=== PATIENT | female | born 1955 | race Caucasian/White ===

== ENCOUNTER 2024-03-27 10:55 | Outpatient (OUT) | payer MEDICARE, SELFPAY ==
--- NOTE | 2024-03-27 10:58 | MM_ITS ---
Patient Name: DOMINGA BENNETT MR#: [id number] : 1955 Exam Date: 03/27/2024 Ordering Doctor: DR Stephen Gunter . RADIOLOGY REPORT PROCEDURE: MM TOMOSYNTHESIS SCREENING BI COMPARISON: MG MAMM SCREEN 3D [place] CAD, 03/04/2023. MG MAMM SCREEN 3D [place] CAD, 01/22/2021. MG MAMM SCREEN [place] W CAD, 10/22/2017. MG MAMM [place] SCRN W CAD DIG, 10/11/2014. INDICATIONS: Screening Calculator Name NCI Breast Cancer Risk Assessment Tool 5 Year Breast Cancer Risk 1.90% Lifetime Breast Cancer Risk 6.20% Personal Breast Cancer No Personal Ovarian Cancer No Treatments None Family Cancers Cousin-maternal with breast cancer at age ~60. LOCATION: [facility] BREAST COMPOSITION: The breasts are heterogeneously dense,which may obscure small masses. FINDINGS: DIAGNOSTIC CATEGORY 1--NEGATIVE. RIGHT BREAST: No significant suspicious finding. No significant change has occurred. LEFT BREAST: No significant suspicious finding. No significant change has occurred. RECOMMENDATIONS: ROUTINE MAMMOGRAM AND CLINICAL EVALUATION IN 12 MONTHS. PLEASE NOTE: A NORMAL MAMMOGRAM DOES NOT EXCLUDE THE POSSIBILITY OF BREAST CANCER. A CLINICALLY SUSPICIOUS PALPABLE LUMP SHOULD BE BIOPSIED. Dictated by: Levon Oneil M.D. on 03/30/2024 at 13:34 Approved by: Levon Oneil M.D. on 03/30/2024 at 13:41
== END 2024-03-27 10:56 | disposition home or self-care (01) ==
LOC: MAMMO 10:55
PROVIDERS: PCP Nurse Practitioner; Visit Provider Obstetrics & Gynecology
DX: Z12.31 Encounter for screening mammogram for malignant neoplasm of breast (principal); Z80.3 Family history of malignant neoplasm of breast
CPT/HCPCS: 77063; 77067

== ENCOUNTER 2024-04-03 09:55 | Outpatient (OUT) | payer MEDICARE, SELFPAY ==
--- NOTE | 2024-04-03 10:01 | CT_ITS ---
[address] [address] Patient Name: DOMINGA BENNETT MRN: [id number] date: 1955 Sex: F Assigned Patient Location: CT Current Patient Location: Accession/Order Number: [id number] Exam Date: 04/03/2024 10:15 Report Date: 04/04/2024 07:40 At the request of: DELMA ROMERO Procedure: CT lung screening low-dose EXAMINATION: CT lung screening low-dose HISTORY: Screening For Malignant Respiratory Organs Z12.2 COMPARISON: No relevant comparison available. TECHNIQUE: Axial, Coronal, and Sagittal images were created without the administration of IV contrast material.Dose reduction techniques were achieved by using automated exposure control and/or adjustment of mA and/or kV according to patient size and/or use of iterative reconstruction technique. FINDINGS: LUNGS: Some minimal patchy opacities identified in the segment of the right middle lobe and within the lingula, atelectasis and/or scar is favored. No significant pulmonary nodule or mass PLEURA: No mass, effusion, or pneumothorax. VASCULATURE: No abnormality. JAN: No mass or pathologic adenopathy. MEDIASTINUM: No mass or pathologic adenopathy. CARDIAC: Mild global cardiomegaly. No pericardial effusion CORONARY ARTERIES: Coronary calcifications are mild. AORTA: No aneurysm. Mild calcific atherosclerosis CHEST WALL: No mass or axillary adenopathy BONES: No bone lesion or fracture. LIMITED ABDOMEN: No suspicious findings. Limited images of the upper abdomen. OTHER: Negative. CT/CT lung screening low-dose IMPRESSION: LUNG SCREENING: Lung-RADS Category 1 Negative. No nodules and definitely benign nodules. Continue annual screening with LDCT in 12 months. Electronically authenticated by: ERICK HUFFMAN Date: 04/04/2024 07:40
--- OUTSIDE RECORDS SUMMARY | 2024-04-03 10:14 | XMS_ITS | CCD ---
Author Organization [facility] Care Team Providers Care Mails Supervisor Name Role Phone ZULEMA CURRY Unavailable Unavailable TISHA WEEKS Unavailable Unavailable MD Tisha Weeks Primary Care Provider [phone] MD Tisha Weeks Attending Provider MD Tisha Weeks Primary Care Provider DO [facility] MAHIN ., DR VALDEZ Admitting Unavailabl e KARARSALANK ., DR VALDEZ Attending Unavailabl e AMBERLY ., DR TISHA Posada Primary Care Unavailable KARASIK ., DR VALDEZ Consulting Unavailabl e KARARSALANK ., DR VALDEZ Admitting Unavailabl e KARARSALANK ., DR VALDEZ Attending Unavailabl e AMBERLY ., DR TISHA Posada Primary Care Unavailable KARASIK ., DR VALDEZ Consulting Unavailabl e LEVON ONEIL Consulting Unavailable [id number] Consulting Unavailable Emma, Lourdes L Primary Care Physician Emma, LAST TURNER Lourdes L Attending Unavailable Emma, LAST TURNER Lourdes L Attending Unavailable Emma, LAST TURNER Lourdes L Attending Unavailable Emma, LAST TURNER Lourdes L Attending Unavailable Emma, LAST TURNER Lourdes L Attending Unavailable Emma, LAST TURNER Lourdes L Attending Unavailable Emma, LAST TURNER Lourdes L Attending Unavailable Emma, LAST TURNER Lourdes L Admitting Unavailable Allergies Allergy Classification Reported Allergen(s) Allergy Type Date of Onset Reaction(s) Facility Unclassified (1 source) No Known Medication Allergies; Translations: [No Known Medication Allergies] Propensity to adverse reactions (disorder) [facility] Repository Medications Current Medications Medication Drug Class(es) Dates Sig (Normalized) Sig (Original) aspirin 81 mg oral tablet (2 sources) Platelet Aggregation Inhibitor, Nonsteroidal Anti-inflammatory Drug Start: 05-11-2019 take 81 mg by mouth once daily Aspirin Active 81 MG PO Daily June 03, 2022 12:00am atorvastatin 10 mg oral tablet (2 sources) HMG-CoA Reductase Inhibitor Start: 04-23-2023 take 1 tablet by mouth once daily atorvastatin 10 mg Tab 10 mg = 1 tab(s), Oral, Daily, # 90 tab(s), Refills(s) 3, [id number] 170.5, cm, 04/23/23 9:46:00 EDT, Height/Length Dosing, 86.2, kg, 04/23/23 9:46:00 EDT, Weight Dosing Start Date: 04/23/23 Status: Ordered Start: 06-03-2022 take 10 mg by mouth once daily Atorvastatin Active 10 MG PO Daily June 03, 2022 12:00am bisoprolol fumarate 5 mg / hydroCHLOROthiazide 6.25 mg oral tablet (2 sources) Thiazide Diuretic, beta-Adrenergic Rusty Start: 03-02-2023 take 1 tablet by mouth once daily bisoprolol-hydrochlorothiazide 5 mg-6.25 mg Tab 1 tab(s), Oral, Daily, 90 tab(s), Refill(s) 1, [facility]/pharmacy #[id number] Start Date: 03/02/23 Status: Ordered Start: 06-03-2022 take 5 tablets by mouth once daily Bisoprolol-Hydrochlorothiazide Active 5 TAB PO Daily June 03, 2022 12:00am cholecalciferol 0.125 mg oral capsule (1 source) Vitamin D Start: 06-03-2022 take 125 ug by mouth once daily Cholecalciferol (Vitamin D3) Active 125 MCG PO Daily June 03, 2022 12:00am High Potency Vitamin D3 125 mcg (5000 intl units) oral capsule (1 source) Start: 04-23-2023 take 1 capsule by mouth once daily High Potency Vitamin D3 125 mcg (5000 intl units) oral capsule 125 mcg = 1 cap(s), Oral, Daily, # 90 cap(s), Refills(s) 3, Pharmacy: [facility]/pharmacy #[id number], 170.5, cm, 04/23/23 9:46:00 EDT, Height/Length Dosing, 86.2, kg, 04/23/23 9:46:00 EDT, Weight Dosing Start Date: 04/23/23 Status: Ordered levothyroxine sodium 0.1 mg oral tablet (2 sources) l-Thyroxine Start: 06-03-2022 take 100 ug by mouth once daily Levothyroxine Active 100 MCG PO Daily June 03, 2022 12:00am Start: 05-11-2019 take 1 tablet by telly once daily levothyroxine 100 mcg (0.1 mg) Tab 100 microgram = 1 tab(s), Oral, Daily, Refills(s) 0, Thyroid Start Date: 05/11/19 Status: Ordered Ocuvite Eye + Multi (1 source) Start: 05-11-2019 take 1 tablet by mouth once daily Ocuvite Eye + Multi 1 tab(s), Oral, Daily, Refill(s) 0, Prophylaxis Start Date: 05/11/19 Status: Ordered phenytoin sodium 100 mg extended release oral capsule (2 sources) Anti-epileptic Agent Start: 06-03-2022 take 100 mg by mouth once daily Phenytoin Sodium Extended Active 100 MG PO Daily June 03, 2022 12:00am Start: 05-11-2019 take 1 capsule by mo [facility] three times daily Dilantin 100 mg Cap-ER 100 mg = 1 cap(s), Oral, TID, Refills(s) 0, Seizure Start Date: 05/11/19 Status: Ordered Completed/Discontinued Medications Medication Drug Class(es) Dates Sig (Normalized) Sig (Original) alendronic acid 35 mg oral tablet (1 source) Bisphosphonate Start: 04-23-2023 take 6-8 [oz_av] by mouth once daily alendronate 35 mg Tab 35 mg = 1 tab(s), Oral, q7day, with 6-8 oz plain water, at least 30 minutes before first food, beverage, or medication of the day, # 4 tab(s), Refills(s) 0 Start Date: 04/23/23 Status: Ordered Problems Active Problems Problem Classification Problem Date Documented Date Episodic/Chronic Disorders of lipid metabolism (1 source) Hypercholesterolemia 04-23-2023 Chronic Epilepsy; convulsions (1 source) Seizure 05-11-2019 Episodic Hemorrhoids (1 source) Internal hemorrhoids; Translations: [Other hemorrhoids] 06-03-2022 Episodic Other bone disease and musculoskeletal deformities (1 source) Other specified disorders of bone density and structure, unspecified site; Translations: [OTH D/O BONE DEN STRUCT UNS SITE] Onset: 03-07-20 Episodic Other screening for suspected conditions (not mental disorders or infectious disease) (5 sources) Encounter for screening mammogram for malignant neoplasm of breast; Translations: [Encounter for screening for malignant neoplasm of cervix] Onset: 09-30-20 Episodic Phlebitis; thrombophlebitis and thromboembolism (1 source) Acute deep venous thrombosis of axillary vein 05-10-2019 Episodic Pneumonia (except that caused by tuberculosis or sexually transmitted disease) (1 source) Pneumonia 05-11-2019 Episodic Residual codes; unclassified (4 sources) Asymptomatic menopausal state; Translations: [ASYMPTOMATIC MENOPAUSAL STATE] Onset: 03-04-20 Episodic Residual codes; unclassified (1 source) Family history of malignant neoplasm of breast; Translations: [FAMILY HX MALIG NEOPLASM OF BREAST] Onset: 03-07-20 Episodic Sprains and strains (1 source) Strain of muscle, fascia and tendon of lower back, initial encounter; Translations: [Strain of muscle, fascia and tendon of lower back, initial encounter] Onset: 05-07-20 18 Episodic Thyroid disorders (1 source) Hypothyroidism 05-10-2019 Chronic Past or Other Problems Problem Classification Problem Date Documented Date Episodic/Chronic Immunizations and screening for infectious disease (1 source) Encounter for screening for human papillomavirus (HPV); Translations: [ENC SCREENING HUMAN PAPILLOMAVIRUS] Onset: 10-03-2022 Episodic Results Test Name Value Interpretation Reference Range Facility Ambulatory Visit Summaryon 0 03-30-2024 Ambulatory Visit Summary VENITA BENNETT Vance :1955 Visit Date:03/30/2024 Ambulatory Visit Instructions Your Diagnosis Wellness examination Hypercholesteremia Hypothyroidism Seizures BMI 30.0-30.9,adult Non-smoker Your Care Team Attending Physician - Lourdes Fan Primary Care Physician - Lourdes Fan This Is Your Medications List alendronate (alendronate 35 mg Tab) aspirin (aspirin 81 mg oral tablet) atorvastatin (atorvastatin 10 mg Tab) bisoprolol-hydrochlor othiazide (bisoprolol-hydrochlo rothiazide 5 mg-6.25 mg Tab) cholecalciferol (High Potency Vitamin D3 125 mcg (5000 intl units) oral capsule) levothyroxine (levothyroxine 100 mcg (0.1 mg) Tab) phenytoin (Dilantin 100 mg Cap-ER) Procedures Performed Colonoscopy (05/24/2019), Colonoscopy, Tonsillectomy. Discharge Vitals Heart Rate (Peripheral) 62 Respiratory Rate 18 Blood Pressure 124/84 Height 169.0 cm Height 67 in Weight 86.6 kg Weight 190.52 lb BMI 30.32 What to do next Scheduled Follow-Up Appointments Wednesday 11:00 AM EDT Where: [facility] Lisseth Normal [facility] Family Medicine Office/Clini c Noteon 03-30-2024 Family Medicine Office/Clinic Note HPI Staff Venita is a 68 year old female presenting Patient is here for follow up on Thyroid Disease. Do you have any of the following symptoms? Change in energy level? no Weight change? no Heat/cold intolerance? no Hair/skin/nail changes? no Change in bowels? no Last TSH: TSH: 1.17 mcIU/mL (04/23/23 17:32:00) Patient is here for follow up on hypertension. How often are you checking your blood pressure? no What are your average readings? _ Seizures: Pt is on Dilantin last level drawn on 04/23/23 10.0 Pt has labs appointment 04/25/24 pt needs refills on all medications. History of Present Illness pt presents today for wellness visit. needs refills. will have labs drawn in April Review of Systems PHQ Score Initial Depression Screen Score: 0 SCORE Physical Exam Vitals & Measurements HR: 62(Peripheral) RR: 18 BP: 124/84 SpO2: 95% HT: 67 in HT: 169.0 cm WT: 86.6 kg WT: 190.52 lb BMI: 30.32 General: alert, no acute distress ENMT: oral mucosa moist, no pharyngeal erythema or exudate Cardiovascular: regular rate and rhythm, normal peripheral perfusion Respiratory: Lungs CTA, respirations non labored Extremities: no deformity, no trauma Neurological: oriented x 4, LOC appropriate for age, CN II-XII intact, motor strength equal & normal bilaterally, speech normal Assessment/Plan 1. Wellness examination (Z00.00: Encounter for general adult medical examination without abnormal findings) pt presents today for wellness visit. only complaint today is varicose veins on feet. will call vein clinic for further evaluation. RTC 1 year Ordered: Phenytoin Level Total 2. Hypercholesteremia (E78.00: Pure hypercholesterolemia, unspecified) lipid panel ordered. meds refilled Ordered: cholecalciferol, 125 mcg = 1 cap(s), Oral, Daily, X 90 day(s), # 90 cap(s), Refills(s) 3, Pharmacy: [facility]/pharmacy #[id number], 169, cm, 03/30/24 11:31:00 EDT, Height/Length Dosing, 86.6, kg, 03/30/24 11:31:00 EDT, Weight Dosing cholecalciferol, 125 mcg = 1 cap(s), Oral, Daily, # 90 cap(s), Refills(s) 3, Pharmacy: [facility]/pharmacy #[id number], 170.5, cm, 04/23/23 9:46:00 EDT, Height/Length Dosing, 86.2, kg, 04/23/23 9:46:00 EDT, Weight Dosing Phenytoin Level Total 3. Hypothyroidism (E03.9: Hypothyroidism, unspecified) meds refilled. labs ordered will do after April 23 Ordered: cholecalciferol, 125 mcg = 1 cap(s), Oral, Daily, X 90 day(s), # 90 cap(s), Refills(s) 3, [id number] 169, cm, 03/30/24 11:31:00 EDT, Height/Length Dosing, 86.6, kg, 03/30/24 11:31:00 EDT, Weight Dosing cholecalciferol, 125 mcg = 1 cap(s), Oral, Daily, # 90 cap(s), Refills(s) 3, [id number], 170.5, cm, 04/23/23 9:46:00 EDT, Height/Length Dosing, 86.2, kg, 04/23/23 9:46:00 EDT, Weight Dosing Phenytoin Level Total 4. Seizures (R56.9: Unspecified convulsions) meds refilled. labs ordered Ordered: cholecalciferol, 125 mcg = 1 cap(s), Oral, Daily, X 90 day(s), # 90 cap(s), Refills(s) 3, Pharmacy: [facility]/pharmacy #[id number], 169, cm, 03/30/24 11:31:00 EDT, Height/Length Dosing, 86.6, kg, 03/30/24 11:31:00 EDT, Weight Dosing cholecalciferol, 125 mcg = 1 cap(s), Oral, Daily, # 90 cap(s), Refills(s) 3, [id number], 170.5, cm, 04/23/23 9:46:00 EDT, Height/Length Dosing, 86.2, kg, 04/23/23 9:46:00 EDT, Weight Dosing Phenytoin Level Total 5. BMI 30.0-30.9,adult (Z68.30: Body mass index [BMI] 30.0-30.9, adult) BMI education 6. Non-smoker (Z78.9: Other specified health status) continue not smoking Ordered: cholecalciferol, 125 mcg = 1 cap(s), Oral, Daily, X 90 day(s), # 90 cap(s), Refills(s) 3, [id number], 169, cm, 03/30/24 11:31:00 EDT, Height/Length Dosing, 86.6, kg, 03/30/24 11:31:00 EDT, Weight Dosing cholecalciferol, 125 mcg = 1 cap(s), Oral, Daily, # 90 cap(s), Refills(s) 3, [id number], 170.5, cm, 04/23/23 9:46:00 EDT, Height/Length Dosing, 86.2, kg, 04/23/23 9:46:00 EDT, Weight Dosing Orders: alendronate, 35 mg = 1 tab(s), Oral, q7day, with 6-8 oz plain water, at least 30 minutes before first food, beverage, or medication of the day, # 13 tab(s), Refills(s) 0, [id number], 170.5, cm, 11/22/23 11:48:00 EST, Height/Length Dosing, 87.2, k... alendronate, 35 mg = 1 tab(s), Oral, q7day, with 6-8 oz plain water, at least 30 minutes before first food, beverage, or medication of the day, X 90 day(s), # 13 tab(s), Refills(s) 3, Pharmacy: [facility]/pharmacy #[id number], 169, cm, 03/30/24 11:31:00 EDT, Height/Length Dosi... atorvastatin, 10 mg = 1 tab(s), Oral, Daily, X 90 day(s), # 90 tab(s), Refills(s) 3, [id number], 169, cm, 03/30/24 11:31:00 EDT, Height/Length Dosing, 86.6, kg, 03/30/24 11:31:00 EDT, Weight Dosing atorvastatin, 10 mg = 1 tab(s), Oral, Daily, # 90 tab(s), Refills(s) 3, [id number], 170.5, cm, 04/23/23 9:46:00 EDT, Height/Length Dosing, 86.2, kg, 04/23/23 9:46:00 EDT, Weight Dosing bisoprolol-hydrochlor othiazide, 1 tab(s), Oral, Daily for 90 (more content not included)... [facility] Comment on above: Result Comment: Elec tronically Signed By: Lourdes Fan\.br\Date and Time Signed: 03/30/24 12:52 EDT Living Will/POAon 03-30-2024 Living Will/POA [id number] .00TIFF [facility] Outside Mammographyon 2023 Outside Mammography [id number] .00TIFF [facility] Family Medicine Office/Clini c Noteon 03-29-2024 Family Medicine Office/Clinic Note Chief Complaint Medicare Wellness Visit Review of Systems PHQ Score Initial Depression Screen Score: 0 SCORE Physical Exam Vitals & Measurements HR: 54(Peripheral) RR: 16 BP: 122/82 SpO2: 95% HT: 169 cm HT: 67 in WT: 86 kg WT: 189.2 lb BMI: 30.11 Assessment/Plan 1. Annual visit for general adult medical examination without abnormal findings (Z00.00: Encounter for general adult medical examination without abnormal findings) The patient was given a customized and personalized print out of all the current AHRQ USPSTF?s recommendations for preventative services and all current CDC recommended immunizations, relevant risk recommendations and the following patient brochures were given. Reviewed Medicare Prevention Services checklist. CDC-Falls Prevention and home safety screening reviewed. Patient denies any falls in last 12 months, voices no worry about falling. Exhibits no problems with sitting, standing or ambulation. Patient aware with keeping walk way area free of clutter to prevent tripping and/or falling. [place] Advance Directives reviewed. Documents remain at home, encouraged to bring in for scanning into chart. Patient denies any problems with ADL?s and Instrumental ADL?s. Cognitive screening completed with memory and clock face drawing. No deficits noted. Immunization record reviewed, discussed Shingrix vaccine with educational handout and availability. COVID vaccines have been administered, with Boosters received. Allergies and medications reviewed and up to date. No concerns with taking medication as prescribed. Reviewed OTC medications, medication list up to date. Blood tests were reviewed: Discussed what tests need to be updated. Labs were ordered, will have completed at next PCP visit. No concerns with bowel/ bladder. Colonoscopy last completed: 05/24/2019 with a 10 year repeat recommended. Reviewed pain symptoms : denies pain. Reviewed all outside providers that patient follows. Last visit summary notes available in chart and/or have been requested. Patient declines any signs or symptoms of depression at this time. 8 minutes spent with screening and documentation. PHQ2 screening score 0. Patient denies alcohol use, denies concerns. 8 minutes spent with screening and documentation. Audit score 0. Follow up scheduled with PCP, patient to schedule for April 2024. AWV has been scheduled, 03/27/25. Medicare provides yearly screening for alcohol and depression concerns. This is completed during our Medicare wellness visit for those who do not have a current diagnosis of depression or concerns with alcohol use. I spent a total of 16 minutes on this date of service which included preparing to see the patient, face to face patient care, completing clinical documentation, obtaining and/or reviewing separately obtained history, counseling and educating the patient with handouts. Explanations were provided with reviewing questionnaires. AUDIT risk assessment screening completed, risk score (0) with patient denying concerns with use. Completed PHQ-2 risk assessment for depression with risk score (0), negative findings. Patient has been reminded to notify the provider if there would be a change or concerns with symptoms with fear, unable to sleep, worrying too much or feeling down and/or sad with lost of interest with daily activities. Will continue to monitor with screening yearly during Medicare wellness visits. 2. Acute axillary vein thrombosis (I82.A19: Acute embolism and thrombosis of unspecified axillary vein) Patient denies arm pain, bulging arm veins, heaviness/ fatigue in arms. Taking a baby Aspirin daily. Labs monitored with office visits. Follow up with PCP. 3. Seizures (R56.9: Unspecified convulsions) Patient takes Dilantin as directed, states effective, states she has not had a seizure in the past year. Labs and medications managed with office visits. Dilantin Level ordered to be completed at next Office Visit. Follow with PCP on results. 4. Hypercholesteremia (E78.00: Pure hypercholesterolemia, unspecified) Patient encouraged to eat a diet that is low in saturated fats. Stressed importance of losing weight as being overweight does produce more lipids. Monitor alcohol intake and avoid smoking. Risks may also increase with a family history of hyperlipidemia. Patient voices understanding with healthy dietary choices to reduce risk factors associated with CVA. Taking statin medication daily. Lipid Panel ordered to be completed at next office visit. 5. Hypothyroidism (E03.9: Hypothyroidism, unspecified) Continues taking Levothyroxine daily as ordered. Denies any sensitivity to cold, extreme hair loss or increased daytime fatigue. Labs and medications followed up with PCP as needed 6. Obesity due to excess calories (E66.09: Other obesity due to excess calories) A combination of diet and exercise can help you lose weight. Discussed weight loss benefits to dietary management and overall health with increased cardiovascular risks associate (more content not included)... Normal [facility] Comment on above: Result Comment: Elec tronically Signed By: Lourdes Fan\.br\Date and Time Signed: 03/29/24 08:12 EDT\.br\Electronically Co-Signed By: Jacklyn Luke LPN\.br\Date and Time Co-Signed: 03/28/24 13:06 EDT Historical Records Officeon 03-29-2024 Historical Records Office [id number] .00TIFF Normal [facility] Ambulatory Visit Summaryon 0 03-28-2024 Ambulatory Visit Summary VENITA BENNETT :1955 Visit Date:03/28/2024 Ambulatory Visit Instructions Your Diagnosis Annual visit for general adult medical examination without abnormal findings Acute axillary vein thrombosis Seizures Hypercholesteremia Hypothyroidism Obesity due to excess calories Ex-cigarette smoker Screening for lung cancer Screening for metabolic disorder Medication management Encounter for hepatitis C screening test for low risk patient Tests Performed CT Chest, Low Dose Screening -- Results Pending -- Please visit your patient portal for your results or contact your primary care physician. Your Care Team Attending Physician - Lourdes Fan Primary Care Physician - Lourdes Fan This Is Your Medications List alendronate (alendronate 35 mg Tab) aspirin (aspirin 81 mg oral tablet) atorvastatin (atorvastatin 10 mg Tab) bisoprolol-hydrochlor othiazide (bisoprolol-hydrochlo rothiazide 5 mg-6.25 mg Tab) cholecalciferol (High Potency Vitamin D3 125 mcg (5000 intl units) oral capsule) levothyroxine (levothyroxine 100 mcg (0.1 mg) Tab) phenytoin (Dilantin 100 mg Cap-ER) Procedures Performed Colonoscopy (05/24/2019), Colonoscopy, Tonsillectomy. Discharge Vitals Heart Rate (Peripheral) 54 Respiratory Rate 16 Blood Pressure 122/82 Height 169 cm Height 67 in Weight 86 kg Weight 189.2 lb BMI 30.11 What to do next Scheduled Follow-Up Appointments 2023 11:20 AM EDT With: Lourdes Fan Where: [facility] Invalid Interpretation Code [address] [place] [address]- \.br\ You Need to Complete the Following\.br\ CBC w/ Auto Diff, Blood, Routine collect, 04/24/24, Order for future visit, Lab Collect, Annual visit for general adult medical examination without abnormal findings [facility] Patient Educationon 03-28-20 Patient Education Infectious Disease Hepatitis C Testing Why am I having this test? Hepatitis C testing is done to check for a liver infection caused by the hepatitis C virus (HCV). A person may have one or more hepatitis C tests done to: ? Help the health care provider diagnose HCV infection. This is if a person has possible signs of infection or has been exposed to HCV. ? Find the cause of long-term (chronic) liver disease or abnormal liver function test results. ? See if a person has had hepatitis C in the past. Hepatitis C is usually diagnosed with three blood tests: ? Anti-HCV test, also called the HCV antibody test. ? HCV RNA test. ? HCV genotype test. If a person is diagnosed with a current (active) HCV infection, he or she may have another test done to help monitor the condition during treatment. This test is called the quantitative HCV RNA test. What is being tested? Each HCV test measures the amounts of different substances in your blood. ? The anti-HCV test checks for proteins that your body makes to fight HCV (antibodies). If you have antibodies to HCV, it means you have been infected with hepatitis C. It does not necessarily mean that you have an active infection. ? The HCV RNA test checks for genetic material from HCV. This test is done if your HCV antibody test is positive and your health care provider wants to find out if you have an active infection. ? The HCV genotype test. This test identifies the type (genotype) of virus you have. ? The quantitative HCV RNA test measures the amount of virus in your blood (viral load). What kind of sample is taken? A blood sample is required for HCV tests. It is usually collected by inserting a needle into a vein in the arm. How are the results reported? ? Anti-HCV test results are reported as either positive or negative for HCV antibodies. ? HCV RNA test results are reported as either positive or negative for HCV genetic material. ? HCV genotype test results are reported as which genotype of the virus you have. Genotypes are numbered 1 through 6. ? Quantitative HCV RNA test results are reported as a number that indicates your viral load. This is given as international units of virus per milliliter of blood (IU/mL). ? A result of 800,000 IU/mL or greater is considered a high viral load. ? A result of less than 800,000 IU/mL is considered a low viral load. Sometimes, results from the anti-HCV test or the HCV RNA test may report that: ? HCV antibodies or genetic material are present when they are not present (false-positive result). ? HCV antibodies or genetic material are not present when they are present (false-negative result). What do the results mean? For the anti-HCV test: ? A negative result may mean that you have not been infected with HCV. You may need to have this test done again to confirm this result. ? A positive result may mean that you have an active HCV infection, or that you have been infected with HCV in the past. An HCV infection may not cause any symptoms, and your body may get rid of the virus without treatment. For the HCV RNA test: ? A negative result means that you do not have an active HCV infection. ? A positive result means that you have an active HCV infection. For the HCV genotype test, knowing the specific genotype you have will help your health care provider recommend the treatment that will work best for you. The quantitative HCV RNA test gives your health care provider an idea of how well your treatment is working. ? If your viral load is high, you may need different treatment. ? If your viral load is low, your treatment may be working effectively. ? You may have this test repeated to continue to monitor your treatment. Talk with your health care provider about what your results mean. Questions to ask your health care provider Ask your health care provider, or the department that is doing the test: ? When will my results be ready? ? How will I get my results? ? What are my treatment options? ? What other tests do I need? ? What are my next steps? Summary ? Hepatitis C testing is done to check for a liver infection caused by the hepatitis C virus (HCV). ? Hepatitis C is usually diagnosed with three blood tests and monitored with one test. ? A blood sample is required for these tests. It is usually collected by inserting a needle into a vein in the arm. ? Your test results for both the anti-HCV test and the HCV RNA test will be reported as either positive or negative. This information is not intended to replace advice given to you by your health care provider. Make sure you discuss any questions you have with your health care provider. Document Revised: 08/28/2021 Document Reviewed: 08/28/2021 [employer] Patient Education ? 2022 [employer] Nutrition Fat and Cholesterol Restricted Eating Plan Eating a diet that limits fat and cholesterol may help lower your risk for heart disease and other c (more content not included)... Normal [facility] Screenson 03-28-2024 Screens [id number]. [id number] Normal [facility] Ambulatory Visit Summaryon 0 11-22-2023 Ambulatory Visit Summary VENITA BENNETT :1955 Visit Date:11/22/2023 Ambulatory Visit Instructions Your Diagnosis BMI 30.0-30.9,adult Former smoker Your Care Team Attending Physician - Lourdes Fan Primary Care Physician - Lourdes Fan This Is Your Medications List alendronate (alendronate 35 mg Tab) aspirin (aspirin 81 mg oral tablet) atorvastatin (atorvastatin 10 mg Tab) bisoprolol-hydrochlor othiazide (bisoprolol-hydrochlo rothiazide 5 mg-6.25 mg Tab) cholecalciferol (High Potency Vitamin D3 125 mcg (5000 intl units) oral capsule) levothyroxine (levothyroxine 100 mcg (0.1 mg) Tab) phenytoin (Dilantin 100 mg Cap-ER) Procedures Performed Colonoscopy (05/24/2019), Colonoscopy, Tonsillectomy. Discharge Vitals Temperature (Tympanic) 36.7 ?C Heart Rate (Peripheral) 70 Respiratory Rate 18 Blood Pressure 120/76 Height 170.5 cm Height 67 in Weight 87.2 kg Weight 191.84 lb BMI 30 Medications What How Much When Why Instructions Unchanged alendronate (alendronate 35 mg Tab) 1 Tablets By Mouth Every 7 days with 6-8 oz plain water, at least 30 minutes before first food, beverage, or medication of the day Unchanged aspirin (aspirin 81 mg oral tablet) 1 Tablets By Mouth Every day Unchanged atorvastatin (atorvastatin 10 mg Tab) 1 Tablets By Mouth Every day Unchanged bisoprolol-hydrochlor othiazide (bisoprolol-hydrochlo rothiazide 5 mg-6.25 mg Tab) 1 Tablets By Mouth Every day Unchanged cholecalciferol (High Potency Vitamin D3 125 mcg (5000 intl units) oral capsule) 1 Capsules By Mouth Every day BMI 29.0-29.9,adult Non-smoker Seizures Hypothyroidism Hypercholesteremia Unchanged levothyroxine (levothyroxine 100 mcg (0.1 mg) Tab) 1 Tablets By Mouth Every day Unchanged phenytoin (Dilantin 100 mg Cap-ER) 1 Capsules By Mouth 3 times a day Allergies No Known Medication Allergies Problems Ongoing - Any problem that you are currently receiving treatment for. Acute axillary vein thrombosis Hypercholesteremia Hypothyroidism Seizures Historical - Any problem that you are no longer receiving treatment for. Pneumonia Patient Survey You may receive a survey via text or e-mail asking about your office visit. Please share your experience with us by completing your survey. We appreciate your feedback and thank you for choosing us for your care. Normal [facility] Medicine Office/Clini c Noteon 11-22-2023 Family Medicine Office/Clinic Note HPI Staff Venita is a 68 year old female presenting for acute visit Respiratory C/O: Onset: 6 days ago Body aches: no Chest congestion: no having hard time taking deep breath Chills: no Cough: yes Sputum production: yes clear started today Sore throat: yes Ear complaints: no Eye itching/watering: no Fever: no Headache: yes Nasal congestion: yes Nasal discharge: yes Poor appetite: yes Reduced activity: yes Sinus pain/pressure: no last week did have it on the right side has improved since Sneezing: no Wheezing: no Ill contacts: no Remedies tried: aspirin Questions/Concerns: pt states cough is getting worse History of Present Illness pt presents today with URI symptoms with worsening cough Review of Systems PHQ Score Initial Depression Screen Score: 0 SCORE ROS - Provider Constitutional: no fever, no chills, no sweats, no fatigue Respiratory: no shortness of breath, no cough, no orthopnea, no wheezing. Cardiovascular: no chest pain, no palpitations, no edema. Neurologic: no headache, no dizziness, no numbness, no weakness. Physical Exam Vitals & Measurements T: 36.7 ?C(Tympanic) HR: 70(Peripheral) RR: 18 BP: 120/76 SpO2: 99% HT: 67 in HT: 170.5 cm WT: 87.2 kg WT: 191.84 lb BMI: 30 General: alert, no acute distress ENMT: oral mucosa moist, no pharyngeal erythema or exudate Cardiovascular: regular rate and rhythm, normal peripheral perfusion Respiratory: Lungs CTA, respirations non labored Extremities: no deformity, no trauma Neurological: oriented x 4, LOC appropriate for age, CN II-XII intact, motor strength equal & normal bilaterally, speech normal Assessment/Plan 1. Acute bacterial bronchitis (J20.8: Acute bronchitis due to other specified organisms) pt presents with worsening cough. no fever or body aches. will treat with z mihir and tessalon pearls. pt does not want medrol dose pack. says she doesn't like the way they make her feel. RTC as needed Ordered: azithromycin, = 1 packet(s), Oral, As Directed, as directed on package labeling, X 5 day(s), # 6 tab(s), Refills(s) 0, [id number] 170.5, cm, 11/22/23 11:48:00 EST, Height/Length Dosing, 87.2, kg, 11/22/23 11:48:00 EST, Weight Dosing benzonatate, 200 mg = 1 cap(s), Oral, TID, X 7 day(s), # 21 cap(s), Refills(s) 0, [id number], 170.5, cm, 11/22/23 11:48:00 EST, Height/Length Dosing, 87.2, kg, 11/22/23 11:48:00 EST, Weight Dosing 2. Cough (R05.9: Cough, unspecified) pt presents today with cough that is worsening. is not sleeping at night because cough is so bad Ordered: azithromycin, = 1 packet(s), Oral, As Directed, as directed on package labeling, X 5 day(s), # 6 tab(s), Refills(s) 0, [id number], 170.5, cm, 11/22/23 11:48:00 EST, Height/Length Dosing, 87.2, kg, 11/22/23 11:48:00 EST, Weight Dosing benzonatate, 200 mg = 1 cap(s), Oral, TID, X 7 day(s), # 21 cap(s), Refills(s) 0, Pharmacy: [facility]/pharmacy #[id number], 170.5, cm, 11/22/23 11:48:00 EST, Height/Length Dosing, 87.2, kg, 11/22/23 11:48:00 EST, Weight Dosing 3. BMI 30.0-30.9,adult (Z68.30: Body mass index [BMI] 30.0-30.9, adult) BMI education complete Ordered: azithromycin, = 1 packet(s), Oral, As Directed, as directed on package labeling, X 5 day(s), # 6 tab(s), Refills(s) 0, [id number], 170.5, cm, 11/22/23 11:48:00 EST, Height/Length Dosing, 87.2, kg, 11/22/23 11:48:00 EST, Weight Dosing benzonatate, 200 mg = 1 cap(s), Oral, TID, X 7 day(s), # 21 cap(s), Refills(s) 0, [id number], 170.5, cm, 11/22/23 11:48:00 EST, Height/Length Dosing, 87.2, kg, 11/22/23 11:48:00 EST, Weight Dosing 4. Former smoker (Z87.891: Personal history of nicotine dependence) continue not smoking Ordered: azithromycin, = 1 packet(s), Oral, As Directed, as directed on package labeling, X 5 day(s), # 6 tab(s), Refills(s) 0, [id number], 170.5, cm, 11/22/23 11:48:00 EST, Height/Length Dosing, 87.2, kg, 11/22/23 11:48:00 EST, Weight Dosing benzonatate, 200 mg = 1 cap(s), Oral, TID, X 7 day(s), # 21 cap(s), Refills(s) 0, [id number], 170.5, cm, 11/22/23 11:48:00 EST, Height/Length Dosing, 87.2, kg, 11/22/23 11:48:00 EST, Weight Dosing Other specified bacterial agents as the cause of diseases classified elsewhere (B96.89: Other specified bacterial agents as the cause of diseases classified elsewhere) Follow-up No qualifying data available Problem List/Past Medical History Ongoing Acute axillary vein thrombosis Acute bacterial bronchitis Cough Hypercholesteremia Hypothyroidism Seizures Historical Pneumonia Procedure/Surgical History Colonoscopy (05/24/2019), Colonoscopy, Tonsillectomy. Medications alendronate 35 mg Tab, 35 mg= 1 tab(s), Oral, q7day, 6 refills aspirin 81 mg oral tablet, 81 mg= 1 tab(s), Oral, Daily atorvastatin 10 mg Tab, 10 mg= 1 tab(s), Oral, Daily, 3 refills azithromycin 250 mg Tab, 1 packet(s), Oral, As Directed benzonatate (more content not included)... Normal [facility] Comment on above: Result Comment: Elec tronically Signed By: Lourdes Fan\.br\Date and Time Signed: 11/22/23 12:40 EST Ambulatory Visit Summaryon 0 04-23-2023 Ambulatory Visit Summary LUCRECIA BENNETTRA Woodard :1955 Visit Date:04/23/2023 Ambulatory Visit Instructions Your Diagnosis Hypothyroidism Seizures Hypercholesteremia BMI 29.0-29.9,adult Non-smoker Your Care Team Attending Physician - Lourdes Fan Primary Care Physician - Lourdes Fan This Is Your Medications List alendronate (alendronate 35 mg Tab) aspirin (aspirin 81 mg oral tablet) atorvastatin (atorvastatin 10 mg Tab) bisoprolol-hydrochlor othiazide (bisoprolol-hydrochlo rothiazide 5 mg-6.25 mg Tab) cholecalciferol (High Potency Vitamin D3 125 mcg (5000 intl units) oral capsule) levothyroxine (levothyroxine 100 mcg (0.1 mg) Tab) multivitamin with minerals (Ocuvite Eye + Multi) phenytoin (Dilantin 100 mg Cap-ER) Procedures Performed Colonoscopy (05/24/2019), Colonoscopy, Tonsillectomy. Discharge Vitals Heart Rate (Peripheral) 64 Respiratory Rate 18 Blood Pressure 118/88 Height 170.5 cm Height 67 in Weight 86.2 kg Weight 189.64 lb BMI 29.65 Medications What How Much When Why Instructions Changed atorvastatin (atorvastatin 10 mg Tab) 1 Tablets By Mouth Every day Pickup at [facility]/pharmacy #61 Changed cholecalciferol (High Potency Vitamin D3 125 mcg (5000 intl units) oral capsule) 1 Capsules By Mouth Every day BMI 29.0-29.9,adult Non-smoker Seizures Hypothyroidism Hypercholesteremia Pickup at [facility]/pharmacy #[id number] Unchanged alendronate (alendronate 35 mg Tab) 1 Tablets By Mouth Every 7 days with 6-8 oz plain water, at least 30 minutes before first food, beverage, or medication of the day Unchanged aspirin (aspirin 81 mg oral tablet) 1 Tablets By Mouth Every day Unchanged bisoprolol-hydrochlor othiazide (bisoprolol-hydrochlo rothiazide 5 mg-6.25 mg Tab) 1 Tablets By Mouth Every day Unchanged levothyroxine (levothyroxine 100 mcg (0.1 mg) Tab) 1 Tablets By Mouth Every day Unchanged multivitamin with minerals (Ocuvite Eye + Multi) 1 Tablets By Mouth Every day Unchanged phenytoin (Dilantin 100 mg Cap-ER) 1 Capsules By Mouth 3 times a day Pharmacy Information [facility]/pharmacy #[id number]: [address], [place] [id number] [phone] Allergies No Known Medication Allergies Problems Ongoing - Any problem that you are currently receiving treatment for. Acute axillary vein thrombosis Hypercholesteremia Hypothyroidism Seizures Historical - Any problem that you are no longer receiving treatment for. Pneumonia Normal [facility] Auto Diffon 04-23-2023 Basophils/100 WBC (Bld) 0.6 % Normal 0.0-2.0 [facility] Comment on above: Order Comment: Order Added by Discern Expert. Performed By: #### 1 [id number], 8613751, 1552482, 91799235, 0655381, 0107432, 872657979, 7980388 ####[facility] [address] [place] [address] Basophils/Leukocytes Auto (Bld) [Pure # fraction] 0.0 E9/L Normal 0.0-0.2 [facility] Comment on above: Order Comment: Order Added by Discern Expert. Performed By: #### 1 3875379, 4701857, 9001921, 92698677, 7804189, 0299963, 929015230, 3880979 ####[facility] [address] [place] [address] Eosinophils/100 WBC (Bld) 4.8 % Normal 0.0-8.0 [facility] Comment on above: Order Comment: Order Added by Discern Expert. Performed By: #### 1 0585315, 3402728, 1506531, 80162606, 1985611, 9738375, 528622741, 5289033 ####[address] [address] Eosinophils/Leukocyte s Auto (Bld) [Pure # fraction] 0.3 E9/L Normal 0.0-0.5 [facility] Comment on above: Order Comment: Order Added by Discern Expert. Performed By: #### 1 7955109, 2678253, 1550880, 72253344, 7598243, 3019817, 413443333, 5906188 ####[address] [address] Lymphocytes/100 WBC (Bld) 36.0 % Normal 14.0-50.0 [facility] Comment on above: Order Comment: Order Added by Gladys Expert. Performed By: #### 1 7668990, 8282736, 8208099, 66266780, 2248640, 5634366, 924662098, 7777126 ####[address] [address] Lymphocytes/Leukocyte s Auto (Bld) [Pure # fraction] 2.1 E9/L Normal 1.0-4.0 [facility] Comment on above: Order Comment: Order Added by Gladys Expert. Performed By: #### 1 4035171, 5889798, 6240834, 46590861, 6096051, 1989281, 573183914, 4227019 ####[address] [address] Monocytes/100 WBC (Bld) 7.3 % Normal 4.0-14.0 [facility] Comment on above: Order Comment: Order Added by Gladys Expert. Performed By: #### 1 9531669, 7162508, 7429818, 27505266, 9905708, 9982056, 866723495, 3103594 ####[address] [address] Monocytes/Leukocytes Auto (Bld) [Pure # fraction] 0.4 E9/L Normal 0.2-1.0 [facility] Comment on above: Order Comment: Order Added by Discern Expert. Performed By: #### 1 5532640, 5859162, 0013606, 69877879, 5295458, 7391627, 375317303, 8768726 ####[facility] [address] [place] [address] Neutrophils/100 WBC (Bld) 51.3 % Normal 36.0-75.0 [facility] Comment on above: Order Comment: Order Added by Discern Expert. Performed By: #### 1 4230795, 4295459, 1371638, 79959001, 5869961, 6366122, 740955484, 3969539 ####[address] [address] Neutrophils/Leukocyte s Auto (Bld) [Pure # fraction] 3.0 E9/L Normal 2.0-7.5 [facility] Comment on above: Order Comment: Order Added by Discern Expert. Performed By: #### 1 8881907, 1290501, 5312385, 21736034, 3319837, 6939599, 590213408, 4856732 ####[address] [place] [address] CBC w/ Auto Diffon 3 Erythrocyte distribution width (RBC) [Ratio] 13.5 % Normal 10.9-14.2 [facility] Comment on above: Performed By: #### 1 8133061, 5725600, 0344129, 17862045, 8622579, 0859796, 028149291, 1073220 ####[address] [place] [address] Hematocrit (Bld) [Volume fraction] 41.5 % Normal 34.0-46.0 [facility] Comment on above: Performed By: #### 1 9769179, 5333672, 6928421, 28213658, 6042151, 5922237, 579199543, 6046568 ####[address] [place] [address] Hemoglobin (Bld) [Mass/Vol] 14.0 g/dL Normal 12.0-16.0 [facility] Comment on above: Performed By: #### 1 7723038, 3753048, 4613072, 84885822, 7556824, 3529560, 286704435, 6589970 ####[address] [address] MCH (RBC) [Entitic mass] 30.7 pg Normal 27.0-34.0 [facility] Comment on above: Performed By: #### 1 6821871, 4326364, 2503410, 80723311, 7134188, 2941160, 923663880, 6506709 ####[address] [address] MCHC (RBC) [Mass/Vol] 33.8 g/dL Normal 31.4-36.0 [facility] Comment on above: Performed By: #### 1 0664183, 3311794, 6094357, 40068147, 4902183, 7993136, 699532268, 5541392 ####[address] [address] MCV (RBC) [Entitic vol] 91.0 fL Normal 80.0-100.0 [facility] Comment on above: Performed By: #### 1 9360063, 1999239, 7800079, 88326314, 5288630, 5394232, 315726841, 7641203 ####[address] [place] [address] Platelet mean volume (Bld) [Entitic vol] 9.0 fL Normal 6.4-10.8 [facility] Comment on above: Performed By: #### 1 8784056, 4487044, 9467083, 79148116, 3626004, 4088519, 943732263, 2358883 ####[address] [address] Platelets (Bld) [#/Vol] 230.0 E9/L Normal 150.0-500.0 [facility] Comment on above: Performed By: #### 1 5490189, 4718824, 6459588, 57438388, 4956498, 1644748, 149807199, 6769298 ####[facility] [address] [place] [address] RBC (Bld) [#/Vol] 4.6 E12/L Normal 4.3-5.9 [facility] Comment on above: Performed By: #### 1 0833502, 2701352, 7669525, 09119448, 5068301, 1979777, 931311350, 9791108 ####[facility] [address] [place] [address] WBC corrected for nucl RBC Auto (Bld) [#/Vol] 5.8 E9/L Normal 4.0-11.0 [facility] Comment on above: Performed By: #### 1 2529874, 0580334, 8180507, 93349930, 9678760, 1241288, 420756501, 8123476 ####[facility] [address] [place] [address] CHEMISTRYOrdered By: SYSTEM SYSTEM on 04-23-2023 25-hydroxyvitamin D3 [Mass/Vol] 33.5 ng/mL Normal 30.0 - 100.0 ng/mL FT Remisol Albumin [Mass/Vol] 4.0 g/dL Normal 3.3 - 5.0 gm/dL [facility] Remisol Albumin/Globulin [Mass ratio] 1.4 {ratio} Normal 1.1 - 2.2 [facility] Remisol ALP [Catalytic activity/Vol] 79 [iU]/d Normal 21 - 98 Int._Unit/L [facility] Remisol ALT No additional P-5'-P [Catalytic activity/Vol] 20 [iU]/d Normal 6 - 46 Int._Unit/L [facility] Remisol Anion gap [Moles/Vol] 10 mmol/L Normal 6 - 16 mEq/L [facility] Remisol AST [Catalytic activity/Vol] 25 [iU]/d Normal 5 - 43 Int._Unit/L [facility] Bilirubin [Mass/Vol] 0.5 mg/dL Normal 0.0 - 1 .1 mg/dL [facility] Calcium [Mass/Vol] 9.2 mg/dL Normal 8.9 - 11. 1 mg/dL [facility] Chloride [Moles/Vol] 104 mmol/L Normal 101 - 1 11 mmol/L [facility] Cholesterol [Mass/Vol] 216 mg/dL High 120 - 200 mg/dL [facility] Cholesterol in HDL [Mass/Vol] 72 mg/dL Invalid Interpretation Code [facility] Cholesterol in LDL [Mass/Vol] 116 mg/dL Normal <=129mg/dL [facility] Cholesterol in VLDL [Mass/Vol] 12 mg/dL Normal 7 - 40 mg/dL [facility] CO2 [Moles/Vol] 29 mmol/L Normal 21 - 31 mmol/L [facility] Creatinine [Mass/Vol] 1.1 mg/dL Normal 0.5 - 1.3 mg/dL [facility] Remisol GFR/1.73 sq M.predicted among non-blacks MDRD (S/P/Bld) [Vol rate/Area] 55 mL/min/1.73 m2 Low >=59mL/min/1.7 3 m2 [facility] Chem S Globulin (S) [Mass/Vol] 2.9 g/dL Normal 1.4 - 4.0 gm/dL [facility] Remisol Glucose [Mass/Vol] 117 mg/dL Normal 55 - 199 mg/dL [facility] Phenytoin [Mass/Vol] 10.0 microgram/mL Normal 10 .0 - 19.9 mcg/mL [facility] Potassium [Moles/Vol] 4.1 mmol/L Normal 3.5 - 5.3 mmol/L [facility] Protein [Mass/Vol] 6.9 g/dL Normal 6.0 - 7.8 gm/dL [facility] Sodium [Moles/Vol] 139 mmol/L Normal 135 - 145 mmol/L [facility] Triglyceride [Mass/Vol] 60 mg/dL Normal <=149mg/dL [facility] TSH Qn 1.17 m[IU]/L Normal 0.34 - 5.60 mcIU/mL [facility] Urea nitrogen [Mass/Vol] 18 mg/dL Normal 5 - 21 mg/dL [facility] Urea nitrogen/Creatinine [Mass ratio] 16 mg/mg Normal 10 - 20 [facility] Remisol CMPon 04-23-2023 Albumin [Mass/Vol] 4.0 g/dL Normal 3.3-5.0 [facility] Comment on above: Performed By: #### 1 1769926, 2754555, 9996670, 00526412, 0193413, 8244787, 805392864, 5983746 ####[facility] [address] [place] [address] Albumin/Globulin (S) [Mass conc ratio] 1.4 Normal 1.1-2.2 [facility] Comment on above: Performed By: #### 1 9393569, 4479551, 9834544, 04672114, 5076595, 6950728, 014772245, 9149995 ####[facility] [address] [place] [address] ALP [Catalytic activity/Vol] 79 Int._Unit/L Normal 21-98 [facility] Comment on above: Performed By: #### 1 8080474, 9571331, 8919590, 48891951, 6346470, 4474746, 135120842, 2432970 ####[facility] [address] [place] [address] ALT No additional P-5'-P [Catalytic activity/Vol] 20 Int._Unit/L Normal 6-46 [facility] Comment on above: Performed By: #### 1 1720557, 1528300, 0143795, 85861585, 5759826, 8792190, 008691538, 8782685 ####[facility] [address] [place] [address] Anion gap [Moles/Vol] 10 mmol/L Normal 6-16 [facility] Comment on above: Performed By: #### 1 0382620, 8955644, 4838132, 61860148, 0833416, 2541419, 925802171, 9257911 ####[facility] [address] [place] [address] AST [Catalytic activity/Vol] 25 Int._Unit/L Normal 5-43 [facility] Comment on above: Performed By: #### 1 5626439, 5081610, 8797396, 55758177, 3865950, 4279794, 346751671, 3338799 ####[facility] [address] [place] [address] Bilirubin [Mass/Vol] 0.5 mg/dL Normal 0.0-1.1 [facility] Comment on above: Performed By: #### 1 0242367, 8128690, 3880064, 42394800, 5479472, 4664853, 797073697, 1940893 ####[facility] [address] [place] [address] Calcium [Mass/Vol] 9.2 mg/dL Normal 8.9-11.1 [facility] Comment on above: Performed By: #### 1 2609853, 2265622, 2224978, 34539254, 5705752, 8718124, 073732931, 4651345 ####[facility] [address] [place] [address] Chloride [Moles/Vol] 104 mmol/L Normal 101-111 [facility] Comment on above: Performed By: #### 1 3735807, 2685238, 2705813, 77371300, 5692845, 2343010, 412262594, 7667352 ####[facility] [address] [place] [address] CO2 [Moles/Vol] 29 mmol/L Normal 21-31 [facility] Comment on above: Performed By: #### 1 3798530, 2930634, 0955271, 31523640, 5887722, 5212804, 774490170, 3352075 ####[facility] [address] [place] [address] Creatinine [Mass/Vol] 1.1 mg/dL Normal 0.5-1.3 [facility] Comment on above: Performed By: #### 1 5274347, 8959089, 7234216, 40201357, 0575002, 9165364, 121665979, 8168528 ####[facility] [address] [place] [address] Globulin (S) [Mass/Vol] 2.9 g/dL Normal 1.4-4.0 [facility] Comment on above: Performed By: #### 1 0197513, 1124303, 5370847, 13255360, 5238526, 4164361, 737246390, 4328809 ####[facility] [address] [place] [address] Glucose [Mass/Vol] 117 mg/dL Normal 55-199 [facility] Comment on above: Result Comment: If t his glucose result represents a fasting glucose, interpretation should refer to the following reference range: 55-99 mg/dL Performed By: #### 1 4829820, 7799424, 9055672, 15859590, 3429120, 9142005, 620126937, 9406716 ####[facility] [address] [place] [address] Potassium [Moles/Vol] 4.1 mmol/L Normal 3.5-5.3 [facility] Comment on above: Performed By: #### 1 5599269, 7799288, 6218675, 61027870, 1374563, 9353001, 662273498, 9227273 ####[facility] [address] [place] [address] Protein [Mass/Vol] 6.9 g/dL Normal 6.0-7.8 [facility] Comment on above: Performed By: #### 1 8957223, 9341242, 1747257, 82044633, 9402646, 1539861, 270721066, 4713159 ####[facility] [address] [place] [address] Sodium [Moles/Vol] 139 mmol/L Normal 135-145 [facility] Comment on above: Performed By: #### 1 5399445, 3980560, 4821970, 17932328, 2898907, 1840298, 079948617, 9798458 ####[facility] [address] [place] [address] Urea nitrogen [Mass/Vol] 18 mg/dL Normal 5-21 [facility] Comment on above: Performed By: #### 1 [id number], [id number], [id number], [id number], 1204217, 8168011, [id number], [id number] ####[facility] [address] [place] [address] Urea nitrogen/Creatinine [Mass ratio] 16 No Units Normal 10-20 [facility] Comment on above: Performed By: #### 1 [id number], [id number], 5287254, [id number], 6608017, 0639465, [id number], [id number] ####[facility] [address] [place] [address] Dilantinon 04-23-2023 Phenytoin [Mass/Vol] 10.0 microgram/mL Normal 10.0-19. 9 [facility] Comment on above: Performed By: #### 1 [id number], [id number], 7408743, 11339963, 6913602, 1659720, [id number], [id number] ####[facility] [address] [place] [address] Family Medicine Office/Clini c Noteon 04-23-2023 Family Medicine Office/Clinic Note Chief Complaint Establish care. [facility] Staff Nathan is a 67 year old female presenting to establish care Establish Care: History: Any previous diagnosis: Pure hypercholesterolemia, Epilepsy, hypothyroidism, HTN, History of seeing any specialist: When was your last doctors visit: within the last year. Last provider: Dr Wekes Any recent labs:01/31/22 TSH 1.43 Vitamin D 58.7 Health Maintenance UTD: Colonoscopy: ages 50, and 60 Mammogram: 03/16 Pelvic/Pap: Acute: Current issues/complaints: none at this time. History of Present Illness pt presents today to establish care. is in need of refills and lab work Review of Systems PHQ Score Initial Depression Screen Score: 0 ROS - Provider Constitutional: no fever, no chills, no sweats, no fatigue Respiratory: no shortness of breath, no cough, no orthopnea, no wheezing. Cardiovascular: no chest pain, no palpitations, no edema. Neurologic: no headache, no dizziness, no numbness, no weakness. Physical Exam Vitals & Measurements HR: 64(Peripheral) RR: 18 BP: 118/88 SpO2: 97% HT: 67 in HT: 170.5 cm WT: 86.2 kg WT: 189.64 lb BMI: 29.65 General: alert, no acute distress ENMT: oral mucosa moist, no pharyngeal erythema or exudate Cardiovascular: regular rate and rhythm, normal peripheral perfusion Respiratory: Lungs CTA, respirations non labored Extremities: no deformity, no trauma Neurological: oriented x 4, LOC appropriate for age, CN II-XII intact, motor strength equal & normal bilaterally, speech normal Assessment/Plan 1. Hypothyroidism (E03.9: Hypothyroidism, unspecified) pt presents today to establish care. Last TSH was january of last year. Will draw labs today. Pt denies any complaints. Her OBGYN moved so she will return to office in August for well woman exam. All questions answered. Ordered: cholecalciferol, 125 mcg = 1 cap(s), Oral, Daily, # 90 cap(s), Refills(s) 3, Pharmacy: [facility]/pharmacy #[id number], 170.5, cm, 04/23/23 9:46:00 EDT, Height/Length Dosing, 86.2, kg, 04/23/23 9:46:00 EDT, Weight Dosing CBC w/ Auto Diff Comprehensive Metabolic Panel Lipid Panel Phenytoin Level Total TSH With T4fr Reflex Vitamin D 25 Hydroxy 2. Seizures (R56.9: Unspecified convulsions) Pt is on dilantin will draw level today in office Ordered: cholecalciferol, 125 mcg = 1 cap(s), Oral, Daily, # 90 cap(s), Refills(s) 3, Pharmacy: [facility]/pharmacy #[id number], 170.5, cm, 04/23/23 9:46:00 EDT, Height/Length Dosing, 86.2, kg, 04/23/23 9:46:00 EDT, Weight Dosing 3. Hypercholesteremia (E78.00: Pure hypercholesterolemia, unspecified) Pt in need of atorvastatin refill. will check lipids in office today Ordered: cholecalciferol, 125 mcg = 1 cap(s), Oral, Daily, # 90 cap(s), Refills(s) 3, Pharmacy: [facility]/pharmacy #[id number], 170.5, cm, 04/23/23 9:46:00 EDT, Height/Length Dosing, 86.2, kg, 04/23/23 9:46:00 EDT, Weight Dosing CBC w/ Auto Diff Comprehensive Metabolic Panel Lipid Panel Phenytoin Level Total TSH With T4fr Reflex Vitamin D 25 Hydroxy 4. BMI 29.0-29.9,adult (Z68.29: Body mass index [BMI] 29.0-29.9, adult) BMI education complete Ordered: cholecalciferol, 125 mcg = 1 cap(s), Oral, Daily, # 90 cap(s), Refills(s) 3, Pharmacy: [facility]/pharmacy #[id number], 170.5, cm, 04/23/23 9:46:00 EDT, Height/Length Dosing, 86.2, kg, 04/23/23 9:46:00 EDT, Weight Dosing CBC w/ Auto Diff Comprehensive Metabolic Panel Lipid Panel Phenytoin Level Total TSH With T4fr Reflex Vitamin D 25 Hydroxy 5. Non-smoker (Z78.9: Other specified health status) continue not smoking Ordered: cholecalciferol, 125 mcg = 1 cap(s), Oral, Daily, # 90 cap(s), Refills(s) 3, Pharmacy: [facility]/pharmacy #[id number], 170.5, cm, 04/23/23 9:46:00 EDT, Height/Length Dosing, 86.2, kg, 04/23/23 9:46:00 EDT, Weight Dosing CBC w/ Auto Diff Comprehensive Metabolic Panel Lipid Panel Phenytoin Level Total TSH With T4fr Reflex Vitamin D 25 Hydroxy Orders: atorvastatin, 10 mg = 1 tab(s), Oral, Daily, # 90 tab(s), Refills(s) 3, Pharmacy: [facility]/pharmacy #[id number], 170.5, cm, 04/23/23 9:46:00 EDT, Height/Length Dosing, 86.2, kg, 04/23/23 9:46:00 EDT, Weight Dosing Follow-up No qualifying data available Problem List/Past Medical History Ongoing Acute axillary vein thrombosis Hypercholesteremia Hypothyroidism Seizures Historical Pneumonia Procedure/Surgical History Colonoscopy (05/24/2019), Colonoscopy, Tonsillectomy. Medications alendronate 35 mg Tab, 35 mg= 1 tab(s), Oral, q7day aspirin 81 mg oral tablet, 81 mg= 1 tab(s), Oral, Daily atorvastatin 10 mg Tab, 10 mg= 1 tab(s), Oral, Daily, 3 refills bisoprolol-hydrochlor othiazide 5 mg-6.25 mg Tab, 1 tab(s), Oral, Daily, 1 refills Dilantin 100 mg Cap-ER, 100 mg= 1 cap(s), Oral, TID High Potency Vitamin D3 125 mcg (5000 intl units) oral capsule, 125 mcg= 1 cap(s), Oral, Daily, 3 refills levothyroxine 100 mcg (0.1 mg) Tab, 100 mcg= 1 tab(s), Oral, Daily Ocuvite Eye + Multi, 1 tab(s), Oral, Daily Allergies No Known Medication Allergies (more content not included)... Normal [facility] Comment on above: Result Comment: Elec tronically Signed By: Lourdes Fan\.br\Date and Time Signed: 04/23/23 10:19 EDT HEMATOLOGYOrdered By: SYSTEM SYSTEM on 04-23-2023 Basophils/100 WBC (Bld) 0.6 % Normal 0.0 - 2.0 % [facility] Basophils/Leukocytes Auto (Bld) [Pure # fraction] 0.0 E9/L Normal 0.0 - 0.2 E9/L [facility] Eosinophils/100 WBC (Bld) 4.8 % Normal 0.0 - 8.0 % [facility] Eosinophils/Leukocyte s Auto (Bld) [Pure # fraction] 0.3 E9/L Normal 0.0 - 0.5 E9/L [facility] Lymphocytes/100 WBC (Bld) 36.0 % Normal 14.0 - 50.0 % [facility] Lymphocytes/Leukocyte s Auto (Bld) [Pure # fraction] 2.1 E9/L Normal 1.0 - 4.0 E9/L [facility] Monocytes/100 WBC (Bld) 7.3 % Normal 4.0 - 14.0 % [facility] Monocytes/Leukocytes Auto (Bld) [Pure # fraction] 0.4 E9/L Normal 0.2 - 1.0 E9/L [facility] Neutrophils/100 WBC (Bld) 51.3 % Normal 36.0 - 75.0 % [facility] Neutrophils/Leukocyte s Auto (Bld) [Pure # fraction] 3.0 E9/L Normal 2.0 - 7.5 E9/L [facility] HEMATOLOGYOrdered By: Kenia Louise on 04-23-2023 Erythrocyte distribution width (RBC) [Ratio] 13.5 % Normal 10.9 - 14.2 % [facility] Hematocrit (Bld) [Volume fraction] 41.5 % Normal 34.0 - 46.0 % [facility] Hemoglobin (Bld) [Mass/Vol] 14.0 g/dL Normal 12.0 - 16.0 gm/dL [facility] MCH (RBC) [Entitic mass] 30.7 pg Normal 27.0 - 34.0 pg [facility] MCHC (RBC) [Mass/Vol] 33.8 g/dL Normal 31.4 - 36.0 gm/dL [facility] MCV (RBC) [Entitic vol] 91.0 fL Normal 80.0 - 100.0 fL [facility] Platelet mean volume (Bld) [Entitic vol] 9.0 fL Normal 6.4 - 10.8 fL [facility] Platelets (Bld) [#/Vol] 230.0 E9/L Normal 150.0 - 500.0 E9/L [facility] RBC (Bld) [#/Vol] 4.6 E12/L Normal 4.3 - 5.9 E12/L [facility] WBC corrected for nucl RBC Auto (Bld) [#/Vol] 5.8 E9/L Normal 4.0 - 11.0 E9/L [facility] Lipid Panelon 04-23-2023 Cholesterol [Mass/Vol] 216 mg/dL High 120-200 [facility] Comment on above: Performed By: #### 1 [id number], 2085019, 2143982, 13240152, 3058761, 5301843, [id number], 5721271 ####[facility] [address] [place] [address] Cholesterol in HDL [Mass/Vol] 72 mg/dL Invalid Interpretation Code [facility] Comment on above: Result Comment: HDL > or equal to 60 mg/dL: Low cardiovascular risk HDL < 40 mg/dL : High cardiovascular risk Performed By: #### 1 [id number], 4604558, 0400409, 37540872, 3999433, 7932341, [id number], 7558356 ####[facility] [address] [place] [address] Cholesterol in LDL [Mass/Vol] 116 mg/dL Normal <=129 [facility] Comment on above: Performed By: #### 1 [id number], 9055695, 0478178, 18719251, 2895157, 7297454, [id number], 2405448 ####[facility] [address] [place] [address] Cholesterol in VLDL [Mass/Vol] 12 mg/dL Normal 7-40 [facility] Comment on above: Performed By: #### 1 2495354, 0971037, 4919868, 21712925, 5928655, 1177933, [id number], 9313113 ####[facility] [address] [place] [address] Triglyceride [Mass/Vol] 60 mg/dL Normal <=149 [facility] Comment on above: Performed By: #### 1 [id number], 7825201, 0568175, 98007117, 4739507, 3091275, [id number], 0313482 ####[facility] [address] [place] [address] TSH With T4fr Reflexon 04-23 TSH Qn 1.17 m[IU]/L Normal 0.34-5.60 [facility] Comment on above: Performed By: #### 1 [id number], 2666285, 1722961, 37448599, 6069530, 4895959, [id number], 1817450 ####[facility] [address] [place] [address] Vitamin D 25 Hydroxyon 04-23 25-hydroxyvitamin D3 [Mass/Vol] 33.5 ng/mL Normal 30.0-100.0 [facility] Comment on above: Result Comment: Vit schmidt D deficiency has been defined as a level of serum 25-OH vitamin D less than 20 ng/mL (1,2) by the [place] of Medicine and an Endocrine Society practice guideline. The Endocrine Society further defined vitamin D insufficiency as a level between 21 and 29 ng/mL (2). 1. IOM ([place] of Medicine). 2010. Dietary reference intakes for calcium and D. [place]: The National Academies Press. 2. Purvi MF, Ainsley ECHEVERRIA, Luis BLUE, et al. Evaluation, treatment, and prevention of vitamin D deficiency: an Endocrine Society clinical practice guideline. JCEM. 2010; 96 (7):1911-30. Performed By: #### 1 [id number], 5964427, 5199410, 47891737, 9570648, 8976873, [id number], 7602946 ####[facility] [address] [place] [address] eGFRon 04-23-2023 GFR/1.73 sq M.predicted among non-blacks MDRD (S/P/Bld) [Vol rate/Area] 55 mL/min/1.73 m2 Low >=59 [facility] Comment on above: Order Comment: Order added by Discern Expert. Result Comment: Kit Planner colton kidney disease could be indicated at eGFR's of less than 60 mL/min/1.73m2. Kidney failure is indicated at less than 15 mL/min/1.73m2. Performed By: #### 1 [id number], 1671638, 5991477, 31591117, 1242258, 9567640, 955672175, 1590525 ####[facility] [address] [place] [address] MG MAMM SCREEN 3D ELLE CADon 03-04-2023 MG MAMM SCREEN 3D ELLE CAD Patient: VENITA BENNETT Exam Date: 03/04/2023 : 1955 Gender:F Ordering : DR COURTNEY STOCKTON . Admission #: [id number] Family : Order #: [id number] CLICK HERE TO VIEW EXAM RADIOLOGY REPORT PROCEDURE: MAMMOGRAM SCREENING 3D BILATERAL CAD COMPARISON: MG MAMM SCREEN 3D ELLE CAD, 01/22/2021. MG MAMM SCREEN ELLE W CAD, 10/22/2017. MG MAMM ELLE SCRN W CAD DIG, 10/21/2016. DIGITIZED_MAMMO, 11/27/2008. INDICATIONS: Screening mammography Calculator Name NCI Breast Cancer Risk Assessment Tool 5 Year Breast Cancer Risk 1.90% Lifetime Breast Cancer Risk 6.40% Personal Breast Cancer No Personal Ovarian Cancer No Treatments None Family Cancers Cousin-maternal with breast cancer at age 60. LOCATION: [facility] BREAST COMPOSITION: Heterogeneously dense,which may obscure small masses. FINDINGS: DIAGNOSTIC CATEGORY 1--NEGATIVE. RIGHT BREAST: No significant suspicious finding. No significant change has occurred. LEFT BREAST: No significant suspicious finding. No significant change has occurred. RECOMMENDATIONS: ROUTINE MAMMOGRAM AND CLINICAL EVALUATION IN 12 MONTHS. PLEASE NOTE: A NORMAL MAMMOGRAM DOES NOT EXCLUDE THE POSSIBILITY OF BREAST CANCER. A CLINICALLY SUSPICIOUS PALPABLE LUMP SHOULD BE BIOPSIED. Dictated by: Levon Oneil M.D. on 03/04/2023 at 13:11 Approved by: Levon Oneil M.D. on 03/04/2023 at 13:13 Normal [facility] XR DEXA BONE DENSITYon 03-04 XR DEXA BONE DENSITY DEXA bone density study CLINICAL: 67-year-old female. Evaluate bone mineral density. The bone density study was assessed by dual-energy x-ray absorptiometry. Areas examined in AP projection. The test results are expressed in T-Score, which is used for diagnosis for osteoporosis, and reflects the standard deviations from the mean peak bone mineral density in young adults. Additional information regarding the Z-Score reflects the standard deviations from the mean peak bone mineral density for age- and gender-matched subjects. Lumbar Spine (L1-L4): BMD (gm/cm2): 1.351 T-Score: 1.4 Left Hip (total): BMD (gm/cm2): 0.998 T-Score: -0.1 Left Hip (Neck): BMD (gm/cm2): 0.832 T-Score: -1.5 Right Hip (Total): BMD (gm/cm2): 1.057 T-Score: 0.4 Right Hip (Neck): BMD (gm/cm2): 0.989 T-Score: -0.4 IMPRESSION: 1. Bone mineral density by WHO criteria: Osteopenia. Fracture risk increased. REFERENCE: In postmenopausal women and males 50 or over, comparison of the measured bone mineral density with the average value in young normal subjects (the T-Score) has been found to be useful in assessing fracture risk. Fracture risk approximately doubles for each 1.0 standard deviation (SD) that the individuals hip or spine bone mineral density is below the average value of young normal subjects. The World Health Organization (WHO) has provided the following definitions: 1. Normal: T-Score within one standard deviation of young adult mean value (T-Score at or above -1.0). 2. Osteopenia (low bone mass): T-Score more than one standard deviation below the young adult mean but less than 2.5 standard deviations below the young adult mean (T-Score between -1.0 and -2.5). 3. Osteoporosis: T-Score at or more than 2.5 standard deviations below the young adult mean (T-Score at or less than -2.5). 4. Severe Osteoporosis (established osteoporosis): T-Score more than 2.5 standard deviations below young adult and one or more fragility fracture (T-Score less than -2.5 plus fragility fractures). Electronically authenticated by: JERALD MTZ Date: 2023-03-04 12:01 Normal [facility] PAP ACOG PANEL 2: 30 to 65on 10-09-2022 . . Normal [facility] Comment on above: Performed By: #### 4 [id number] #### [facility] [address] [place] [address] Dr. Karri Lu Age Gdln ACOG Testing Comment Normal [facility] Comment on above: Result Comment: <21 or >65 or no age provided Performed By: #### 4 [id number] #### [facility] [address] [place] [address] Dr. Karri Lu DIAGNOSIS: Comment Normal [facility] Comment on above: Result Comment: NEGA TIVE FOR INTRAEPITHELIAL LESION OR MALIGNANCY. CELLULAR CHANGES ASSOCIATED WITH ATROPHY ARE PRESENT. Performed By: #### 4 [id number] #### [facility] [address] [place] [address] Dr. Karri Lu Methodology: Comment Normal [facility] Comment on above: Result Comment: This liquid based ThinPrep(R) pap test was screened with the use of an image guided system. Performed By: #### 4 [id number] #### [facility] [address] [place] [address] Dr. Karri Lu Note: Comment Normal [facility] Comment on above: Result Comment: The Pap smear is a screening test designed to aid in the detection of premalignant and malignant conditions of the uterine cervix. It is not a diagnostic procedure and should not be used as the sole means of detecting cervical cancer. Both false-positive and false-negative reports do occur. . Performed By: #### 4 [id number] #### [facility] [address] [place] [address] Dr. Karri Lu Performed by: Comment Normal [facility] Comment on above: Result Comment: Siomara Luna, Commercial Food Instructor (ASCP) Performed By: #### 4 [id number] #### [facility] [address] [place] [address] Dr. Karri Lu Specimen adequacy: Comment Normal [facility] Comment on above: Result Comment: Sati sfactory for evaluation. Endocervical component may not be distinguished in cases of atrophy. Performed By: #### 4 [id number] #### [facility] [address] [place] [address] Dr. Karri Lu Automated erythrocytes count in urine sediment (number/area)Ordered By: Epi Robles on 06-03-2022 RBC Auto (Urine sed) [#/Area] 3-4 [HPF] 0-4 [facility] Automated leukocytes count i n urine sediment (number/area)Ordered By: Epi Robles on 06-03-2022 WBC Auto (Urine sed) [#/Area] 0-1 [HPF] 0-4 [facility] Basophils Auto (Bld) [#/Vol] Ordered By: Epi Robles on 06-03-2022 Basophils (Bld) [#/Vol] 0.0 10*3/uL 0.0-0.2 [facility] Basophils/100 WBC Auto (Bld) Ordered By: Epi Robles on 06-03-2022 Basophils/100 WBC (Bld) 0.3 % . [facility] Bilirubin Test strip Ql (U)O rdered By: Epi Robles on 06-03-2022 Bilirubin Ql (U) Negative Negative [facility] Blood hemoglobin measurement (mass/volume)Ordered By: Epi Robles on 06-03-2022 Hemoglobin (Bld) [Mass/Vol] 14.8 g/dL 11.8-15.4 [facility] Blood leukocytes automated c ount (number/volume)Ordered By: Epi Robles on 06-03-2022 WBC (Bld) [#/Vol] 7.0 10*3/uL 4.5-11.0 [facility] Body fluid albumin measureme nt (mass/volume)Ordered By: Epi Robles on 06-03-2022 Albumin (Body fld) [Mass/Vol] 3.7 g/dL 3.2-5.5 [facility] Color Auto (U)Ordered By: Jose Alberto Robles on 06-03-2022 Color (U) Yellow Yellow [facility] Complete Blood Count Auto Di ffon 06-03-2022 Basophils (Bld) [#/Vol] 0.0 10*3/uL Normal 0.0-0.2 [facility] Comment on above: Result Comment: PERF ORMED BY: [facility] [address] [place] [address] PATHOLOGIST GASKET MAKER DANITA LEIGH M.D. Performed By: #### P HENY, [id number], TSH3, CMP, T4F, LIPID, CBC, T3F #### [facility] [address] Basophils/100 WBC (Bld) 0.3 % Normal . [facility] Comment on above: Performed By: #### P HENY, [id number], TSH3, CMP, T4F, LIPID, CBC, T3F #### [address] Eosinophils (Bld) [#/Vol] 0.1 10*3/uL Normal 0.0-0.45 [facility] Comment on above: Performed By: #### P HENY, [id number], TSH3, CMP, T4F, LIPID, CBC, T3F #### [address] Eosinophils/100 WBC (Bld) 0.8 % Normal . [facility] Comment on above: Performed By: #### P HENY, [id number], TSH3, CMP, T4F, LIPID, CBC, T3F #### [address] Erythrocyte distribution width (RBC) [Ratio] 13.4 % Normal 11.9-15.3 [facility] Comment on above: Performed By: #### P HENY, [id number], TSH3, CMP, T4F, LIPID, CBC, T3F #### [address] Hematocrit (Bld) [Volume fraction] 43.8 % Normal 34.0-46.4 [facility] Comment on above: Performed By: #### P HENY, [id number], TSH3, CMP, T4F, LIPID, CBC, T3F #### [address] Hemoglobin (Bld) [Mass/Vol] 14.8 g/dL Normal 11.8-15.4 [facility] Comment on above: Performed By: #### P HENY, [id number], TSH3, CMP, T4F, LIPID, CBC, T3F #### [address] Lymphocytes (Bld) [#/Vol] 1.3 10*3/uL Normal 1.00-4.8 [facility] Comment on above: Performed By: #### P HENY, [id number], TSH3, CMP, T4F, LIPID, CBC, T3F #### [address] Lymphocytes/100 WBC (Bld) 18.0 % Normal . [facility] Comment on above: Performed By: #### P HENY, [id number], TSH3, CMP, T4F, LIPID, CBC, T3F #### [address] MCH (RBC) [Entitic mass] 30.2 pg Normal 24.7-34.3 [facility] Comment on above: Performed By: #### P HENY, [id number], TSH3, CMP, T4F, LIPID, CBC, T3F #### [address] MCV (RBC) [Entitic vol] 89.3 fL Normal 80-100 [facility] Comment on above: Performed By: #### P HENY, [id number], TSH3, CMP, T4F, LIPID, CBC, T3F #### [address] Mean Corpuscular HGB Conc 33.9 g/dL Normal 32.0-35.0 [facility] Comment on above: Performed By: #### P HENY, [id number], TSH3, CMP, T4F, LIPID, CBC, T3F #### [address] Monocytes (Bld) [#/Vol] 0.7 10*3/uL Normal 0.0-0.8 [facility] Comment on above: Performed By: #### P HENY, [id number], TSH3, CMP, T4F, LIPID, CBC, T3F #### [address] Monocytes/100 WBC (Bld) 10.1 % Normal . [facility] Comment on above: Performed By: #### P HENY, [id number], TSH3, CMP, T4F, LIPID, CBC, T3F #### [address] Neutrophils (Bld) [#/Vol] 5.0 10*3/uL Normal 1.8-7.7 [facility] Comment on above: Performed By: #### P HENY, [id number], TSH3, CMP, T4F, LIPID, CBC, T3F #### [facility] [address] Neutrophils/100 WBC (Bld) 70.8 % Normal . [facility] Comment on above: Performed By: #### P HENY, [id number], TSH3, CMP, T4F, LIPID, CBC, T3F #### [facility] [address] Nucleated RBC/100 WBC (Bld) [Ratio] 0.0 % Normal 0-0.5 [facility] Comment on above: Performed By: #### P HENY, [id number], TSH3, CMP, T4F, LIPID, CBC, T3F #### [facility] [address] Platelet mean volume (Bld) [Entitic vol] 8.6 fL Normal 6.3-10.7 [facility] Comment on above: Performed By: #### P HENY, [id number], TSH3, CMP, T4F, LIPID, CBC, T3F #### [facility] [address] Platelets (Bld) [#/Vol] 253 10*3/uL Normal 150-450 [facility] Comment on above: Performed By: #### P HENY, [id number], TSH3, CMP, T4F, LIPID, CBC, T3F #### [facility] [address] RBC (Bld) [#/Vol] 4.90 10*6/uL Normal 3.60-5.00 [facility] Comment on above: Performed By: #### P HENY, [id number], TSH3, CMP, T4F, LIPID, CBC, T3F #### [facility] [address] [place] [address] [place] WBC (Bld) [#/Vol] 7.0 10*3/uL Normal 4.5-11.0 [facility] Comment on above: Performed By: #### P HENY, [id number], TSH3, CMP, T4F, LIPID, CBC, T3F #### [address] Comprehensive Metabolic Pane nimisha 06-03-2022 Albumin [Mass/Vol] 3.7 g/dL Normal 3.2-5.5 [facility] Comment on above: Performed By: #### P HENY, [id number], TSH3, CMP, T4F, LIPID, CBC, T3F #### [address] Albumin/Globulin [Mass ratio] 1.2 {ratio} Normal [facility] Comment on above: Performed By: #### P HENY, [id number], TSH3, CMP, T4F, LIPID, CBC, T3F #### [address] ALP [Catalytic activity/Vol] 81 U/L Normal 32-92 [facility] Comment on above: Performed By: #### P HENY, [id number], TSH3, CMP, T4F, LIPID, CBC, T3F #### [address] ALT [Catalytic activity/Vol] 14 U/L Normal 10-60 [facility] Comment on above: Performed By: #### P HENY, [id number], TSH3, CMP, T4F, LIPID, CBC, T3F #### [address] AST [Catalytic activity/Vol] 26 U/L Normal 10-42 [facility] Comment on above: Performed By: #### P HENY, [id number], TSH3, CMP, T4F, LIPID, CBC, T3F #### [address] Bilirubin [Mass/Vol] 0.7 mg/dL Normal 0.3-1.2 [facility] Comment on above: Performed By: #### P HENY, [id number], TSH3, CMP, T4F, LIPID, CBC, T3F #### [address] Calcium [Mass/Vol] 9.2 mg/dL Normal 8.2-10.2 [facility] Comment on above: Performed By: #### P HENY, [id number], TSH3, CMP, T4F, LIPID, CBC, T3F #### [address] Chloride [Moles/Vol] 88 mmol/L Low 95-114 [facility] Comment on above: Performed By: #### P HENY, [id number], TSH3, CMP, T4F, LIPID, CBC, T3F #### [address] CO2 [Moles/Vol] 25.6 mmol/L Normal 22.0-30.0 [facility] Comment on above: Performed By: #### P HENY, [id number], TSH3, CMP, T4F, LIPID, CBC, T3F #### [address] Creatinine [Mass/Vol] 0.99 mg/dL Normal 0.44-1.03 [facility] Comment on above: Performed By: #### P HENY, [id number], TSH3, CMP, T4F, LIPID, CBC, T3F #### [address] Creatinine Clr Calc Pharmacy 63.77 [facility] Comment on above: Result Comment: PERF ORMED BY: [place] [address] PATHOLOGIST GASKET MAKER DANITA LEIGH M.D. Performed By: #### P HENY, [id number], TSH3, CMP, T4F, LIPID, CBC, T3F #### [address] Estimated GFR ( Kat[place] > 60 [facility] Comment on above: Result Comment: GFR estimated reference range: According to KDOQI guidelines, <60 ml/min/1.73m2 is sufficient to diagnose a patient with chronic kidney disease. Performed By: #### P HENY, [id number], TSH3, CMP, T4F, LIPID, CBC, T3F #### [facility] [address] Estimated GFR (Non- Am [address] [facility] Comment on above: Performed By: #### P HENY, [id number], TSH3, CMP, T4F, LIPID, CBC, T3F #### [facility] [address] Globulin (S) [Mass/Vol] 3.2 g/dL Normal [facility] Comment on above: Performed By: #### P HENY, [id number], TSH3, CMP, T4F, LIPID, CBC, T3F #### [facility] [address] Glucose [Mass/Vol] 116 mg/dL High 70-100 [facility] Comment on above: Result Comment: [place] Glucose Reference Range is dependent on time and content of last meal. Glucose of more than 200 mg/dL in a nonstressed, ambulatory subject supports the diagnosis of Diabetes Mellitus. ADA recommended reference range Performed By: #### P HENY, [id number], TSH3, CMP, T4F, LIPID, CBC, T3F #### [facility] [address] Potassium [Moles/Vol] Not performed Normal 3.5-5.1 [facility] Comment on above: Result Comment: RANJANA S HEMOLYSIS Performed By: #### P HENY, [id number], TSH3, CMP, T4F, LIPID, CBC, T3F #### [facility] [address] Protein [Mass/Vol] 6.9 g/dL Normal 6.1-7.9 [facility] Comment on above: Performed By: #### P HENY, [id number], TSH3, CMP, T4F, LIPID, CBC, T3F #### [facility] [address] Sodium [Moles/Vol] 127 mmol/L Low 136-146 [facility] Comment on above: Performed By: #### P HENY, [id number], TSH3, CMP, T4F, LIPID, CBC, T3F #### [facility] [address] Urea nitrogen [Mass/Vol] 19 mg/dL Normal 9- [facility] Comment on above: Performed By: #### P HENY, [id number], TSH3, CMP, T4F, LIPID, CBC, T3F #### [facility] [address] Creatinine and Glomerular fi ltration rate.predicted panel (S/P/Bld)Ordered By: Epi Robles on 06-03-2022 Creatinine [Mass/Vol] 0.99 mg/dL 0.44-1.03 [facility] Dipstick and Microscopicon 0 06-03-2022 Appearance (U) Clear Normal Clear [facility] Comment on above: Order Comment: Date of last dose?: 20220131 Time of last dose?: 0800 Performed By: #### P HENY, [id number], TSH3, CMP, T4F, LIPID, CBC, T3F #### [address] Bacteria,Urine None Seen Normal None Seen [facility] Comment on above: Order Comment: Date of last dose?: 20220131 Time of last dose?: 0800 Performed By: #### P HENY, [id number], TSH3, CMP, T4F, LIPID, CBC, T3F #### [facility] [address] Bilirubin,Urine Negative Normal Negative [facility] Comment on above: Order Comment: Date of last dose?: 20220131 Time of last dose?: 0800 Performed By: #### P HENY, [id number], TSH3, CMP, T4F, LIPID, CBC, T3F #### [facility] [address] Color (U) Yellow Normal Yellow [facility] Comment on above: Order Comment: Date of last dose?: 20220131 Time of last dose?: 0800 Performed By: #### P HENY, [id number], TSH3, CMP, T4F, LIPID, CBC, T3F #### [address] Glucose Ql (U) Normal Normal Normal [facility] Comment on above: Order Comment: Date of last dose?: 20220131 Time of last dose?: 0800 Performed By: #### P HENY, [id number], TSH3, CMP, T4F, LIPID, CBC, T3F #### [address] Hyaline Casts,Urine 0-8 Normal 0-8 [facility] Comment on above: Order Comment: Date of last dose?: 20220131 Time of last dose?: 0800 Result Comment: PERF ORMED BY: [place] [address] PATHOLOGIST [employer]ET MAKER DANITA LEIGH M.D. Performed By: #### P HENY, [id number], TSH3, CMP, T4F, LIPID, CBC, T3F #### [address] Ketones Ql (U) Negative Normal Negative [facility] Comment on above: Order Comment: Date of last dose?: 20220131 Time of last dose?: 0800 Performed By: #### P HENY, [id number], TSH3, CMP, T4F, LIPID, CBC, T3F #### [address] Leukocyte esterase Test strip Ql (U) Negative Normal Negative [facility] Comment on above: Order Comment: Date of last dose?: 20220131 Time of last dose?: 0800 Performed By: #### P HENY, [id number], TSH3, CMP, T4F, LIPID, CBC, T3F #### [place] [address] [place] Nitrite,Urine Negative Normal Negative [facility] Comment on above: Order Comment: Date of last dose?: 20220131 Time of last dose?: 0800 Performed By: #### P HENY, [id number], TSH3, CMP, T4F, LIPID, CBC, T3F #### [facility] [address] Occult Blood,Urine 1+ High Negative [facility] Comment on above: Order Comment: Date of last dose?: 20220131 Time of last dose?: 0800 Result Comment: PERF ORMED BY: [place] [address] PATHOLOGIST [employer]ET MAKER DANITA LEIGH M.D. Performed By: #### P HENY, [id number], TSH3, CMP, T4F, LIPID, CBC, T3F #### [address] pH (U) 6.0 [pH] Normal 5.0-9.0 [facility] Comment on above: Order Comment: Date of last dose?: 20220131 Time of last dose?: 0800 Performed By: #### P HENY, [id number], TSH3, CMP, T4F, LIPID, CBC, T3F #### [address] Protein,Urine Trace High Negative [facility] Comment on above: Order Comment: Date of last dose?: 20220131 Time of last dose?: 0800 Performed By: #### P HENY, [id number], TSH3, CMP, T4F, LIPID, CBC, T3F #### [facility] [address] [place], [place] [id number] [place] RBC,Urine 3-4 Normal 0-4 [facility] Comment on above: Order Comment: Date of last dose?: 20220131 Time of last dose?: 0800 Performed By: #### P HENY, [id number], TSH3, CMP, T4F, LIPID, CBC, T3F #### [facility] [address] [place] [address] [place] Specificy [place],Urine 1.009 Normal 1.001-1.030 [facility] Comment on above: Order Comment: Date of last dose?: 20220131 Time of last dose?: 0800 Performed By: #### P HENY, [id number], TSH3, CMP, T4F, LIPID, CBC, T3F #### [facility] [address] Squamous Epithelial Cell,Urine 5-9 High 0-2 [facility] Comment on above: Order Comment: Date of last dose?: 20220131 Time of last dose?: 0800 Performed By: #### P HENY, [id number], TSH3, CMP, T4F, LIPID, CBC, T3F #### [facility] [address] Urobilinogen,Urine Normal Normal Normal [facility] Comment on above: Order Comment: Date of last dose?: 20220131 Time of last dose?: 0800 Performed By: #### P HENY, [id number], TSH3, CMP, T4F, LIPID, CBC, T3F #### [facility] [address] WBC LM.HPF (Urine sed) [#/Area] 0 /[HPF] Normal 0-4 [facility] Comment on above: Order Comment: Date of last dose?: 20220131 Time of last dose?: 0800 Performed By: #### P HENY, [id number], TSH3, CMP, T4F, LIPID, CBC, T3F #### [facility] [address] [place] [address] [place] Eosinophils Auto (Bld) [#/Vo l]Ordered By: Epi Robles on 06-03-2022 Eosinophils (Bld) [#/Vol] 0.1 10*3/uL 0.0-0.45 [facility] Eosinophils/100 WBC Auto (Bl d)Ordered By: Epi Robles on 06-03-2022 Eosinophils/100 WBC (Bld) 0.8 % . [facility] Erythrocyte distribution wid th Auto (RBC) [Ratio]Ordered By: Epi Robles on 06-03-2022 Erythrocyte distribution width (RBC) [Ratio] 13.4 % 11.9-15.3 [facility] Estimated glomerular filtrat ion rate (GFR) non- AmericanOrdered By: Epi Robles on 06-03-2022 GFR/1.73 sq M.predicted among non-blacks MDRD (S/P/Bld) [Vol rate/Area] 56 mL/Min [facility] Globulin Calc (S) [Mass/Vol] Ordered By: Epi Robles on 06-03-2022 Globulin (S) [Mass/Vol] 3.2 g/dL [facility] Hematocrit Auto (Bld) [Volum e fraction]Ordered By: Epi Robles on 06-03-2022 Hematocrit (Bld) [Volume fraction] 43.8 % 34.0-46.4 [facility] Ketones Auto test strip (U) [Mass/Vol]Ordered By: Epi Robles on 06-03-2022 Ketones (U) [Mass/Vol] Negative Negative [facility] Laboratory - Hematology and Cell countsOrdered By: Epi Robles on 06-03-2022 Nucleated RBC/100 WBC (Bld) [Ratio] 0.0 % 0-0.5 [facility] - UrinalysisOrder ed By: Epi Robles on 06-03-2022 Hyaline casts LM Ql (Urine sed) 0-8 [LPF] 0-8 [facility] Lymphocytes Auto (Bld) [#/Vo l]Ordered By: Epi Robles on 06-03-2022 Lymphocytes (Bld) [#/Vol] 1.3 10*3/uL 1.00-4.8 [facility] Lymphocytes/100 WBC Auto (Bl d)Ordered By: Epi Robles on 06-03-2022 Lymphocytes/100 WBC (Bld) 18.0 % . [facility] MCH Auto (RBC) [Entitic mass ]Ordered By: Epi Robles on 06-03-2022 MCH (RBC) [Entitic mass] 30.2 pg 24.7-34.3 [facility] MCHC Auto (RBC) [Mass/Vol]Or dered By: Epi Robles on 06-03-2022 MCHC (RBC) [Mass/Vol] 33.9 g/dL 32.0-35.0 [facility] MCV Auto (RBC) [Entitic vol] Ordered By: Epi Robles on 06-03-2022 MCV (RBC) [Entitic vol] 89.3 fL 80-100 [facility] Monocytes Auto (Bld) [#/Vol] Ordered By: Epi Robles on 06-03-2022 Monocytes (Bld) [#/Vol] 0.7 10*3/uL 0.0-0.8 [facility] Monocytes/100 WBC Auto (Bld) Ordered By: Epi Robles on 06-03-2022 Monocytes/100 WBC (Bld) 10.1 % . [facility] Neutrophils Auto (Bld) [#/Vo l]Ordered By: Epi Robles on 06-03-2022 Neutrophils (Bld) [#/Vol] 5.0 10*3/uL 1.8-7.7 [facility] Neutrophils/100 WBC Auto (Bl d)Ordered By: Epi Robles on 06-03-2022 Neutrophils/100 WBC (Bld) 70.8 % . [facility] Nitrite Test strip Ql (U)Ord ered By: Epi Robles on 06-03-2022 Nitrite Ql (U) Negative Negative [facility] No Panel InformationOrdered By: Epi Robles on 06-03-2022 Estimated GFR () > 60 mL/Min [facility] Comment on above: GFR estimated refere nce range: According to KDOQI guidelines, <60 ml/min/1.73m2 is sufficient to diagnose a patient with chronic kidney disease. Pharmacy Creatinine Clearance (Chem 63.77 [facility] Platelet mean volume Auto (B ld) [Entitic vol]Ordered By: Epi Robles on 06-03-2022 Platelet mean volume (Bld) [Entitic vol] 8.6 fL 6.3-10.7 [facility] Platelets Auto (Bld) [#/Vol] Ordered By: Epi Robles on 06-03-2022 Platelets (Bld) [#/Vol] 253 10*3/uL 150-450 [facility] Protein Auto test strip (U) [Mass/Vol]Ordered By: Epi Robles on 06-03-2022 Protein (U) [Mass/Vol] Trace mg/dL Negative [facility] Protein [Mass/volume] in Ser um or PlasmaOrdered By: Epi Robles on 06-03-2022 Protein [Mass/Vol] 6.9 g/dL 6.1-7.9 [facility] RBC Auto (Bld) [#/Vol]Ordere d By: Epi Robles on 06-03-2022 RBC (Bld) [#/Vol] 4.90 10*6/uL 3.60-5.00 [facility] Serum or plasma alanine schmidt otransferase measurement without P-5'-P (enzymatic activiOrdered By: Epi Robles on 06-03-2022 ALT No additional P-5'-P [Catalytic activity/Vol] 14 U/L 10-60 [facility] Serum or plasma albumin/glob ulin mass ratioOrdered By: Epi Robles on 06-03-2022 Albumin/Globulin [Mass ratio] 1.2 {ratio} [facility] Serum or plasma alkaline nan sphatase measurement (enzymatic activity/volume)Ordered By: Epi Robles on 06-03-2022 ALP [Catalytic activity/Vol] 81 U/L 32-92 [facility] Serum or plasma aspartate am inotransferase measurement (enzymatic activity/volume)Ordered By: Epi Robles on 06-03-2022 AST [Catalytic activity/Vol] 26 U/L 10-42 [facility] Serum or plasma calcium karen urement (mass/volume)Ordered By: Epi Robles on 06-03-2022 Calcium [Mass/Vol] 9.2 mg/dL 8.2-10.2 [facility] Serum or plasma chloride pasha surement (moles/volume)Ordered By: Epi Robles on 06-03-2022 Chloride [Moles/Vol] 88 mmol/L 95-114 [facility] Serum or plasma glucose karen urement (mass/volume)Ordered By: Eip Robles on 06-03-2022 Glucose [Mass/Vol] 116 mg/dL 70-100 [facility] Comment on above: ADA recommended refe rence range Random Glucose Reference Range is dependent on time and content of last meal. Glucose of more than 200 mg/dL in a nonstressed, ambulatory subject supports the diagnosis of Diabetes Mellitus. Serum or plasma potassium me asurement (moles/volume)Ordered By: Epi Robles on 06-03-2022 Potassium [Moles/Vol] TNP [facility] Comment on above: Test not performed GROSS HEMOLYSIS Serum or plasma sodium measu rement (moles/volume)Ordered By: Epi Robles on 06-03-2022 Sodium [Moles/Vol] 127 mmol/L 136-146 [facility] Serum or plasma total biliru bin measurement (mass/volume)Ordered By: Epi Robles on 06-03-2022 Bilirubin [Mass/Vol] 0.7 mg/dL 0.3-1.2 [facility] Serum or plasma total carbon dioxide measurement (moles/volume)Ordered By: Epi Robles on 06-03-2022 CO2 [Moles/Vol] 25.6 mmol/L 22.0-30.0 [facility] Serum or plasma urea nitroge n measurement (mass/volume)Ordered By: Epi Robles on 06-03-2022 Urea nitrogen [Mass/Vol] 19 mg/dL 9-23 [facility] Specific gravity Auto test s trip (U) [Rel density]Ordered By: Epi Robles on 06-03-2022 Specific gravity (U) [Rel density] 1.009 1.001-1.030 [facility] Squamous epithelial cells de tection in urine sediment by light microscopyOrdered By: Epi Robles on 06-03-2022 Epithelial cells.squamous LM Ql (Urine sed) 5-9 [HPF] 0-2 [facility] Urine bacteria detection by automated methodOrdered By: Epi Robles on 06-03-2022 Bacteria Auto Ql (U) None seen None Seen [facility] Urine clarity by refractomet ry automatedOrdered By: Epi Robles on 06-03-2022 Clarity Refractometry automated (U) Clear Clear [facility] Urine glucose measurement by automated test strip (mass/volume)Ordered By: Epi Robles on 06-03-2022 Glucose Auto test strip (U) [Mass/Vol] Normal mg/dL Normal [facility] Urine hemoglobin detection b y automated test stripOrdered By: Epi Robles on 06-03-2022 Hemoglobin Auto test strip Ql (U) 1+ Negative [facility] Urine leukocyte esterase det ection by automated test stripOrdered By: Epi Robles on 06-03-2022 Leukocyte esterase Auto test strip Ql (U) Negative Negative [facility] Urobilinogen Auto test strip (U) [Mass/Vol]Ordered By: Epi Robles on 06-03-2022 Urobilinogen (U) [Mass/Vol] Normal mg/dL Normal [facility] pH Auto test strip (U)Ordere d By: Epi Robles on 06-03-2022 pH (U) 6.0 [pH] 5.0-9.0 [facility] Basophils Auto (Bld) [#/Vol] Ordered By: Tisha Weeks on 01-31-2022 Basophils (Bld) [#/Vol] 0.0 10*3/uL 0.0-0.2 [facility] Basophils/100 WBC Auto (Bld) Ordered By: Tisha Weeks on 01-31-2022 Basophils/100 WBC (Bld) 0.6 % [facility] Blood hemoglobin measurement (mass/volume)Ordered By: Tisha Weeks on 01-31-2022 Hemoglobin (Bld) [Mass/Vol] 13.4 g/dL 11.8-15.4 [facility] Blood leukocytes automated c ount (number/volume)Ordered By: Tisha Weeks on 01-31-2022 WBC (Bld) [#/Vol] 6.4 10*3/uL 4.5-11.0 [facility] Complete Blood Count Auto Di ffon 01-31-2022 Basophils (Bld) [#/Vol] 0.0 10*3/uL Normal 0.0-0.2 [facility] Comment on above: Result Comment: PERF ORMED BY: [facility] [address] [place] [address] PATHOLOGIST [employer] DANITA LEIGH M.D. Performed By: #### P HENY, [id number], TSH3, CMP, T4F, LIPID, CBC, T3F #### [address] Basophils/100 WBC (Bld) 0.6 % Normal . [facility] Comment on above: Performed By: #### P HENY, [id number], TSH3, CMP, T4F, LIPID, CBC, T3F #### [address] Eosinophils (Bld) [#/Vol] 0.3 10*3/uL Normal 0.0-0.45 [facility] Comment on above: Performed By: #### P HENY, [id number], TSH3, CMP, T4F, LIPID, CBC, T3F #### [address] Eosinophils/100 WBC (Bld) 4.2 % Normal . [facility] Comment on above: Performed By: #### P HENY, [id number], TSH3, CMP, T4F, LIPID, CBC, T3F #### [address] Erythrocyte distribution width (RBC) [Ratio] 13.6 % Normal 11.9-15.3 [facility] Comment on above: Performed By: #### P HENY, [id number], TSH3, CMP, T4F, LIPID, CBC, T3F #### [address] Hematocrit (Bld) [Volume fraction] 40.6 % Normal 34.0-46.4 [facility] Comment on above: Performed By: #### P HENY, [id number], TSH3, CMP, T4F, LIPID, CBC, T3F #### [address] Hemoglobin (Bld) [Mass/Vol] 13.4 g/dL Normal 11.8-15.4 [facility] Comment on above: Performed By: #### P HENY, [id number], TSH3, CMP, T4F, LIPID, CBC, T3F #### [place] [address] [place] Lymphocytes (Bld) [#/Vol] 2.0 10*3/uL Normal 1.00-4.8 [facility] Comment on above: Performed By: #### P HENY, [id number], TSH3, CMP, T4F, LIPID, CBC, T3F #### [facility] [address] Lymphocytes/100 WBC (Bld) 30.8 % Normal . [facility] Comment on above: Performed By: #### P HENY, [id number], TSH3, CMP, T4F, LIPID, CBC, T3F #### [address] MCH (RBC) [Entitic mass] 30.2 pg Normal 24.7-34.3 [facility] Comment on above: Performed By: #### P HENY, [id number], TSH3, CMP, T4F, LIPID, CBC, T3F #### [address] MCV (RBC) [Entitic vol] 91.2 fL Normal 80-100 [facility] Comment on above: Performed By: #### P HENY, [id number], TSH3, CMP, T4F, LIPID, CBC, T3F #### [address] Mean Corpuscular HGB Conc 33.1 g/dL Normal 32.0-35.0 [facility] Comment on above: Performed By: #### P HENY, [id number], TSH3, CMP, T4F, LIPID, CBC, T3F #### [address] Monocytes (Bld) [#/Vol] 0.5 10*3/uL Normal 0.0-0.8 [facility] Comment on above: Performed By: #### P HENY, [id number], TSH3, CMP, T4F, LIPID, CBC, T3F #### [address] Monocytes/100 WBC (Bld) 8.3 % Normal . [facility] Comment on above: Performed By: #### P HENY, [id number], TSH3, CMP, T4F, LIPID, CBC, T3F #### [facility] [address] Neutrophils (Bld) [#/Vol] 3.6 10*3/uL Normal 1.8-7.7 [facility] Comment on above: Performed By: #### P HENY, [id number], TSH3, CMP, T4F, LIPID, CBC, T3F #### [facility] [address] Neutrophils/100 WBC (Bld) 56.1 % Normal . [facility] Comment on above: Performed By: #### P HENY, [id number], TSH3, CMP, T4F, LIPID, CBC, T3F #### [facility] [address] Nucleated RBC/100 WBC (Bld) [Ratio] 0.1 % Normal 0-0.5 [facility] Comment on above: Performed By: #### P HENY, [id number], TSH3, CMP, T4F, LIPID, CBC, T3F #### [facility] [address] [place] [address] Platelet mean volume (Bld) [Entitic vol] 8.0 fL Normal 6.3-10.7 [facility] Comment on above: Performed By: #### P HENY, [id number], TSH3, CMP, T4F, LIPID, CBC, T3F #### [facility] [address] Platelets (Bld) [#/Vol] 231 10*3/uL Normal 150-450 [facility] Comment on above: Performed By: #### P HENY, [id number], TSH3, CMP, T4F, LIPID, CBC, T3F #### [address] RBC (Bld) [#/Vol] 4.45 10*6/uL Normal 3.60-5.00 [facility] Comment on above: Performed By: #### P HENY, [id number], TSH3, CMP, T4F, LIPID, CBC, T3F #### [address] WBC (Bld) [#/Vol] 6.4 10*3/uL Normal 4.5-11.0 [facility] Comment on above: Performed By: #### P HENY, [id number], TSH3, CMP, T4F, LIPID, CBC, T3F #### [facility] [address] Comprehensive Metabolic Pane nimisha 01-31-2022 Albumin [Mass/Vol] 3.9 g/dL Normal 3.2-5.5 [facility] Comment on above: Performed By: #### P HENY, [id number], TSH3, CMP, T4F, LIPID, CBC, T3F #### [address] Albumin/Globulin [Mass ratio] 1.5 {ratio} Normal [facility] Comment on above: Performed By: #### P HENY, [id number], TSH3, CMP, T4F, LIPID, CBC, T3F #### [address] ALP [Catalytic activity/Vol] 66 U/L Normal 32-92 [facility] Comment on above: Performed By: #### P HENY, [id number], TSH3, CMP, T4F, LIPID, CBC, T3F #### [address] ALT [Catalytic activity/Vol] 19 U/L Normal 10-60 [facility] Comment on above: Performed By: #### P HENY, [id number], TSH3, CMP, T4F, LIPID, CBC, T3F #### [address] AST [Catalytic activity/Vol] 23 U/L Normal 10-42 [facility] Comment on above: Performed By: #### P HENY, [id number], TSH3, CMP, T4F, LIPID, CBC, T3F #### [facility] [address] Bilirubin [Mass/Vol] 0.5 mg/dL Normal 0.3-1.2 [facility] Comment on above: Performed By: #### P HENY, [id number], TSH3, CMP, T4F, LIPID, CBC, T3F #### [facility] [address] Calcium [Mass/Vol] 8.9 mg/dL Normal 8.2-10.2 [facility] Comment on above: Performed By: #### P HENY, [id number], TSH3, CMP, T4F, LIPID, CBC, T3F #### [facility] [address] Chloride [Moles/Vol] 102 mmol/L Normal 95-114 [facility] Comment on above: Performed By: #### P HENY, [id number], TSH3, CMP, T4F, LIPID, CBC, T3F #### [facility] [address] CO2 [Moles/Vol] 22.8 mmol/L Normal 22.0-30.0 [facility] Comment on above: Performed By: #### P HENY, [id number], TSH3, CMP, T4F, LIPID, CBC, T3F #### [address] Creatinine [Mass/Vol] 1.16 mg/dL High 0.44-1.03 [facility] Comment on above: Performed By: #### P HENY, [id number], TSH3, CMP, T4F, LIPID, CBC, T3F #### [facility] [address] Estimated GFR ( [place] [address] [facility] Comment on above: Result Comment: GFR estimated reference range: According to KDOQI guidelines, <60 ml/min/1.73m2 is sufficient to diagnose a patient with chronic kidney disease. Performed By: #### P HENY, [id number], TSH3, CMP, T4F, LIPID, CBC, T3F #### [facility] [address] Estimated GFR (Non- Am 47 [facility] Comment on above: Performed By: #### P HENY, [id number], TSH3, CMP, T4F, LIPID, CBC, T3F #### [facility] [address] Globulin (S) [Mass/Vol] 2.6 g/dL [facility] Comment on above: Performed By: #### P HENY, [id number], TSH3, CMP, T4F, LIPID, CBC, T3F #### [facility] [address] Glucose [Mass/Vol] 100 mg/dL Normal 70-100 [facility] Comment on above: Result Comment: [facility] Glucose Reference Range is dependent on time and content of last meal. Glucose of more than 200 mg/dL in a nonstressed, ambulatory subject supports the diagnosis of Diabetes Mellitus. ADA recommended reference range Performed By: #### P HENY, [id number], TSH3, CMP, T4F, LIPID, CBC, T3F #### [address] Potassium [Moles/Vol] 4.6 mmol/L Normal 3.5-5.1 [facility] Comment on above: Performed By: #### P HENY, [id number], TSH3, CMP, T4F, LIPID, CBC, T3F #### [facility] [address] Protein [Mass/Vol] 6.5 g/dL Normal 6.1-7.9 [facility] Comment on above: Performed By: #### P HENY, [id number], TSH3, CMP, T4F, LIPID, CBC, T3F #### [address] Sodium [Moles/Vol] 140 mmol/L Normal 136-146 [facility] Comment on above: Performed By: #### P HENY, [id number], TSH3, CMP, T4F, LIPID, CBC, T3F #### [facility] [address] Urea nitrogen [Mass/Vol] 21 mg/dL Normal 9-23 [facility] Comment on above: Performed By: #### P HENY, [id number], TSH3, CMP, T4F, LIPID, CBC, T3F #### [facility] [address] Eosinophils Auto (Bld) [#/Vo l]Ordered By: Tisha Weeks on 01-31-2022 Eosinophils (Bld) [#/Vol] 0.3 10*3/uL 0.0-0.45 [facility] Eosinophils/100 WBC Auto (Bl d)Ordered By: Tisha Weeks on 01-31-2022 Eosinophils/100 WBC (Bld) 4.2 % [facility] Erythrocyte distribution wid th Auto (RBC) [Ratio]Ordered By: Tisha Weeks on 01-31-2022 Erythrocyte distribution width (RBC) [Ratio] 13.6 % 11.9-15.3 [facility] Free T4 (Free Thyroxine)on 0 01-31-2022 Free T4 [Mass/Vol] 0.79 ng/dL Normal 0.61-1.12 [facility] Comment on above: Performed By: #### P HENY, [id number], TSH3, CMP, T4F, LIPID, CBC, T3F #### [address] Hematocrit Auto (Bld) [Volum e fraction]Ordered By: Tisha Weeks on 01-31-2022 Hematocrit (Bld) [Volume fraction] 40.6 % 34.0-46.4 [facility] - Hematology and Cell countsOrdered By: Tisha Weeks on 01-31-2022 Nucleated RBC/100 WBC (Bld) [Ratio] 0.1 % 0-0.5 [facility] Lipid Panelon 01-31-2022 Cholesterol [Mass/Vol] 208 mg/dL High 140-200 [facility] Comment on above: Result Comment: Chol less than 200 mg/dl low risk Chol 201-239 mg/dl borderline risk Chol 240 mg/dl and greater high risk Performed By: #### P HENY, [id number], TSH3, CMP, T4F, LIPID, CBC, T3F #### [facility] [address] [id number] [facility] Cholesterol in HDL [Mass/Vol] 80 mg/dL Normal 35-85 [facility] Comment on above: Result Comment: HDL CHOL ATP-III CLASSIFICATION Cardiovascular Risk HDL > or equal to 60 mg/dL LOW HDL < 40 mg/dL HIGH Performed By: #### P HENY, [id number], TSH3, CMP, T4F, LIPID, CBC, T3F #### [facility] [address] [id number] [facility] Cholesterol.total/Cho lesterol in HDL [Mass ratio] 2.6 {ratio} Normal <5.0 [facility] Comment on above: Performed By: #### P HENY, [id number], TSH3, CMP, T4F, LIPID, CBC, T3F #### [facility] [address] [id number] [facility] LDL Cholesterol,Calculate d 119 mg/dL High 0-100 [facility] Comment on above: Result Comment: LDL ATP III CLASSIFICATION LDL less than 100 mg/dL Optimal LDL 100-129 mg/dL Near or above optimal LDL 130-159 mg/dL Borderline high LDL 160-189 mg/dL High LDL greater than 189 mg/dL Very high Performed By: #### P HENY, [id number], TSH3, CMP, T4F, LIPID, CBC, T3F #### [facility] [address] [id number] [facility] Triglyceride w/Reflex 43 mg/dL Normal 35-149 [facility] Comment on above: Result Comment: TRIG ATP III CLASSIFICATION TRIG less than 150 mg/dL Normal TRIG 150-199 mg/dL Borderline high TRIG 200-500 mg/dL High TRIG greater than 500 mg/dL Very high Standard traceable to the Center for Disease Conrtrol and Prevention (CDC) test method. Performed By: #### P HENY, [id number], TSH3, CMP, T4F, LIPID, CBC, T3F #### [facility] [address] VLDL CHOLESTEROL 8 mg/dL Normal [facility] Comment on above: Performed By: #### P HENY, [id number], TSH3, CMP, T4F, LIPID, CBC, T3F #### [facility] [address] Lymphocytes Auto (Bld) [#/Vo l]Ordered By: Tisha Weeks on 01-31-2022 Lymphocytes (Bld) [#/Vol] 2.0 10*3/uL 1.00-4.8 [facility] Lymphocytes/100 WBC Auto (Bl d)Ordered By: Tisha Weeks on 01-31-2022 Lymphocytes/100 WBC (Bld) 30.8 % [facility] MCH Auto (RBC) [Entitic mass ]Ordered By: Tisha Weeks on 01-31-2022 MCH (RBC) [Entitic mass] 30.2 pg 24.7-34.3 [facility] MCHC Auto (RBC) [Mass/Vol]Or dered By: Tisha Weeks on 01-31-2022 MCHC (RBC) [Mass/Vol] 33.1 g/dL 32.0-35.0 [facility] MCV Auto (RBC) [Entitic vol] Ordered By: Tisha Weeks on 01-31-2022 MCV (RBC) [Entitic vol] 91.2 fL 80-100 [facility] Monocytes Auto (Bld) [#/Vol] Ordered By: Tisha Weeks on 01-31-2022 Monocytes (Bld) [#/Vol] 0.5 10*3/uL 0.0-0.8 [facility] Monocytes/100 WBC Auto (Bld) Ordered By: Tisha Weeks on 01-31-2022 Monocytes/100 WBC (Bld) 8.3 % [facility] Neutrophils Auto (Bld) [#/Vo l]Ordered By: Tisha Weeks on 01-31-2022 Neutrophils (Bld) [#/Vol] 3.6 10*3/uL 1.8-7.7 [facility] Neutrophils/100 WBC Auto (Bl d)Ordered By: Tisha Weeks on 01-31-2022 Neutrophils/100 WBC (Bld) 56.1 % [facility] No Panel InformationOrdered By: Tisha Weeks on 01-31-2022 25-Hydroxy Vitamin D Total 58.7 ng/mL 30-100 [facility] Comment on above: VITAMIN D STATUS 25( [place])VITAMIN D RANGE (ng/mL) Deficient <20 Insufficient 20 to <30Sufficient 30 to 100Reference: Purvi MF,Ainsley NC, Luis BLUE, et al. Evaluation,treatment, and prevention of vitamin D deficiency; an Endocrine Society clinical practice guideline. JCEM. 2010; 96(7):1911-30. Phenytoin (Dilantin)on 01-31 Phenytoin [Mass/Vol] 10.7 ug/mL Normal 10.0-20.0 [facility] Comment on above: Order Comment: Date of last dose?: [id number] Time of last dose?: 0800 Result Comment: Last dose: - PERFORMED BY: [place] [address] PATHOLOGIST [employer] MAKER DANITA LEIGH M.D. Performed By: #### P HENY, [id number], TSH3, CMP, T4F, LIPID, CBC, T3F #### [address] Platelet mean volume Auto (B ld) [Entitic vol]Ordered By: Tisha Weeks on 01-31-2022 Platelet mean volume (Bld) [Entitic vol] 8.0 fL 6.3-10.7 [facility] Platelets Auto (Bld) [#/Vol] Ordered By: Tisha Weeks on 01-31-2022 Platelets (Bld) [#/Vol] 231 10*3/uL 150-450 [facility] RBC Auto (Bld) [#/Vol]Ordere d By: Tisha Weeks on 01-31-2022 RBC (Bld) [#/Vol] 4.45 10*6/uL 3.60-5.00 [facility] Serum or plasma phenytoin me asurement (mass/volume)Ordered By: Tisha Weeks on 01-31-2022 Phenytoin [Mass/Vol] 10.7 ug/mL 10.0-20.0 [facility] Comment on above: Last dose: - TSH DL <= 0.005 mIU/L QnOrde red By: Tisha Weeks on 01-31-2022 TSH Qn 1.43 m[IU]/L 0.45-5.33 [facility] Thyroid Stimulating Hormoneo n 01-31-2022 TSH Qn 1.43 m[IU]/L Normal 0.45-5.33 [facility] Comment on above: Performed By: #### P HENY, [id number], TSH3, CMP, T4F, LIPID, CBC, T3F #### [facility] [address] Thyroxine (T4) free [Mass/vo lume] in Serum or PlasmaOrdered By: Tisha Weeks on 01-31-2022 Free T4 [Mass/Vol] 0.79 ng/dL 0.61-1.12 [facility] Triiodothyronine (T3) Freeon 01-31-2022 Triiodothyronine (T3) Free 3.11 pg/mL Normal 2.50-3.90 [facility] Comment on above: Result Comment: PERF ORMED BY: [place] [address] PATHOLOGIST [employer] DANITA LEIGH M.D. Performed By: #### P HENY, [id number], TSH3, CMP, T4F, LIPID, CBC, T3F #### [facility] [address] [id number] [facility] Triiodothyronine (T3) Free [ Mass/volume] in Serum or PlasmaOrdered By: Tisha Weeks on 01-31-2022 Free T3 [Mass/Vol] 3.11 pg/mL 2.50-3.90 [facility] Vitamin D 25 Hydroxy Totalon 01-31-2022 Vitamin D 25 Hydroxy Total 58.7 ng/mL Normal 30-100 [facility] Comment on above: Result Comment: GILMER MIN D STATUS 25(OH)VITAMIN D RANGE (ng/mL) Deficient <20 Insufficient 20 to <30 Sufficient 30 to 100 Reference: Purvi MF,Ainsley NC, Luis BLUE, et al. Evaluation,treatment, and prevention of vitamin D deficiency; an Endocrine Society clinical practice guideline. JCEM. 2010; 96(7):1911-30. PERFORMED BY: [place] [address] PATHOLOGIST [employer] DANITA LEIGH M.D. Performed By: #### P HENY, [id number], TSH3, CMP, T4F, LIPID, CBC, T3F #### [place] [id number] [facility] Vital Signs Date Time Vital Sign Value Performing Clinician Faci lity 06-03-2022 11:11-0400 Body height 172.72 cm MD Tisha Weeks Work Phone: [facility] 06-03-2022 11:11-0400 Body temperature 97.5 [degF] MD Tisha Weeks Work Phone: [facility] 06-03-2022 11:11-0400 Body weight 84.82 kg MD Tisha Weeks Work Phone: [facility] 06-03-2022 11:11-0400 Diastolic blood pressure 78 mm[Hg] MD Tisha Weeks Work Phone: [facility] 06-03-2022 11:11-0400 Heart rate 70 /min MD Tisha Weeks Work Phone: [facility] 06-03-2022 11:11-0400 Respiratory rate 18 /min MD Tisha Weeks Work Phone: [facility] 06-03-2022 11:11-0400 SaO2% (BldA) [Mass fraction] 97 % MD Tisha Weeks Work Phone: [facility] 06-03-2022 11:11-0400 Systolic blood pressure 120 mm[Hg] MD Tisha Weeks Work Phone: [facility] Encounters Encounter Date Encounter Type Care Provider Facility Start: 03-27-2025 ambulatory [facility] L[facility]des Berry ity:[facility] Start: 04-25-2024 ambulatory [facility] Lourdes L Emma Facil ity: [facility] Start: 03-30-2024 End: 03-30-2024 ambulatory [facility] L[facility]des L Emma Facility:[facility] Start: 03-28-2024 End: 03-28-2024 ambulatory [facility] L Emma Facility:[facility] Start: 11-22-2023 End: 11-22-2023 ambulatory [facility] L[facility]des L Emma Facility:[facility] Start: 04-23-2023 End: 04-23-2023 Lab Drop off Lourdes L Emma [facility] Start: 04-23-2023 End: 04-23-2023 ambulatory [facility] L Emma [place] [place]: 03-04-2023 End: 03-05-[address] COURTNEY STOCKTON . Facility: Start: 09-30-2022 End: 09-30-[address] COURTNEY STOCKTON . Facility: Start: 06-03-2022 End: 06-03-2022 Emergency department patient visit MD Tisha Weeks Work Phone: [facility] Start: 01-31-2022 End: 01-31-2022 Patient encounter procedure MD Tisha Weeks Work Phone: [facility] [place] Start: 05-07-2018 End: 05-07-2018 Emergency department patient visit [facility] Procedures Date Procedure Procedure Detail Performing Clinician Start: 05-24-2019 Colonoscopy Lourdes Schwa b Colonoscopy L[facility]des Emma Tonsillectomy [facility] Emma Plan of Treatment Date Care Activity Detail Author Patient Education Hemorrhoids [facility] Work Phone: Patient referral [facility] Work Phone: Payers Date Payer Category Payer Unknown [id number] 1959 Medicare [id number] 1959 Unknown [id number] 1955 Unknown [id number] 2.16.84 [id number] 1955 Unknown [id number] 2.16.84 [id number] 1955 Unknown [id number] 2.16.8 [id number] 1955 Unknown [id number] 2.16.8 [id number] 1955 Unknown [id number] 2.16.8 [id number] 1955 Unknown [id number] 2.16.8 [id number] 1955 Unknown [id number] 2.16.8 [id number] 1955 Unknown [id number] 2.16.8 [id number] 1955 Unknown [id number] 2.16.8 [id number] Medicare Self Pay [id number] Private Health Insurance [id number] Self-pay Self Pay [id number] Social History Date Type Detail [facility] Work Phone: Start: 1955 Sex Assigned At Female F [facility] Start: 05-11-2019 End: 06-03-2022 Tobacco smoking status NHIS Ex-smoker (finding) [facility] Tobacco smoking status Never [facility] Sex Assigned At Female [facility] Evaluation + Plan note Note Date & Type Note Facility Evaluation + Plan note No data available for this section [facility] Evaluation note Note Date & Type Note Facility Evaluation note No assessment information availa ble [facility] Work Phone: Hospital Discharge instructions Note Date & Type Note Facility Hospital Discharge instructions Additional Instructions Follow-up with your primary care doctor Return to the ED if you develop worsening symptoms or concerns [facility] Work Phone: Hospital Discharge instructions Note Date & Type Note Facility Hospital Discharge instructions No data available for this section [facility] Progress note Note Date & Type Note Facility Progress note No data available for this section [facility] Summary Purpose Family History No Family History Records FoundNo Family History Records FoundNo Family History Records FoundNo Family History Records Found Advance Directives No Advanced Directives Records Found Advance Directive Response Recorded Date/ Time Advance Directives No January 30 3:04pm Chief Complaint and Reason for Visit Chief Complaint i10 e78.00 e03.9 e55 .9 g40.909 Chief Complaint Blood in stool Additional Source Comments INFORMATION SOURCE (unrecogn ized section and content) DATE CREATED AUTHOR 05/07/2018 [facility] DATE CREATED AUTHOR AUTHOR'S ORGANIZ ATION 06/19/2022 [facility] DATE CREATED AUTHOR AUTHOR'S ORGANIZ ATION 03/08/2023 [facility] DATE CREATED AUTHOR AUTHOR'S ORGANIZ ATION 03/31/2024 [facility] Care Teams (unrecognized sec tion and content) Team Status: Inactive Member Role Status Dates Tisha Weeks MD Primary Care Provider, Attending Pro vider Active Team Status: Active Member Role Status Dates Tisha Weeks MD Primary Care Provider Active Team Status: Inactive Member Role Status Dates Tisha Weeks MD Primary Care Provider Active Epi Robles DO Emergency Provider Active Goals (unrecognized section and content) Goals may be documented in a n alternate sectionGoals may be documented in an alternate section No data available for this section FOR RECORDS PERTAINING TO PATIENTS WHO ARE OR HAVE BEEN ENROLLED IN A CHEMICAL DEPENDENCY/SUBSTANCEABUSE PROGRAM, SOME INFORMATION MAY BE OMITTED. This clinical summary was aggregated from multiple sources. Caution should be exercised in using it in the provision of clinical care. This summary normalizes information from multiple sources, and as a consequence, information in this document may materially change the coding, format and clinical context of patient data. In addition, data may be omitted in some cases. CLINICAL DECISIONS SHOULD BE BASED ON THE PRIMARY CLINICAL RECORDS. [facility]. provides no warranty or guarantee of the accuracy or completeness of information in this document.
== END 2024-04-03 09:56 | disposition home or self-care (01) ==
LOC: CT 09:55
PROVIDERS: PCP Nurse Practitioner; Visit Provider Nurse Practitioner
DX: F17.201 Nicotine dependence, unspecified, in remission (principal); Z12.2 Encounter for screening for malignant neoplasm of respiratory organs; Z87.891 Personal history of nicotine dependence
CPT/HCPCS: 71271

== ENCOUNTER 2024-04-29 18:43 | Emergency (ER) | payer MEDICARE, SELFPAY ==
[2024-04-29] VITALS (7 sets, daily range): BP systolic 116–146; BP diastolic 72–94; PULSE 60–104; TEMP 36.6; O2SAT 86–97; BMI 29.3
--- OUTSIDE RECORDS SUMMARY | 2024-04-29 18:50 | XMS_ITS | CCD ---
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 Name Role Phone ZULEMA CURRY Unavailable Unavailable TISHA WEEKS Unavailable MD Tisha Fischer Primary Care Provider [phone] MD Tisha Weeks Attending Provider MD Tisha Weeks Primary Care Provider [phone] DO [facility] [place] Emergency Provider [phone] ., DR VALDEZ Admitting Unavailabl e KARARSALANK ., DR VALDEZ Attending Unavailabl e AMBERLY ., DR TISHA Posada Primary Care Unavailable KARASIK ., DR VALDEZ Consulting Unavailabl e KARARSALANK ., DR VALDEZ Admitting Unavailabl e KARARSALANK ., DR VALDEZ Attending Unavailabl e AMBERLY ., DR TISHA Posada Primary Care Unavailable KARASIK ., DR VALDEZ Consulting Unavailabl e LEVON ONEIL Consulting Unavailable JERALD MTZ Consulting Unavailable Lourdes Carter Primary Care Physician [phone] Lourdes Carter Attending Unavailable EmmaLourdes Attending Unavailable EmmaLourdes Attending Unavailable Jai Boo Attending Unavailable EmmaLourdes Referring Unavailable EmmaLourdes Attending Unavailable EmmaLourdes Attending Unavailable Emma, Lourdes L Attending Unavailable Emma, Lourdes L Attending Unavailable Emma Lourdes L Attending Unavailable Allergies Allergy Classification Reported Allergen(s) Allergy Type Date of Onset Reaction(s) Facility (1 source) No Known Medication Allergies; Translations: [No Known Medication Allergies] Propensity to adverse reactions (disorder) [facility] Repository Medications Current Medications Medication Drug Class(es) Dates Sig (Normalized) Sig (Original) aspirin 81 mg oral tablet (3 sources) Platelet Aggregation Inhibitor, Nonsteroidal Anti-inflammatory Drug Start: 05-11-2019 take 1 tablet by mouth once daily aspirin 81 mg oral tablet 81 mg = 1 tab(s), Oral, Daily, Refills(s) 0, Prophylaxis Start Date: 05/11/19 Status: Ordered atorvastatin 10 mg oral tablet (3 sources) HMG-CoA Reductase Inhibitor Start: 03-30-2024 End: 03-25-2025 take 1 tablet by mouth once daily atorvastatin 10 mg Tab 10 mg = 1 tab(s), Oral, Daily, X 90 day(s), # 90 tab(s), Refills(s) 3, Pharmacy: [facility]/pharmacy #[id number], 169, cm, 03/30/24 11:31:00 EDT, Height/Length Dosing, 86.6, kg, 03/30/24 11:31:00 EDT, Weight Dosing Start Date: 03/30/24 Stop Date: 03/25/25 Status: Ordered Start: 04-23-2023 take 1 tablet by telly once daily atorvastatin 10 mg Tab 10 mg = 1 tab(s), Oral, Daily, # 90 tab(s), Refills(s) 3, Pharmacy: [facility]/pharmacy #[id number], 170.5, cm, 04/23/23 9:46:00 EDT, Height/Length Dosing, 86.2, kg, 04/23/23 9:46:00 EDT, Weight Dosing Start Date: 04/23/23 Status: Ordered Start: 06-03-2022 take 10 mg by mouth once daily Atorvastatin Active 10 MG PO Daily June 03, 2022 12:00am bisoprolol fumarate 5 mg / hydroCHLOROthiazide 6.25 mg oral tablet (3 sources) Thiazide Diuretic, beta-Adrenergic Rusty Start: 03-30-2024 End: 03-25-2025 take 1 tablet by mouth once daily bisoprolol-hydrochlorothiazide 5 mg-6.25 mg Tab 1 tab(s), Oral, Daily for 90 day(s), 90 tab(s), Refill(s) 3, [facility]/pharmacy #[id number], 169, cm, 03/30/24 11:31:00 EDT, Height/Length Dosing, 86.6, kg, 03/30/24 11:31:00 EDT, Weight Dosing Start Date: 03/30/24 Stop Date: 6/1/25 Status: Ordered Start: 03-02-2023 take 1 tablet by [facility] once daily bisoprolol-hydrochlorothiazide 5 mg-6.25 mg Tab 1 tab(s), Oral, Daily, 90 tab(s), Refill(s) 1, [facility]/pharmacy #[id number] Start Date: 03/02/23 Status: Ordered [...] 125 mcg (5000 intl units) oral capsule (2 sources) Start: 03-30-2024 End: 03-25-2025 take 1 capsule by mouth once daily High Potency Vitamin D3 125 mcg (5000 intl units) oral capsule 125 mcg = 1 cap(s), Oral, Daily, X 90 day(s), # 90 cap(s), Refills(s) 3, Pharmacy: [facility]/pharmacy #[id number], 169, cm, 03/30/24 11:31:00 EDT, Height/Length Dosing, 86.6, kg, 03/30/24 11:31:00 EDT, Weight Dosing Start Date: 03/30/24 Stop Date: 03/25/25 Status: Ordered Start: 04-23-2023 take 1 capsule by [facility] once daily High Potency Vitamin D3 125 mcg (5000 intl units) oral capsule 125 mcg = 1 cap(s), Oral, Daily, # 90 cap(s), Refills(s) 3, Pharmacy: [facility]/pharmacy #[id number], 170.5, cm, 04/23/23 9:46:00 EDT, Height/Length Dosing, 86.2, kg, 04/23/23 9:46:00 EDT, Weight Dosing Start Date: 04/23/23 Status: Ordered levothyroxine sodium 0.1 mg oral tablet (3 sources) l-Thyroxine Start: 03-30-2024 End: 03-25-2025 take 1 tablet by mouth once daily levothyroxine 100 mcg (0.1 mg) Tab 100 mcg = 1 tab(s), Oral, Daily, X 90 day(s), # 90 tab(s), Refills(s) 3, Pharmacy: [facility]/pharmacy #[id number], 169, cm, 03/30/24 11:31:00 EDT, Height/Length Dosing, 86.6, kg, 03/30/24 11:31:00 EDT, Weight Dosing Start Date: 03/30/24 Stop Date: 03/25/25 Status: Ordered Start: 06-03-2022 take 100 ug by mouth [...] sodium 100 mg extended release oral capsule (3 sources) Anti-epileptic Agent Start: 03-30-2024 End: 03-25-2025 take 1 capsule by mouth three times daily Dilantin 100 mg Cap-ER 100 mg = 1 cap(s), Oral, TID, X 90 day(s), # 270 cap(s), Refills(s) 3, Pharmacy: [facility]/pharmacy #[id number], 169, cm, 03/30/24 11:31:00 EDT, Height/Length Dosing, 86.6, kg, 03/30/24 11:31:00 EDT, Weight Dosing Start Date: 03/30/24 Stop Date: 03/25/25 Status: Ordered Start: 06-03-2022 take 100 mg by mouth once carisa y Phenytoin Sodium Extended Active 100 MG PO Daily June 03, 2022 12:00am Start: 05-11-2019 take 1 capsule by [facility] three times daily Dilantin 100 mg Cap-ER 100 mg = 1 cap(s), Oral, TID, Refills(s) 0, Seizure Start Date: 05/11/19 Status: Ordered Completed/Discontinued Medications Medication Drug Class(es) Dates Sig (Normalized) Sig (Original) alendronic acid 35 mg oral tablet (2 sources) Bisphosphonate Start: 03-30-2024 End: 03-25-2025 take 6-8 [oz_av] by mouth once daily alendronate 35 mg Tab 35 mg = 1 tab(s), Oral, q7day, with 6-8 oz plain water, at least 30 minutes before first food, beverage, or medication of the day, X 90 day(s), # 13 tab(s), Refills(s) 3, Pharmacy: [facility]/pharmacy #[id number], 169, cm, 03/30/24 11:31:00 EDT, Height/Length Dosing, 86.6, kg, 03/30/24 11:31:00 EDT, Weight Dosing Start Date: 03/30/24 Stop Date: 03/25/25 Status: Ordered Start: 04-23-2023 take 6-8 [oz_av] by mouth once daily alendronate 35 mg Tab 35 mg = 1 tab(s), Oral, q7day, with 6-8 oz plain water, at least 30 minutes before first food, beverage, or medication of the day, # 4 tab(s), Refills(s) 0 Start Date: 04/23/23 Status: Ordered Problems Active Problems Problem Classification Problem Date Documented Date Episodic/Chronic Abdominal pain (1 source) Epigastric pain 04-20-2024 Episodic Acute bronchitis (1 source) Acute bacterial bronchitis 11-22-2023 Episodic Cardiac dysrhythmias (1 source) Cardiac arrhythmia; Translations: [Cardiac arrhythmia, unspecified] Onset: 04-21-20 Chronic Conditions associated with dizziness or vertigo (2 sources) Dizziness and giddiness; Translations: [Dizziness and giddiness] Onset: 04-21-20 Episodic Disorders of lipid metabolism (2 sources) Hypercholesterolemia 04-23-2023 Chronic Epilepsy; convulsions (2 sources) Seizure 05-11-2019 Episodic Heart valve disorders (1 source) Irregular heart beat 04-20-2024 Episodic Hemorrhoids (1 source) Internal hemorrhoids; Translations: [Other hemorrhoids] 06-03-2022 Episodic Other bone disease and musculoskeletal deformities (1 source) Other specified disorders of bone density and structure, unspecified site; Translations: [OTH D/O BONE DEN STRUCT UNS SITE] Onset: 03-07-20 Episodic Other lower respiratory disease (1 source) Dyspnea; Translations: [Shortness of breath] Onset: 04-21-20 24 Episodic Other lower respiratory disease (1 source) Cough 11-22-2023 Episodic Other lower respiratory disease (1 source) Dyspnea on exertion 04-20-2024 Episodic Other nutritional; endocrine; and metabolic disorders (1 source) Body mass index 30+ - obesity 03-28-2024 Chronic Other screening for suspected conditions (not mental disorders or infectious disease) (6 sources) Encounter for screening mammogram for malignant neoplasm of breast; Translations: [Encounter for screening for malignant neoplasm of cervix] Onset: 09-30-20 Episodic Phlebitis; thrombophlebitis and thromboembolism (2 sources) Acute deep venous thrombosis of axillary vein 05-10-2019 Episodic Pneumonia (except that caused by tuberculosis or sexually transmitted disease) (2 sources) Pneumonia 05-11-2019 Episodic Residual codes; unclassified (4 [...] encounter] Onset: 05-07-20 18 Episodic Thyroid disorders (2 sources) Hypothyroidism 05-10-2019 Chronic Unclassified (1 source) Patient encounter status 03-30-2024 Past or Other Problems Problem Classification Problem Date Documented Date Episodic/Chronic Immunizations and screening for infectious disease (1 source) Encounter for screening for human papillomavirus (HPV); Translations: [ENC SCREENING HUMAN PAPILLOMAVIRUS] Onset: 10-03-2022 Episodic Results Test Name Value Interpretation Reference Range Facility Heart and Vascular Office/Cl inic Noteon 04-21-2024 Heart and Vascular Office/Clinic Note Heart and Vascular Office/Clinic Note Chief Complaint here to establish care History of Present Illness The patient is a very pleasant 68-year-old female with past medical history of hypothyroidism, hypertension, dyslipidemia, who presents for cardiac evaluation due to issues with shortness of breath and palpitations. This has been going on for at least a month. She describes those as feelings of occasional irregular heartbeats in the epigastric area, also states that she is sometimes unable to catch her breath. She does have some mild exertional shortness of breath, as well, at walking up help walking her dog. She reports no chest pain or chest tightness, syncope or presyncope. She does have issues with some dizziness or lightheadedness, along with irregular heartbeat and shortness of breath. Her family history is notorious for what sounds like precocious coronary artery disease in her father who at relatively young age, mother of complication of diabetes. She describes history of what sounds like a left brachial DVT many years ago, states that she has been on aspirin due to that. Review of Systems ROS - Provider Constitutional: no fever, no chills, no fatigue Skin:no rash, no lesions ENMT: no ear pain, no sore throat, no congestion. Respiratory: no shortness of breath, no cough, no wheezing. Cardiovascular: no chest pain, no palpitations, no edema. Gastrointestinal: no nausea, no vomiting, no diarrhea, no GI bleeding. Genitourinary: no dysuria, no frequencyno hematuria Musculoskeletal: no back pain, no trauma. Neurologic: no headache, no dizziness, no numbness, no weakness. Psychiatric: no sleeping problems, no irritability, no mood swings/depression. Heme/Lymph: no bleeding tendency, no bruising tendency, no petechiae, Allergy/Immuno logic: no seasonal allergies, no food allergies, no recurrent infections Physical Exam Vitals & Measurements HR: 63(Peripheral) RR: 18 BP: 122/62 SpO2: 98% HT: 67 in HT: 169 cm WT: 86.6 kg WT: 190.52 lb BMI: 30.32 General: alert, no acute distress Neck: Supple, noJVD nocarotid bruit Cardiovascular: regular rate and rhythm, no murmur normal peripheral perfusion Respiratory: Lungs CTAB, respirations non labored Extremities: no edema left lower extremity. no edema right lower extremity Neurological: oriented x 4, LOC appropriate for age, speech normal Skin: Warm, dry, intact- no rash or concerning lesions Procedure ECG performed yesterday in the office showed sinus bradycardia at 52 bpm. Assessment/Plan 1. Irregular heartbeat (I49.9: Cardiac arrhythmia, unspecified) I would like to obtain a 48-hour Holter monitor. 2. Light-headed feeling (R42: Dizziness and giddiness) Transthoracic echocardiogram will be obtained 3. Short of breath on exertion (R06.02: Shortness of breath) Transthoracic echocardiogram, myocardial perfusion imaging study will be ordered, to rule out structural heart disease and coronary ischemia, respectively. Follow-up No qualifying data available After the tests Problem List/Past Medical History Ongoing Acute axillary vein thrombosis Acute bacterial bronchitis BMI 30.0-30.9,adult Bradycardia on ECG Cough Epigastric pain Hypercholesteremia Hypothyroidism Irregular heartbeat Light-headed feeling Seizures Short of breath on exertion Wellness examination Historical Pneumonia Procedure/Surgical History Colonoscopy (05/24/2019), Colonoscopy, Tonsillectomy. Medications alendronate 35 mg Tab, 35 mg= 1 tab(s), Oral, q7day, 3 refills aspirin 81 mg oral tablet, 81 mg= 1 tab(s), Oral, Daily atorvastatin 10 mg Tab, 10 mg= 1 tab(s), Oral, Daily, 3 refills bisoprolol-hydrochlor othiazide 5 mg-6.25 mg Tab, 1 tab(s), Oral, Daily, 3 refills Dilantin 100 mg Cap-ER, 100 mg= 1 cap(s), Oral, TID, 3 refills High Potency Vitamin D3 125 mcg (5000 intl units) oral capsule, 125 mcg= 1 cap(s), Oral, Daily, 3 refills levothyroxine 100 mcg (0.1 mg) Tab, 100 mcg= 1 tab(s), Oral, Daily, 3 refills Allergies No Known Medication Allergies Social History Alcohol - Denies Alcohol Use, 03/28/2024 Past, 03/28/2024 Exercise - Occasional exercise, 05/11/2019 Other Substance Abuse - Denies Substance Abuse, 05/11/2019 Tobacco - Denies Tobacco Use, 05/11/2019 Former smoker, quit more than 30 days ago Tobacco Use:. Never Smokeless Tobacco Use:. 0.5 per day. 42 year(s). Total pack years: 21. Started age 18.0 Years. Stopped age 60 Years. Previous treatment: None. Ready to change: No. Household tobacco concerns: No., 04/21/2024 Family History Acute myocardial infarction: Mother and Father. Diabetes mellitus type 2: Mother. Immunizations Vaccine Date Status influenza virus vaccine, inactivated 09/06/2022 Recorded SARS-CoV-2 (COVID-19) [id number] 09/06/2022 Recorded SARS-CoV-2 (COVID-19) mRNA BNT-162b2 vax 10/10/2021 Recorded SARS-CoV-2 (COVID-19) mRNA BNT-162b2 vax 01/14/2021 Recorded SARS-CoV-2 (COVID-19) mRNA B (more content not included)... [facility] Comment on above: Result Comment: Elec tronically Signed By: Jai Boo MD\.br\Date and Time Signed: 04/21/24 09:38 EDT Ambulatory Visit Summaryon 0 04-20-2024 Ambulatory Visit Summary Ambulatory Visit Summary VENITA BENNETT :1955 Visit Date:04/20/2024 Ambulatory Visit Instructions Your Diagnosis Light-headed feeling Epigastric pain Short of breath on exertion Irregular heartbeat BMI 30.0-30.9,adult Former smoker Your Care Team [...] Colonoscopy, Tonsillectomy. Discharge Vitals Heart Rate (Peripheral) 60 Respiratory Rate 18 Blood Pressure 116/80 Height 169.0 cm Height 67 in Weight 86.60 kg Weight 190.52 lb BMI 30.32 What to do next Scheduled Follow-Up Appointments Wednesday 9:15 AM EDT With: Jai Boo MD Where: [facility] [place] Wednesday 11:00 AM EDT With: Where: [facility] [place] [facility] Medicine Office/Clini c Noteon 04-20-2024 Family Medicine Office/Clinic Note Family Medicine Office/Clinic Note HPI Staff Venita is a 68 year old female presenting for acute visit Onset: 1 week Intermittently Pt has been feeling light headed unsteady and pressure in her head. 1 month has been having shortness of breath with walking up stairs. 1-2 month intermittently will feel a pulse in epigastric region denies any pain History of Present Illness pt c/o feeling lightheaded and short of breath Review of Systems PHQ Score Initial Depression Screen Score: 0 SCORE Physical Exam Vitals & Measurements HR: 60(Peripheral) RR: 18 BP: 116/80 HT: 67 in HT: 169.0 cm WT: 86.60 kg WT: 190.52 lb BMI: 30.32 General: alert, no acute distress ENMT: oral mucosa moist, no pharyngeal erythema or exudate Cardiovascular: regular rate and rhythm, normal peripheral perfusion Respiratory: Lungs CTA, respirations non labored Extremities: no deformity, no trauma Neurological: oriented x 4, LOC appropriate for age, CN II-XII intact, motor strength equal & normal bilaterally, speech normal Assessment/Plan 1. Light-headed feeling (R42: Dizziness and giddiness) for about a week she has been feeling light headed and off balance. No fluid noted behind TM. will order EKG and cardio consult. She is scheduled to see Dr. Boo tomorrow at 9:15am RTC 2 weeks Ordered: ECG 12 Lead Adult [facility] Internal Ambulatory Referral 2. Epigastric pain (R10.13: Epigastric pain) pt feels pressure or pulsation in epigastric area. this feeling comes and goes Ordered: ECG 12 Lead Adult [facility] Internal Ambulatory Referral 3. Short of breath on exertion (R06.02: Shortness of breath) describes it as a heavy feeling on her chest. Ordered: ECG 12 Lead Adult [facility] Internal Ambulatory Referral 4. Irregular heartbeat (I49.9: Cardiac arrhythmia, unspecified) on assessment irregular heart rate auscultated. will do EKG in office today Ordered: ECG 12 Lead Adult [facility] Internal Ambulatory Referral 5. Bradycardia on ECG (R00.1: Bradycardia, unspecified) in office EKG sinus bradycardia, but heart rate is irregular on auscultation in office today 6. BMI 30.0-30.9,adult (Z68.30: Body mass index [BMI] 30.0-30.9, adult) BMI education given Ordered: ECG 12 Lead Adult [facility] Internal Ambulatory Referral 7. Former smoker (Z87.891: Personal history of nicotine dependence) continue not smoking Follow-up No qualifying data available Problem List/Past Medical History Ongoing Acute axillary vein thrombosis Acute bacterial bronchitis BMI 30.0-30.9,adult Bradycardia on ECG Cough Epigastric pain Hypercholesteremia Hypothyroidism Irregular heartbeat Light-headed feeling Seizures Short of breath on exertion Wellness examination Historical Pneumonia Procedure/Surgical History Colonoscopy (05/24/2019), Colonoscopy, Tonsillectomy. Medications alendronate 35 mg Tab, 35 mg= 1 tab(s), Oral, q7day, 3 refills aspirin 81 mg oral tablet, 81 mg= 1 tab(s), Oral, Daily atorvastatin 10 mg Tab, 10 mg= 1 tab(s), Oral, Daily, 3 refills bisoprolol-hydrochlor othiazide 5 mg-6.25 mg Tab, 1 tab(s), Oral, Daily, 3 refills Dilantin 100 mg Cap-ER, 100 mg= 1 cap(s), Oral, TID, 3 refills High Potency Vitamin D3 125 mcg (5000 intl units) oral capsule, 125 mcg= 1 cap(s), Oral, Daily, 3 refills levothyroxine 100 mcg (0.1 mg) Tab, 100 mcg= 1 tab(s), Oral, Daily, 3 refills Allergies No Known Medication Allergies Social History Alcohol - Denies Alcohol Use, 03/28/2024 Past, 03/28/2024 Exercise - Occasional exercise, 05/11/2019 Other Substance Abuse - Denies Substance Abuse, 05/11/2019 Tobacco - Denies Tobacco Use, 05/11/2019 Former smoker, quit more than 30 days ago Tobacco Use:. Never Smokeless Tobacco Use:. 0.5 per day. 42 year(s). Total pack years: 21. Started age 18.0 Years. Stopped age 60 Years. Previous treatment: None. Ready to change: No. Household tobacco concerns: No., 04/20/2024 Family History Acute myocardial infarction: Mother and Father. Diabetes mellitus type 2: Mother. Immunizations Vaccine Date Status influenza virus vaccine, inactivated 09/06/2022 Recorded SARS-CoV-2 (COVID-19) [id number] 09/06/2022 Recorded SARS-CoV-2 (COVID-19) mRNA BNT-162b2 vax 10/10/2021 Recorded SARS-CoV-2 (COVID-19) mRNA BNT-162b2 vax 01/14/2021 Recorded SARS-CoV-2 (COVID-19) mRNA BNT-162b2 vax 12/23/2020 Recorded [facility] Comment on above: Result Comment: Elec tronically Signed By: Lourdes Fan\.br\Date and Time Signed: 04/20/24 09:41 EDT RAD - CT Reporton 04-04-2024 RAD - CT Report [id number] .00TIFF [facility] Ambulatory Visit Summaryon 0 03-30-2024 Ambulatory Visit Summary BENNETTVENITA :1955 Visit Date:03/30/2024 Ambulatory Visit Instructions Your [...] Follow-Up Appointments Wednesday 11:00 AM EDT Where: [facility] Medicine [place] [facility] Medicine Office/Clini c Noteon 03-30-2024 Family Medicine [...] day(s), # 90 cap(s), Refills(s) 3, Pharmacy: [facility]/pharmacy #[id number], 169, cm, 03/30/24 11:31:00 EDT, Height/Length Dosing, 86.6, kg, 03/30/24 11:31:00 EDT, Weight Dosing cholecalciferol, 125 mcg = 1 cap(s), Oral, Daily, # 90 cap(s), Refills(s) 3, [id number], 170.5, cm, 04/23/23 9:46:00 EDT, Height/Length Dosing, 86.2, kg, 04/23/23 9:46:00 EDT, Weight Dosing Phenytoin Level Total 3. Hypothyroidism (E03.9: Hypothyroidism, unspecified) meds refilled. labs ordered will do after April 23 Ordered: cholecalciferol, 125 mcg = 1 cap(s), Oral, Daily, X 90 day(s), # 90 cap(s), Refills(s) 3, [id number], 169, cm, 03/30/24 11:31:00 EDT, Height/Length Dosing, 86.6, kg, 03/30/24 11:31:00 EDT, Weight Dosing cholecalciferol, 125 mcg = 1 cap(s), Oral, Daily, # 90 cap(s), Refills(s) 3, [id number], 170.5, cm, 04/23/23 9:46:00 EDT, Height/Length Dosing, 86.2, kg, 04/23/23 9:46:00 EDT, Weight Dosing Phenytoin Level Total 4. Seizures (R56.9: Unspecified convulsions) meds refilled. labs ordered Ordered: cholecalciferol, 125 mcg = 1 cap(s), Oral, Daily, X 90 day(s), # 90 cap(s), Refills(s) 3, Pharmacy: [facility]/pharmacy #[id number], 169, cm, 03/30/24 11:31:00 EDT, Height/Length Dosing, 86.6, kg, 03/30/24 11:31:00 EDT, Weight Dosing cholecalciferol, 125 mcg = 1 cap(s), Oral, Daily, # 90 cap(s), Refills(s) 3, Pharmacy: [facility]/pharmacy #[id number], 170.5, cm, 04/23/23 9:46:00 EDT, Height/Length Dosing, 86.2, kg, 04/23/23 9:46:00 EDT, Weight Dosing Phenytoin Level Total 5. BMI 30.0-30.9,adult (Z68.30: Body mass index [BMI] 30.0-30.9, adult) BMI education 6. Non-smoker (Z78.9: Other specified health status) continue not smoking Ordered: cholecalciferol, 125 mcg = 1 cap(s), Oral, Daily, X 90 day(s), # 90 cap(s), Refills(s) 3, [id number], 169, cm, 03/30/24 11:31:00 EDT, Height/Length Dosing, 86.6, kg, 03/30/24 11:31:00 EDT, Weight Dosing cholecalciferol, 125 mcg = 1 cap(s), Oral, Daily, # 90 cap(s), Refills(s) 3, [id number], 170.5, cm, 04/23/23 9:46:00 EDT, Height/Length Dosing, 86.2, kg, 04/23/23 9:46:00 EDT, Weight Dosing Orders: alendronate, 35 mg = 1 tab(s), Oral, q7day, with 6-8 oz plain water, at least 30 minutes before first food, beverage, or medication of the day, # 13 tab(s), Refills(s) 0, [id number], 170.5, cm, 11/22/23 11:48:00 EST, Height/Length Dosing, 87.2, k... alendronate, 35 mg = 1 tab(s), Oral, q7day, with 6-8 oz plain water, at least 30 minutes before first food, beverage, or medication of the day, X 90 day(s), # 13 tab(s), Refills(s) 3, [id number], 169, cm, 03/30/24 11:31:00 EDT, Height/Length Dosi... atorvastatin, 10 mg = 1 tab(s), Oral, Daily, X 90 day(s), # 90 tab(s), Refills(s) 3, Pharmacy: [facility]/pharmacy #[id number], 169, cm, 03/30/24 11:31:00 EDT, Height/Length Dosing, 86.6, kg, 03/30/24 11:31:00 EDT, Weight Dosing atorvastatin, 10 mg = 1 tab(s), Oral, Daily, # 90 tab(s), Refills(s) 3, Pharmacy: [facility]/pharmacy #[id number], 170.5, cm, 04/23/23 9:46:00 EDT, Height/Length Dosing, 86.2, kg, 04/23/23 9:46:00 EDT, Weight Dosing bisoprolol-hydrochlor othiazide, 1 tab(s), Oral, Daily for 90 (more content not included)... [facility] Comment on above: Result Comment: Elec tronically Signed By: Lourdes Fan\.br\Date and Time Signed: 03/30/24 12:52 EDT Living Will/POAon 03-30-2024 Living Will/POA [id number] .00TIFF [facility] Outside Mammographyon 2023 Outside Mammography [id number] .00TIFF [facility] Family Medicine Office/Clini c Noteon 03-29-2024 Family [...] of clutter to prevent tripping and/or falling. [place] Advance Directives reviewed. Documents remain at home, [...] risks associate (more content not included)... Normal [facility] Comment on above: Result Comment: Elec tronically Signed By: Lourdes Fan\.br\Date and Time Signed: 03/29/24 08:12 EDT\.br\Electronically Co-Signed By: Jacklyn Luke LPN\.br\Date and Time Co-Signed: 03/28/24 13:06 EDT Historical Records Officeon 03-29-2024 Historical Records Office [id number] [facility] Ambulatory Visit Summaryon 0 03-28-2024 Ambulatory Visit [...] EDT With: Lourdes Fan Where: [facility] Invalid Interpretation Code [address] [place] [address]- \.br\ You Need to Complete the Following\.br\ CBC w/ Auto Diff, Blood, Routine collect, 04/24/24, Order for future visit, Lab Collect, Annual visit for general adult medical examination without abnormal findings [facility] Patient Educationon 03-28-20 Patient Education Infectious [...] provider. Document Revised: 08/28/2021 Document Reviewed: 08/28/2021 [email or web address] Patient Education ? 2022 [email or web address] Nutrition Fat and Cholesterol Restricted Eating Plan Eating a diet that limits fat and cholesterol may help lower your risk for heart disease and other c (more content not included)... Normal [facility] Screenson 03-28-2024 Screens [id number] Normal [facility] Ambulatory Visit Summaryon 0 11-22-2023 Ambulatory [...] you for choosing us for your care. Julia Correa [facility] Medicine Office/Clini c Noteon 11-22-2023 Family Medicine [...] day(s), # 6 tab(s), Refills(s) 0, [id number], 170.5, cm, 11/22/23 11:48:00 EST, Height/Length Dosing, 87.2, kg, 11/22/23 11:48:00 EST, Weight Dosing benzonatate, 200 mg = 1 cap(s), Oral, TID, X 7 day(s), # 21 cap(s), Refills(s) 0, [id number], 170.5, cm, 11/22/23 11:48:00 EST, Height/Length Dosing, 87.2, kg, 11/22/23 11:48:00 EST, Weight Dosing 2. Cough (R05.9: Cough, unspecified) pt presents today with cough that is worsening. is not sleeping at night because cough is so bad Ordered: azithromycin, = 1 packet(s), Oral, As Directed, as directed on package labeling, X 5 day(s), # 6 tab(s), Refills(s) 0, [id number], 170.5, cm, 11/22/23 11:48:00 EST, Height/Length Dosing, 87.2, kg, 11/22/23 11:48:00 EST, Weight Dosing benzonatate, 200 mg = 1 cap(s), Oral, TID, X 7 day(s), # 21 cap(s), Refills(s) 0, [id number], 170.5, cm, 11/22/23 11:48:00 EST, Height/Length Dosing, 87.2, kg, 11/22/23 11:48:00 EST, Weight Dosing 3. BMI 30.0-30.9,adult (Z68.30: Body mass index [BMI] 30.0-30.9, adult) BMI education complete Ordered: azithromycin, = 1 packet(s), Oral, As Directed, as directed on package labeling, X 5 day(s), # 6 tab(s), Refills(s) 0, [id number], 170.5, cm, 11/22/23 11:48:00 EST, Height/Length Dosing, 87.2, kg, 11/22/23 11:48:00 EST, Weight Dosing benzonatate, 200 mg = 1 cap(s), Oral, TID, X 7 day(s), # 21 cap(s), Refills(s) 0, [id number], 170.5, cm, 11/22/23 11:48:00 EST, Height/Length Dosing, 87.2, kg, 11/22/23 11:48:00 EST, Weight Dosing 4. Former smoker (Z87.891: Personal history of nicotine dependence) continue not smoking Ordered: azithromycin, = 1 packet(s), Oral, As Directed, as directed on package labeling, X 5 day(s), # 6 tab(s), Refills(s) 0, [id number], 170.5, cm, 11/22/23 11:48:00 EST, Height/Length Dosing, 87.2, kg, 11/22/23 11:48:00 EST, Weight Dosing benzonatate, 200 mg = 1 cap(s), Oral, TID, X 7 day(s), # 21 cap(s), Refills(s) 0, [id number], 170.5, cm, 11/22/23 11:48:00 EST, [...] Directed benzonatate (more content not included)... Normal [facility] Comment on above: Result Comment: Elec tronically Signed By: Lourdes Fan\.nicko\Date and Time Signed: 11/22/23 12:40 EST CHEMISTRYOrdered By: SYSTEM SYSTEM on 04-23-2023 25-hydroxyvitamin D3 [Mass/Vol] 33.5 ng/mL Normal 30.0 - 100.0 ng/mL [facility] Remisol Albumin [Mass/Vol] 4.0 g/dL Normal 3.3 [...] 1.17 m[IU]/L Normal 0.34 - 5.60 mcIU/mL [facility] Remisol Urea nitrogen [Mass/Vol] 18 mg/dL Normal 5 - 21 mg/dL [facility] Remisol Urea nitrogen/Creatinine [Mass ratio] 16 mg/mg Normal 10 - 20 [facility] Remisol HEMATOLOGYOrdered By: SYSTEM SYSTEM on 04-23-2023 Basophils/100 [...] Normal 4.0 - 11.0 E9/L [facility] HemeAutoSS MG MAMM SCREEN 3D ELLE CADon 03-04-2023 MG MAMM SCREEN 3D ELLE CAD Patient: VENITA BENNETT Exam Date: 03/04/2023 : 1955 Gender:F Ordering : DR COURTNEY STOCKTON . Admission #: [id number] Family : Order #: [id number] CLICK HERE TO VIEW EXAM RADIOLOGY REPORT [...] breast cancer at age 60. LOCATION: [facility] BREAST COMPOSITION: Heterogeneously dense,which may obscure small [...] M.D. on 03/04/2023 at 13:13 Normal [facility] XR DEXA BONE DENSITYon 03-04 XR DEXA [...] authenticated by: JERALD MTZ Date: 2023-03-04 12:01 [facility] [place] PAP ACOG PANEL 2: 30 to 65on 10-09-2022 . . Normal [facility] Comment on above: Performed By: #### [id number] #### [facility] [address] [address] [address] Karri Lu Age Gdln ACOG Testing Comment Normal [facility] Comment on above: Result Comment: <21 or >65 or no age provided Performed By: #### [id number] #### [facility] [address] [address] [address] Karri Lu DIAGNOSIS: Comment [facility] [place] Comment on above: Result Comment: NEGA TIVE FOR INTRAEPITHELIAL LESION OR MALIGNANCY. CELLULAR CHANGES ASSOCIATED WITH ATROPHY ARE PRESENT. Performed By: #### [id number] #### [facility] [address] [place] [address] Dr. Karri Lu Methodology: Comment Normal [facility] Comment on above: Result Comment: This liquid based ThinPrep(R) pap test was screened with the use of an image guided system. Performed By: #### [id number] #### [facility] [address] [place] [address] Dr. Karri Lu Note: Comment Normal [facility] Comment on above: Result Comment: The Pap smear is a screening test designed to aid in the detection of premalignant and malignant conditions of the uterine cervix. It is not a diagnostic procedure and should not be used as the sole means of detecting cervical cancer. Both false-positive and false-negative reports do occur. . Performed By: #### [id number] #### [facility] [address] [place] [address] Dr. Karri Lu Performed by: Comment Normal [facility] Comment on above: Result Comment: Siomara Luna, Manager Distribution (ASCP) Performed By: #### [id number] #### [facility] [address] [place] [address] Dr. Karri Lu Specimen adequacy: Comment Normal [facility] Comment on above: Result Comment: Sati sfactory for evaluation. Endocervical component may not be distinguished in cases of atrophy. Performed By: #### [id number] #### [facility] [address] [place] [address] Dr. Karri Lu Automated erythrocytes count in urine sediment (number/area)Ordered By: Epi Robles on 06-03-2022 RBC Auto (Urine sed) [#/Area] 3-4 [HPF] 0-4 [facility] Automated leukocytes count i n urine sediment (number/area)Ordered By: Epi Robles on 06-03-2022 WBC Auto (Urine sed) [#/Area] 0-1 [HPF] 0-4 [facility] Basophils Auto (Bld) [#/Vol] Ordered By: Epi Robles on 06-03-2022 Basophils (Bld) [#/Vol] 0.0 10*3/uL 0.0-0.2 [facility] Basophils/100 WBC Auto (Bld) Ordered By: Epi Robles on 06-03-2022 Basophils/100 WBC (Bld) 0.3 % . [facility] Bilirubin Test strip Ql (U)O rdered By: Epi Robles on 06-03-2022 Bilirubin Ql (U) Negative Negative [facility] Blood hemoglobin measurement (mass/volume)Ordered By: Epi Robles on 06-03-2022 Hemoglobin (Bld) [Mass/Vol] 14.8 g/dL 11.8-15.4 [facility] Blood leukocytes automated c ount (number/volume)Ordered By: Epi Robles on 06-03-2022 WBC (Bld) [#/Vol] 7.0 10*3/uL 4.5-11.0 [facility] Body fluid albumin measureme nt (mass/volume)Ordered By: Epi Robles on 06-03-2022 Albumin (Body fld) [Mass/Vol] 3.7 g/dL 3.2-5.5 [facility] Color Auto (U)Ordered By: Jose Alberto red Margaret on 06-03-2022 Color (U) Yellow Yellow [facility] Complete Blood Count Auto Di ffon 06-03-2022 Basophils (Bld) [#/Vol] 0.0 10*3/uL Normal 0.0-0.2 [facility] Comment on above: Result Comment: PERF ORMED BY: [facility] [address] [facility] [place] [address] PATHOLOGIST ALLIGATOR HUNTER DANITA LEIGH M.D. Performed By: #### P HENY, [id number], TSH3, CMP, T4F, LIPID, CBC, T3F #### [facility] [address] [place] [address] [place] Basophils/100 WBC (Bld) 0.3 % Normal . [facility] Comment on above: Performed By: #### P HENY, [id number], TSH3, CMP, T4F, LIPID, CBC, T3F #### [facility] [address] [id number] [place] Eosinophils (Bld) [#/Vol] 0.1 10*3/uL Normal 0.0-0.45 [facility] Comment on above: Performed By: #### P HENY, [id number], TSH3, CMP, T4F, LIPID, CBC, T3F #### [address] Eosinophils/100 WBC (Bld) 0.8 % Normal . [facility] Comment on above: Performed By: #### P HENY, [id number], TSH3, CMP, T4F, LIPID, CBC, T3F #### [address] Erythrocyte distribution width (RBC) [Ratio] 13.4 % Normal 11.9-15.3 [facility] Comment on above: Performed By: #### P HENY, [id number], TSH3, CMP, T4F, LIPID, CBC, T3F #### [address] Hematocrit (Bld) [Volume fraction] 43.8 % Normal 34.0-46.4 [facility] Comment on above: Performed By: #### P HENY, [id number], TSH3, CMP, T4F, LIPID, CBC, T3F #### [address] Hemoglobin (Bld) [Mass/Vol] 14.8 g/dL Normal 11.8-15.4 [facility] Comment on above: Performed By: #### P HENY, [id number], TSH3, CMP, T4F, LIPID, CBC, T3F #### [address] Lymphocytes (Bld) [#/Vol] 1.3 10*3/uL Normal 1.00-4.8 [facility] Comment on above: Performed By: #### P HENY, [id number], TSH3, CMP, T4F, LIPID, CBC, T3F #### [address] Lymphocytes/100 WBC (Bld) 18.0 % Normal . [facility] Comment on above: Performed By: #### P HENY, [id number], TSH3, CMP, T4F, LIPID, CBC, T3F #### [address] MCH (RBC) [Entitic mass] 30.2 pg Normal 24.7-34.3 [facility] Comment on above: Performed By: #### P HENY, [id number], TSH3, CMP, T4F, LIPID, CBC, T3F #### [address] MCV (RBC) [Entitic vol] 89.3 fL Normal 80-100 [facility] Comment on above: Performed By: #### P HENY, [id number], TSH3, CMP, T4F, LIPID, CBC, T3F #### [address] Mean Corpuscular HGB Conc 33.9 g/dL Normal 32.0-35.0 [facility] Comment on above: Performed By: #### P HENY, [id number], TSH3, CMP, T4F, LIPID, CBC, T3F #### [address] Monocytes (Bld) [#/Vol] 0.7 10*3/uL Normal 0.0-0.8 [facility] Comment on above: Performed By: #### P HENY, [id number], TSH3, CMP, T4F, LIPID, CBC, T3F #### [address] Monocytes/100 WBC (Bld) 10.1 % Normal . [facility] Comment on above: Performed By: #### P HENY, [id number], TSH3, CMP, T4F, LIPID, CBC, T3F #### [address] Neutrophils (Bld) [#/Vol] 5.0 10*3/uL Normal 1.8-7.7 [facility] Comment on above: Performed By: #### P HENY, [id number], TSH3, CMP, T4F, LIPID, CBC, T3F #### [facility] [address] Neutrophils/100 WBC (Bld) 70.8 % Normal . [facility] Comment on above: Performed By: #### P HENY, [id number], TSH3, CMP, T4F, LIPID, CBC, T3F #### [facility] [address] Nucleated RBC/100 WBC (Bld) [Ratio] 0.0 % Normal 0-0.5 [facility] Comment on above: Performed By: #### P HENY, [id number], TSH3, CMP, T4F, LIPID, CBC, T3F #### [facility] [address] Platelet mean volume (Bld) [Entitic vol] 8.6 fL Normal 6.3-10.7 [facility] Comment on above: Performed By: #### P HENY, [id number], TSH3, CMP, T4F, LIPID, CBC, T3F #### [address] Platelets (Bld) [#/Vol] 253 10*3/uL Normal 150-450 [facility] Comment on above: Performed By: #### P HENY, [id number], TSH3, CMP, T4F, LIPID, CBC, T3F #### [address] RBC (Bld) [#/Vol] 4.90 10*6/uL Normal 3.60-5.00 [facility] Comment on above: Performed By: #### P HENY, [id number], TSH3, CMP, T4F, LIPID, CBC, T3F #### [address] WBC (Bld) [#/Vol] 7.0 10*3/uL Normal 4.5-11.0 [facility] Comment on above: Performed By: #### P HENY, [id number], TSH3, CMP, T4F, LIPID, CBC, T3F #### [address] Comprehensive Metabolic Pane nimisha 06-03-2022 Albumin [Mass/Vol] 3.7 g/dL Normal 3.2-5.5 [facility] Comment on above: Performed By: #### P HENY, [id number], TSH3, CMP, T4F, LIPID, CBC, T3F #### [address] Albumin/Globulin [Mass ratio] 1.2 {ratio} Normal [facility] Comment on above: Performed By: #### P HENY, [id number], TSH3, CMP, T4F, LIPID, CBC, T3F #### [address] ALP [Catalytic activity/Vol] 81 U/L Normal 32-92 [facility] Comment on above: Performed By: #### P HENY, [id number], TSH3, CMP, T4F, LIPID, CBC, T3F #### [address] ALT [Catalytic activity/Vol] 14 U/L Normal 10-60 [facility] Comment on above: Performed By: #### P HENY, [id number], TSH3, CMP, T4F, LIPID, CBC, T3F #### [address] AST [Catalytic activity/Vol] 26 U/L Normal 10-42 [facility] Comment on above: Performed By: #### P HENY, [id number], TSH3, CMP, T4F, LIPID, CBC, T3F #### [address] Bilirubin [Mass/Vol] 0.7 mg/dL Normal 0.3-1.2 [facility] Comment on above: Performed By: #### P HENY, [id number], TSH3, CMP, T4F, LIPID, CBC, T3F #### [address] [place] [address] [place] Calcium [Mass/Vol] 9.2 mg/dL Normal 8.2-10.2 [facility] Comment on above: Performed By: #### P HENY, [id number], TSH3, CMP, T4F, LIPID, CBC, T3F #### [facility] [address] Chloride [Moles/Vol] 88 mmol/L Low 95-114 [facility] Comment on above: Performed By: #### P HENY, [id number], TSH3, CMP, T4F, LIPID, CBC, T3F #### [facility] [address] CO2 [Moles/Vol] 25.6 mmol/L Normal 22.0-30.0 [facility] Comment on above: Performed By: #### P HENY, [id number], TSH3, CMP, T4F, LIPID, CBC, T3F #### [address] Creatinine [Mass/Vol] 0.99 mg/dL Normal 0.44-1.03 [facility] Comment on above: Performed By: #### P HENY, [id number], TSH3, CMP, T4F, LIPID, CBC, T3F #### [address] Creatinine Clr Calc Pharmacy 63.77 [facility] Comment on above: Result Comment: PERF ORMED BY: [place] [address] PATHOLOGIST ALLIGATOR HUNTER DANITA LEIGH M.D. Performed By: #### P HENY, [id number], TSH3, CMP, T4F, LIPID, CBC, T3F #### [address] Estimated GFR ( Katina > 60 [facility] Comment on above: Result Comment: GFR estimated reference range: According to KDOQI guidelines, <60 ml/min/1.73m2 is sufficient to diagnose a patient with chronic kidney disease. Performed By: #### P HENY, [id number], TSH3, CMP, T4F, LIPID, CBC, T3F #### [facility] [address] Estimated GFR (Non- Am 56 Normal [facility] Comment on above: Performed By: #### P HENY, [id number], TSH3, CMP, T4F, LIPID, CBC, T3F #### [facility] [address] Globulin (S) [Mass/Vol] 3.2 g/dL Normal [facility] Comment on above: Performed By: #### P HENY, [id number], TSH3, CMP, T4F, LIPID, CBC, T3F #### [facility] [address] Glucose [Mass/Vol] 116 mg/dL High 70-100 [facility] Comment on above: Result Comment: [place] Glucose Reference Range is dependent on time and content of last meal. Glucose of more than 200 mg/dL in a nonstressed, ambulatory subject supports the diagnosis of Diabetes Mellitus. ADA recommended reference range Performed By: #### P HENY, [id number], TSH3, CMP, T4F, LIPID, CBC, T3F #### [facility] [address] Potassium [Moles/Vol] Not performed Normal 3.5-5.1 [facility] Comment on above: Result Comment: RANJANA S HEMOLYSIS Performed By: #### P HENY, [id number], TSH3, CMP, T4F, LIPID, CBC, T3F #### [facility] [address] Protein [Mass/Vol] 6.9 g/dL Normal 6.1-7.9 [facility] Comment on above: Performed By: #### P HENY, [id number], TSH3, CMP, T4F, LIPID, CBC, T3F #### [facility] [address] Sodium [Moles/Vol] 127 mmol/L Low 136-146 [facility] Comment on above: Performed By: #### P HENY, [id number], TSH3, CMP, T4F, LIPID, CBC, T3F #### [facility] [address] Urea nitrogen [Mass/Vol] 19 mg/dL Normal 9-23 [facility] Comment on above: Performed By: #### P HENY, [id number], TSH3, CMP, T4F, LIPID, CBC, T3F #### [facility] [address] Creatinine and Glomerular fi ltration rate.predicted panel (S/P/Bld)Ordered By: Epi Robles on 06-03-2022 Creatinine [Mass/Vol] 0.99 mg/dL 0.44-1.03 [facility] Dipstick and Microscopicon 0 06-03-2022 Appearance (U) Clear Normal Clear [facility] Comment on above: Order Comment: Date of last dose?: 20220131 Time of last dose?: 0800 Performed By: #### P HENY, [id number], TSH3, CMP, T4F, LIPID, CBC, T3F #### [facility] [address] Bacteria,Urine None Seen Normal None Seen [facility] Comment on above: Order Comment: Date of last dose?: 20220131 Time of last dose?: 0800 Performed By: #### P HENY, [id number], TSH3, CMP, T4F, LIPID, CBC, T3F #### [facility] [address] Bilirubin,Urine Negative Normal Negative [facility] Comment on above: Order Comment: Date of last dose?: 20220131 Time of last dose?: 0800 Performed By: #### P HENY, [id number], TSH3, CMP, T4F, LIPID, CBC, T3F #### [facility] [address] [id number] [email or web address]] Color (U) Yellow Normal Yellow [facility] Comment on above: Order Comment: Date of last dose?: 20220131 Time of last dose?: 0800 Performed By: #### P HENY, [id number], TSH3, CMP, T4F, LIPID, CBC, T3F #### [facility] [address] Glucose Ql (U) Normal Normal Normal [facility] Comment on above: Order Comment: Date of last dose?: 20220131 Time of last dose?: 0800 Performed By: #### P HENY, [id number], TSH3, CMP, T4F, LIPID, CBC, T3F #### [facility] [address] Hyaline Casts,Urine 0-8 Normal 0-8 [facility] Comment on above: Order Comment: Date of last dose?: 20220131 Time of last dose?: 0800 Result Comment: PERF ORMED BY: [place] [address] PATHOLOGIST ALLIGATOR HUNTER DANITA LEIGH M.D. Performed By: #### P HENY, [id number], TSH3, CMP, T4F, LIPID, CBC, T3F #### [address] Ketones Ql (U) Negative Normal Negative [facility] Comment on above: Order Comment: Date of last dose?: 20220131 Time of last dose?: 0800 Performed By: #### P HENY, [id number], TSH3, CMP, T4F, LIPID, CBC, T3F #### [address] Leukocyte esterase Test strip Ql (U) Negative Normal Negative [facility] Comment on above: Order Comment: Date of last dose?: 20220131 Time of last dose?: 0800 Performed By: #### P HENY, [id number], TSH3, CMP, T4F, LIPID, CBC, T3F #### [facility] [address] Nitrite,Urine Negative Normal Negative [facility] Comment on above: Order Comment: Date of last dose?: 20220131 Time of last dose?: 0800 Performed By: #### P HENY, [id number], TSH3, CMP, T4F, LIPID, CBC, T3F #### [address] Occult Blood,Urine 1+ High Negative [facility] Comment on above: Order Comment: Date of last dose?: 20220131 Time of last dose?: 0800 Result Comment: PERF ORMED BY: [place] [address] PATHOLOGIST ALLIGATOR HUNTER DANITA LEIGH M.D. Performed By: #### P HENY, [id number], TSH3, CMP, T4F, LIPID, CBC, T3F #### [address] pH (U) 6.0 [pH] Normal 5.0-9.0 [facility] Comment on above: Order Comment: Date of last dose?: 20220131 Time of last dose?: 0800 Performed By: #### P HENY, [id number], TSH3, CMP, T4F, LIPID, CBC, T3F #### [address] Protein,Urine Trace High Negative [facility] Comment on above: Order Comment: Date of last dose?: 20220131 Time of last dose?: 0800 Performed By: #### P HENY, [id number], TSH3, CMP, T4F, LIPID, CBC, T3F #### [address] RBC,Urine 3-4 Normal 0-4 [facility] Comment on above: Order Comment: Date of last dose?: 20220131 Time of last dose?: 0800 Performed By: #### P HENY, [id number], TSH3, CMP, T4F, LIPID, CBC, T3F #### [address] Specificy [place],Urine 1.009 Normal 1.001-1.030 [facility] Comment on above: Order Comment: Date of last dose?: 20220131 Time of last dose?: 0800 Performed By: #### P HENY, [id number], TSH3, CMP, T4F, LIPID, CBC, T3F #### [facility] [address] Squamous Epithelial Cell,Urine 5-9 High 0-2 [facility] Comment on above: Order Comment: Date of last dose?: 20220131 Time of last dose?: 0800 Performed By: #### P HENY, [id number], TSH3, CMP, T4F, LIPID, CBC, T3F #### [facility] [address] Urobilinogen,Urine Normal Normal Normal [facility] Comment on above: Order Comment: Date of last dose?: 20220131 Time of last dose?: 0800 Performed By: #### P HENY, [id number], TSH3, CMP, T4F, LIPID, CBC, T3F #### [facility] [address] WBC LM.HPF (Urine sed) [#/Area] 0 /[HPF] Normal 0-4 [facility] Comment on above: Order Comment: Date of last dose?: 20220131 Time of last dose?: 0800 Performed By: #### P HENY, [id number], TSH3, CMP, T4F, LIPID, CBC, T3F #### [facility] [address] Eosinophils Auto (Bld) [#/Vo l]Ordered By: Epi Robles on 06-03-2022 Eosinophils (Bld) [#/Vol] 0.1 10*3/uL 0.0-0.45 [facility] Eosinophils/100 WBC Auto (Bl d)Ordered By: Epi Robles on 06-03-2022 Eosinophils/100 WBC (Bld) 0.8 % . [facility] Erythrocyte distribution wid th Auto (RBC) [Ratio]Ordered By: Epi Robles on 06-03-2022 Erythrocyte distribution width (RBC) [Ratio] 13.4 % 11.9-15.3 [facility] Estimated glomerular filtrat ion rate (GFR) non- AmericanOrdered By: Epi Robles on 06-03-2022 GFR/1.73 sq M.predicted among non-blacks MDRD (S/P/Bld) [Vol rate/Area] 56 mL/Min [facility] Globulin Calc (S) [Mass/Vol] Ordered By: Epi Robles on 06-03-2022 Globulin (S) [Mass/Vol] 3.2 g/dL [facility] Hematocrit Auto (Bld) [Volum e fraction]Ordered By: Epi Robles on 06-03-2022 Hematocrit (Bld) [Volume fraction] 43.8 % 34.0-46.4 [facility] Ketones Auto test strip (U) [Mass/Vol]Ordered By: Epi Robles on 06-03-2022 Ketones (U) [Mass/Vol] Negative Negative [facility] Laboratory - Hematology and Cell countsOrdered By: Epi Robles on 06-03-2022 Nucleated RBC/100 WBC (Bld) [Ratio] 0.0 % 0-0.5 [facility] Laboratory - UrinalysisOrder ed By: Epi Robles on 06-03-2022 Hyaline casts LM Ql (Urine sed) 0-8 [LPF] 0-8 [facility] Lymphocytes Auto (Bld) [#/Vo l]Ordered By: Epi Robles on 06-03-2022 Lymphocytes (Bld) [#/Vol] 1.3 10*3/uL 1.00-4.8 [facility] Lymphocytes/100 WBC Auto (Bl d)Ordered By: Epi Robles on 06-03-2022 Lymphocytes/100 WBC (Bld) 18.0 % . [facility] MCH Auto (RBC) [Entitic mass ]Ordered By: Epi Robles on 06-03-2022 MCH (RBC) [Entitic mass] 30.2 pg 24.7-34.3 [facility] MCHC Auto (RBC) [Mass/Vol]Or dered By: Epi Robles on 06-03-2022 MCHC (RBC) [Mass/Vol] 33.9 g/dL 32.0-35.0 [facility] MCV Auto (RBC) [Entitic vol] Ordered By: Epi Robles on 06-03-2022 MCV (RBC) [Entitic vol] 89.3 fL 80-100 [facility] Monocytes Auto (Bld) [#/Vol] Ordered By: Epi Robles on 06-03-2022 Monocytes (Bld) [#/Vol] 0.7 10*3/uL 0.0-0.8 [facility] Monocytes/100 WBC Auto (Bld) Ordered By: Epi Robles on 06-03-2022 Monocytes/100 WBC (Bld) 10.1 % . [facility] Neutrophils Auto (Bld) [#/Vo l]Ordered By: Epi Robles on 06-03-2022 Neutrophils (Bld) [#/Vol] 5.0 10*3/uL 1.8-7.7 [facility] Neutrophils/100 WBC Auto (Bl d)Ordered By: Epi Robles on 06-03-2022 Neutrophils/100 WBC (Bld) 70.8 % . [facility] Nitrite Test strip Ql (U)Ord ered By: Epi Robles on 06-03-2022 Nitrite Ql (U) Negative Negative [facility] No Panel InformationOrdered By: Epi Robles on 06-03-2022 Estimated GFR () > 60 mL/Min [facility] Comment on above: GFR estimated refere nce range: According to KDOQI guidelines, <60 ml/min/1.73m2 is sufficient to diagnose a patient with chronic kidney disease. Pharmacy Creatinine Clearance (Chem 63.77 [facility] Platelet mean volume Auto (B ld) [Entitic vol]Ordered By: Epi Robles on 06-03-2022 Platelet mean volume (Bld) [Entitic vol] 8.6 fL 6.3-10.7 [facility] Platelets Auto (Bld) [#/Vol] Ordered By: Epi Robles on 06-03-2022 Platelets (Bld) [#/Vol] 253 10*3/uL 150-450 [facility] Protein Auto test strip (U) [Mass/Vol]Ordered By: Epi Robles on 06-03-2022 Protein (U) [Mass/Vol] Trace mg/dL Negative [facility] Protein [Mass/volume] in Ser um or PlasmaOrdered By: Epi Robles on 06-03-2022 Protein [Mass/Vol] 6.9 g/dL 6.1-7.9 [facility] RBC Auto (Bld) [#/Vol]Ordere d By: Epi Robles on 06-03-2022 RBC (Bld) [#/Vol] 4.90 10*6/uL 3.60-5.00 [facility] Serum or plasma alanine schmidt otransferase measurement without P-5'-P (enzymatic activiOrdered By: Epi Robles on 06-03-2022 ALT No additional P-5'-P [Catalytic activity/Vol] 14 U/L 10-60 [facility] Serum or plasma albumin/glob ulin mass ratioOrdered By: Epi Robles on 06-03-2022 Albumin/Globulin [Mass ratio] 1.2 {ratio} [facility] Serum or plasma alkaline nan sphatase measurement (enzymatic activity/volume)Ordered By: Epi Robles on 06-03-2022 ALP [Catalytic activity/Vol] 81 U/L 32-92 [facility] Serum or plasma aspartate am inotransferase measurement (enzymatic activity/volume)Ordered By: Epi Robles on 06-03-2022 AST [Catalytic activity/Vol] 26 U/L 10-42 [facility] Serum or plasma calcium karen urement (mass/volume)Ordered By: Epi Robles on 06-03-2022 Calcium [Mass/Vol] 9.2 mg/dL 8.2-10.2 [facility] Serum or plasma chloride pasha surement (moles/volume)Ordered By: Eip Robles on 06-03-2022 Chloride [Moles/Vol] 88 mmol/L 95-114 [facility] Serum or plasma glucose karen urement (mass/volume)Ordered By: Epi Robles on 06-03-2022 Glucose [Mass/Vol] 116 mg/dL 70-100 [facility] Comment on above: ADA recommended refe rence range Random Glucose Reference Range is dependent on time and content of last meal. Glucose of more than 200 mg/dL in a nonstressed, ambulatory subject supports the diagnosis of Diabetes Mellitus. Serum or plasma potassium me asurement (moles/volume)Ordered By: Epi Robles on 06-03-2022 Potassium [Moles/Vol] TNP [facility] Comment on above: Test not performed GROSS HEMOLYSIS Serum or plasma sodium measu rement (moles/volume)Ordered By: Epi Robles on 06-03-2022 Sodium [Moles/Vol] 127 mmol/L 136-146 [facility] Serum or plasma total biliru bin measurement (mass/volume)Ordered By: Epi Robles on 06-03-2022 Bilirubin [Mass/Vol] 0.7 mg/dL 0.3-1.2 [facility] Serum or plasma total carbon dioxide measurement (moles/volume)Ordered By: Epi Robles on 06-03-2022 CO2 [Moles/Vol] 25.6 mmol/L 22.0-30.0 [facility] Serum or plasma urea nitroge n measurement (mass/volume)Ordered By: Epi Robles on 06-03-2022 Urea nitrogen [Mass/Vol] 19 mg/dL 9-23 [facility] Specific gravity Auto test s trip (U) [Rel density]Ordered By: Epi Robles on 06-03-2022 Specific gravity (U) [Rel density] 1.009 1.001-1.030 [facility] Squamous epithelial cells de tection in urine sediment by light microscopyOrdered By: Epi Robles on 06-03-2022 Epithelial cells.squamous LM Ql (Urine sed) 5-9 [HPF] 0-2 [facility] Urine bacteria detection by automated methodOrdered By: Epi Robles on 06-03-2022 Bacteria Auto Ql (U) None seen None Seen [facility] Urine clarity by refractomet ry automatedOrdered By: Epi Robles on 06-03-2022 Clarity Refractometry automated (U) Clear Clear [facility] Urine glucose measurement by automated test strip (mass/volume)Ordered By: Epi Robles on 06-03-2022 Glucose Auto test strip (U) [Mass/Vol] Normal mg/dL Normal [facility] Urine hemoglobin detection b y automated test stripOrdered By: Epi Robles on 06-03-2022 Hemoglobin Auto test strip Ql (U) 1+ Negative [facility] Urine leukocyte esterase det ection by automated test stripOrdered By: Epi Robles on 06-03-2022 Leukocyte esterase Auto test strip Ql (U) Negative Negative [facility] Urobilinogen Auto test strip (U) [Mass/Vol]Ordered By: Epi Robles on 06-03-2022 Urobilinogen (U) [Mass/Vol] Normal mg/dL Normal [facility] pH Auto test strip (U)Ordere d By: Epi Robles on 06-03-2022 pH (U) 6.0 [pH] 5.0-9.0 [facility] Basophils Auto (Bld) [#/Vol] Ordered By: Tisha Weeks on 01-31-2022 Basophils (Bld) [#/Vol] 0.0 10*3/uL 0.0-0.2 [facility] Basophils/100 WBC Auto (Bld) Ordered By: Tisha Weeks on 01-31-2022 Basophils/100 WBC (Bld) 0.6 % [facility] Blood hemoglobin measurement (mass/volume)Ordered By: Tisha Weeks on 01-31-2022 Hemoglobin (Bld) [Mass/Vol] 13.4 g/dL 11.8-15.4 [facility] Blood leukocytes automated c ount (number/volume)Ordered By: Tisha Weeks on 01-31-2022 WBC (Bld) [#/Vol] 6.4 10*3/uL 4.5-11.0 [facility] Complete Blood Count Auto Di ffon 01-31-2022 Basophils (Bld) [#/Vol] 0.0 10*3/uL Normal 0.0-0.2 [facility] Comment on above: Result Comment: PERF ORMED BY: [facility] [address] [place] [address] PATHOLOGIST ALLIGATOR HUNTER DANITA LEIGH M.D. Performed By: #### P HENY, [id number], TSH3, CMP, T4F, LIPID, CBC, T3F #### [facility] [address] Basophils/100 WBC (Bld) 0.6 % Normal . [facility] Comment on above: Performed By: #### P HENY, [id number], TSH3, CMP, T4F, LIPID, CBC, T3F #### [address] Eosinophils (Bld) [#/Vol] 0.3 10*3/uL Normal 0.0-0.45 [facility] Comment on above: Performed By: #### P HENY, [id number], TSH3, CMP, T4F, LIPID, CBC, T3F #### [address] Eosinophils/100 WBC (Bld) 4.2 % Normal . [facility] Comment on above: Performed By: #### P HENY, [id number], TSH3, CMP, T4F, LIPID, CBC, T3F #### [address] Erythrocyte distribution width (RBC) [Ratio] 13.6 % Normal 11.9-15.3 [facility] Comment on above: Performed By: #### P HENY, [id number], TSH3, CMP, T4F, LIPID, CBC, T3F #### [address] Hematocrit (Bld) [Volume fraction] 40.6 % Normal 34.0-46.4 [facility] Comment on above: Performed By: #### P HENY, [id number], TSH3, CMP, T4F, LIPID, CBC, T3F #### [address] Hemoglobin (Bld) [Mass/Vol] 13.4 g/dL Normal 11.8-15.4 [facility] Comment on above: Performed By: #### P HENY, [id number], TSH3, CMP, T4F, LIPID, CBC, T3F #### [address] Lymphocytes (Bld) [#/Vol] 2.0 10*3/uL Normal 1.00-4.8 [facility] Comment on above: Performed By: #### P HENY, [id number], TSH3, CMP, T4F, LIPID, CBC, T3F #### [address] Lymphocytes/100 WBC (Bld) 30.8 % Normal . [facility] Comment on above: Performed By: #### P HENY, [id number], TSH3, CMP, T4F, LIPID, CBC, T3F #### [address] MCH (RBC) [Entitic mass] 30.2 pg Normal 24.7-34.3 [facility] Comment on above: Performed By: #### P HENY, [id number], TSH3, CMP, T4F, LIPID, CBC, T3F #### [address] MCV (RBC) [Entitic vol] 91.2 fL Normal 80-100 [facility] Comment on above: Performed By: #### P HENY, [id number], TSH3, CMP, T4F, LIPID, CBC, T3F #### [address] Mean Corpuscular HGB Conc 33.1 g/dL Normal 32.0-35.0 [facility] Comment on above: Performed By: #### P HENY, [id number], TSH3, CMP, T4F, LIPID, CBC, T3F #### [address] Monocytes (Bld) [#/Vol] 0.5 10*3/uL Normal 0.0-0.8 [facility] Comment on above: Performed By: #### P HENY, [id number], TSH3, CMP, T4F, LIPID, CBC, T3F #### [address] Monocytes/100 WBC (Bld) 8.3 % Normal . [facility] Comment on above: Performed By: #### P HENY, [id number], TSH3, CMP, T4F, LIPID, CBC, T3F #### [facility] [address] Neutrophils (Bld) [#/Vol] 3.6 10*3/uL Normal 1.8-7.7 [facility] Comment on above: Performed By: #### P HENY, [id number], TSH3, CMP, T4F, LIPID, CBC, T3F #### [facility] [address] Neutrophils/100 WBC (Bld) 56.1 % Normal . [facility] Comment on above: Performed By: #### P HENY, [id number], TSH3, CMP, T4F, LIPID, CBC, T3F #### [facility] [address] Nucleated RBC/100 WBC (Bld) [Ratio] 0.1 % Normal 0-0.5 [facility] Comment on above: Performed By: #### P HENY, [id number], TSH3, CMP, T4F, LIPID, CBC, T3F #### [facility] [address] Platelet mean volume (Bld) [Entitic vol] 8.0 fL Normal 6.3-10.7 [facility] Comment on above: Performed By: #### P HENY, [id number], TSH3, CMP, T4F, LIPID, CBC, T3F #### [facility] [address] Platelets (Bld) [#/Vol] 231 10*3/uL Normal 150-450 [facility] Comment on above: Performed By: #### P HENY, [id number], TSH3, CMP, T4F, LIPID, CBC, T3F #### [facility] [address] RBC (Bld) [#/Vol] 4.45 10*6/uL Normal 3.60-5.00 [facility] Comment on above: Performed By: #### P HENY, [id number], TSH3, CMP, T4F, LIPID, CBC, T3F #### [facility] [address] WBC (Bld) [#/Vol] 6.4 10*3/uL Normal 4.5-11.0 [facility] Comment on above: Performed By: #### P HENY, [id number], TSH3, CMP, T4F, LIPID, CBC, T3F #### [facility] [address] Comprehensive Metabolic Pane nimisha 01-31-2022 Albumin [Mass/Vol] 3.9 g/dL Normal 3.2-5.5 [facility] Comment on above: Performed By: #### P HENY, [id number], TSH3, CMP, T4F, LIPID, CBC, T3F #### [address] Albumin/Globulin [Mass ratio] 1.5 {ratio} Normal [facility] Comment on above: Performed By: #### P HENY, [id number], TSH3, CMP, T4F, LIPID, CBC, T3F #### [address] ALP [Catalytic activity/Vol] 66 U/L Normal 32-92 [facility] Comment on above: Performed By: #### P HENY, [id number], TSH3, CMP, T4F, LIPID, CBC, T3F #### [address] ALT [Catalytic activity/Vol] 19 U/L Normal 10-60 [facility] Comment on above: Performed By: #### P HENY, [id number], TSH3, CMP, T4F, LIPID, CBC, T3F #### [address] AST [Catalytic activity/Vol] 23 U/L Normal 10-42 [facility] Comment on above: Performed By: #### P HENY, [id number], TSH3, CMP, T4F, LIPID, CBC, T3F #### [address] Bilirubin [Mass/Vol] 0.5 mg/dL Normal 0.3-1.2 [facility] Comment on above: Performed By: #### P HENY, [id number], TSH3, CMP, T4F, LIPID, CBC, T3F #### [facility] [address] Calcium [Mass/Vol] 8.9 mg/dL Normal 8.2-10.2 [facility] Comment on above: Performed By: #### P HENY, [id number], TSH3, CMP, T4F, LIPID, CBC, T3F #### [facility] [address] Chloride [Moles/Vol] 102 mmol/L Normal 95-114 [facility] Comment on above: Performed By: #### P HENY, [id number], TSH3, CMP, T4F, LIPID, CBC, T3F #### [facility] [address] CO2 [Moles/Vol] 22.8 mmol/L Normal 22.0-30.0 [facility] Comment on above: Performed By: #### P HENY, [id number], TSH3, CMP, T4F, LIPID, CBC, T3F #### [facility] [address] Creatinine [Mass/Vol] 1.16 mg/dL High 0.44-1.03 [facility] Comment on above: Performed By: #### P HENY, [id number], TSH3, CMP, T4F, LIPID, CBC, T3F #### [facility] [address] Estimated GFR ( [place] 57 Normal [facility] Comment on above: Result Comment: GFR estimated reference range: According to KDOQI guidelines, <60 ml/min/1.73m2 is sufficient to diagnose a patient with chronic kidney disease. Performed By: #### P HENY, [id number], TSH3, CMP, T4F, LIPID, CBC, T3F #### [facility] [address] Estimated GFR (Non- Am 47 [facility] Comment on above: Performed By: #### P HENY, [id number], TSH3, CMP, T4F, LIPID, CBC, T3F #### [facility] [address] Globulin (S) [Mass/Vol] 2.6 g/dL [facility] Comment on above: Performed By: #### P HENY, [id number], TSH3, CMP, T4F, LIPID, CBC, T3F #### [address] Glucose [Mass/Vol] 100 mg/dL Normal 70-100 [facility] Comment on above: Result Comment: [facility] Glucose Reference Range is dependent on time and content of last meal. Glucose of more than 200 mg/dL in a nonstressed, ambulatory subject supports the diagnosis of Diabetes Mellitus. ADA recommended reference range Performed By: #### P HENY, [id number], TSH3, CMP, T4F, LIPID, CBC, T3F #### [address] Potassium [Moles/Vol] 4.6 mmol/L Normal 3.5-5.1 [facility] Comment on above: Performed By: #### P HENY, [id number], TSH3, CMP, T4F, LIPID, CBC, T3F #### [facility] [address] Protein [Mass/Vol] 6.5 g/dL Normal 6.1-7.9 [facility] Comment on above: Performed By: #### P HENY, [id number], TSH3, CMP, T4F, LIPID, CBC, T3F #### [address] Sodium [Moles/Vol] 140 mmol/L Normal 136-146 [facility] Comment on above: Performed By: #### P HENY, [id number], TSH3, CMP, T4F, LIPID, CBC, T3F #### [place] [id number] [place] Urea nitrogen [Mass/Vol] 21 mg/dL Normal 9-23 [facility] Comment on above: Performed By: #### P HENY, [id number], TSH3, CMP, T4F, LIPID, CBC, T3F #### [facility] [address] Eosinophils Auto (Bld) [#/Vo l]Ordered By: Tisha Weeks on 01-31-2022 Eosinophils (Bld) [#/Vol] 0.3 10*3/uL 0.0-0.45 [facility] Eosinophils/100 WBC Auto (Bl d)Ordered By: Tisha Weeks on 01-31-2022 Eosinophils/100 WBC (Bld) 4.2 % [facility] Erythrocyte distribution wid th Auto (RBC) [Ratio]Ordered By: Tisha Weeks on 01-31-2022 Erythrocyte distribution width (RBC) [Ratio] 13.6 % 11.9-15.3 [facility] Free T4 (Free Thyroxine)on 0 01-31-2022 Free T4 [Mass/Vol] 0.79 ng/dL Normal 0.61-1.12 [facility] Comment on above: Performed By: #### P HENY, [id number], TSH3, CMP, T4F, LIPID, CBC, T3F #### [facility] [address] Hematocrit Auto (Bld) [Volum e fraction]Ordered By: Tisha Weeks on 01-31-2022 Hematocrit (Bld) [Volume fraction] 40.6 % 34.0-46.4 [facility] Laboratory - Hematology and Cell countsOrdered By: Tisha Weeks on 01-31-2022 Nucleated RBC/100 WBC (Bld) [Ratio] 0.1 % 0-0.5 [facility] Lipid Panelon 01-31-2022 Cholesterol [Mass/Vol] 208 mg/dL High 140-200 [facility] Comment on above: Result Comment: Chol less than 200 mg/dl low risk Chol 201-239 mg/dl borderline risk Chol 240 mg/dl and greater high risk Performed By: #### P HENY, [id number], TSH3, CMP, T4F, LIPID, CBC, T3F #### [facility] [address] [place] [id number] [place] Cholesterol in HDL [Mass/Vol] 80 mg/dL Normal 35-85 [facility] Comment on above: Result Comment: HDL CHOL ATP-III CLASSIFICATION Cardiovascular Risk HDL > or equal to 60 mg/dL LOW HDL < 40 mg/dL HIGH Performed By: #### P HENY, [id number], TSH3, CMP, T4F, LIPID, CBC, T3F #### [facility] [address] [place] [address] [facility] [[email or web address]] Cholesterol.total/Cho lesterol in HDL [Mass ratio] 2.6 {ratio} Normal <5.0 [facility] Comment on above: Performed By: #### P HENY, [id number], TSH3, CMP, T4F, LIPID, CBC, T3F #### [facility] [address] LDL Cholesterol,Calculate d 119 mg/dL High 0-100 [facility] Comment on above: Result Comment: LDL ATP III CLASSIFICATION LDL less than 100 mg/dL Optimal LDL 100-129 mg/dL Near or above optimal LDL 130-159 mg/dL Borderline high LDL 160-189 mg/dL High LDL greater than 189 mg/dL Very high Performed By: #### P HENY, [id number], TSH3, CMP, T4F, LIPID, CBC, T3F #### [facility] [address] [place] [id number] [facility] [[email or web address]] Triglyceride w/Reflex 43 mg/dL Normal 35-149 [facility] Comment on above: Result Comment: TRIG ATP III CLASSIFICATION TRIG less than 150 mg/dL Normal TRIG 150-199 mg/dL Borderline high TRIG 200-500 mg/dL High TRIG greater than 500 mg/dL Very high Standard traceable to the Center for Disease Conrtrol and Prevention (CDC) test method. Performed By: #### P HENY, [id number], TSH3, CMP, T4F, LIPID, CBC, T3F #### [facility] [address] [place] [id number] [facility] [[email or web address]] VLDL CHOLESTEROL 8 mg/dL Normal [facility] Comment on above: Performed By: #### P HENY, [id number], TSH3, CMP, T4F, LIPID, CBC, T3F #### [facility] [address] Lymphocytes Auto (Bld) [#/Vo l]Ordered By: Tisha Weeks on 01-31-2022 Lymphocytes (Bld) [#/Vol] 2.0 10*3/uL 1.00-4.8 [facility] Lymphocytes/100 WBC Auto (Bl d)Ordered By: Tisha Weeks on 01-31-2022 Lymphocytes/100 WBC (Bld) 30.8 % [facility] MCH Auto (RBC) [Entitic mass ]Ordered By: Tisha Weeks on 01-31-2022 MCH (RBC) [Entitic mass] 30.2 pg 24.7-34.3 [facility] MCHC Auto (RBC) [Mass/Vol]Or dered By: Tisha Weeks on 01-31-2022 MCHC (RBC) [Mass/Vol] 33.1 g/dL 32.0-35.0 [facility] MCV Auto (RBC) [Entitic vol] Ordered By: Tisha eWeks on 01-31-2022 MCV (RBC) [Entitic vol] 91.2 fL 80-100 [facility] Monocytes Auto (Bld) [#/Vol] Ordered By: Tisha Weeks on 01-31-2022 Monocytes (Bld) [#/Vol] 0.5 10*3/uL 0.0-0.8 [facility] Monocytes/100 WBC Auto (Bld) Ordered By: Tisha Weeks on 01-31-2022 Monocytes/100 WBC (Bld) 8.3 % [facility] Neutrophils Auto (Bld) [#/Vo l]Ordered By: Tisha Weeks on 01-31-2022 Neutrophils (Bld) [#/Vol] 3.6 10*3/uL 1.8-7.7 [facility] Neutrophils/100 WBC Auto (Bl d)Ordered By: Tisha Weeks on 01-31-2022 Neutrophils/100 WBC (Bld) 56.1 % [facility] No Panel InformationOrdered By: Tisha Weeks on 01-31-2022 25-Hydroxy Vitamin D Total 58.7 ng/mL 30-100 [facility] Comment on above: VITAMIN D STATUS 25( [place])VITAMIN D RANGE (ng/mL) Deficient <20 Insufficient 20 to <30Sufficient 30 to 100Reference: Purvi MF,Ainsley ECHVEERRIA, Luis BLUE, et al. Evaluation,treatment, and prevention of vitamin D deficiency; an Endocrine Society clinical practice guideline. JCEM. 2010; 96(7):1911-30. Phenytoin (Dilantin)on 01-31 Phenytoin [Mass/Vol] 10.7 ug/mL Normal 10.0-20.0 [facility] Comment on above: Order Comment: Date of last dose?: [id number] Time of last dose?: 0800 Result Comment: Last dose: - PERFORMED BY: [place] [address] PATHOLOGIST ALLIGATOR HUNTER DANITA LEIGH M.D. Performed By: #### P HENY, [id number], TSH3, CMP, T4F, LIPID, CBC, T3F #### [facility] [address] [place] [address] Platelet mean volume Auto (B ld) [Entitic vol]Ordered By: Tisha Weeks on 01-31-2022 Platelet mean volume (Bld) [Entitic vol] 8.0 fL 6.3-10.7 [facility] Platelets Auto (Bld) [#/Vol] Ordered By: Tisha Wekes on 01-31-2022 Platelets (Bld) [#/Vol] 231 10*3/uL 150-450 [facility] RBC Auto (Bld) [#/Vol]Ordere d By: Tisha Weeks on 01-31-2022 RBC (Bld) [#/Vol] 4.45 10*6/uL 3.60-5.00 [facility] Serum or plasma phenytoin me asurement (mass/volume)Ordered By: Tisha Weeks on 01-31-2022 Phenytoin [Mass/Vol] 10.7 ug/mL 10.0-20.0 [facility] Comment on above: Last dose: - TSH DL <= 0.005 mIU/L QnOrde red By: Tisha Weeks on 01-31-2022 TSH Qn 1.43 m[IU]/L 0.45-5.33 [facility] Thyroid Stimulating Hormoneo n 01-31-2022 TSH Qn 1.43 m[IU]/L Normal 0.45-5.33 [facility] Comment on above: Performed By: #### P HENY, [id number], TSH3, CMP, T4F, LIPID, CBC, T3F #### [facility] [address] [place] [id number] [facility] [[email or web address]] Thyroxine (T4) free [Mass/vo lume] in Serum or PlasmaOrdered By: Tisha Weeks on 01-31-2022 Free T4 [Mass/Vol] 0.79 ng/dL 0.61-1.12 [facility] Triiodothyronine (T3) Freeon 01-31-2022 Triiodothyronine (T3) Free 3.11 pg/mL Normal 2.50-3.90 [facility] Comment on above: Result Comment: PERF ORMED BY: [facility] [address] [place] [address] PATHOLOGIST ALLIGATOR HUNTER DANITA LEIGH M.D. Performed By: #### P HENY, [id number], TSH3, CMP, T4F, LIPID, CBC, T3F #### [facility] [address] [place] [phone] [facility] [[email or web address]] Triiodothyronine (T3) Free [ Mass/volume] in Serum or PlasmaOrdered By: Tisha Weeks on 01-31-2022 Free T3 [Mass/Vol] 3.11 pg/mL 2.50-3.90 [facility] Vitamin D 25 Hydroxy Totalon 01-31-2022 Vitamin D 25 Hydroxy Total 58.7 ng/mL Normal 30-100 [facility] Comment on above: Result Comment: [facility]IL[place] MIN D STATUS 25(OH)VITAMIN D RANGE (ng/mL) Deficient <20 Insufficient 20 to <30 Sufficient 30 to 100 Reference: Purvi MF,Ainsley NC, Luis BLUE, et al. Evaluation,treatment, and prevention of vitamin D deficiency; an Endocrine Society clinical practice guideline. JCEM. 2010; 96(7):1911-30. PERFORMED BY: [facility] [address] [place] [address] PATHOLOGIST ALLIGATOR HUNTER DANITA LEIGH M.D. Performed By: #### P HENY, [id number], TSH3, CMP, T4F, LIPID, CBC, T3F #### [place] [id number] [facility] [[email or web address]] Vital Signs Date Time Vital Sign Value Performing Clinician Khurram amador 04-21-2024 09:13-0400 Diastolic blood pressure 62 mm[Hg] Jai Kirnus [facility] 04-21-2024 09:13-0400 Heart rate 63 /min Jai Kirnus [facility] 04-21-2024 09:13-0400 Respiratory rate 18 /min Jai Kirnus [facility] 04-21-2024 09:13-0400 SaO2% (BldA) [Mass fraction] 98 % Jai Kirnus [facility] 04-21-2024 09:13-0400 Systolic blood pressure 122 mm[Hg] Jai Kirnus [facility] 06-03-2022 11:11-0400 Body height 172.72 cm MD Tisha Weeks Work Phone: [facility] 06-03-2022 11:11-0400 Body temperature 97.5 [degF] MD Tisha Weeks Work Phone: [facility] 06-03-2022 11:11-0400 Body weight 84.82 kg MD Tisha Weeks Work Phone: [facility] 06-03-2022 11:11-0400 Diastolic blood pressure 78 mm[Hg] MD Tisha Weeks Work Phone: [facility] 06-03-2022 11:11-0400 Heart rate 70 /min MD Tisha Weeks Work Phone: [facility] 06-03-2022 [id number] Respiratory rate 18 /min MD Tisha Weeks Work Phone: [facility] 06-03-2022 11:11-0400 SaO2% (BldA) [Mass fraction] 97 % MD Tisha Weeks Work Phone: [facility] 06-03-2022 [id number] Systolic blood pressure 120 mm[Hg] MD Tisha Weeks Work Phone: [facility] Encounters Encounter Date Encounter Type Care Provider Facility Start: 03-27-2025 ambulatory Lourdes L Emma Facility: [facility] [place] Start: 05-08-2024 ambulatory Lourdes L Emma Facility: [facility] [place] Start: 04-25-2024 ambulatory Lourdes L Emma Facility: [facility] [place] Start: 04-20-2024 End: 04-21-2024 Patient encounter procedure Jai Boo [facility] Start: 04-20-2024 End: 04-21-2024 ambulatory Jai Arriolaus Facility:[facility] Start: 04-19-2024 End: 04-19-2024 ambulatory Lourdes L Emma Facility:[facility] [place] Start: 03-30-2024 End: 03-30-2024 ambulatory Lourdes L Emma Facility:[facility] [place] Start: 03-28-2024 End: 03-28-2024 ambulatory Lourdes L Emma Facility:[facility] [place] Start: 11-22-2023 End: 11-22-2023 ambulatory Lourdes L Emma Facility:[facility] [place] Start: 04-23-2023 End: 04-23-2023 Lab Drop off Lourdes L Emma [facility] Start: 03-04-2023 End: 03-05-[address] COURTNEY STOCKTON . Facility: Start: 09-30-2022 End: 12-07-[address] COURTNEY STOCKTON . Facility: Start: 06-03-2022 End: 06-03-2022 Emergency department patient visit MD Tisha Weeks Work Phone: [facility] Start: 01-31-2022 End: 01-31-2022 Patient encounter procedure MD Tisha Weeks Work Phone: [facility] [place] Start: 05-07-2018 End: 05-07-2018 Emergency department patient visit ZULEMA Deleon [facility] Procedures Date Procedure Procedure Detail Performing Clinician Start: 05-24-2019 Colonoscopy Lourdes Schwa b Colonoscopy Lourdes Emma Tonsillectomy Lourdes Emma Plan of Treatment Date Care Activity Detail Author Patient Education Hemorrhoids [facility] Work Phone: Patient referral [facility] Work Phone: Immunizations Immunization Date Immunization Notes Care Provider [facility] 09-06-2022 influenza virus vaccine, unspecified formulation Jai MD.Voicenus [facility] 09-06-2022 SARS-CoV-2 (COVID-19 ) [id number] Jai Kirnus [facility] 10-10-2021 SARS-CoV-2 (COVID-19 ) mRNA BNT-162b2 vax Jai Kirnus [facility] 01-14-2021 SARS-CoV-2 (COVID-19 ) mRNA BNT-162b2 vax Jai MD.Vo[facility]enus [facility] 12-23-2020 SARS-CoV-2 (COVID-19 ) mRNA BNT-162b2 vax Jai Kirnus [facility] Payers Date Payer Category Payer Unknown [id number] 1959 Medicare [id number] 1959 Unknown [id number] 1955 Unknown [id number] 2.16.84 [id number] 1955 Unknown [id number] 2.16.84 [id number] 1955 Unknown [id number] 2.16.8 [id number] 1955 Unknown [id number] 2.16.8 [id number] 1955 Unknown [id number] 2.16.8 [id number] 1955 Unknown [id number] 2.16.8 [id number] 1955 Unknown [id number] 2.16.8 [id number] 1955 Unknown [id number] 2.16.8 [id number] 1955 Unknown [id number] 2.16.8 [id number] 1955 Unknown [id number] 2.16.8 [id number] 1955 Unknown [id number] 2.16.8 [id number] Medicare Self Pay [id number] Private Health Insurance [id number] Self-pay Self Pay [id number] Social History Date Type Detail Facility Tobacco smoking stat us [facility] Unknown if ever smoked [facility] Work Phone: Start: 1955 Sex Assigned At Female F [facility] Start: 06-03-2022 End: 04-21-2024 Tobacco smoking status NHIS Ex-smoker (finding) [facility] Tobacco smoking status Never [facility] Sex Assigned At Female [facility] Functional Status Date Assessment Result Facility 04-21-2024 Functional Status N/A [facility] Evaluation + Plan note 05-16-2020 LaboratoryRadiology Note Date & Type Note Facility 05-16-2020 Evaluation + Plan note Future Appointments Appointment Date:05/16/2024 11:00:00 AM Scheduled Provider: [facility] Appoint[facility] Type:CV Echo () Appointment Date:05/16/2024 12:15:00 PM Scheduled Provider: [facility] Appointment Type:NM Myocard Spect Multi Rest/Stress-Res Appointment Date:05/16/2024 01:15:00 PM Scheduled Provider: [facility] Appointment Type:NM Myocard Spect Multi Rest/Stress - R Appointment Date:05/16/2024 01:45:00 PM Scheduled Provider: [facility] Appointment Type:NM Myocard Spect Multi Rest/Stress-Str Appointment Date:05/16/2024 02:45:00 PM Scheduled Provider: [facility] Appointment Type:NM Myocar Spect Multi Rest/Stress - St Appointment Date:05/18/2024 11:00:00 AM Scheduled Provider: [facility] Appointment Type:CV Holter/Event (FT) Appointment Date:03/27/2025 11:00:00 AM Scheduled Provider: Location:[facility] Appointment Type: Medicare Wellness Subsequent Future Scheduled TestsTSH With T4fr Reflex 04/24/24CV Antibody RFX to Quant PCR 03/28/24CBC w/ Auto Diff 04/24/24Comprehensive Metabolic Panel 04/24/24Lipid Panel 04/24/24Phenytoin Level Total 03/30/24NM Myocardial Spect Rest/Stress 1 Day 05/16/24Echo Transthoracic Complete 05/16/24 [facility] Evaluation + Plan note Note Date & Type Note Facility Evaluation + Plan note No data available for this section [facility] Evaluation note Note Date & Type Note Facility Evaluation note No assessment information availa umm [facility] Work Phone: Hospital Discharge instructions Note Date & Type Note Facility Hospital Discharge instructions Additional Instructions Follow-up with your primary care doctor Return to the ED if you develop worsening symptoms or concerns [facility] Work Phone: Hospital Discharge instructions Note Date & Type Note Facility Hospital Discharge instructions No data available for this section [facility] Progress note Note Date & Type Note Facility Progress note No data available for this section [facility] Summary Purpose Family History No Family History Records FoundNo Family History Records FoundNo Family History Records Found No data available for this section No Family History Records Found Advance Directives No [...] DATE CREATED AUTHOR AUTHOR'S ORGANIZ ATION 06/19/2022 [facility] DATE CREATED AUTHOR AUTHOR'S ORGANIZ ATION 03/08/2023 [facility] DATE CREATED AUTHOR AUTHOR'S ORGANIZ ATION 04/26/2024 [facility] Care Teams (unrecognized sec tion and content) [...] section No data available for this section No data available for this section [...] BE BASED ON THE PRIMARY CLINICAL RECORDS. [facility]. provides no warranty or guarantee of the accuracy or completeness of information in this document.
[2024-04-29 19:02] LABS: Glucometer 123 mg/dL (74-106)
--- NOTE | 2024-04-29 19:09 | CT_ITS ---
The [address] [address] Patient Name: DOMINGA BENNETT MRN: [id number] date: 1955 Sex: F Assigned Patient Location: ER Current Patient Location: ER Accession/Order Number: [id number] Exam Date: 04/29/2024 21:12 Report Date: 04/29/2024 21:54 At the request of: CONNIE YOUNG Procedure: CT head/brain wo con INDICATION: 68 years old; Female. Possible seizure.. TECHNIQUE: CT Head (ax/cor/sag reformats). Ionizing radiation dose reduced via iterative reconstruction/FBP blend and body size kV/mA adjustment. Comparison: None FINDINGS: POSTOPERATIVE CHANGES: None. BRAIN PARENCHYMA: No intraparenchymal or extra-axial hemorrhage. No mass effect. No midline shift or herniation. There is a localized area of decreased density which has the appearance of encephalomalacia and gliosis in the left parietal lobe and adjacent centrum semiovale. No mass effect is seen. Patchy low-density seen in the white matter bilaterally. VENTRICLES/EXTRA-AXIAL SPACES: Normal for patient's age. SINUSES/MASTOIDS: Sinuses are clear although the maxillary sinuses are not completely included. Mastoid sclerosis on the left. Residual mastoid air cells and middle ears are clear bilaterally. MSK: No displaced or depressed calvarial fracture. OTHER: No hyperdense intraluminal thrombus. CT/CT head/brain wo con IMPRESSION: 1. No acute intracranial abnormality. No hemorrhage or mass effect. 2. Encephalomalacia and gliosis in the left parietal lobe. 3. Subtle nonspecific white matter changes. Recommend follow-up with seizure protocol MRI. Electronically authenticated by: CALVIN CORTES Date: 04/29/2024 21:54
--- NOTE | 2024-04-29 19:09 | ECG_ITS ---
The [facility] Test Date: 2024-04-29 Pat Name: DOMINGA BENNETT Department: Room: - Gender: Female Media Aid: : 1955 Requested By: Order Number: [id number] Reading MD: TRACY UMAÑA Measurements Intervals [place] Rate: 63 P: 30 UT: 178 QRS: 51 QRSD: 88 T: 69 QT: 420 QTc: 428 Interpretive Statements 1100 Sinus rhythm 2420 RSR (QR) in lead V1/V2, consistent with right ventricular conduction delay 8102 Low QRS voltage in chest leads 9130 borderline ECG Compared to ECG 02/22/2019 11:40:55 Low QRS voltage now present Electronically Signed On 04-30-2024 7:19:59 EDT by TRACY UMAÑA
[2024-04-29 19:28] LABS: Basophils Absolute Auto 0.1 10^3/uL (0.0-0.1); Basophils Percent Auto 0.7 % (0.2-2.0); Eosinophils Absolute Auto 0.4 10^3/uL (0.0-0.7); Eosinophils Percent Auto 4.2 % (0.9-7.0); Hematocrit 42.3 % (36.0-48.0); Immature Granulocytes Abs Auto 0.02 10^3/uL (0.00-0.03); Immature Granulocytes Pct Auto 0.2 % (0.0-0.5); Lymphocytes Absolute Auto 3.4 10^3/uL (1.2-3.8); Lymphocytes Percent Auto 38.8 % (20.5-60.0); Mean Corpuscular HGB Conc 33.1 g/dL (29.9-35.2); Mean Corpuscular Hemoglobin 30.8 pg (26.7-34.0); Mean Corpuscular Volume 93.2 fL (81.0-99.0); Mean Platelet Volume 10.6 fL (9.5-13.5); Monocytes Absolute Auto 0.7 10^3/uL (0.3-0.8); Monocytes Percent Auto 7.9 % (1.7-12.0); Neutrophils Absolute Auto 4.2 10^3/uL (1.4-6.5); Neutrophils Percent Auto 48.2 % (43.0-75.0); Platelet Count 235 10^3/uL (150-450); Red Blood Count 4.54 10^6/uL (4.20-5.40); Red Cell Distribution Width 13.2 % (11.0-15.0); White Blood Count 8.7 10^3/uL (4.0-11.0)
[2024-04-29 19:36] LABS: BUN Creatinine Ratio 19.3; Calcium 8.9 mg/dL (8.5-10.1); Carbon Dioxide 28.8 mmol/L (21.0-32.0); Chloride 103 mmol/L (98-107); Estimated GFR (African America 55 (>=60); Estimated GFR (Non-African Ame 45 (>=60); Glucose 131 mg/dL (74-106); Potassium 3.8 mmol/L (3.5-5.1); Sodium 139 mmol/L (136-145)
[2024-04-29 19:38] LABS: Phenytoin Dilantin 15.8 ug/mL (10.0-20.0)
[2024-04-29] MEDS: LORAZEPAM 2 MG/ML VIAL 0.5 MG IV (20:54)
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
== END 2024-04-29 22:42 | disposition home or self-care (01) ==
PROVIDERS: Emergency Medicine; Emergency Provider Emergency Medicine; PCP Nurse Practitioner
DX: R56.9 Unspecified convulsions (principal); Z79.899 Other long term (current) drug therapy
CPT/HCPCS: 36415; 70450; 80048; 80185; 85025; 93005; 96374; 99285; J2060

== ENCOUNTER 2024-06-27 15:08 | Outpatient (RCR) | payer MEDICARE, SELFPAY | END 2024-07-24 23:47 | disposition home or self-care (01) | LOC: MM 15:08 | PROVIDERS: PCP Nurse Practitioner; Visit Provider Internal Medicine | DX: Z51.81 Encounter for therapeutic drug level monitoring (principal); Z79.01 Long term (current) use of anticoagulants; D68.61 Antiphospholipid syndrome | CPT/HCPCS: 85610; G0463 ==

== ENCOUNTER 2024-07-25 01:14 | Outpatient (RCR) | payer MEDICARE, SELFPAY | END 2024-08-24 23:41 | disposition home or self-care (01) | LOC: MM 01:14 | PROVIDERS: PCP Nurse Practitioner; Visit Provider Internal Medicine | DX: Z51.81 Encounter for therapeutic drug level monitoring (principal); Z79.01 Long term (current) use of anticoagulants; D68.61 Antiphospholipid syndrome | CPT/HCPCS: 85610; G0463 ==

== ENCOUNTER 2024-08-25 09:56 | Outpatient (RCR) | payer MEDICARE, SELFPAY | END 2024-09-23 23:59 | disposition home or self-care (01) | LOC: MM 09:56 | PROVIDERS: PCP Nurse Practitioner; Visit Provider Internal Medicine | DX: Z51.81 Encounter for therapeutic drug level monitoring (principal); Z79.01 Long term (current) use of anticoagulants; D68.61 Antiphospholipid syndrome | CPT/HCPCS: 85610; G0463 ==

== ENCOUNTER 2024-09-24 10:15 | Outpatient (RCR) | payer MEDICARE, SELFPAY | END 2024-10-24 09:55 | disposition home or self-care (01) | LOC: MM 10:15 | PROVIDERS: PCP Nurse Practitioner; Visit Provider Internal Medicine | DX: Z51.81 Encounter for therapeutic drug level monitoring (principal); Z79.01 Long term (current) use of anticoagulants; D68.61 Antiphospholipid syndrome | CPT/HCPCS: 85610; G0463 ==

== ENCOUNTER 2024-10-26 00:05 | Outpatient (RCR) | payer MEDICARE, SELFPAY | END 2024-11-24 15:02 | disposition home or self-care (01) | LOC: MM 00:05 | PROVIDERS: PCP Nurse Practitioner; Visit Provider Internal Medicine | DX: Z51.81 Encounter for therapeutic drug level monitoring (principal); Z79.01 Long term (current) use of anticoagulants; D68.61 Antiphospholipid syndrome | CPT/HCPCS: 85610; G0463 ==

== ENCOUNTER 2024-11-21 20:22 | Outpatient (REF) | payer MEDICARE, SELFPAY ==
--- OUTSIDE RECORDS SUMMARY | 2024-11-21 20:26 | XMS_ITS | CCD ---
Author Organization [facility] Care Team Providers Care Legal Executive Name Role Phone ZULEMA CURRY Unavailable Unavailable LIYAH WEEKS Unavailable Unavailable MD Liyah Weeks Primary Care Provider MD Liyah Weeks Attending Provider MD Liyah Weeks Primary Care Provider DO Epi Robles Emergency Provider KARVIET ., DR VALDEZ Admitting Unavailabl e KARASIK ., DR VALDEZ Attending Unavailabl e AMBERLY ., DR LIYAH Posada Primary Care Unavailable KARASIK ., DR VALDEZ Consulting Unavailabl e KARASIK ., DR VALDEZ Admitting Unavailabl e KARASIK ., DR VALDEZ Attending Unavailabl e AMBERLY ., DR LIYAH Posada Primary Care Unavailable KARASIK ., DR VALDEZ Consulting Unavailabl e BERLIN EDWARDS Consulting Unavailable JERALD MTZ Consulting Unavailable Lourdes Carter Primary Care Physician NON STAFF Primary Care Provider Unavaildave e DO Jensen Elliott Emergency Provider [place] MD Soledad Leigh Admit Provider MD Soledad Guzman Attending Provider [phone] SHERRIE Cabral Other Provider Unavailable MD Kit Taylor Other Provider MD Gary Ewing Other Provider [phone] MD Astrid Mo Other Provider DO Kenneth Cee Other Provider Lourdes Carter Attending Unavailable Lourdes Carter Admitting Unavailable DO Fatou Proctor Attending Provider MD Don Chiu Attending Provider MD Don Chiu Attending Provider [phone] Emma, Lourdes L Attending Unavailable Emma, Lourdes L Attending Unavailable Emma, Lourdes L Attending Unavailable Emma, Lourdes L Attending Unavailable Emma, Lourdes L Attending Unavailable Emma, Lourdes L Attending Unavailable Emma, Lourdes L Attending Unavailable KirMD Jai mendoza Attending Unavailable Emma, Lourdes L Referring Unavailable Emma, Lourdes L Attending Unavailable Emma, Lourdes L Admitting Unavailable Emma, Lourdes L Attending Unavailable Emma, Lourdes L Admitting Unavailable Emma, Lourdes L Admitting Unavailable Emma, Lourdes L Attending Unavailable Emma, Lourdes L Attending Unavailable Emma, Lourdes L Attending Unavailable DO Fatou Proctor Attending Provider MD Don Chiu Attending Provider MD Jai Boo Attending Unavailable NONE, XXXX Referring Unavailable MD Jai Boo Admitting Unavailable Rajeev, MD Jai Tellez Referring Unavailable Rajeev, MD Jai Tellez Attending Unavailable Rajeev, MD Jai Tellez Consulting Unavailable Rajeev, MD Jai Tellez Admitting Unavailable MD Jai Boo Referring Unavailable Rajeev, MD Jai Tellez Attending Unavailable Jai Boo Consulting Unavailable Jai Boo Consulting Unavailable NON STAFF Primary Care Provider UnavailFatou Ruffin DO Attending Provider [phone] Don Chiu MD Attending Provider Emma [employer], Lourdes White Primary Care Provider NON STAFF Primary Care Unavailable Alahmad, Alaa Admitting Unavailable Alahmad, Alaa Attending Unavailable NON STAFF Primary Care Unavailable Don Chiu Admitting Unavailabl e Don Chiu Attending Unavailabl e Kenneth Cee Consulting Unavailable NON STAFF Primary Care Unavailable Alahmad, Alaa Admitting Unavailable Alahmad, Alaa Attending Unavailable Fatou Proctor Attending Gregorio Parks Primary Care Unavailable Fatou Proctor Admitting Lourdes Mesa Primary Care Unavailable Fatou Proctor Admitting Fatou De Attending Lourdes Mesa MD Unavailable Ftaou Proctor DO Unavailable [phone] FATOU PROCTOR Attending Unavailable FATOU PROCTOR Referring Unavailable FATOU PROCTOR Attending Unavailable HORACIO GANDHI Attending Unavailable Allergies Allergy Classification Reported Allergen(s) Allergy Type Date of Onset Reaction(s) Facility (2 sources) No Known Medication Allergies; Translations: [No Known Medication Allergies] Propensity to adverse reactions (disorder) [facility] Medications Current Medications Medication Drug Class(es) Dates Sig (Normalized) Sig (Original) alendronic acid 35 mg oral tablet (20 sources) Bisphosphonate Start: 03-30-2024 End: 03-25-2025 take 6-8 [oz_av] by mouth once daily alendronate 35 mg Tab 35 mg = 1 tab(s), Oral, q7day, with 6-8 oz plain water, at least 30 minutes before first food, beverage, or medication of the day, X 90 day(s), # 13 tab(s), Refills(s) 3, Pharmacy: [facility]/pharmacy #[id number], 169, cm, 03/30/24 11:31:00 EDT, Height/Length [...] Refills(s) 0 Start Date: 04/23/23 Status: Ordered Start: 03-05-2023 take 1 tablet by telly th every week alendronate (Fosamax) 35 MG tablet Take 35 mg by mouth 1 (one) time per week 03/05/2023 Active apixaban 5 mg oral tablet (3 sources) Factor Xa Inhibitor Start: 06-22-2024 End: 06-23-2024 take 1 tablet by mouth twice daily Apixaban (Eliquis) 5 mg tablet Active 5 MG PO Twice daily 60 June 23, 2024 3:09pm aspirin 81 mg oral tablet (20 sources) Platelet Aggregation Inhibitor, Nonsteroidal Anti-inflammatory Drug Start: 05-11-2019 take 1 capsule by mouth once daily Aspirin 81 mg Capsule Active 81 MG PO Daily June 02, 2022 11:00pm take 1 tablet by mouth once carisa y aspirin 81 MG EC tablet 1 tablet Orally Once a day Active atorvastatin 10 mg oral tablet (20 sources) HMG-CoA Reductase Inhibitor Start: 06-03-2022 End: 03-25-2025 atorvastatin (Lipitor) 10 MG tablet 03/30/2024 03/25/2025 Active bisoprolol fumarate 5 mg / hydroCHLOROthiazide 6.25 mg oral tablet (18 sources) Thiazide Diuretic, beta-Adrenergic Jojo Start: 08-17-2024 bisoprolol-hydrochlo rothiazide 5 mg-6.25 mg Tab Refill(s) 0 Start Date: 08/17/24 Status: Ordered Start: 06-03-2022 End: 03-25-2025 take 1 tablet by mouth once daily Bisoprolol-Hydrochlorothiazide 5-6.25 mg tablet Discontinued 1 TAB PO Daily June 02, 2022 11:00pm May 05, 2024 7:47am busPIRone hydrochloride 7.5 mg oral tablet (5 sources) Start: 05-09-2024 take 1 tablet by mouth three times daily busPIRone 7.5 mg oral tablet 7.5 mg = 1 tab(s), Oral, TID, # 90 tab(s), Refills(s) 0, Pharmacy: [facility]/pharmacy #[id number], 169, cm, 05/09/24 10:57:00 EDT, Height/Length Dosing, 84.5, kg, 05/09/24 10:57:00 EDT, Weight Dosing Start Date: 05/09/24 Status: Ordered cholecalciferol 0.125 mg oral capsule (15 sources) Vitamin D Start: 06-03-2022 End: 03-25-2025 take 1 capsule by mouth once daily cholecalciferol (Vitamin D-3) 125 MCG (5000 UT) capsule 125 mcg = 1 cap(s), Oral, Daily, X 90 day(s), # 90 cap(s), Refills(s) 3, Pharmacy: [facility]/pharmacy #[id number], 169, cm, 03/30/24 11:31:00 EDT, Height/Length Dosing, 86.6, kg, 03/30/24 11:31:00 EDT, Weight Dosing 03/30/2024 03/25/2025 Active 0.8 ml enoxaparin sodium 150 mg/ml prefilled syringe (1 source) Low Molecular Weight Heparin Start: 06-23-2024 Enoxaparin (Lovenox) 120 mg/0.8 mL syringe Active 120 MG SUBCUT Daily June 22, 2024 11:00pm dispense 5 doses High Potency Vitamin D3 125 mcg (5000 intl units) oral capsule (8 sources) Start: 03-30-2024 End: 03-25-2025 take 1 capsule by mouth once daily High Potency Vitamin D3 125 mcg (5000 intl units) oral capsule 125 mcg = 1 cap(s), Oral, Daily, X 90 day(s), # 90 cap(s), Refills(s) 3, Pharmacy: [facility]/pharmacy #[id number], 169, cm, 03/30/24 11:31:00 EDT, Height/Length Dosing, 86.6, kg, 03/30/24 11:31:00 EDT, Weight Dosing Start Date: 03/30/24 Stop Date: 03/25/25 Status: Ordered Start: 04-23-2023 take 1 capsule by [facility] once daily High Potency Vitamin D3 125 mcg (5000 intl units) oral capsule 125 mcg = 1 cap(s), Oral, Daily, # 90 cap(s), Refills(s) 3, Pharmacy: [facility]/pharmacy #[id number], 170.5, cm, 04/23/23 9:46:00 EDT, Height/Length Dosing, 86.2, kg, 04/23/23 9:46:00 EDT, Weight Dosing Start Date: 04/23/23 Status: Ordered levothyroxine sodium 0.1 mg oral tablet (20 sources) l-Thyroxine Start: 03-30-2024 End: 03-25-2025 take 1 tablet by mouth once daily levothyroxine 100 mcg (0.1 mg) Tab 100 mcg = 1 tab(s), Oral, Daily, # 90 tab(s), Refills(s) 3, Pharmacy: [facility]/pharmacy #[id number], 169, cm, 05/09/24 10:57:00 EDT, Height/Length Dosing, 84.5, kg, 05/09/24 10:57:00 EDT, Weight Dosing Start Date: 05/22/24 Status: Ordered Start: 06-03-2022 End: 03-25-2025 take 1 tablet by mouth once daily levothyroxine (Synthroid, Levoxyl) 100 MCG tablet 100 mcg = 1 tab(s), Oral, Daily, X 90 day(s), # 90 tab(s), Refills(s) 3, [id number], cm, 03/30/24 11:31:00 EDT, Height/Length Dosing, 86.6, kg, 03/30/24 11:31:00 EDT, Weight Dosing 03/30/2024 03/25/2025 Active Start: 05-11-2019 take 1 tablet by telly once daily levothyroxine 100 mcg (0.1 mg) Tab 100 microgram = 1 tab(s), Oral, Daily, Refills(s) 0, Thyroid Start Date: 05/11/19 Status: Ordered LORazepam 1 mg oral tablet (6 sources) Benzodiazepine Start: 06-02-2024 LORazepam (Ati van) 1 MG tablet Indications: Anxiety Take 2 tablets (2 mg) by mouth 1 time for 1 dose Take one 1mg tablet 30 minutes before MRI for anxiety. 1 tablet 06/02/2024 Active losartan potassium 25 mg oral tablet (3 sources) Angiotensin 2 Receptor Jojo Start: 08-17-2024 take 1 tablet by mouth once daily losartan 25 mg Tab 25 mg = 1 tab(s), Oral, Daily, # 30 tab(s), Refills(s) 5, Pharmacy: [facility]/pharmacy #[id number], 169, cm, 08/17/24 13:10:00 EDT, Height/Length Dosing, 81.4, kg, 08/17/24 13:10:00 EDT, Weight Dosing Start Date: 08/17/24 Status: Ordered magnesium oxide 400 mg oral tablet (19 sources) Start: 05-05-2024 take 1 tablet by mouth once daily magnesium oxide (Mag-Ox) 400 (240 Mg) MG tablet Take 400 mg by mouth Daily 05/05/2024 Active Ocuvite Eye + Multi (1 source) Start: 05-11-2019 take 1 tablet by mouth once daily Ocuvite Eye + Multi 1 tab(s), Oral, Daily, Refill(s) 0, Prophylaxis Start Date: 05/11/19 Status: Ordered phenytoin sodium 100 mg extended release oral capsule (20 sources) Anti-epileptic Agent Start: 05-04-2024 take 1 capsule by mouth once daily at bedtime Phenytoin Sodium Extended 100 mg capsule Active 100 MG PO Daily at bedtime May 03, 2024 11:00pm Start: 06-03-2022 take 2 capsules by m outh once daily in the morning Phenytoin Sodium Extended 100 mg capsule Active 200 MG PO Every morning June 02, 2022 11:00pm Start: 06-03-2022 take 200 mg by mouth once daily in the morning Phenytoin Sodium Extended Active 200 MG PO Every morning June 03, 2022 12:00am Start: 06-03-2022 take 100 mg by mouth once carisa y Phenytoin Sodium Extended Active 100 MG PO Daily June 03, 2022 12:00am Start: 05-11-2019 End: 03-25-2025 take 1 capsule by mouth three times daily phenytoin ER (Dilantin) 100 MG capsule 100 mg = 1 cap(s), Oral, TID, X 90 day(s), # 270 cap(s), Refills(s) 3, Pharmacy: [facility]/pharmacy #[id number], 169, cm, 03/30/24 11:31:00 EDT, Height/Length Dosing, 86.6, kg, 03/30/24 11:31:00 EDT, Weight Dosing 03/30/2024 03/25/2025 Active potassium chloride 10 meq oral tablet (19 sources) Start: 07-06-2024 take 10 tablets by mouth once daily potassium chloride 10 mEq ER Tab 10 mEq, Oral, Daily, # 90 EA, Refills(s) 4, Pharmacy: [facility]/pharmacy #[id number], 169, cm, 06/30/24 9:51:00 EDT, Height/Length Dosing, 81.9, kg, 06/30/24 9:51:00 EDT, Weight Dosing Start Date: 07/06/24 Status: Ordered Start: 05-08-2024 potassium chlo ride 10 mEq, Oral, Daily, Refills(s) 0 Start Date: 05/08/24 Status: Ordered Start: 05-05-2024 take 1 tablet by telly once daily potassium chloride CR (Klor-Con) 10 MEQ ER tablet Take 10 mEq by mouth Daily 05/05/2024 Active warfarin sodium 7.5 mg oral tablet (5 sources) Vitamin K Antagonist Start: 08-17-2024 take 3.75 mg by mouth once daily warfarin 7.5 mg Tab 3.75 mg = 0.5 tab(s), Oral, Daily, # 30 tab(s), Refills(s) 0 Start Date: 08/17/24 Status: Ordered Start: 08-17-2024 warfarin 3 mg Tab Refills(s) 0 Start Date: 08/17/24 Status: Ordered Start: 06-23-2024 take 2 tablets by mo [facility] once daily Warfarin 7.5 mg tablet Active 7.5 MG PO Daily June 22, 2024 11:00pm start on day 2 of lovenox warfarin (Coumad in) 3 MG tablet Taking 4 days per week. 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 Anxiety disorders (6 sources) Anxiety 05-09-2024 Chronic Cardiac dysrhythmias (18 sources) Cardiac arrhythmia; Translations: [Cardiac arrhythmia, unspecified] Onset: 04-21-2024 Chronic Coagulation and hemorrhagic disorders (17 sources) Heterozygous Factor V Leiden mutation; 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] Onset: 10-05-2024 06-01-2024 Chronic Conditions associated with dizziness or vertigo (8 sources) Dizziness and giddiness; Translations: [Dizziness and giddiness] Onset: 04-21-2024 Episodic Congestive heart failure; nonhypertensive (17 sources) Congestive heart failure; Translations: [Heart failure, unspecified] Onset: 05-03-2024 05-03-2024 Chronic Disorders of lipid metabolism (20 sources) Hypercholesterolemia; Translations: [Hyperlipidemia] Onset: 05-03-2024 04-23-2023 Chronic Epilepsy; convulsions (4 sources) Localization-related epilepsy; Translations: [Localization-related (focal) (partial) idiopathic epilepsy and epileptic syndromes with seizures of localized onset, intractable, without status epilepticus] 06-21-2024 Chronic Essential hypertension (13 sources) Hypertensive disorder; Translations: [Essential (primary) hypertension] Onset: 05-03-2024 05-03-2024 Chronic Comment on above: Problem List clean-u p per request of Phys. EHR Cmte Heart valve disorders (7 sources) Irregular heart beat 04-20-2024 Episodic Hemorrhoids (9 sources) Internal hemorrhoids; Translations: [Other hemorrhoids] 06-03-2022 Episodic Comment on above: Problem List clean-u p per request of Phys. EHR Cmte Other aftercare (6 sources) Post-discharge follow-up 05-09-2024 Episodic Other bone disease and musculoskeletal deformities (1 source) Other specified disorders of bone density and structure, unspecified site; Translations: [OTH D/O BONE DEN STRUCT UNS SITE] Onset: 03-07-2023 Episodic Other circulatory disease (7 sources) Anterior cerebral circulation infarction; Translations: [Personal history of transient ischemic attack (TIA), and cerebral infarction without residual deficits] 05-04-2024 Episodic Other circulatory disease (5 sources) History of cerebrovascular accident; Translations: [Personal history of transient ischemic attack (TIA), and cerebral infarction without residual deficits] 06-01-2024 Episodic Other circulatory disease (4 sources) History of cerebrovascular accident due to ischemia; Translations: [Personal history of transient ischemic attack (TIA), and cerebral infarction without residual deficits] 06-21-2024 Episodic Other lower respiratory disease (9 sources) Dyspnea; Translations: [Shortness of breath] Onset: 04-21-2024 Episodic Other lower respiratory disease (7 sources) Cough 11-22-2023 Episodic Other lower respiratory disease (7 sources) Dyspnea on exertion 04-20-2024 Episodic Other lower respiratory disease (3 sources) Dyspnea, unspecified; Translations: [Other respiratory abnormalities] 05-03-2024 Episodic Other nutritional; endocrine; and metabolic disorders (7 sources) Body mass index 30+ - obesity 03-28-2024 Chronic Other screening for suspected conditions (not mental disorders or infectious disease) (12 sources) Encounter for screening mammogram for malignant neoplasm of breast; Translations: [Encounter for screening for malignant neoplasm of cervix] Onset: 09-30-2022 Episodic Phlebitis; thrombophlebitis and thromboembolism (18 sources) Acute deep venous thrombosis of axillary vein; Translations: [H/O: Deep vein thrombosis] 05-10-2019 Episodic Pneumonia (except that caused by tuberculosis or sexually transmitted disease) (8 sources) Pneumonia 05-11-2019 Episodic Residual codes; unclassified (4 sources) Asymptomatic menopausal state; Translations: [ASYMPTOMATIC MENOPAUSAL STATE] Onset: 03-04-2023 Episodic Residual codes; unclassified (1 source) Family history of malignant neoplasm of breast; Translations: [FAMILY HX MALIG NEOPLASM OF BREAST] Onset: 03-07-2023 Episodic Sprains and strains (1 source) Strain of muscle, fascia and tendon of lower back, initial encounter; Translations: [Strain of muscle, fascia and tendon of lower back, initial encounter] Onset: 05-07-2018 Episodic Syncope (20 sources) Syncope; Translations: [Syncope and collapse] Onset: 05-05-2024 05-03-2024 Episodic Thyroid disorders (20 sources) Hypothyroidism; Translations: [Hypothyroidism, unspecified] Onset: 05-03-2024 05-10-2019 Chronic Comment on above: Problem List clean-u p per request of Phys. EHR Cmte Unclassified (7 sources) Patient encounter status 03-30-2024 Past or Other Problems Problem Classification Problem Date Documented Date Episodic/Chronic Epilepsy; convulsions (20 sources) Seizure; Translations: [Unspecified convulsions] Onset: 05-03-2024 05-11-2019 Episodic Comment on above: Problem List clean-u p per request of Phys. EHR Cmte Fluid and electrolyte disorders (16 sources) Hypokalemia; Translations: [Hypokalemia] Onset: 05-03-2024 05-03-2024 Episodic Immunizations and screening for infectious disease (1 source) Encounter for screening for human papillomavirus (HPV); Translations: [ENC SCREENING HUMAN PAPILLOMAVIRUS] Onset: 10-03-2022 Episodic Other circulatory disease (8 sources) Personal history of transient ischemic attack (TIA), and cerebral infarction without residual deficits; Translations: [Personal history of transient ischemic attack (TIA), and cerebral infarction without residual deficits] Onset: 05-03-2024 05-05-2024 Episodic Results Test Name Value Interpretation Reference Range Facility Beta 2 Glycoprotein I Ab IgG /Mon 10-05-2024 Beta 2 Glycoprotein I Ab, IgG 10 Normal 0-20 [facility] Comment on above: Result Comment: Resu lt Units: GPI IgG units The reference interval reflects a 3SD or 99th percentile interval, which is thought to represent a potentially clinically significant result in accordance with the International Consensus Statement on the classification criteria for definitive antiphospholipid syndrome (APS). J Thromb Haem 2006;4:295-306. Performed By: #### C TRUDY, CMP #### [address] Beta 2 Glycoprotein I Ab, IgM >150 High 0-32 [facility] Comment on above: Result Comment: Resu lt Units: GPI IgM units Verified by repeat analysis The reference interval reflects a 3SD or 99th percentile interval, which is thought to represent a potentially clinically significant result in accordance with the International Consensus Statement on the classification criteria for definitive antiphospholipid syndrome (APS). J Thromb Haem 2006;4:295-306. Performed at: [facility] [id number] [employer]: Maximo Waterman PhD, Phone: [phone] PERFORMED BY: [place] [address] PATHOLOGIST TRUCK LOADER [employer] CR[employer] ARAM GILES M.D. Performed By: #### C TRUDY, CMP #### [address] D-Dimer High Sensitivityon 1 12-06-2023 D-Dimer High Sensitivity <200 Normal 0-243 [facility] Comment on above: Result Comment: The reference range for D-dimer is <243 ng/mL D-dimer units. D-dimer results must be used in conjunction with a clinical pretest probability (PTP) assessment model for deep vein thrombosis (DVT) and pulmonary embolism (PE). Results <230 ng/mL d-dimer units can be used as a negative predictor in patients with low or moderate probability for DVT/PE. Results above the exclusion threshold of 230 ng/ml D-dimer units for DVT/PE may indicate the need for further diagnostic testing. D-Dimer can be increased in hospitalized patients due to co-morbid conditions. A hematocrit value greater than 55% may lead to inaccurate results in coagulation testing. Patients having hematocrit values >55% require a special collection tube for coagulation studies. Please contact the laboratory at [phone] for redraw instructions. PERFORMED BY: [place] [address] PATHOLOGIST TRUCK LOAD[employer] ARAM GILES M.D. Performed By: #### C TRUDY, CMP #### [address] Prothrombin Time INRon 10-05 INR Coag (PPP) [Relative time] 1.7 {INR} Normal [facility] Comment on above: Result Comment: INR Therapeutic Range A) Pre- and Peroperative OAT started two weeks before surgery. NOT HIP SURGERY: 1.5 - 2.5 HIP SURGERY: 2 - 3 B) Primary and secondary prevention of venous THROMBOSIS: 2 - 3 C) Active venous thrombosis, pulmonary embolism and prevention of recurrent venous thrombosis: 2 - 3 D) Prevention of arterial thromboembolism including patients with mechanical heart valves: 3 - 4.5 Performed By: #### C TRUDY, CMP #### [place] [id number] [facility] PT Coag (PPP) [Time] 19.4 s High 9.0-12.9 [facility] Comment on above: Result Comment: A he matocrit value greater than 55% may lead to inaccurate results in coagulation testing. Patients having hematocrit values >55% require a special collection tube for coagulation studies. Please contact the laboratory at [phone] for redraw instructions. Performed By: #### C TRUDY, CMP #### [place] [id number] [facility] Complete Blood Count Auto Di ffon 10-02-2024 Basophils (Bld) [#/Vol] 0.1 10*3/uL Normal 0.0-0.2 [facility] Comment on above: Result Comment: PERF ORMED BY: [place] [address] PATHOLOGIST TR[employer] LO[employer] ARAM GILES M.D. Performed By: #### C BC, CMP #### [address] Basophils/100 WBC (Bld) 0.8 % Normal . [facility] Comment on above: Performed By: #### C BC, CMP #### [address] Eosinophils (Bld) [#/Vol] 0.2 10*3/uL Normal 0.0-0.45 [facility] Comment on above: Performed By: #### C BC, CMP #### [address] Eosinophils/100 WBC (Bld) 2.9 % Normal . [facility] Comment on above: Performed By: #### C BC, CMP #### [address] Erythrocyte distribution width (RBC) [Ratio] 13.4 % Normal 11.9-15.3 [facility] Comment on above: Performed By: #### C BC, CMP #### [address] Hematocrit (Bld) [Volume fraction] 42.4 % Normal 34.0-46.4 [facility] Comment on above: Performed By: #### C BC, CMP #### [address] Hemoglobin (Bld) [Mass/Vol] 14.1 g/dL Normal 11.8-15.4 [facility] Comment on above: Performed By: #### C BC, CMP #### [address] Lymphocytes (Bld) [#/Vol] 2.1 10*3/uL Normal 1.00-4.8 [facility] Comment on above: Performed By: #### C BC, CMP #### [address] Lymphocytes/100 WBC (Bld) 32.4 % Normal . [facility] Comment on above: Performed By: #### C BC, CMP #### [address] MCH (RBC) [Entitic mass] 30.7 pg Normal 24.7-34.3 [facility] Comment on above: Performed By: #### C BC, CMP #### [address] MCV (RBC) [Entitic vol] 92.5 fL Normal 80-100 [facility] Comment on above: Performed By: #### C BC, CMP #### [address] Mean Corpuscular HGB Conc 33.2 g/dL Normal 32.0-35.0 [facility] Comment on above: Performed By: #### C BC, CMP #### [address] Monocytes (Bld) [#/Vol] 0.6 10*3/uL Normal 0.0-0.8 [facility] Comment on above: Performed By: #### C BC, CMP #### [address] Monocytes/100 WBC (Bld) 8.7 % Normal . [facility] Comment on above: Performed By: #### C BC, CMP #### [address] Neutrophils (Bld) [#/Vol] 3.6 10*3/uL Normal 1.8-7.7 [facility] Comment on above: Performed By: #### C BC, CMP #### [address] Neutrophils/100 WBC (Bld) 55.2 % Normal . [facility] Comment on above: Performed By: #### C BC, CMP #### [address] NRBC% 0.1 /100{WBC} Normal 0-0.5 [facility] Comment on above: Performed By: #### C TRUDY, CMP #### [address] Platelet mean volume (Bld) [Entitic vol] 8.6 fL Normal 6.3-10.7 [facility] Comment on above: Performed By: #### C TRUDY, CMP #### [address] Platelets (Bld) [#/Vol] 226 10*3/uL Normal 150-450 [facility] Comment on above: Performed By: #### C TRUDY, CMP #### [address] RBC (Bld) [#/Vol] 4.59 10*6/uL Normal 3.60-5.00 [facility] Comment on above: Performed By: #### C TRUDY, CMP #### [address] WBC (Bld) [#/Vol] 6.4 10*3/uL Normal 3.8-11.6 [facility] Comment on above: Performed By: #### C TRUDY, CMP #### [address] Comprehensive Metabolic Pane [facility] 10-02-2024 Albumin [Mass/Vol] 3.8 g/dL Normal 3.5-5.7 [facility] Comment on above: Performed By: #### C TRUDY, CMP #### [address] Albumin/Globulin [Mass ratio] 1.7 {ratio} Normal [facility] Comment on above: Performed By: #### C TRUDY, CMP #### [address] ALP [Catalytic activity/Vol] 114 U/L High 34-104 [facility] Comment on above: Result Comment: PERF ORMED BY: [place] [address] PATHOLOGIST TRUCK [employer] ARAM GILES M.D. Performed By: #### C BC, CMP #### [facility] [address] ALT [Catalytic activity/Vol] 29 U/L Normal 7-52 [facility] Comment on above: Performed By: #### C BC, CMP #### [facility] [address] [place] [address] [place] Anion gap [Moles/Vol] 10.2 mmol/L Normal 6.0-15.0 [facility] Comment on above: Performed By: #### C BC, CMP #### [facility] [address] AST [Catalytic activity/Vol] 23 U/L Normal 13-39 [facility] Comment on above: Performed By: #### C BC, CMP #### [place] [address] [place] Bilirubin [Mass/Vol] 0.5 mg/dL Normal 0.3-1.0 [facility] Comment on above: Performed By: #### C BC, CMP #### [facility] [address] [place] [address] [place] Calcium [Mass/Vol] 8.8 mg/dL Normal 8.6-10.3 [facility] Comment on above: Performed By: #### C BC, CMP #### [place] [address] [place] Chloride [Moles/Vol] 103 mmol/L Normal 98-107 [facility] Comment on above: Performed By: #### C BC, CMP #### [facility] [address] [place] [id number] [place] CO2 [Moles/Vol] 31.4 mmol/L High 21.0-31.0 [facility] Comment on above: Performed By: #### C BC, CMP #### [facility] [address] Creatinine [Mass/Vol] 0.88 mg/dL Normal 0.60-1.20 [facility] Comment on above: Performed By: #### C BC, CMP #### [place] [address] [place] GFR/1.73 sq M.predicted MDRD (S/P/Bld) [Vol rate/Area] mL/min/{1.73_m2} Normal [facility] Comment on above: Performed By: #### C BC, CMP #### [address] Globulin (S) [Mass/Vol] 2.2 g/dL Normal [facility] Comment on above: Performed By: #### C BC, CMP #### [address] Glucose [Mass/Vol] 108 mg/dL High 70-100 [facility] Comment on above: Result Comment: [place] Glucose Reference Range is dependent on time and content of last meal. Glucose of more than 200 mg/dL in a nonstressed, ambulatory subject supports the diagnosis of Diabetes Mellitus. ADA recommended reference range Performed By: #### C BC, CMP #### [address] Potassium [Moles/Vol] 4.6 mmol/L Normal 3.5-5.1 [facility] Comment on above: Performed By: #### C BC, CMP #### [address] Protein [Mass/Vol] 6.0 g/dL Low 6.4-8.9 [facility] Comment on above: Performed By: #### C BC, CMP #### [address] Sodium [Moles/Vol] 140 mmol/L Normal 136-145 [facility] Comment on above: Performed By: #### C BC, CMP #### [address] Urea nitrogen [Mass/Vol] 20 mg/dL Normal 7-25 [facility] Comment on above: Performed By: #### C BC, CMP #### [address] US carotid doppler BIon 11-0 8-2024 US carotid doppler BI [facility] [place] [address] [place] [address] Ultrasound Report Signed Patient: Venita Richter MR#: [id number] [id number] : 1955 Acct:[id number] Age/Sex: 69 / F ADM Date: 08/31/24 Loc: Room: Type: [facility] Attending Dr: Fatou Proctor DO Ordering Provider: Fatou Proctor DO Date of Service: 08/31/24 US/US carotid doppler BI: Z86.73, D68.51, R55 Copies to: Fatou Proctor DO CAROTID DUPLEX INDICATION: Stroke PROCEDURE: Color-flow duplex scanning is used to interrogate the extracranial carotid arterial system, as well as both vertebral arteries. Both carotid bifurcations show some smooth homogeneous plaque formation. The proximal right internal carotid artery shows a highest peak systolic velocity of 50.6 cm/s with an end-diastolic velocity of 23.5 cm/s . The mid internal carotid artery measures 87.3 cm/s peak systolic with an end diastolic velocity of 23 cm/s . The distal segment measures 72.7 cm/s peak systolic with an end diastolic velocity of 34.9 cm/s . The velocities of the right common carotid artery are 75.1 cm/s peak systolic and 28.5 cm/s end-diastolic and 60.1 cm/s peak systolic and 19.3 cm/s end diastolic distally. The peak systolic velocity ratio of the internal to the common carotid artery is 1.45 . The external carotid artery measures 74.2 cm/s peak systolic. The right vertebral artery is patent at 61.9 cm/s peak systolic with antegrade flow. The proximal left internal carotid artery shows a highest peak systolic velocity of 58.5 cm/s with an end-diastolic velocity of 25.6 cm/s . The mid internal carotid artery measures 65.5 cm/s peak systolic with an end diastolic velocity of 25.9 cm/s . The distal segment measures 64.1 cm/s peak systolic with an end diastolic velocity of 30.3 cm/s . The velocities of the left common carotid artery are 73.8 cm/s peak systolic and 23.3 cm/s end-diastolic and 87 cm/s peak systolic and 19.7 cm/s end diastolic distally. The peak systolic velocity ratio of the internal to the common carotid artery is 0.75 . The external carotid artery measures 57.1 cm/s peak systolic. The left vertebral artery is patent at 54 cm/s peak systolic with antegrade flow. The thyroid appears enlarged and diffusely heterogenous bilaterally but with no distinct nodules. US/US carotid doppler BI IMPRESSION: MILD PLAQUE FORMATION IS NOTED BILATERALLY, WITH LESS THAN 50% STENOSIS OF BOTH EXTRACRANIAL INTERNAL CAROTID ARTERY. BOTH VERTEBRAL ARTERIES ARE PATENT WITH ANTEGRADE FLOW. Thyroid abnormality as described above Impression dictated by: Tacho Holloway M.D.09/01/2024 10:17 AM Dictation Location: [place] [address] Tech: Johana Melgar Transcribed By: BALJEET 09/01/24 1017 Dictated By: Tacho Holloway MD 09/01/24 1015 Signed By: 09/01/24 1017 Normal [facility] Heart and Vascular Office/Cl inic Noteon 08-17-2024 Heart and Vascular Office/Clinic Note Heart and Vascular Office/Clinic Note Chief Complaint f/u med mgmt History of Present Illness The patient is a pleasant 69-year-old female with past medical history of hypothyroidism, hypertension, dyslipidemia, PVCs, who initially presented for cardiac evaluation in March 2024 due to issues with shortness of breath and palpitations for at least a month. Her cardiac workup included TTE, MPI, as listed below. She had a monitoring tech through [facility], as well. Most recently, she was started on warfarin, due to history of factor V Leiden deficiency. She was restarted on bisoprolol HCTZ combo by the primary services, due to issues with hypertension. She presents today with complaints of mild dizziness and headache, which were associated with elevated blood pressure. Reports no palpitations, feelings of racing heart, chest pain or tightness. Reports no worsening shortness of breath. Review of Systems PHQ Score Initial Depression [...] Musculoskeletal: no back pain, no trauma. Neurologic: yes headache, yes dizziness, no numbness, no weakness. Psychiatric: no sleeping problems, no irritability, no mood swings/depression. Heme/Lymph: no bleeding tendency, no bruising tendency, no petechiae, Allergy/Immuno logic: no seasonal allergies, no food allergies, no recurrent infections Physical Exam Vitals & Measurements HR: 64(Peripheral) RR: 16 BP: 136/86 SpO2: 100% HT: 67 in HT: 169 cm WT: 81.4 kg WT: 179.08 lb BMI: 28.5 General: alert, no acute distress Neck: Supple, noJVD nocarotid bruit Cardiovascular: regular rate and rhythm, no murmur normal peripheral perfusion Respiratory: Lungs CTAB, respirations non labored Extremities: no edema left lower extremity. no edema right lower extremity Neurological: oriented x 4, LOC appropriate for age, speech normal Skin: Warm, dry, intact- no rash or concerning lesions Procedure Procedure (05/16/2024 11:55 EDT Echo Transthoracic Complete) Adult Echocardiogram Report Name: VENITA RICHTER Study Date: 05/16/2024 11:00 AM BP: 125/68 mmHg Patient Location: [facility] HR: 74 : 1955 Gender: Female Height: 68 in Age: 68 yrs Ethnicity: T Weight: 192 lb Reason For Study: Shortness of breath (SOB) BSA: 2.0 m2 History: Bradycardia, irregular heart beat Ordering Physician: Rajeev^Jai^D Referring Physician: Jai Boo Performed By: Supriya Bajwa, ILIA, RVT Interpretation Summary Mild left ventricular hypertrophy. Left ventricular systolic function is normal. Ejection Fraction = 60-65%. No obvious regional wall motion abnormalities noted The left atrium is moderately dilated. The interatrial septum bows toward right atrium consistent with elevated left atrial pressure. Mild aortic regurgitation. There is mild mitral regurgitation. Frequent PVCs noted. [1] (05/16/2024 14:50 EDT NM Myocardial Spect Rest/Stress 1 Day) Nuclear Stress Report Name: VENITA RICHTER Study Date: 05/16/2024 01:08 PM Patient Location: [facility] : 1955 (M/d/yyyy) Gender: Female Age: 68 yrs Ethnicity: T Reason For Study: Shortness of breath (SOB) Ordering Physician: Jai Boo Referring Physician: Jai Boo Protocol 06383 Treadmill exercise test with Isotope. Study Protocol: One day rest/stress acquisition. Rest Dose Tc99m Cardiolite was administered. Rest Dose: 10.4 mCi IV. Stress Dose Stress Protocol: Lexiscan. Stress Dose: 29.8 mCi IV. Stress Parameters Normal blood pressure response. Stress Symptoms: None. ECG Rest Normal ECG. ECG Peak No significant changes from baseline. No ST-T wave changes from baseline. Arrhythmia Frequent PVC's. Recovery Arrhythmia: PVC's. Frequent couplets were noted in recovery. Image Quality Rest Images: Diagnostic in quality. Stress Images: Diagnostic in quality. SPECT Perfusion Normal rest and stress perfusion. Left Ventricle Normal global and regional wall motion in all territories. Interpretation Summary Rest EKG had PVC and bigeminy that resolved during exercise and returned in recovery. Couplets were note in recovery. Overall negative treadmill EKG stress test. Rest Dose: 10.4 mCi IV. Stress Dose: 29.8 mCi IV. TID 1.09 EF 66% EDV 77 ml Negative nuclear stress test for ischemia or infarction. Overall low risk stress. PVC and couplets during recovery. Electronically signed by: Fawad Yoo (more content not included)... Normal [facility] Comment on above: Result Comment: Elec tronically Signed By: Jai Boo MD\.br\Date and Time Signed: 08/17/24 13:39 EDT Ambulatory Visit Summaryon 0 06-30-2024 Ambulatory Visit Summary Ambulatory Visit Summary LUCRECIA RICHTERRA Woodard :1955 Visit Date:06/30/2024 Ambulatory Visit Instructions Your Care Team Attending Physician - Rajeev CONLEY, Jai Tellez Primary Care Physician - Lourdes Fan Referring Physician - Rajeev CONLEY, Jai Tellez This Is Your Medications List alendronate (alendronate 35 mg Tab) aspirin (aspirin 81 mg oral tablet) atorvastatin (atorvastatin 10 mg Tab) busPIRone (busPIRone 7.5 mg oral tablet) cholecalciferol (High Potency Vitamin D3 125 mcg (5000 intl units) oral capsule) levothyroxine (levothyroxine 100 mcg (0.1 mg) Tab) magnesium oxide phenytoin (Dilantin 100 mg Cap-ER) potassium chloride Procedures Performed Colonoscopy (05/24/2019), Colonoscopy, Tonsillectomy. Discharge Vitals Heart Rate (Peripheral) 53 Respiratory Rate 16 Blood Pressure 112/70 Height 169 cm Height 67 in Weight 81.9 kg Weight 180.18 lb BMI 28.68 What to do next Scheduled Follow-Up Appointments Wednesday 11:00 AM EDT Where: [place] [id number]- Medications What How Much When Why Instructions Unchanged alendronate (alendronate 35 mg Tab) 1 Tablets By Mouth Every 7 days Duration: 90 Days with 6-8 oz plain water, at least 30 minutes before first food, beverage, or medication of the day Unchanged aspirin (aspirin 81 mg oral tablet) 1 Tablets By Mouth Every day Unchanged atorvastatin (atorvastatin 10 mg Tab) 1 Tablets By Mouth Every day Duration: 90 Days Unchanged busPIRone (busPIRone 7.5 mg oral tablet) 1 Tablets By Mouth 3 times a day Hospital discharge follow-up Chronic ischemic multifocal anterior circulation stroke Hypercholesteremia Irregular heartbeat Anxiety BMI 30.0-30.9,adult Former smoker Hospital discharge follow-up Unchanged cholecalciferol (High Potency Vitamin D3 125 mcg (5000 intl units) oral capsule) 1 Capsules By Mouth Every day BMI 29.0-29.9,adult Non-smoker Seizures Hypothyroidism Hypercholesteremia Duration: 90 Days Unchanged levothyroxine (levothyroxine 100 mcg (0.1 mg) Tab) 1 Tablets By Mouth Every day Unchanged magnesium oxide 400 Milligram By Mouth Every day Unchanged phenytoin (Dilantin 100 mg Cap-ER) 1 Capsules By Mouth 3 times a day Unchanged potassium chloride 10 Milliequivalent By Mouth Every day Allergies No Known Medication Allergies Problems Ongoing - Any problem that you are currently receiving treatment for. Acute axillary vein thrombosis Acute bacterial bronchitis Anxiety BMI 30.0-30.9,adult Bradycardia on ECG Chronic ischemic multifocal anterior circulation stroke Cough Epigastric pain Hospital discharge follow-up Hypercholesteremia Hypothyroidism Irregular heartbeat Light-headed feeling Seizures Short of breath on exertion Wellness examination Historical - Any problem that you are no longer receiving treatment for. Pneumonia Patient Survey You may receive a survey via text or e-mail asking about your office visit. Please share your experience with us by completing your survey. We appreciate your feedback and thank you for choosing us for your care. Normal [facility] Heart and Vascular Office/Cl inic Noteon 06-30-2024 Heart and Vascular Office/Clinic Note Heart and Vascular Office/Clinic Note Chief Complaint here for test results History of Present Illness The patient is a very pleasant 68-year-old female with past medical history of hypothyroidism, hypertension, dyslipidemia, frequent PVCs, who initially presented for cardiac evaluation in the end of March of this year due to issues with shortness of breath and palpitations for at least a month. She was admitted to [facility] as well with what sounds like a presyncope. Her cardiac workup included transthoracic echocardiogram and myocardial perfusion imaging study, as listed below. She also had a monitoring tech through [facility] [place], results unavailable. Available tests are notorious for frequent PVCs. Today, the patient states that she is feeling great. He specifically reports no syncope, presyncope, dizziness, lightheadedness, chest pain or shortness of breath. She was seen by oncology at [facility] and was started on warfarin due to history of factor V Leiden deficiency. Review of Systems ROS - Provider Constitutional: [...] infections Physical Exam Vitals & Measurements HR: 53(Peripheral) RR: 16 BP: 112/70 SpO2: 96% HT: 67 in HT: 169 cm WT: 81.9 kg WT: 180.18 lb BMI: 28.68 General: alert, no acute distress Neck: Supple, noJVD nocarotid bruit Cardiovascular: regular rate and rhythm, no murmur normal peripheral perfusion Respiratory: Lungs CTAB, respirations non labored Extremities: no edema left lower extremity. no edema right lower extremity Neurological: oriented x 4, LOC appropriate for age, speech normal Skin: Warm, dry, intact- no rash or concerning lesions Procedure (05/16/2024 11:55 EDT Echo Transthoracic Complete) Adult Echocardiogram Report Name: VENITA RICHTER Study Date: 05/16/2024 11:00 AM BP: 125/68 mmHg Patient Location: [facility] HR: 74 : 1955 Gender: Female Height: 68 in Age: 68 yrs Ethnicity: T Weight: 192 lb Reason For Study: Shortness of breath (SOB) BSA: 2.0 m2 History: Bradycardia, irregular heart beat Ordering Physician: Rajeev^Jai^Geoff Referring Physician: Jai Boo Performed By: Supriya Bajwa, ILIA, RVT Interpretation Summary Mild left ventricular hypertrophy. Left ventricular systolic function is normal. Ejection Fraction = 60-65%. No obvious regional wall motion abnormalities noted The left atrium is moderately dilated. The interatrial septum bows toward right atrium consistent with elevated left atrial pressure. Mild aortic regurgitation. There is mild mitral regurgitation. Frequent PVCs noted. [1] (05/16/2024 14:50 EDT NM Myocardial Spect Rest/Stress 1 Day) Nuclear Stress Report Name: VENITA RICHTER Vivek Study Date: 05/16/2024 01:08 PM Patient Location: [facility] : 1955 (M/d/yyyy) Gender: Female Age: 68 yrs Ethnicity: [facility] Reason For Study: Shortness of breath (SOB) Ordering Physician: Jai Boo Referring Physician: Jai Boo Protocol 60383 Treadmill exercise test with Isotope. Study Protocol: One day rest/stress acquisition. Rest Dose Tc99m Cardiolite was administered. Rest Dose: 10.4 mCi IV. Stress Dose Stress Protocol: Lexiscan. Stress Dose: 29.8 mCi IV. Stress Parameters Normal blood pressure response. Stress Symptoms: None. ECG Rest Normal ECG. ECG Peak No significant changes from baseline. No ST-T wave changes from baseline. Arrhythmia Frequent PVC's. Recovery Arrhythmia: PVC's. Frequent couplets were noted in recovery. Image Quality Rest Images: Diagnostic in quality. Stress Images: Diagnostic in quality. SPECT Perfusion Normal rest and stress perfusion. Left Ventricle Normal global and regional wall motion in all territories. Interpretation Summary Rest EKG had PVC and bigeminy that resolved during exercise and returned in recovery. Couplets were note in recovery. Overall negative treadmill EKG stress test. Rest Dose: 10.4 mCi IV. Stress Dose: 29.8 mCi IV. TID 1.09 EF 66% EDV 77 ml Negative nuclear stress test for ischemia or infarction. Overall low risk stress. PVC and couplets during recovery. Electronically signed by: Fawad Carr MD on (more content not included)... Normal [facility] Comment on above: Result Comment: Elec tronically Signed By: Rajeev CONLEY, Jai Tellez\.br\Date and Time Signed: 06/30/24 10:10 EDT MR angio head mack de [place] ve[place] 06-16 MR angio head wo moose [facility] [place] [address] MRI Report Signed Patient: Venita Richter MR#: [id number] 2344 : 1955 Acct:[id number] Age/Sex: 68 / F ADM Date: 06/16/24 Loc: MR Room: Type: [facility] Attending Dr: Fatou Proctor DO Copies to: Fatou Proctor DO Ordering Provider: Fatou Proctor DO Date of Service: 06/16/24 MR/MR angio head wo con: D68.51, Z86.73, R55 MR angio head wo con 06/16/2024 9:25 AM SIGN OF SYMPTOMS: History of CVA, generalized weakness, A. fib PROTOCOL: Multiplanar multisequence MR images of the brain were obtained without contrast. Images include axial 3-D [id number] MRA with 3-D reconstructions. COMPARISON: 05/04/2024 FINDINGS: MRI BRAIN WITHOUT CONTRAST: Extra axial spaces: There is age-related cortical atrophy. Hemorrhage: None. Ventricular system: Within normal limits. Basal cisterns: Within normal limits and not effaced. Cerebral parenchyma: There is gliosis and encephalomalacia within the left parietal lobe. Periventricular and subcortical white matter T2 and FLAIR hyperintense foci are noted consistent with chronic microvascular change. Midline shift: None.. Cerebellum: Remote infarcts are redemonstrated in the cerebellar hemispheres. Brainstem: T2 and FLAIR hyperintense foci are noted in the pontine white matter similar to the prior exam. OTHER: Calvarium: Normal marrow signal. Vascular system: Satisfactory flow voids within the anterior and posterior circulation. Visualized Paranasal sinuses: Within normal limits. Visualized Orbits: Within normal limits. Visualized upper cervical spine: Within normal limits. Sella and skull base: Within normal limits. MRA BRAIN: The superior cerebellar arteries, posterior inferior cerebellar arteries, and the basilar artery are within normal limits. The posterior cerebral arteries are unremarkable. The intracranial segments of the internal carotid arteries are within normal limits. There are normal anterior and middle cerebral arteries. Anterior communicating artery is patent. Posterior communicating arteries are hypoplastic bilaterally. This is a normal variant.. The deep venous system and dural venous systems appear to be patent. MR/MR angio head wo con IMPRESSION: No focal stenosis, occlusion, or aneurysmal dilatation. No acute intrarenal pathology. Remote infarcts are redemonstrated along with chronic age-related neurodegenerative changes similar to the prior study. Impression dictated by: Alexander Cadena M.D.06/16/2024 1:30 PM Dictation Location: [place] [address] Transcribed By: [facility] 06/16/24 1330 Dictated By: Alexander Cadena II, MD 06/16/24 1321 Signed By: 06/16/24 1330 Normal [facility] Anti-Thrombin III Antigenon 06-01-2024 Anti-Thrombin III Antigen 109 % Normal 72-124 [facility] Comment on above: Result Comment: This test was developed and its performance characteristics determined by [facility]. It has not been cleared or approved by the Food and Drug Administration. Performed at: [address] [id number] [employer]: Zoltan Peterson MD, Phone: [phone] PERFORMED BY: [place] [address] PATHOLOGIST TRUCK LOAD[employer]ANE DANITA LEIGH M.D. Performed By: #### H S TROP #### [place] [address] [place] Anticardiolipin Ab, IgA,Qnon 06-01-2024 Anticardiolipin Ab, IgA,Qn <9 Normal 0-11 [facility] Comment on above: Result Comment: Nega tive: <12 Indeterminate: 12 - 20 Low-Med Positive: >20 - 80 High Positive: >80 Performed at: [address] [id number] [employer]: Maximo Waterman PhD, Phone: [phone] Performed By: #### C BC, CMP #### [place] [address] [place] Anticardiolipin Ab, IgG,Qnon 06-01-2024 Anticardiolipin Ab, IgG,Qn <9 Normal 0-14 [facility] Comment on above: Result Comment: Nega tive: <15 Indeterminate: 15 - 20 Low-Med Positive: >20 - 80 High Positive: >80 Performed By: #### C BC, CMP #### [place] [address] [place] Anticardiolipin Ab, IgM,Qnon 0808-2024 Anticardiolipin Ab, IgM,Qn <9 Normal 0-12 [facility] Comment on above: Result Comment: Nega tive: <13 Indeterminate: 13 - 20 Low-Med Positive: >20 - 80 High Positive: >80 Performed By: #### C BC, CMP #### [facility] [address] Antithrombin antigen actual/ normal in platelet poor plasma by immunologic methodOrdered By: Don Chiu on 06-01-2024 Antithrombin Ag actual/normal IA (PPP) [Relative mass conc] 109 % 72-124 [facility] Comment on above: This test was develo ped and its performance characteristicsdetermined by [employer]. It has not been cleared orapproved by the Food and Drug Administration.Performed at: [facility] [address] [id number] Director: Zoltan Peterson MD, Phone: [phone] Antithrombin Ag actual/normal IA (PPP) [Relative mass conc] Antithrombin antigen actual/normal in platelet poor plasma by immunologic method 72-124 [facility] Comment on above: This test was develo ped and its performance characteristicsdetermined by [employer]. It has not been cleared orapproved by the Food and Drug Administration.Performed at: [facility] [address] [id number] Director: Zoltan Peterson MD, Phone: [phone] Beta 2 Glycoprotein I Ab IgG /Mon 06-01-2024 Beta 2 Glycoprotein I Ab, IgG <9 Normal 0-20 [facility] Comment on above: Result Comment: Resu lt Units: GPI IgG units The reference interval reflects a 3SD or 99th percentile interval, which is thought to represent a potentially clinically significant result in accordance with the International Consensus Statement on the classification criteria for definitive antiphospholipid syndrome (APS). J Thromb Haem 2006;4:295-306. Performed By: #### C BC, CMP #### [facility] [address] [id number] [facility] Beta 2 Glycoprotein I Ab, IgM 55 High 0-32 [facility] Comment on above: Result Comment: Resu lt Units: GPI IgM units The reference interval reflects a 3SD or 99th percentile interval, which is thought to represent a potentially clinically significant result in accordance with the International Consensus Statement on the classification criteria for definitive antiphospholipid syndrome (APS). J Thromb Haem 2006;4:295-306. Performed at: - [employer] [id number] [employer]: Maximo Waterman PhD, Phone: [phone] Performed By: #### C BC, CMP #### [address] Beta 2 glycoprotein 1 IgG Ab [Units/volume] in SerumOrdered By: Don Chiu on 06-01-2024 Beta 2 glycoprotein 1 IgG Qn (S) <9 0-20 [facility] Comment on above: Result Units: GPI Ig G unitsThe reference interval reflects a 3SD or 99th percentileinterval, which is thought to represent a potentiallyclinically significant result in accordance with theInternational Consensus Statement on the classificationcriteria for definitive antiphospholipid syndrome (APS). JThromb Haem 2006;4:295-306. Beta 2 glycoprotein 1 IgG Qn (S) Beta 2 glycoprotein 1 IgG Ab [Units/volume] in Serum 0-20 [facility] Comment on above: Result Units: GPI Ig G unitsThe reference interval reflects a 3SD or 99th percentileinterval, which is thought to represent a potentiallyclinically significant result in accordance with theInternational Consensus Statement on the classificationcriteria for definitive antiphospholipid syndrome (APS). JThromb Haem 2006;4:295-306. Beta 2 glycoprotein 1 IgM Ab [Units/volume] in SerumOrdered By: Don Chiu on 06-01-2024 Beta 2 glycoprotein 1 IgM Qn (S) 55 High 0-32 [facility] Comment on above: Result Units: GPI Ig M unitsThe reference interval reflects a 3SD or 99th percentileinterval, which is thought to represent a potentiallyclinically significant result in accordance with theInternational Consensus Statement on the classificationcriteria for definitive antiphospholipid syndrome (APS). JThromb Haem 2006;4:295-306.Performed at: [employer] [id number] Director: Maximo Waterman PhD, Phone: [phone] Cardiolipin IgA Ab [Units/vo lume] in Serum by ImmunoassayOrdered By: Don Mcfadden on 06-01-2024 Cardiolipin IgA IA Qn (S) <9 APL U/mL 0-11 [facility] Comment on above: Negative: <12 Indete rminate: 12 - 20 Low-Med Positive: >20 - 80 High Positive: >80Performed at: [facility] [address] [place], [place] [id number] Director: Maximo Waterman PhD, Phone: [phone] Cardiolipin IgG Ab [Units/vo lume] in Serum by ImmunoassayOrdered By: Don Mcfadden on 06-01-2024 Cardiolipin IgG IA Qn (S) <9 GPL U/mL 0-14 [facility] Comment on above: Negative: <15 Indete rminate: 15 - 20 Low-Med Positive: >20 - 80 High Positive: >80 Cardiolipin IgM Ab [Units/vo lume] in Serum by ImmunoassayOrdered By: Don Mcfadden on 06-01-2024 Cardiolipin IgM IA Qn (S) <9 MPL U/mL 0-12 [facility] Comment on above: Negative: <13 Indete rminate: 13 - 20 Low-Med Positive: >20 - 80 High Positive: >80 D-Dimer High Sensitivityon 0 06-01-2024 D-Dimer High Sensitivity < 200 Normal 0-243 [facility] Comment on above: Result Comment: The reference range for D-dimer is <243 ng/mL D-dimer units. D-dimer results must be used in conjunction with a clinical pretest probability (PTP) assessment model for deep vein thrombosis (DVT) and pulmonary embolism (PE). Results <230 ng/mL d-dimer units can be used as a negative predictor in patients with low or moderate probability for DVT/PE. Results above the exclusion threshold of 230 ng/ml D-dimer units for DVT/PE may indicate the need for further diagnostic testing. D-Dimer can be increased in hospitalized patients due to co-morbid conditions. A hematocrit value greater than 55% may lead to inaccurate results in coagulation testing. Patients having hematocrit values >55% require a special collection tube for coagulation studies. Please contact the laboratory at [phone] for redraw instructions. PERFORMED BY: [place] [address] PATHOLOGIST TRUCK LOADER OVERHEAD CRANE DANITA LEIGH M.D. Performed By: #### H S TROP #### [address] [address] [facility] Factor II DNA Analysison Additional Information Comment Normal . [facility] Comment on above: Result Comment: Tech nical Component performed at [employer] [facility] Professional Component performed by: Stylect Kosta Renee, Ph.D., [facility] Director, Molecular Genetics [address] [place] [address] [place] [address] Performed at: [facility] [employer] [address] [place], [place] [id number] [employer]: [facility], located [facility], Phone: [phone] PERFORMED BY: [place] [address] PATHOLOGIST TRUCK LOADER OVERHEAD CRANE DANITA LEIGH M.D. Performed By: #### C BC, CMP #### [place] [id number] [facility] Factor II, DNA Analysis Comment Normal . [facility] Comment on above: Result Comment: Resu lt: c.*97G>A - Not Detected This result is not associated with an increased risk for venous thromboembolism. See Additional Clinical Information and Comments. Additional Clinical Information: Venous thromboembolism is a multifactorial disease influenced by genetic, environmental, and circumstantial risk factors. The c.*97G>A variant in the F2 gene is a genetic risk factor for venous thromboembolism. Heterozygous carriers have a 2- to 4-fold increased risk for venous thromboembolism. Homozygotes for the c.*97G>A variant are rare. The annual risk of VTE in homozygotes has been reported to be 1.1%/year. Individuals who carry both a c.*97G>A variant in the F2 gene and a c.1601G>A (p. Zgo443Fsl) variant in the F5 gene (commonly referred to as Factor V Leiden) have an approximately 20- fold increased risk for venous thromboembolism. Risks are likely to be even higher in more complex genotype combinations involving the F2 c.*97G>A variant and Factor V Leiden (PMID: 66699911). Additional risk factors include but are not limited to: deficiency of protein C, protein S, or antithrombin III, age, male sex, personal or family history of deep vein thromboembolism, smoking, surgery, prolonged immobilization, malignant neoplasm, tamoxifen treatment, raloxifene treatment, oral contraceptive use, hormone replacement therapy, and . Management of thrombotic risk and thrombotic events should follow established guidelines and fit the clinical circumstance. This result cannot predict the occurrence or recurrence of a thrombotic event. Comments: Genetic counseling is recommended to discuss the potential clinical implications of positive results, as well as recommendations for testing family members. Genetic Coordinators are available for health care providers to discuss results at [phone] ([phone]). Test Details: Variant analyzed: c.*97G>A, previously referred to as [id number] Methods/Limitations: DNA analysis of the F2 gene ([id number]) was performed by PCR amplification followed by restriction enzyme analysis. The diagnostic sensitivity is >99%. Results must be combined with clinical information for the most accurate interpretation. Molecular-based testing is highly accurate, but as in any laboratory test, diagnostic errors may occur. False positive or false negative results may occur for reasons that include genetic variants, blood transfusions, bone marrow transplantation, somatic or tissue-specific mosaicism, mislabeled samples, or erroneous representation of family relationships. This test was developed and its performance characteristics determined by [employer]. It has not been cleared or approved by the Food and Drug Administration. References: Noble S, Noreen AK, Med R, Moe WW, Dario JH; ACMG Professional Practice and Guidelines Committee. Addendum: [place] [employer] consensus statement on factor V Leiden mutation testing. Rosie Med. 2020Dec 27. doi: 10.1038/l05234-906-33155-k. PMID: 86190195. Octavia CARLOS. Prothrombin Thrombophilia. 2005May 18 [Updated 2020Nov 28]. In: Kenneth MP, Antonino HH, Autumn RA, et al., editors. Simone(Ed) [Internet]. [place] ([place]): [facility]; 8552-3420. Available from: https://www.ncbi.nlm.nih.gov/books/XXP4153/ Jose Eduardo S, Noreen AK, Maximo X, Ranulfo B, Kaitlynn EB, Jami P, Madisyn CS; [facility] Laboratory Drop Wire Aliner Committee. Venous thromboembolism laboratory testing (factor V Leiden and factor II c.*97G>A), 2018 update: a technical standard of the [employer] and [employer] (ACMG). Rosie Med. 2017;20(12):7470-5619. doi: 10.1038/x45604-978-1692-x. Epub 2017Jul 29. PMID: 48960189. Performed By: #### C BC, CMP #### [address] Fibrin D-dimer [Presence] in Platelet poor plasma by Latex agglutinationOrdered By: Don Chiu on 06-01-2024 Fibrin D-dimer LA Ql (PPP) < 200 ng/mL 0-243 [facility] Comment on above: The reference range for D-dimer is <243 ng/mL D-dimer units.D-dimer results must be used in conjunction with a clinicalpretest probability (PTP) assessment model for deep veinthrombosis (DVT) and pulmonary embolism (PE). Results <230ng/mL d-dimer units can be used as a negative predictor inpatients with low or moderate probability for DVT/PE.Results above the exclusion threshold of 230 ng/ml D-dimerunits for DVT/PE may indicate the need for furtherdiagnostic testing.D-Dimer can be increased in hospitalized patients due toco-morbid conditions.A hematocrit value greater than 55% may lead to inaccurate results in coagulation testing. Patients having hematocrit values >55% require a special collection tube for coagulation studies. Please contact the laboratory at [phone] for redraw instructions. Fibrin D-dimer LA Ql (PPP) Fibrin D-dimer [Presence] in Platelet poor plasma by Latex agglutination 0-243 [facility] Comment on above: The reference range for D-dimer is <243 ng/mL D-dimer units.D-dimer results must be used in conjunction with a clinicalpretest probability (PTP) assessment model for deep veinthrombosis (DVT) and pulmonary embolism (PE). Results <230ng/mL d-dimer units can be used as a negative predictor inpatients with low or moderate probability for DVT/PE.Results above the exclusion threshold of 230 ng/ml D-dimerunits for DVT/PE may indicate the need for furtherdiagnostic testing.D-Dimer can be increased in hospitalized patients due toco-morbid conditions.A hematocrit value greater than 55% may lead to inaccurate results in coagulation testing. Patients having hematocrit values >55% require a special collection tube for coagulation studies. Please contact the laboratory at [phone] for redraw instructions. Free protein S measurementOr dered By: Don Chiu on 06-01-2024 Protein S Free Ag IA Qn (PPP) 90 % 61-136 [facility] Comment on above: Performed at: [employer] [address] [id number] Director: Zoltan Peterson MD, Phone: [phone] Protein S Free Ag IA Qn (PPP) Free protein S measurement 61-136 [facility] Comment on above: Performed at: [employer] [id number] Director: Zoltan Peterson MD, Phone: [phone] Functional protein C measure mentOrdered By: Don Chiu on 06-01-2024 Protein C actual/normal Chromogenic method (PPP) [Rel catalytic activity/Vol] 114 % 73-180 [facility] Comment on above: Performed at: [employer] [id number] Director: Zoltan Peterson MD, Phone: [phone] Protein C actual/normal Chromogenic method (PPP) [Rel catalytic activity/Vol] Functional protein C measurement 73-180 [facility] Comment on above: Performed at: [employer] [id number] Director: Zoltan Peterson MD, Phone: [phone] Lupus Anticoagulant Compon 0 06-01-2024 Dilute Prothrombin Time (dPt) 44.6 Normal 0.0-47.6 [facility] Comment on above: Performed By: #### H S TROP #### [address] dPT Confirm Ratio 1.16 Normal 0.00-1.34 [facility] Comment on above: Performed By: #### H S TROP #### [address] DRVVT Lupus 35.7 Normal 0.0-47.0 [facility] Comment on above: Performed By: #### H S TROP #### [address] Interpretation Comment: Normal . [facility] Comment on above: Result Comment: No l upus anticoagulant was detected. Performed at: - [facility] [id number] [employer]: Zoltan Peterson MD, Phone: [phone] PERFORMED BY: [place] [address] PATHOLOGIST TRUCK LOADER OVERHEAD CRANE DANITA LEIGH M.D. Performed By: #### H S TROP #### [address] PTT-LA 30.6 Normal 0.0-43.5 [facility] Comment on above: Performed By: #### H S TROP #### [address] Thrombin Time 21.1 Normal 0.0-23.0 [facility] Comment on above: Performed By: #### H S TROP #### [address] Lupus anticoagulant [Interpr etation] in Platelet poor plasmaOrdered By: Don Chiu on 06-01-2024 Lupus anticoagulant (PPP) [Interp] Comment: . [facility] Comment on above: No lupus anticoagula nt was detected.Performed at: - [employer] [id number] Director: Zoltan Peterson MD, Phone: [phone] Lupus anticoagulant (PPP) [Interp] Lupus anticoagulant [Interpretation] in Platelet poor plasma . [facility] Comment on above: No lupus anticoagula nt was detected.Performed at: [facility] [place], [place] [id number] Director: Zoltan Peterson MD, Phone: [phone] No Panel InformationOrdered By: Don Chiu on 06-01-2024 Factor II DNA Analysis Comment Comment . [facility] Comment on above: Technical Component performed at [employer] [address] RTPProfessional Component performed by:[employer] Mila Renee, Ph.D., FACMGDirector, Molecular Ulx[address] [facility] [address]Ozklescqp at: [facility] [employer] [address] [place], [place] [id number] Director: [facility], Phone: [phone] Functional Protein S 64 % 63-140 [facility] Comment on above: Protein S activity m ay be falsely increased (masking anabnormal, low result) in patients receiving direct Xainhibitor (e.g., rivaroxaban, apixaban, edoxaban) or adirect thrombin inhibitor (e.g., dabigatran) anticoagulanttreatment due to assay interference by these drugs.Performed at: [employer] [address] [id number] Director: Zoltan Peterson MD, Phone: [phone] Plasma thrombin timeOrdered By: Don Chiu on 06-01-2024 Thrombin time Coag (PPP) [Time] TT plas 0.0-23.0 [facility] Platelet poor plasma ratio o f lupus anticoagulant-sensitive activated partial thromboOrdered By: Don Chiu on 06-01-2024 aPTT.lupus sensitive.excess phospholipid actual/normal Coag (PPP) [Relative time] 44.6 sec 0.0-47.6 [facility] aPTT.lupus sensitive.excess phospholipid actual/normal Coag (PPP) [Relative time] Platelet poor plasma ratio of lupus anticoagulant-sensitive activated partial thrombo 0.0-47.6 [facility] Population Health 06-01-20 [facility] Case Information Case Priority: None Programs: -- Referral Source: Pyrotechnician Referral Reason: Care coordination Case Type: Transition Care Management Risk Score: -- Case Status: Enrolled (May 08, 2024) Date Assigned: May 08, 2024 Assigned By: Axel Maldonado Date Enrolled: May 08, 2024 Assigned Primary Personnel: Axel Maldonado Assigned Secondary Personnel: -- Case Physician: [place] Fan Problems Ongoing Acute axillary vein thrombosis Acute bacterial bronchitis Anxiety BMI 30.0-30.9,adult Bradycardia on ECG Chronic ischemic multifocal anterior circulation stroke Cough Epigastric pain Hospital discharge follow-up Hypercholesteremia Hypothyroidism Irregular heartbeat Light-headed feeling Seizures Short of breath on exertion Wellness examination Historical Pneumonia Procedure/Surgical History Colonoscopy (05/24/2019), Colonoscopy, Tonsillectomy. Home Medications alendronate 35 mg Tab, 35 mg= 1 tab(s), Oral, q7day, 3 refills aspirin 81 mg oral tablet, 81 mg= 1 tab(s), Oral, Daily atorvastatin 10 mg Tab, 10 mg= 1 tab(s), Oral, Daily, 3 refills busPIRone 7.5 mg oral tablet, 7.5 mg= 1 tab(s), Oral, TID Dilantin 100 mg Cap-ER, 100 mg= 1 cap(s), Oral, TID, 3 refills High Potency Vitamin D3 125 mcg (5000 intl units) oral capsule, 125 mcg= 1 cap(s), Oral, Daily, 3 refills levothyroxine 100 mcg (0.1 mg) Tab, 100 mcg= 1 tab(s), Oral, Daily, 3 refills magnesium oxide, 400 mg, Oral, Daily potassium chloride, 10 mEq, Oral, Daily Allergies No Known Medication Allergies Social History [...] to change: No. Household tobacco concerns: No., 05/09/2024 Family History Acute myocardial infarction: Mother and Father. Diabetes mellitus type 2: Mother. 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 Patient denies any CP, SOB, fatigue, lightheadedness/dizziness, or palpitations. Patient reports BP 131/79. Notes her HR on the BP monitor reads as low as 30. Patient has been wearing HARPREET since 05/04/24. Patient has been keeping a close eye on her HR and symptoms. Patient is monitoring her sodium intake and stays well below the 2000mg daily. Patient had follow up with Dr. Proctor, she is scheduled for an MRA. Patient will send her HARPREET monitor back in the next few days. Patient reports her skin is very irritated from HARPREET pads. Patient is requesting follow up with Dr. Boo to discuss results and review echo (message sent regarding follow-up). Patient denies any further questions or concerns at this time. CN to follow with patient until cardio follow- up is determined. Communication Events Date: June 01, 2024 Method: Phone call Type: Outbound Duration (min): 12 Outcome: Case discussion Contact Type: care coordinator Contact Name: Axel Maldonado Notes: TCM#4- see tcm note. Created By: Axel Maldonado Date: May 30, 2024 Method: Phone call Type: Outbound Duration (min): 1 Outcome: Left message-voicemail Contact Type: care coordinator Contact Name: Axle Maldonado Notes: TCM#4- message left for final TCM call. Created By: Axel Maldonado Date: May 23, 2024 Method: Phone call Type: Outbound Duration (min): 21 Outcome: Case discussion Contact Type: care coordinator Contact Name: Axel Maldonado Notes: TCM#3- see tcm note. Created By: Axel Maldonado Date: May 16, 2024 Method: Phone call Type: Outbound Duration (min): 1 Outcome: Left message-voicemail Contact Type: care coordinator Contact Name: Axel Maldonado Notes: TCM#2- message left, return call requested. Created By: Axle Maldonado Date: May 08, 2024 Method: Phone call Type: Inbound Duration (min): 6 Outcome: Case discussion Contact Type: Patient advocate Contact Name: [facility] Notes: see d/c medication note. Created By: Axel Maldonado Date: May 08, 2024 Method: Phone call Type: Outbound Duration (min): 7 Outcome: Case discussion Contact Type: care coordinator Contact Name: Axel Maldonado Notes: [facility] [place] [place] medical records- request Created By: Benjamin (more content not included)... Normal [facility] Protein C Antigenon 06-01-20 24 Protein C Antigen 93 % Normal 60-150 [facility] Comment on above: Result Comment: Perf ormed at: - [facility] [id number] [employer]: Zoltan Peterson MD, Phone: [phone] PERFORMED BY: [place] [address] PATHOLOGIST TRUCK LOADER OVERHEAD CRANE DANITA LEIGH M.D. Performed By: #### H S TROP #### [facility] [address] [place] [address] Protein C Functionalon 06-01 Protein C Functional 114 % Normal 73-180 [facility] Comment on above: Result Comment: Perf ormed at: - [facility] [address] [id number] [employer]: Zoltan Peterson MD, Phone: [phone] PERFORMED BY: [place] [address] PATHOLOGIST TRUCK LOADER OVERHEAD CRANE DANITA LEIGH M.D. Performed By: #### H S TROP #### [facility] [address] [place], [place] [id number] [facility] Protein C antigen assayOrder ed By: Don Chiu on 06-01-2024 Protein C Ag actual/normal IA (PPP) [Relative mass conc] 93 % 60-150 [facility] Comment on above: Performed at: [facility] [address] [id number] Director: Zoltan Peterson MD, Phone: [phone] Protein C Ag actual/normal IA (PPP) [Relative mass conc] Protein C antigen assay 60-150 [facility] Comment on above: Performed at: [facility] [address] [id number] Director: Zoltan Peterson MD, Phone: [phone] Protein S Antigenon 06-01-20 24 Protein S, Free 90 % Normal 61-136 [facility] Comment on above: Result Comment: Perf ormed at: - [facility] [id number] [employer]: Zoltan Peterson MD, Phone: [phone] PERFORMED BY: [place] [address] PATHOLOGIST TRUCK LOADER OVERHEAD CRANE DANITA LEIGH M.D. Performed By: #### H S TROP #### [facility] [address] [place], [place] [id number] [facility] Protein S, Total 89 % Normal 60-150 [facility] Comment on above: Result Comment: This test was developed and its performance characteristics determined by [employer]. It has not been cleared or approved by the Food and Drug Administration. Performed By: #### H S TROP #### [facility] [address] [place], [place] [id number] [facility] Protein S Functionalon 06-01 Protein S Functional 64 % Normal 63-140 [facility] Comment on above: Result Comment: Prot ein S activity may be falsely increased (masking an abnormal, low result) in patients receiving direct Xa inhibitor (e.g., rivaroxaban, apixaban, edoxaban) or a direct thrombin inhibitor (e.g., dabigatran) anticoagulant treatment due to assay interference by these drugs. Performed at: - [facility] [id number] [employer]: Zoltan Peterson MD, Phone: [phone] PERFORMED BY: [place] [address] PATHOLOGIST TRUCK LOADER OVERHEAD CRANE DANITA LEIGH M.D. Performed By: #### H S TROP #### [facility] [address] Protein S measurement in elly telet poor plasma by coagulation assay (units/volume)Ordered By: Don Chiu on 06-01-2024 Protein S Coag Qn (PPP) 89 % 60-150 [facility] Comment on above: This test was develo ped and its performance characteristicsdetermined by [facility]. It has not been cleared orapproved by the Food and Drug Administration. Protein S Coag Qn (PPP) Protein S measurement in platelet poor plasma by coagulation assay (units/volume) 60-150 [facility] Comment on above: This test was develo ped and its performance characteristicsdetermined by [facility]. It has not been cleared orapproved by the Food and Drug Administration. Prothrombin gene [id number] mut ation detectionOrdered By: Don Chiu on 06-01-2024 F2 gene targeted mutation analysis [employer] [facility] (Bld/Tiss) Comment . [facility] Comment on above: Result: c.*97G>A - N ot DetectedThis result is not associated with an increased risk for venousthromboembolism. See Additional Clinical Information andComments.Additional Clinical Information:Venous thromboembolism is a multifactorial disease influenced bygenetic, environmental, and circumstantial risk factors. The c.*97G>Avariant in the F2 gene is a genetic risk factor for venousthromboembolism. Heterozygous carriers have a 2- to 4-fold increasedrisk for venous thromboembolism. Homozygotes for the c.*97G>A variantare rare. The annual risk of VTE in homozygotes has been reported marilou 1.1%/year. Individuals who carry both a c.*97G>A variant in theF2 gene and a c.1601G>A (p. Owj843Lcj) variant in the F5 gene(commonly referred to as Factor V Leiden) have an approximately 20-fold increased risk for venous thromboembolism. Risks are likely marilou even higher in more complex genotype combinations involving theF2 c.*97G>A variant and Factor V Leiden (PMID: 04730881). Additionalrisk factors include but are not limited to: deficiency of protein C,protein S, or antithrombin III, age, male sex, personal or familyhistory of deep vein thromboembolism, smoking, surgery, prolongedimmobilization, malignant neoplasm, tamoxifen treatment, raloxifenetreatment, oral contraceptive use, hormone replacement therapy, andpregnancy. Management of thrombotic risk and thrombotic events shouldfollow established guidelines and fit the clinical circumstance. Thisresult cannot predict the occurrence or recurrence of a thromboticevent.Comments:Genetic counseling is recommended to discuss the potential clinicalimplications of positive results, as well as recommendations fortesting family members.Genetic Coordinators are available for health care providers to discussresults at [phone] ([phone]).Test Details:Variant analyzed: c.*97G>A, previously referred to as [id number]/Limitations:DNA analysis of the F2 gene (NM_000506.5) was performed by PCRamplification followed by restriction enzyme analysis. The diagnosticsensitivity is >99%. Results must be combined with clinicalinformation for the most accurate interpretation. Molecular-basedtesting is highly accurate, but as in any laboratory test, diagnosticerrors may occur. False positive or false negative results may occurfor reasons that include genetic variants, blood transfusions, bonemarrow transplantation, somatic or tissue-specific mosaicism,mislabeled samples, or erroneous representation of familyrelationships.This test was developed and its performance characteristics determinedby [facility]. It has not been cleared or approved by the Food and DrugAdministration.References:Noble S, Noreen AK, Med R, Moe WW, Dario JH; ACMG ProfessionalPractice and Guidelines Committee. Addendum: [employer] consensus statement on factor V Leiden mutationtesting. Rosie Med. 2020Dec 27. doi: 10.1038/[id number].PMID: 65928744.Octavia CARLOS. Prothrombin Thrombophilia. 2005May 18[Updated 2020Nov 28]. In: Kenneth MP, Antonino HH, Autumn RA, et al.,editors. Simone(R) [Internet]. [place] ([place]): [facility]; [phone]. Available from:https://www.ncbi.nlm.nih.gov/books/SCK6002/Jose Eduardo S, Noreen AK, Marsh X, Ranulfo B, Kaitlynn EB, Jami P, Madisyn CS;[facility] Laboratory Drop Wire Aliner Committee. Venous thromboembolismlaboratory testing (factor V Leiden and factor II c.*97G>A),2018 update: a technical standard of the [employer] and Gen[employer] (ACMG). Rosie Med. 2018 Sep;20(12):5902-7619.doi: 10.1038/[id number]-t. Epub 2017Jul 29. PMID: 12820497. F2 gene targeted mutation analysis [facility] Nom (Bld/Tiss) Prothrombin gene [id number] mutation detection . [facility] Comment on above: Result: c.*97G>A - N ot DetectedThis result is not associated with an increased risk for venousthromboembolism. See Additional Clinical Information andComments.Additional Clinical Information:Venous thromboembolism is a multifactorial disease influenced bygenetic, environmental, and circumstantial risk factors. The c.*97G>Avariant in the F2 gene is a genetic risk factor for venousthromboembolism. Heterozygous carriers have a 2- to 4-fold increasedrisk for venous thromboembolism. Homozygotes for the c.*97G>A variantare rare. The annual risk of VTE in homozygotes has been reported marilou 1.1%/year. Individuals who carry both a c.*97G>A variant in theF2 gene and a c.1601G>A (p. Avy066Ivu) variant in the F5 gene(commonly referred to as Factor V Leiden) have an approximately 20-fold increased risk for venous thromboembolism. Risks are likely marilou even higher in more complex genotype combinations involving theF2 c.*97G>A variant and Factor V Leiden (PMID: 16727407). Additionalrisk factors include but are not limited to: deficiency of protein C,protein S, or antithrombin III, age, male sex, personal or familyhistory of deep vein thromboembolism, smoking, surgery, prolongedimmobilization, malignant neoplasm, tamoxifen treatment, raloxifenetreatment, oral contraceptive use, hormone replacement therapy, andpregnancy. Management of thrombotic risk and thrombotic events shouldfollow established guidelines and fit the clinical circumstance. Thisresult cannot predict the occurrence or recurrence of a thromboticevent.Comments:Genetic counseling is recommended to discuss the potential clinicalimplications of positive results, as well as recommendations fortesting family members.Genetic Coordinators are available for health care providers to discussresults at [phone] ([phone]).Test Details:Variant analyzed: c.*97G>A, previously referred to as [id number]/Limitations:DNA analysis of the F2 gene (NM_000506.5) was performed by PCRamplification followed by restriction enzyme analysis. The diagnosticsensitivity is >99%. Results must be combined with clinicalinformation for the most accurate interpretation. Molecular-basedtesting is highly accurate, but as in any laboratory test, diagnosticerrors may occur. False positive or false negative results may occurfor reasons that include genetic variants, blood transfusions, bonemarrow transplantation, somatic or tissue-specific mosaicism,mislabeled samples, or erroneous representation of familyrelationships.This test was developed and its performance characteristics determinedby [employer]. It has not been cleared or approved by the Food and DrugAdministration.References:Noble Grier, Noreen KELLEY, Med R, Moe WW, Dario JH; ACMG ProfessionalPractice and Guidelines Committee. Addendum: [employer] consensus statement on factor V Leiden mutationtesting. Rosie Med. 2020Dec 27. doi: 10.1038/[id number].PMID: 25170439.Octavia CARLOS. Prothrombin Thrombophilia. 2005May 18[Updated 2020Nov 28]. In: Kenneth MP, Antonino HH, Autumn RA, et al.,editors. Simone(R) [Internet]. [place] ([place]): [facility]; 3466-0861. Available from:https://www.ncbi.nlm.nih.gov/books/GZV8043/Jose Eduardo Grier, Noreen KELLEY, Maximo X, Ranulfo B, Kaitlynn EB, Jami P, Madisyn CS;[employer] Laboratory Drop Wire Aliner Committee. Venous thromboembolismlaboratory testing (factor V Leiden and factor II c.*97G>A),2018 update: a technical standard of the [employer]Gen[employer] and Genomics (ACMG). Rosie Med. 2018 Sep;20(12):7142-4736.doi: 10.1038/[id number]-k. Ep2017Jul 29. PMID: 61375771. Screening dilute Thomas's v iper venom time (DRVVT) with reflex to confirmatory testOrdered By: Don Chiu on 06-01-2024 dRVVT Coag (PPP) [Time] 35.7 s 0.0-47.0 [facility] dRVVT Coag (PPP) [Time] Screening dilute Thomas's viper venom time (DRVVT) with reflex to confirmatory test 0.0-47.0 [facility] Screening lupus anticoagulan t-sensitive activated partial thromboplastin time (aPTT)Ordered By: Don Chiu on 06-01-2024 aPTT.lupus sensitive Coag (PPP) [Time] 30.6 sec 0.0-43.5 [facility] aPTT.lupus sensitive Coag (PPP) [Time] Screening lupus anticoagulant-sensitive activated partial thromboplastin time (aPTT) 0.0-43.5 [facility] Serum beta 2 glycoprotein 1 IgM antibody assay (units/volume)Ordered By: Don Chiu on 06-01-2024 Beta 2 glycoprotein 1 IgM Qn (S) Beta 2 glycoprotein 1 IgM Ab [Units/volume] in Serum High 0-32 [facility] Comment on above: Result Units: GPI Ig M unitsThe reference interval reflects a 3SD or 99th percentileinterval, which is thought to represent a potentiallyclinically significant result in accordance with theInternational Consensus Statement on the classificationcriteria for definitive antiphospholipid syndrome (APS). JThromb Haem 2006;4:295-306.Performed at: its learning [employer] [id number] Director: Maximo Waterman PhD, Phone: [phone] Serum cardiolipin IgA antibo dy assay by immunoassay (units/volume)Ordered By: Don Chiu on 06-01-2024 Cardiolipin IgA IA Qn (S) Cardiolipin IgA Ab [Units/volume] in Serum by Immunoassay 0-11 [facility] Comment on above: Negative: <12 Indete rminate: 12 - 20 Low-Med Positive: >20 - 80 High Positive: >80Performed at: [address] [id number] Director: Maximo Waterman PhD, Phone: [phone] Serum cardiolipin IgG antibo dy assay by immunoassay (units/volume)Ordered By: Don Chiu on 06-01-2024 Cardiolipin IgG IA Qn (S) Cardiolipin IgG Ab [Units/volume] in Serum by Immunoassay 0-14 [facility] Comment on above: Negative: <15 Indete rminate: 15 - 20 Low-Med Positive: >20 - 80 High Positive: >80 Serum cardiolipin IgM antibo dy assay by immunoassay (units/volume)Ordered By: Don Chiu on 06-01-2024 Cardiolipin IgM IA Qn (S) Cardiolipin IgM Ab [Units/volume] in Serum by Immunoassay 0- [facility] Comment on above: Negative: <13 Indete rminate: 13 - 20 Low-Med Positive: >20 - 80 High Positive: >80 TT plasOrdered By: Don dawsonawi on 06-01-2024 Thrombin time Coag (PPP) [Time] 21.1 sec 0.0-23.0 [facility] aPTT.lupus sensitive/aPTT.thelma pus sensitive W excess phospholipid (screen to confirm raOrdered By: Don Chiu on 06-01-2024 aPTT.lupus sensitive/aPTT.lupus sensitive W excess phospholipid Coag (PPP) [Ratio] 1.16 Ratio 0.00-1.34 [facility] aPTT.lupus sensitive/aPTT.lupus sensitive W excess phospholipid Coag (PPP) [Ratio] aPTT.lupus sensitive/aPTT.lupus sensitive W excess phospholipid (screen to confirm ra 0.00-1.34 [facility] Population Health 05-23-20 [facility] Case Information Case Priority: None Programs: -- Referral Source: Pyrotechnician Referral Reason: Care coordination Case Type: Transition Care Management Risk Score: -- Case Status: Enrolled (May 08, 2024) Date Assigned: May 08, 2024 Assigned By: Axel Maldonado Date Enrolled: May 08, 2024 Assigned Primary Personnel: Axel Maldonado Assigned Secondary Personnel: -- Case Physician: Lourdes Fan Problems Ongoing Acute axillary vein thrombosis Acute bacterial bronchitis Anxiety BMI 30.0-30.9,adult Bradycardia on ECG Chronic ischemic multifocal anterior circulation stroke Cough Epigastric pain Hospital discharge follow-up Hypercholesteremia Hypothyroidism Irregular heartbeat Light-headed feeling Seizures Short of breath on exertion Wellness examination Historical Pneumonia Procedure/Surgical History Colonoscopy (05/24/2019), Colonoscopy, Tonsillectomy. Home Medications alendronate 35 mg Tab, 35 mg= 1 tab(s), Oral, q7day, 3 refills aspirin 81 mg oral tablet, 81 mg= 1 tab(s), Oral, Daily atorvastatin 10 mg Tab, 10 mg= 1 tab(s), Oral, Daily, 3 refills busPIRone 7.5 mg oral tablet, 7.5 mg= 1 tab(s), Oral, TID Dilantin 100 mg Cap-ER, 100 mg= 1 cap(s), Oral, TID, 3 refills High Potency Vitamin D3 125 mcg (5000 intl units) oral capsule, 125 mcg= 1 cap(s), Oral, Daily, 3 refills levothyroxine 100 mcg (0.1 mg) Tab, 100 mcg= 1 tab(s), Oral, Daily, 3 refills magnesium oxide, 400 mg, Oral, Daily potassium chloride, 10 mEq, Oral, Daily Allergies No Known Medication Allergies Social History [...] to change: No. Household tobacco concerns: No., 05/09/2024 Family History Acute myocardial infarction: Mother and Father. Diabetes mellitus type 2: Mother. Screenings and Assessments 05/08/24 10:12:00 Result Name Value Comment Phone Call Monitoring Consent Agreed to continue call Phone Verification Patient Information Full name, street address and date of verified CM Program Enrollment Provides verbal consent for enrollment Goals and Interventions Care Plan Progress Note TCM#3- Patient states things are 'so far so good.' Patient denies having and CP. Patient denies any lightheadedness or dizziness. Does report 'slight SOB' if rushing around too much. Patient reports feeling anxious about all the 'heart stuff' and not knowing answers. CN did relay to her, the stress test results, that did registered nurse her some relief and made her feel better. Patient is awaiting recent echo results (message was previously sent to Dr. Boo). Patient reports her BP has been good 'so far.' Patient is currently wearing a HARPREET monitor. HARPREET was applied at [facility] [place] [place] on 05/04, due to end 06/05. Patient had a hospital follow up scheduled with Dr. Aden on 05/31, advised patient she does not need to follow up with 2 cardiologists. She would like to remain with Dr. Boo at this time. Patient will call and advise NO ([facility] Patient does report some nausea after taking potassium and magnesium. Suggested patient take magnesium oxide with dinner to see if this helps, she will try this. Overall patient thinks things are going well and is very grateful for the follow up call. Patient has follow up with Hematology 06/01, for follow up of fact V. Patient denies any further questions or concerns at this time. Communication Events Date: May 23, 2024 Method: Phone call Type: Outbound Duration (min): 21 Outcome: Case discussion Contact Type: care coordinator Contact Name: Axel Maldonado Notes: TCM#3- see tcm note. Created By: Axel Maldonado Date: May 16, 2024 Method: Phone call Type: Outbound Duration (min): 1 Outcome: Left message-voicemail Contact Type: care coordinator Contact Name: Axel Maldonado Notes: TCM#2- message left, return call requested. Created By: Axel Maldonado Date: May 08, 2024 Method: Phone call Type: Inbound Duration (min): 6 Outcome: Case discussion Contact Type: Patient advocate Contact Name: [facility] Notes: see d/c medication note. Created By: Axel Maldonado Date: May 08, 2024 Method: Phone call Type: Outbound Duration (min): 7 Outcome: Case discussion Contact Type: care coordinator Contact Name: Axel Maldonado Notes: [facility] [place] [place] medical records- request Created By: Axel Maldonado Date: May 08, 2024 Method: Phone call Type: Outbound Duration (min): 17 Outcome: Case discussion Contact Type: care coordinator Contact Name: Axel Maldonado Notes: T (more content not included)... Normal [facility] NM Myocardial Spect Rest/Str ess 1 Dayon 05-19-2024 NM Myocardial Spect Rest/Stress 1 Day Exam Date/Time: 05/16/2024 14:50 EDT Reason for Exam: R06.02;Shortness of breath (SOB) Report [facility] [address] [place] [address] Nuclear Stress Report Name: VENITA RICHTER Study Date: 05/16/2024 01:08 PM Patient Location: [facility] : 1955 (M/d/yyyy) Gender: Female Age: 68 yrs Ethnicity: T Reason For Study: Shortness of breath (SOB) Ordering Physician: Jai Boo Referring Physician: Jai Boo Protocol 06765 Treadmill exercise test with Isotope. Study Protocol: One day rest/stress acquisition. Rest Dose Tc99m Cardiolite was administered. Rest Dose: 10.4 mCi IV. Stress Dose Stress Protocol: Lexiscan. Stress Dose: 29.8 mCi IV. Stress Parameters Normal blood pressure response. Stress Symptoms: None. ECG Rest Normal ECG. ECG Peak No significant changes from baseline. No ST-T wave changes from baseline. Arrhythmia Frequent PVC's. Recovery Arrhythmia: PVC's. Frequent couplets were noted in recovery. Image Quality Rest Images: Diagnostic in quality. Stress Images: Diagnostic in quality. SPECT Perfusion Normal rest and stress perfusion. Left Ventricle Normal global and regional wall motion in all territories. Interpretation Summary Report Rest EKG had PVC and bigeminy that resolved during exercise and returned in recovery. Couplets were note in recovery. Overall negative treadmill EKG stress test. Rest Dose: 10.4 mCi IV. Stress Dose: 29.8 mCi IV. TID 1.09 EF 66% EDV 77 ml Negative nuclear stress test for ischemia or infarction. Overall low risk stress. PVC and couplets during recovery. FINAL REPORT Dictated: 05/16/2024 1:08 pm Fawad Carr MD Signed (Electronic Signature): 05/19/2024 1:58 pm Signed by: Fawad Carr MD Transcribed by: [facility] Technologist: ADG Normal [facility] CMPon 05-10-2024 Albumin [Mass/Vol] 4.4 g/dL Normal 3.3-5.0 [facility] Comment on above: Performed By: #### 2 [id number] #### [facility] [address] [place] [address] Albumin/Globulin (S) [Mass conc ratio] 1.7 Normal 1.1-2.2 [facility] Comment on above: Performed By: #### 2 [id number] #### [facility] [address] [place] [address] ALP [Catalytic activity/Vol] 67 Int._Unit/L Normal 21-98 [facility] Comment on above: Performed By: #### 2 [id number] #### [facility] [address] [place] [address] ALT No additional P-5'-P [Catalytic activity/Vol] 13 Int._Unit/L Normal 6-46 [facility] Comment on above: Performed By: #### 2 [id number] #### [facility] [address] [place] [address] Anion gap [Moles/Vol] 14 mmol/L Normal 6-16 [facility] Comment on above: Performed By: #### 2 [id number] #### [facility] [address] [place] [address] AST [Catalytic activity/Vol] 18 Int._Unit/L Normal 5-43 [facility] Comment on above: Performed By: #### 2 063035 #### [facility] [address] [place] [address] Bilirubin [Mass/Vol] 0.5 mg/dL Normal 0.0-1.1 [facility] Comment on above: Performed By: #### 2 [id number] #### [facility] [address] [place] [address] Calcium [Mass/Vol] 9.1 mg/dL Normal 8.9-11.1 [facility] Comment on above: Performed By: #### 2 [id number] #### [facility] [address] [place] [address] Chloride [Moles/Vol] 102 mmol/L Normal 101-111 [facility] Comment on above: Performed By: #### 2 [id number] #### [facility] [address] [place] [address] CO2 [Moles/Vol] 24 mmol/L Normal 21-31 [facility] Comment on above: Performed By: #### 2 [id number] #### [facility] [address] [place] [address] Creatinine [Mass/Vol] 1.0 mg/dL Normal 0.5-1.3 [facility] Comment on above: Performed By: #### 2 [id number] #### [facility] [address] [place] [address] Globulin (S) [Mass/Vol] 2.6 g/dL Normal 1.4-4.0 [facility] Comment on above: Performed By: #### 2 475562 #### [facility] [address] [place] [address] Glucose [Mass/Vol] 116 mg/dL Normal 55-199 [facility] Comment on above: Performed By: #### 2 [id number] #### [facility] [address] [place] [address] Potassium [Moles/Vol] 4.6 mmol/L Normal 3.5-5.3 [facility] Comment on above: Performed By: #### 2 [id number] #### [facility] [address] [place] [address] Protein [Mass/Vol] 7.0 g/dL Normal 6.0-7.8 [facility] Comment on above: Performed By: #### 2 [id number] #### [facility] [address] [place] [address] Sodium [Moles/Vol] 135 mmol/L Normal 135-145 [facility] Comment on above: Performed By: #### 2 300730 #### [facility] [address] [place] [address] Urea nitrogen [Mass/Vol] 20 mg/dL Normal 5-21 [facility] Comment on above: Performed By: #### 2 449506 #### [facility] [address] [place] [address] Urea nitrogen/Creatinine [Mass ratio] 20 No Units Normal 10-20 [facility] Comment on above: Performed By: #### 2 [id number] #### [facility] [address] [place] [address] Dilantinon 05-10-2024 Phenytoin Total 9.2 microgram/mL Low 10.0-19.9 [facility] Comment on above: Performed By: #### 2 [id number] #### [facility] [address] [place] [address] Lipid Panelon 05-10-2024 Cholesterol [Mass/Vol] 199 mg/dL Normal 120-200 [facility] Comment on above: Performed By: #### 2 403204 #### [facility] [address] [place] [address] Cholesterol in HDL [Mass/Vol] 76 mg/dL Invalid Interpretation Code [facility] Comment on above: Result Comment: '>= 60 LOW RISK' '<= 40 HIGH RISK' Performed By: #### 2 226277 #### [facility] [address] [place] [address] Cholesterol in LDL [Mass/Vol] 106 mg/dL Normal <=129 [facility] Comment on above: Performed By: #### 2 302225 #### [facility] [address] [place] [address] Cholesterol in VLDL [Mass/Vol] 17 mg/dL Normal 7-40 [facility] Comment on above: Performed By: #### 2 [id number] #### [facility] [address] [place] [address] Triglyceride [Mass/Vol] 84 mg/dL Normal <=149 [facility] Comment on above: Performed By: #### 2 562350 #### [facility] [address] [place] [address] TSHon 05-10-2024 TSH Qn 1.66 m[IU]/L Normal 0.34-5.60 [facility] Comment on above: Performed By: #### 2 [id number] #### [facility] [address] [place] [address] eGFRon 05-10-2024 eGFR 61 mL/min/1.73 m2 Normal >=59 [facility] Comment on above: Order Comment: Order added by Discern Expert. Performed By: #### 1 [id number] #### [facility] [address] [place] [address] Ambulatory Visit Summaryon 0 05-09-2024 Ambulatory Visit Summary Ambulatory Visit Summary VENITA RICHTER Vivek :1955 Visit Date:05/09/2024 Ambulatory Visit Instructions Your Diagnosis Hospital discharge follow-up, Hospital discharge follow-up Chronic ischemic multifocal anterior circulation stroke BMI 30.0-30.9,adult Former smoker Your Care Team Attending Physician - Lourdes Fan Primary Care Physician - Lourdes Fan This Is Your Medications List alendronate (alendronate 35 mg Tab) aspirin (aspirin 81 mg oral tablet) atorvastatin (atorvastatin 10 mg Tab) cholecalciferol (High Potency Vitamin D3 125 mcg (5000 intl units) oral capsule) levothyroxine (levothyroxine 100 mcg (0.1 mg) Tab) magnesium oxide phenytoin (Dilantin 100 mg Cap-ER) potassium chloride Procedures Performed Colonoscopy (05/24/2019), Colonoscopy, Tonsillectomy. Discharge Vitals Temperature (Temporal Artery) 36.9 ?C Heart Rate (Peripheral) 58 Respiratory Rate 18 Blood Pressure 132/96 Height 169.0 cm Height 67 in Weight 84.50 kg Weight 185.9 lb BMI 29.59 What to do next Scheduled Follow-Up Appointments Wednesday 11:00 AM EDT Where: Cardiovascular Services Wednesday 12:15 PM EDT Where: Nuclear Medicine Wednesday 1:15 PM EDT Where: Nuclear Medicine Wednesday 1:45 PM EDT Where: Nuclear Medicine Wednesday 2:45 PM EDT Where: Nuclear Medicine 2023 11:00 AM EDT Where: Cardiovascular Services Wednesday 11:00 AM EDT Where: [facility] [place] Normal [facility] CBC w/ Auto Diffon 4 Basophils/100 WBC (Bld) 0.6 % Normal 0.0-2.0 [facility] Comment on above: Performed By: #### 2 [id number] #### [facility] [address] [place] [address] Basophils/Leukocytes Auto (Bld) [Pure # fraction] 0.0 E9/L Normal 0.0-0.2 [facility] Comment on above: Performed By: #### 2 [id number] #### [facility] [address] [place] [address] Eosinophils (Bld) [#/Vol] 0.1 E9/L Normal 0.0-0.5 [facility] Comment on above: Performed By: #### 2 [id number] #### [facility] [address] [place] [address] Eosinophils/100 WBC (Bld) 1.7 % Normal 0.0-8.0 [facility] Comment on above: Performed By: #### 2 [id number] #### [facility] [address] [place] [address] Erythrocyte distribution width (RBC) [Ratio] 13.7 % Normal 10.9-14.2 [facility] Comment on above: Performed By: #### 2 [id number] #### [facility] [address] [place] [address] Hematocrit (Bld) [Volume fraction] 42.8 % Normal 34.0-46.0 [facility] Comment on above: Performed By: #### 2 [id number] #### [facility] [address] [place] [address] Hemoglobin (Bld) [Mass/Vol] 14.6 g/dL Normal 12.0-16.0 [facility] Comment on above: Performed By: #### 2 [id number] #### [facility] [address] [place] [address] Lymphocytes (Bld) [#/Vol] 1.6 E9/L Normal 1.0-4.0 [facility] Comment on above: Performed By: #### 2 [id number] #### [facility] [address] [place] [address] Lymphocytes/100 WBC (Bld) 23.1 % Normal 14.0-50.0 [facility] Comment on above: Performed By: #### 2 359925 #### [facility] [address] [place] [address] MCH (RBC) [Entitic mass] 31.4 pg Normal 27.0-34.0 [facility] Comment on above: Performed By: #### 2 [id number] #### [facility] [address] [place] [address] MCHC (RBC) [Mass/Vol] 34.2 g/dL Normal 31.4-36.0 [facility] Comment on above: Performed By: #### 2 [id number] #### [facility] [address] [place] [address] MCV (RBC) [Entitic vol] 91.7 fL Normal 80.0-100.0 [facility] Comment on above: Performed By: #### 2 190029 #### [facility] [address] [place] [address] Monocytes (Bld) [#/Vol] 0.5 E9/L Normal 0.2-1.0 [facility] Comment on above: Performed By: #### 2 774149 #### [facility] [address] [place] [address] Neutrophils (Bld) [#/Vol] 4.5 E9/L Normal 2.0-7.5 [facility] Comment on above: Performed By: #### 2 [id number] #### [facility] [address] [place] [address] Neutrophils/100 WBC (Bld) 66.6 % Normal 36.0-75.0 [facility] Comment on above: Performed By: #### 2 290644 #### [facility] [address] [place] [address] Platelet 255.0 E9/L Normal 150.0-500.0 [facility] Comment on above: Performed By: #### 2 [id number] #### [facility] [address] [place] [address] Platelet mean volume (Bld) [Entitic vol] 8.9 fL Normal 6.4-10.8 [facility] Comment on above: Performed By: #### 2 [id number] #### [facility] [address] [place] [address] RBC (Bld) [#/Vol] 4.7 E12/L Normal 4.3-5.9 [facility] Comment on above: Performed By: #### 2 [id number] #### [facility] [address] [place] [address] WBC corrected for nucl RBC Auto (Bld) [#/Vol] 6.8 E9/L Normal 4.0-11.0 [facility] Comment on above: Performed By: #### 2 [id number] #### [facility] [address] [place] [address] Family Medicine Office/Clini c Noteon 05-09-2024 Family Medicine Office/Clinic Note Family Medicine Office/Clinic Note HPI Staff Venita is a 68 year old female presenting with follow up from [facility] [place] [place] ER followup: for [facility] [place] [place] CT Angio Chest, head brain done 05/03/24 Echo done 05/03/24 Hospital: [facility] [place] [place] Visit date:05/03- 05/05 Symptoms the patient presented with: Current concerns: EKG was done MRI/CT was done Dr. Guzman ordered CA cardio monitor for Syncope and ventricular They tried getting labs on her at the hospital but could not get it, hoping to get this done today Started April 28 started she fainted putting chairs outside. ER- 04/29/24 [facility] find anything wrong here CT and MRI on April 29 History of Present Illness pt presents today for hospital follow up Review of Systems PHQ Score Initial Depression Screen Score: 0 SCORE Physical Exam Vitals & Measurements T: 36.9 ?C(Temporal Artery) HR: 58(Peripheral) RR: 18 BP: 132/96 SpO2: 95% HT: 67 in HT: 169.0 cm WT: 84.50 kg WT: 185.9 lb BMI: 29.59 General: alert, no acute distress ENMT: oral mucosa moist, no pharyngeal erythema or exudate Cardiovascular: regular rate and rhythm, normal peripheral perfusion Respiratory: Lungs CTA, respirations non labored Extremities: no deformity, no trauma Neurological: oriented x 4, LOC appropriate for age, CN II-XII intact, motor strength equal & normal bilaterally, speech normal Assessment/Plan 1. Hospital discharge follow-up, (Z09: Encounter for follow-up examination after completed treatment for conditions other than malignant neoplasm)Hospital discharge follow-up pt presents today for hospital follow up. was admitted to [facility] [place] [place] for multiple medical issues. has follow up appointments and diagnostics starting next week. pt is feeling ok right now. just anxious about everything Ordered: busPIRone, 7.5 mg = 1 tab(s), Oral, TID, # 90 tab(s), Refills(s) 0, Pharmacy: [id number], 169, cm, 05/09/24 10:57:00 EDT, Height/Length Dosing, 84.5, kg, 05/09/24 10:57:00 EDT, Weight Dosing CBC w/ Auto Diff Comprehensive Metabolic Panel Lab Specimen Collect 82006 Lipid Panel [facility] [place] 7 day disch [id number] Thyroid Stimulating Hormone 2. Chronic ischemic multifocal anterior circulation stroke (Z86.73: Personal history of transient ischemic attack (TIA), and cerebral infarction without residual deficits) was diagnosed in hospital. has follow up with neurology, cardiology, and hematology Ordered: busPIRone, 7.5 mg = 1 tab(s), Oral, TID, # 90 tab(s), Refills(s) 0, Pharmacy: [id number], 169, cm, 05/09/24 10:57:00 EDT, Height/Length Dosing, 84.5, kg, 05/09/24 10:57:00 EDT, Weight Dosing CBC w/ Auto Diff Comprehensive Metabolic Panel Lab Specimen Collect 42761 Lipid Panel Thyroid Stimulating Hormone 3. Hypercholesteremia (E78.00: Pure hypercholesterolemia, unspecified) annual labs drawn in office today Ordered: busPIRone, 7.5 mg = 1 tab(s), Oral, TID, # 90 tab(s), Refills(s) 0, Pharmacy: [facility]/pharmacy #[id number], 169, cm, 05/09/24 10:57:00 EDT, Height/Length Dosing, 84.5, kg, 05/09/24 10:57:00 EDT, Weight Dosing 4. Irregular heartbeat (I49.9: Cardiac arrhythmia, unspecified) heartbeat still irregular in office today Ordered: busPIRone, 7.5 mg = 1 tab(s), Oral, TID, # 90 tab(s), Refills(s) 0, Pharmacy: [facility]/pharmacy #[id number], 169, cm, 05/09/24 10:57:00 EDT, Height/Length Dosing, 84.5, kg, 05/09/24 10:57:00 EDT, Weight Dosing 5. Anxiety (F41.9: Anxiety disorder, unspecified) pt is very anxious about these new diagnoses and is terrified she is going to have a stroke and . encouraged pt to go to hospital if she feels bad in any way. Ordered: busPIRone, 7.5 mg = 1 tab(s), Oral, TID, # 90 tab(s), Refills(s) 0, Pharmacy: [facility]/pharmacy #[id number], 169, cm, 05/09/24 10:57:00 EDT, Height/Length Dosing, 84.5, kg, 05/09/24 10:57:00 EDT, Weight Dosing 6. BMI 30.0-30.9,adult (Z68.30: Body mass index [BMI] 30.0-30.9, adult) BMI eduction given Ordered: busPIRone, 7.5 mg = 1 tab(s), Oral, TID, # 90 tab(s), Refills(s) 0, Pharmacy: [facility]/pharmacy #[id number], 169, cm, 05/09/24 10:57:00 EDT, Height/Length Dosing, 84.5, kg, 05/09/24 10:57:00 EDT, Weight Dosing CBC w/ Auto Diff Comprehensive Metabolic Panel Lab Specimen Collect [id number] Lipid Panel Thyroid Stimulating Hormone 7. Former smoker (Z87.891: Personal history of nicotine dependence) continue not smoking Ordered: busPIRone, 7.5 mg = 1 tab(s), Oral, TID, # 90 tab(s), Refills(s) 0, Pharmacy: [facility]/pharmacy #[id number], 169, cm, 05/09/24 10:57:00 EDT, Height/Length Dosing, 84.5, kg, 05/09/24 10:57:00 EDT, Weight Dosing CBC w/ Auto Diff Comprehensive Metabolic Panel Lab Specimen Collect 49883 Lipid Panel Thyroid Stimulating Hormone Follow-up No qualifying data available Problem List/Past Medical History Ongoing Acute axillary vein thrombosis Acute bacterial bronchitis Anxiety BMI 30.0-30.9,adult Bradycardia on ECG Chronic ischemic multifocal anterior circulation stroke Cough Epigastric pain Hospital discharge follow-up Hype (more content not included)... Normal [facility] Comment on above: Result Comment: Elec tronically Signed By: Lourdes Fan\.br\Date and Time Signed: 05/09/24 13:00 EDT HEMATOLOGYOrdered By: SYSTEM SYSTEM on 05-09-2024 Basophils/100 WBC (Bld) 0.6 % Normal 0.0 - 2.0 % [facility]e Basophils/Leukocytes Auto (Bld) [Pure # fraction] 0.0 E9/L Normal 0.0 - 0.2 E9/L [facility] Eosinophils (Bld) [#/Vol] 0.1 E9/L Normal 0.0 - 0.5 E9/L [facility] Eosinophils/100 WBC (Bld) 1.7 % Normal 0.0 - 8.0 % [facility] Erythrocyte distribution width (RBC) [Ratio] 13.7 % Normal 10.9 - 14.2 % [facility] Hematocrit (Bld) [Volume fraction] 42.8 % Normal 34.0 - 46.0 % [facility] Hemoglobin (Bld) [Mass/Vol] 14.6 g/dL Normal 12.0 - 16.0 gm/dL [facility] Lymphocytes (Bld) [#/Vol] 1.6 E9/L Normal 1.0 - 4.0 E9/L [facility] Lymphocytes/100 WBC (Bld) 23.1 % Normal 14.0 - 50.0 % [facility] MCH (RBC) [Entitic mass] 31.4 pg Normal 27.0 - 34.0 pg [facility] MCHC (RBC) [Mass/Vol] 34.2 g/dL Normal 31.4 - 36.0 gm/dL [facility] MCV (RBC) [Entitic vol] 91.7 fL Normal 80.0 - 100.0 fL [facility] Monocytes (Bld) [#/Vol] 0.5 E9/L Normal 0.2 - 1.0 E9/L [facility] Monocytes/100 WBC (Bld) 8.0 % Normal 4.0 - 14.0 % [facility] Neutrophils (Bld) [#/Vol] 4.5 E9/L Normal 2.0 - 7.5 E9/L [facility] Neutrophils/100 WBC (Bld) 66.6 % Normal 36.0 - 75.0 % [facility] Platelet 255.0 E9/L Normal 150.0 - 500.0 E9/L [facility] Platelet mean volume (Bld) [Entitic vol] 8.9 fL Normal 6.4 - 10.8 fL [facility] RBC (Bld) [#/Vol] 4.7 E12/L Normal 4.3 - 5.9 E12/L [facility] WBC corrected for nucl RBC Auto (Bld) [#/Vol] 6.8 E9/L Normal 4.0 - 11.0 E9/L [facility] 05-08-20 24 [facility] Case Information Case Priority: None Programs: -- Referral Source: Pyrotechnician Referral Reason: Care coordination Case Type: Transition Care Management Risk Score: -- Case Status: Enrolled (May 08, 2024) Date Assigned: May 08, 2024 Assigned By: Axel Maldonado Date Enrolled: May 08, 2024 Assigned Primary Personnel: Axel Maldonado Assigned Secondary Personnel: -- Case Physician: Lourdes Fan Problems Ongoing Acute axillary vein thrombosis Acute bacterial bronchitis BMI 30.0-30.9,adult Bradycardia on ECG Cough Epigastric pain Hypercholesteremia Hypothyroidism Irregular heartbeat Light-headed feeling Seizures Short of breath on exertion Wellness examination Historical Pneumonia Procedure/Surgical History Colonoscopy (05/24/2019), Colonoscopy, Tonsillectomy. Home Medications alendronate 35 mg Tab, 35 mg= 1 tab(s), Oral, q7day, 3 refills aspirin 81 mg oral tablet, 81 mg= 1 tab(s), Oral, Daily atorvastatin 10 mg Tab, 10 mg= 1 tab(s), Oral, Daily, 3 refills bisoprolol-hydrochlorothia zide 5 mg-6.25 mg Tab, 1 tab(s), Oral, [...] and Father. Diabetes mellitus type 2: Mother. Screenings and Assessments 05/08/24 10:12:00 Result Name Value Comment Phone Call Monitoring Consent Agreed to continue call Phone Verification Patient Information Full name, street address and date of verified CM Program Enrollment Provides verbal consent for enrollment Goals and Interventions Care Plan Progress Note Admit Date: 05/03/24 [facility] [place] [place] Date of Discharge: 05/05/24 Follow-up appointment scheduled? yes, with PCP, OLIVIA f/u 05/09 at 1040 Did you understand your discharge instructions? investigating Are you able to follow them? investigating Did you receive new medications? yes, losartan 25 mg QD- investigating, per patient- mag ox 400 mg QD, potassium chl. 10 MEQ qd- investigating, bisoprolol- hctz was d/c Have you filled the Rx's? no losartan, yes mag ox and potassium- investigating Are you taking them as prescribed? per pt she is taking mag ox and potassium- investigating Are you having difficulty eating or swallowing your pills? no Are you having any stomach upset, diarrhea or constipation? no How are you sleeping? 'good, so happy to be home' Are you having any pain? no Do you have everything you need at home to care for yourself? yes Do you have Home Health? no Called patient for initial Transitional Care Management Program call. Readmission risk unavailable. Reviewed D/C instructions and dx of; chronic ischemic multifocal anterior circulation stroke, ventricular bigeminy, CHF, syncope, seizure, hypothyroid, HTN, HLD, hypokalemia. Medication reconciliation will need to be completed at , further documentation has been requested (message to PCP). Patient reports she was given RX for mad ox and potassium chloride (not on d/c summary) and did not receive Losartan (on d/c summary). CN reviewed d/c instruction of low sodium diet. CN also reviewed slow positional changes. Patient was seen at [facility] ED on 04/29/24 for head injury d/t fall. Patient reports fall also happened prior to [facility] [place] [place] admission on 05/03/24. She had MRI and CT completed. Patient reports her legs felt weak prior to fall. Patient denies any further episodes since d/c. Patient reports she is doing better, still a bit tired. Patient denies any lightheadedness or dizziness. Denies any CP or palpitations. Patient reports her BP has been WNL since d/c. Patient will bring BP log to OV. Patient does report some pressure on the front area of head, but better. She notes it is 'okay' at time of call. If she needs something for the headache she will take and additional ASA, states it is effective. Patient denies any BLE swelling. Denies SOB or weight gain. Patient is eating and drinking good. Patient denies any bowel or urinary system issues. CN reviewed the following appointments with patient: TCM f/u with PCP 05/09 at 1040 and to bring medications and d/c paperwork, [facility] Dr. Proctor 05/23/24, cardiology, Dr. Aden 06/08/24, hem (more content not included)... Normal [facility] Basic Metabolic Panelon 04-24 Creatinine Clr Calc Pharmacy 74.10 Normal [facility] Comment on above: Performed By: #### C BC, CMP #### [place] [address] [place] GFR/1.73 sq M.predicted MDRD (S/P/Bld) [Vol rate/Area] mL/min/{1.73_m2} Normal [facility] Comment on above: Performed By: #### C BC, CMP #### [place] [address] [place] Calcium [Mass/volume] in Ser um or PlasmaOrdered By: Soledad Guzman on 05-04-2024 Calcium [Mass/Vol] 8.8 mg/dL Normal 8.6-10.3 [facility] Comment on above: Performed By: #### C BC, CMP #### [address] [address] [place] Carbon dioxide, total [Moles /volume] in Serum or PlasmaOrdered By: Soledad Guzman on 05-04-2024 CO2 [Moles/Vol] 26.5 mmol/L Normal 21.0-31.0 [facility] Comment on above: Performed By: #### C BC, CMP #### [facility] [address] Chloride [Moles/volume] in S mesha or PlasmaOrdered By: Soledad Guzman on 05-04-2024 Chloride [Moles/Vol] 101 mmol/L Normal 98-107 [facility] Comment on above: Performed By: #### C BC, CMP #### [facility] [address] Creatinine [Mass/volume] in Serum or PlasmaOrdered By: Soledad Guzman on 05-04-2024 Creatinine [Mass/Vol] 0.83 mg/dL Normal 0.60-1.20 [facility] Comment on above: Performed By: #### C BC, CMP #### [facility] [address] F5 gene mutations found [Michael ntifier] in Blood or Tissue by Molecular genetics methodOrdered By: Kenneth Cee on 05-04-2024 F5 gene targeted mutation analysis [employer] Nom (Bld/Tiss) Comment Abnormal . [facility] Comment on above: Result: c.1601G>A (p .[id number]) - Detected, HeterozygousThis result is associated with a 6- to 8-fold increased risk forvenous thromboembolism. See Additional Clinical Information andComments.Additional Clinical Information:Venous thromboembolism is a multifactorial diseaseinfluenced by genetic, environmental, and circumstantialrisk factors. The c.1601G>A (p. [id number]) variant in theF5 gene, commonly referred to as Factor V Leiden, is agenetic risk factor for venous thromboembolism.Heterozygous carriers of this variant have a 6- to 8-foldincreased risk for venous thromboembolism. Individualshomozygous for this variant (ie, with a copy of the varianton each chromosome) have an approximately 80-fold increasedrisk for venous thromboembolism. Individuals who carry deborah c.*97G>A variant in the F2 gene and Factor V Leiden havean approximately 20-fold increased risk for venousthromboembolism. Risks are likely to be even higher in morecomplex genotype combinations involving the F2 c.*97G>Avariant and Factor V Leiden (PMID: 30177061). Additionalrisk factors include but are not limited to: deficiency ofprotein C, protein S, or antithrombin III, age, male sex,personal or family history of deep vein thromboembolism,smoking, surgery, prolonged immobilization, malignantneoplasm, tamoxifen treatment, raloxifene treatment, oralcontraceptive use, hormone replacement therapy, andpregnancy. Management of thrombotic risk and thromboticevents should follow established guidelines and fit theclinical circumstance. This result cannot predict theoccurrence or recurrence of a thrombotic event.Comment:Genetic counseling is recommended to discuss thepotential clinical implications of positive results, aswell as recommendations for testing family members.Genetic Coordinators are available for health careproviders to discuss results at [phone] ([phone]).Test Details:Variant Analyzed: c.1601G>A (p. [id number]), referred toas Factor V LeidenMethods/Limitations:DNA analysis of the F5 gene (NM_000130.5) was performedby PCR amplification followed by restriction enzymeanalysis. The diagnostic sensitivity is >99%. Results mustbe combined with clinical information for the most accurateinterpretation. Molecular-based testing is highly accurate,but as in any laboratory test, diagnostic errors may occur.False positive or false negative results may occur forreasons that include genetic variants, blood transfusions,bone marrow transplantation, somatic or tissue-specificmosaicism, mislabeled samples, or erroneous representationof family relationships.This test was developed and its performance characteristicsdetermined by [employer]. It has not been cleared orapproved by the Food and Drug Administration.References:Noble S, Noreen AK, Med R, Moe WW, Dario JH; ACMGProfessional Practice and Guidelines Committee. Addendum:[employer] consensus statement onfactor V Leiden mutation testing. Rosie Med. 2020Dec 27.doi: 10.1038/l68779-538-67318-b. PMID: 60170722.Octavia CARLOS. Factor V Leiden Thrombophilia. 1998March 07(Updated 2017Oct 28). In: Kenneth WU, Antonino HH, Autumn RA,et al., editors. Simone(Ed) (Internet). [place] ([place]):[facility]; 4350-6230. Availablefrom: https://www.ncbi.nlm.nih.gov/books/KML3675/Jose Eduardo S, Noreen AK, Maximo X, Ranulfo B, Kaitlynn EB, Jami P,Madisyn CS; ACMG Laboratory Drop Wire Aliner Committee.Venous thromboembolism laboratory testing (factor V Leidenand factor II c.*97G>A), 2018 update: a technical standardof the [place] [employer] and Genomics(ACMG). Rosie Med. 2017;20(12):3454-2451. doi:10.1038/j35954-690-6345-k. Epub 2017Jul 29. PMID: 41911175. Factor V Leiden Mutationon 0 05-04-2024 Factor V Leiden Comment Critically abnormal . [facility] Comment on above: Result Comment: Resu lt: c.1601G>A (p.[id number]) - Detected, Heterozygous This result is associated with a 6- to 8-fold increased risk for venous thromboembolism. See Additional Clinical Information and Comments. Additional Clinical Information: Venous thromboembolism is a multifactorial disease influenced by genetic, environmental, and circumstantial risk factors. The c.1601G>A (p. [id number]) variant in the F5 gene, commonly referred to as Factor V Leiden, is a genetic risk factor for venous thromboembolism. Heterozygous carriers of this variant have a 6- to 8-fold increased risk for venous thromboembolism. Individuals homozygous for this variant (ie, with a copy of the variant on each chromosome) have an approximately 80-fold increased risk for venous thromboembolism. Individuals who carry both a c.*97G>A variant in the F2 gene and Factor V Leiden have an approximately 20-fold increased risk for venous thromboembolism. Risks are likely to be even higher in more complex genotype combinations involving the F2 c.*97G>A variant and Factor V Leiden (PMID: 43103012). Additional risk factors include but are not limited to: deficiency of protein C, protein S, or antithrombin III, age, male sex, personal or family history of deep vein thromboembolism, smoking, surgery, prolonged immobilization, malignant neoplasm, tamoxifen treatment, raloxifene treatment, oral contraceptive use, hormone replacement therapy, and . Management of thrombotic risk and thrombotic events should follow established guidelines and fit the clinical circumstance. This result cannot predict the occurrence or recurrence of a thrombotic event. Comment: Genetic counseling is recommended to discuss the potential clinical implications of positive results, as well as recommendations for testing family members. Genetic Coordinators are available for health care providers to discuss results at [phone] ([phone]). Test Details: Variant Analyzed: c.1601G>A (p. [id number]), referred to as Factor V Leiden Methods/Limitations: DNA analysis of the F5 gene (NM_000130.5) was performed by PCR amplification followed by restriction enzyme analysis. The diagnostic sensitivity is >99%. Results must be combined with clinical information for the most accurate interpretation. Molecular-based testing is highly accurate, but as in any laboratory test, diagnostic errors may occur. False positive or false negative results may occur for reasons that include genetic variants, blood transfusions, bone marrow transplantation, somatic or tissue-specific mosaicism, mislabeled samples, or erroneous representation of family relationships. This test was developed and its performance characteristics determined by [employer]. It has not been cleared or approved by the Food and Drug Administration. References: Noble S, Noreen KELLEY, Med R, Moe WW, Dario JH; ACMG Professional Practice and Guidelines Committee. Addendum: [place] [employer] consensus statement on factor V Leiden mutation testing. Rosie Med. 2020Dec 27. doi: 10.1038/r15786-509-66586-u. PMID: 17653705. Octavia CARLOS. Factor V Leiden Thrombophilia. 1998March 07 (Updated 2017Oct 28). In: Kenneth MP, Antonino HH, Autumn RA, et al., editors. Simone(R) (Internet). [place] ([place]): [facility], [place]; 7753-6900. Available from: https://www.ncbi.nlm.nih.gov/books/BGU7182/ Jose Eduardo Grier, Noreen KELLEY, Maximo X, Ranulfo B, Kaitlynn EB, Jami P, Madisyn CS; ACMG Laboratory Drop Wire Aliner Committee. Venous thromboembolism laboratory testing (factor V Leiden and factor II c.*97G>A), 2018 update: a technical standard of the [place] [employer] (ACMG). Rosie Med. 2018 Sep;20(12):9770-2813. doi: 10.1038/s75053-208-5492-k. Epub 2017Jul 29. PMID: 03686963. Performed By: #### C BC, CMP #### [address] Reviewed by: Comment Normal . [facility] Comment on above: Result Comment: Malia Abraham, PhD Director, Molecular Genetics Performed at: - [facility] [address] [place], [place] [id number] [employer]: [facility], located [facility], Phone: [phone] PERFORMED BY: [place] [address] PATHOLOGIST TRUCK LOADER OVERHEAD CRANE DANITA LEIGH M.D. Performed By: #### C BC, CMP #### [address] Glucose [Mass/volume] in Ser um or PlasmaOrdered By: Soledad Guzman on 05-04-2024 Glucose [Mass/Vol] 90 mg/dL Normal 70-100 [facility] Comment on above: ADA recommended refe rence rangeRandom Glucose Reference Range is dependent on time and content of last meal. Glucose of more than 200 mg/dL in a nonstressed, ambulatory subject supports the diagnosis of Diabetes Mellitus. Result Comment: [place]asper om Glucose Reference Range is dependent on time and content of last meal. Glucose of more than 200 mg/dL in a nonstressed, ambulatory subject supports the diagnosis of Diabetes Mellitus. ADA recommended reference range Performed By: #### C BC, CMP #### [place] [address] [place] MR head/brain wo yolette 05-04 MR head/brain wo [facility] [address] [place] [address] MRI Report Signed Patient: Venita Richter MR#: [id number] 2344 : 1955 Acct:[id number] Age/Sex: 68 / F ADM Date: 05/03/24 Loc: 3T Room: [address] [place] [address] Type: ADM INOo Attending Dr: Soledad Guzman MD Copies to: DO Soledad Brooks MD Ordering Provider: Kenneth Cee DO Date of Service: 05/04/24 MR/MR head/brain wo con: strokes EXAMINATION: MRI OF THE BRAIN WITHOUT CONTRAST CLINICAL HISTORY: Syncopal episode last weekend. Generalized weakness. COMPARISON: CT 05/03/2024 TECHNIQUE: Multiecho, multiplanar imaging of the brain was performed without enhancement. There is generalized atrophy. The ventricles are normal in size and position. Areas of increased T2 and FLAIR signal are seen within the periventricular and subcortical white matter, asymmetric near the posterior horn of the left lateral ventricle with extension toward the cortex. There is also minimal signal change at the panda. This is believed to be chronic microvascular disease. There are tiny old cerebellar lacunar type infarcts. There are no additional areas of abnormal signal intensity within the supra- or infratentorial brain. No restricted diffusion is identified to suggest a recent ischemic event. There are no extra-axial collections or mass effect. There is no significant sinus or mastoid disease. MR/MR head/brain wo con IMPRESSION: ATROPHY AND SMALL VESSEL ISCHEMIC CHANGES. NO ACUTE INTRACRANIAL FINDINGS. Impression dictated by: Amie Diane M.D.05/04/2024 8:27 PM Dictation Location: [place] [address] Transcribed By: [facility] 05/04/242026 Dictated By: Amie Diane MD 05/04/242019 Signed By: 05/04/242026 Normal [facility] Magnesium [Mass/volume] in S mesha or PlasmaOrdered By: Soledad Guzman on 05-04-2024 Magnesium [Mass/Vol] 2.3 mg/dL Normal 1.9-2.7 [facility] Comment on above: Result Comment: PERF ORMED BY: [address] [place] [address] PATHOLOGIST TRUCK LOADER OVER[employer] CRANE DANITA LEIGH M.D. Performed By: #### C BC, CMP #### [facility] [address] No Panel InformationOrdered By: Kenneth Cee on 05-04-2024 Factor V Leiden Interpretation Comment . [facility] Comment on above: Karely Brennan hDDirector, Molecular GeneticsPerformed at: TG - [facility] [id number] [place], [place] [id number] Director: [facility] located [facility], Phone: [phone] No Panel InformationOrdered By: Soledad Guzman on 05-04-2024 Estimated GFR (CKD-EPI) > 60.0 mL/Min [facility] Creatinine Clearance (Chem 74.10 [facility] Potassium [Moles/volume] in Serum or PlasmaOrdered By: Soledad Guzman on 05-04-2024 Potassium [Moles/Vol] 4.4 mmol/L Normal 3.5-5.1 [facility] Comment on above: Hemolysis is present at a level that could interfere with the result.Contact lab if redraw is required Result Comment: Hemo lysis is present at a level that could interfere with the result. Contact lab if redraw is required Performed By: #### C BC, CMP #### [address] Serum or plasma anion gap de terminationOrdered By: Soledad Guzman on 05-04-2024 Anion gap [Moles/Vol] 12.9 mmol/L Normal 6.0-15.0 [facility] Comment on above: Performed By: #### C BC, CMP #### [place] [address] [place] Sodium [Moles/volume] in Ser um or PlasmaOrdered By: Soledad Guzman on 05-04-2024 Sodium [Moles/Vol] 136 mmol/L Normal 136-145 [facility] Comment on above: Performed By: #### C BC, CMP #### [place] [address] [place] Urea nitrogen [Mass/volume] in Serum or PlasmaOrdered By: Soledad Guzman on 05-04-2024 Urea nitrogen [Mass/Vol] 16 mg/dL Normal 7-25 [facility] Comment on above: Performed By: #### C BC, CMP #### [address] A1C with Estimated Average G uzma 05-03-2024 Glucose [Mass/Vol] 131 mg/dL Normal [facility] Comment on above: Result Comment: PERF ORMED BY: [place] [address] PATHOLOGIST TRUCK LOADER OVERHEAD CRANE DANITA LEIGH M.D. Performed By: #### H S TROP #### [address] Activated partial thrombopla stin time (aPTT) in platelet poor plasma by coagulation aOrdered By: Jensen Elliott on 05-03-2024 aPTT Coag (PPP) [Time] 25.5 s 25.1-36.5 [facility] Comment on above: A hematocrit value g reater than 55% may lead to inaccurate results in coagulation testing. Patients having hematocrit values >55% require a special collection tube for coagulation studies. Please contact the laboratory at [phone] for redraw instructions. Automated basophil %Ordered By: Jensen Elliott on 05-03-2024 Basophils/100 WBC (Bld) 0.4 % Normal . [facility] Comment on above: Performed By: #### B MP, PTT, CBC, PHOS, PT, BNP, MG, HS TROP #### [address] Automated basophil countOrde red By: Jensen Elliott on 05-03-2024 Basophils (Bld) [#/Vol] 0.0 10*3/uL Normal 0.0-0.2 [facility] Comment on above: Result Comment: PERF ORMED BY: [place] [address] PATHOLOGIST TRUCK LOADER OVERHEAD CRANE DANITA LEIGH M.D. Performed By: #### B MP, PTT, CBC, PHOS, PT, BNP, MG, HS TROP #### [address] Automated blood monocyte cou ntOrdered By: Jensen Elliott on 05-03-2024 Monocytes (Bld) [#/Vol] 0.6 10*3/uL Normal 0.0-0.8 [facility] Comment on above: Performed By: #### B MP, PTT, CBC, PHOS, PT, BNP, MG, HS TROP #### [address] Automated eosinophil %Ordere d By: Jensen Elliott on 05-03-2024 Eosinophils/100 WBC (Bld) 1.3 % Normal . [facility] Comment on above: Performed By: #### B MP, PTT, CBC, PHOS, PT, BNP, MG, HS TROP #### [address] Automated eosinophil countOr dered By: Jensen Elliott on 05-03-2024 Eosinophils (Bld) [#/Vol] 0.1 10*3/uL Normal 0.0-0.45 [facility] Comment on above: Performed By: #### B MP, PTT, CBC, PHOS, PT, BNP, MG, HS TROP #### [address] Automated monocyte %Ordered By: Jensen Elliott on 05-03-2024 Monocytes/100 WBC (Bld) 6.8 % Normal . [facility] Comment on above: Performed By: #### B MP, PTT, CBC, PHOS, PT, BNP, MG, HS TROP #### [address] Automated neutrophil %Ordere d By: Jensen Elliott on 05-03-2024 Neutrophils/100 WBC (Bld) 70.7 % Normal . [facility] Comment on above: Performed By: #### B MP, PTT, CBC, PHOS, PT, BNP, MG, HS TROP #### [address] BNP ser/plasOrdered By: Caio Elliott on 05-03-2024 Natriuretic peptide B (Bld) [Mass/Vol] 494.0 pg/mL High 5-100 [facility] Comment on above: Result Comment: PERF ORMED BY: [place] [address] PATHOLOGIST TRUCK LOADER OVER[employer] CRANE DANITA LEIGH M.D. Performed By: #### B MP, PTT, CBC, PHOS, PT, BNP, MG, HS TROP #### [address] Basic Metabolic Panelon 04-24 Creatinine Clr Calc Pharmacy 62.85 Normal [facility] Comment on above: Performed By: #### B MP, PTT, CBC, PHOS, PT, BNP, MG, HS TROP #### [address] GFR/1.73 sq M.predicted MDRD (S/P/Bld) [Vol rate/Area] mL/min/{1.73_m2} Normal [facility] Comment on above: Performed By: #### B MP, PTT, CBC, PHOS, PT, BNP, MG, HS TROP #### [address] angio chest PE protocolon 05-03-2024 CT angio chest PE protocol [facility] [place] [address] CT Scan Report Signed Patient: Venita Richter MR#: [id number] 2344 : 1955 Acct:[id number] Age/Sex: 68 / F ADM Date: 05/03/24 Loc: ER Room: Type: [facility] ER Attending Dr: Copies to: Jensen Elliott DO Ordering Provider: Jensen Elliott DO Date of Service: 05/03/24 CT/CT angio chest PE protocol: r/o pe CT angio chest PE protocol 05/03/2024 9:43 AM SIGN AND SYMPTOMS: Syncope, arrhythmia CONTRAST: 90 mL of intravenous Isovue-370 TECHNIQUE: Multidetector CT axial slices of the chest were obtained with IV contrast. Multiplanar reformats were performed and viewed on a separate workstation and reviewed to further define anatomy and possible pathology. CT was performed with one or more of the following dose reduction techniques: Automated exposure control, adjustment of the mA and/or kV according to patient size, or use of iterative reconstruction technique. COMPARISON: None. FINDINGS: Lower neck: Thyroid gland within normal limits, no supraclavicle adenopathy. Vessels: Within normal limits. There is no evidence of pulmonary embolism. Mediastinum and Jessica: Within normal limits. Heart: There is cardiomegaly. No pericardial effusion. Airways: Within normal limits Lungs: There is scarring or atelectasis along the lingula. Pleura: Within normal limits. Chest Wall: Within normal limits. Upper Abdomen: Within normal limits. Bones: Degenerative changes are noted in the shoulders and thoracic spine. CT/CT angio chest PE protocol IMPRESSION: There is no evidence of pulmonary embolism. There is cardiomegaly. Colonization, pleural effusion, or pneumothorax. Impression dictated by: Alexander Cadena M.D.05/03/2024 11:10 AM Dictation Location: [place] [address] Transcribed By: [facility] 05/03/24 1110 Dictated By: Alexander Cadena II, MD 05/03/24 1105 Signed By: 05/03/24 1110 Normal [facility] CT head/brain wo mooseon 05-03 CT head/brain wo [facility] [place] [address] CT Scan Report Signed Patient: Venita Richter MR#: [id number] 2344 : 1955 Acct:[id number] Age/Sex: 68 / F ADM Date: 05/03/24 Loc: ER Room: Type: [facility] ER Attending Dr: Copies to: Jensen Elliott DO Ordering Provider: Jensne Elliott DO Date of Service: 05/03/24 CT/CT head/brain wo con: r/o ich CT head/brain wo con 05/03/2024 9:46 AM SIGNS AND SYMPTOMS: Syncope, arrhythmia TECHNIQUE:Multi-detector CT axial slices of the brain were obtained without IV contrast. CT was performed with one or more of the following dose reduction techniques: Automated exposure control, adjustment of the mA and/or kV according to patient size, or use of iterative reconstruction technique. COMPARISON: None. FINDINGS: There is no shift of the midline structures, acute intracranial bleeding, mass effects, or evidence of acute ischemia. There is a remote lacunar infarct along the posterior and medial aspect of the left caudate nucleus. There is a remote infarct in the left parietal cortex and periventricular white matter. The ventricular system is normal in size. The brainstem is within normal limits. There is a remote lacunar infarct in the left cerebellar hemisphere.. The visualized intraorbital contents, the visualized paranasal sinuses, and the infratemporal soft tissues show no acute abnormality. The osseous structures in the skull base and the calvarium show no abnormality. CT/CT head/brain wo con IMPRESSION: No acute intracranial pathology. Remote infarcts are noted, as above. Impression dictated by: Alexander Cadena M.D.05/03/2024 11:04 AM Dictation Location: [place] [address] Transcribed By: BALJEET 05/03/24 1104 Dictated By: Alexander Cadena II, MD 05/03/24 1101 Signed By: 05/03/24 1104 Normal [facility] Calcium [Mass/volume] in Ser um or PlasmaOrdered By: Jensen Elliott on 05-03-2024 Calcium [Mass/Vol] 9.0 mg/dL Normal 8.6-10.3 [facility] Comment on above: Performed By: #### B MP, PTT, CBC, PHOS, PT, BNP, MG, HS TROP #### [facility] [address] [place] [address] [place] Carbon dioxide, total [Moles /volume] in Serum or PlasmaOrdered By: Jensen Elliott on 05-03-2024 CO2 [Moles/Vol] 28.3 mmol/L Normal 21.0-31.0 [facility] Comment on above: Performed By: #### B MP, PTT, CBC, PHOS, PT, BNP, MG, HS TROP #### [facility] [address] [place] [address] [place] Chloride [Moles/volume] in S mesha or PlasmaOrdered By: Jensen Elliott on 05-03-2024 Chloride [Moles/Vol] 95 mmol/L Low 98-107 [facility] Comment on above: Performed By: #### B MP, PTT, CBC, PHOS, PT, BNP, MG, HS TROP #### [address] Complete Blood Count Auto Di ffon 05-03-2024 Mean Corpuscular HGB Conc 33.8 g/dL Normal 32.0-35.0 [facility] Comment on above: Performed By: #### B MP, PTT, CBC, PHOS, PT, BNP, MG, HS TROP #### [facility] [address] Monocytes/100 WBC (Bld) 17.84 % Normal 0.00-20.00 [facility] Comment on above: Performed By: #### B MP, PTT, CBC, PHOS, PT, BNP, MG, HS TROP #### [address] NRBC% 0.1 /100{WBC} Normal 0-0.5 [facility] Comment on above: Performed By: #### B MP, PTT, CBC, PHOS, PT, BNP, MG, HS TROP #### [address] Creatinine [Mass/volume] in Serum or PlasmaOrdered By: Jensen Elliott on 05-03-2024 Creatinine [Mass/Vol] 0.96 mg/dL Normal 0.60-1.20 [facility] Comment on above: Performed By: #### B MP, PTT, CBC, PHOS, PT, BNP, MG, HS TROP #### [address] ECG 12 lead ECGon 05-03-2024 ECG 12 lead ECG [facility] [place] [address] [place] [address] Electrocardiograph Report Signed Patient: Venita Richter MR#: [id number] 2344 : 1955 Acct:[id number] Age/Sex: 68 / F ADM Date: 05/03/24 Loc: 3T Room: [address] [place] [address] Type: ADM INOo Attending Dr: Soledad Guzman MD Ordering Provider: Jensen Elliott DO Date of Service: 05/03/2408/17/935 ECG/ECG 12 lead ECG: Weakness Copies to: Test Reason : Blood Pressure : 139/67 mmHG Vent. Rate : 68 BPM Atrial Rate : 68 BPM P-R Int : 150 ms QRS Dur : 84 ms QT Int : 438 ms P-R-T Axes : -7 46 74 degrees QTcB Int : 465 ms Sinus rhythm with frequent premature ventricular complexes Confirmed by Jensen Elliott DO ([id number]) on 05/03/2024 1:57:39 PM Referred By: Electronically Signed By: Jensen Elliott DO Transcribed By: MUS Signed By Jensen Elliott DO 1357 Normal [facility] echo transthoracicon [facility] echo transthoracic [facility] [place] [address] Echocardiogram Signed Patient: Venita Richter MR#: [id number] 2344 : 1955 Acct:[id number] Age/Sex: 68 / F ADM Date: 05/03/24 Loc: 3T Room: [address] [place] [address] Type: ADM INOo Attending Dr: Soledad Guzman MD Ordering Provider: Soledad Guzman MD Date of Service: 05/03/2408/17/1200 [facility] echo transthoracic: Weakness Copies to: MD Jose Torres MD, [facility] BSA: 2.0 m2 BP: 135/72 mmHg HR: 31 Reason For Study: Weakness History: No cardiac history Interpretation Summary The left ventricular size, thickness and function are normal Ejection Fraction = 60-65%. In the distal interventricular septum there is small invagination [small diverticulum] which generally speaking has no clinical significance The left atrium appears mildly dilated. Mild aortic regurgitation. There is mild mitral regurgitation. There is no prior echocardiogram noted for this patient. Procedure/Quality: A two-dimensional transthoracic echocardiogram with color flow, Doppler and injection of contrast agent Definity was performed. The study was technically good in quality. There is no prior echocardiogram noted for this patient. Left Ventricle: The left ventricular size, thickness and function are normal. In the distal interventricular septum there is small invagination [small diverticulum] which generally speaking has no clinical significance. Ejection Fraction = 60-65%. Left Atrium: The left atrium appears mildly dilated. The atrial septum appears normal. Right Atrium: The right atrium appears normal in size. Right Ventricle: The right ventricular size, thickness and function are normal. Aortic Valve: The aortic valve is trileaflet. Mild aortic regurgitation. Mitral Valve: The mitral valve is mildly sclerotic. There is mild mitral regurgitation. Tricuspid Valve: The tricuspid valve is normal in structure. Pulmonic Valve: The pulmonic valve is not well seen, but is grossly normal. Arteries: The aortic root is normal size. Pericardium/Pleura: No pericardial effusion seen. There is no pleural effusion. IVC/Hepatic Veins: The IVC is normal in size with an inspiratory collapse of greater then 50%, suggesting normal right atrial pressure. Miscellaneous: No thrombus, vegetation or mass is seen. Measurements with Normals IVSd: 1.3 cm (0.7-1.1 cm)LVIDd: 4.8 cm (3.7-5.4 cm) LVPWd: 0.80 cm (0.7-1.1 cm)LVIDs: 3.3 cm (2.3-3.6 cm) LA dimension: 5.1 cm (2.3-4.0 cm)Ao root diam: 2.7 cm(2.0-3.6 cm) asc Aorta Diam: 3.4 cm(2.1-3.4cm) Doppler with Normals RVSP(TR): 28.2 mmHg (18-35mmHg) LV V1 max: 99.2 cm/sec (0.7-1.7m/s)MV E max jeff: 110.0 cm/sec(0.8-1.3m/s) MV A max jeff: 115.0 cm/sec(0.0-0.0m/s) MV E/A: 0.96 (<1.5) MMode/2D Measurements Calculations TAPSE: 2.5 cm FS: 31.3 % Ao root area: LVOT diam: 2.0 cm EDV(Teich): 107.5 ml 5.7 cm2 LVOT area: 3.1 cm2 ESV(Teich): 44.1 ml EF(Teich): 59.0 % __ LVLd ap4: 8.2 cm SV(MOD-sp4): 61.6 ml LAV(MOD-sp4): LA A2 area: 24.4 cm2 EDV(MOD-sp4): 70.9 ml 117.0 ml LAV(MOD-sp2): LA A4 area: 24.8 cm2 LVLs ap4: 6.4 cm 71.9 ml LA length (vol): ESV(MOD-sp4): 6.8 cm 55.4 ml LA vol: 75.1 ml EF(MOD-sp4): LA vol index: 52.6 % 38.2 ml/m2 __ RA Volume: 33.0 mlRA Volume Index: 16.8 ml/m2 Doppler Measurements Calculations MV dec time: E/E' lat: 21.3 MV dec slope: Ao V2 max: 0.22 sec E/E' med: 16.8 194.0 cm/sec 500.0 cm/sec2 Ao max P.1 mmHg Ao mean P.0 mmHg Ao V2 mean: 129.0 cm/sec Ao V2 VTI: 39.6 cm TINA(I,D): 1.6 cm2 TINA(V,D): 1.6 cm2 __ AI max jeff: LV V1 max PG: TV max P.0 mmHgTR max jeff: 496.7 cm/sec 3.9 mmHg 251.0 cm/sec AI max P.0 mmHg LV V1 mean PG: TR max PG: AI dec slope: 2.0 mmHg 25.2 mmHg 186.3 cm/sec2 LV V1 mean: RAP systole: AI P1/2t: 780.7 msec 67.8 cm/sec 3.0 mmHg LV V1 VTI: 20.4 cm Transcribed By: SCJovani Performed At: 05/03/24 1416 Signed By: Jose Aden MD, [facility] 05/03/24 1600 Normal [facility] Erythrocyte distribution wid th [Ratio] by Automated countOrdered By: Jensen Elliott on 05-03-2024 Erythrocyte distribution width (RBC) [Ratio] 13.3 % Normal 11.9-15.3 [facility] Comment on above: Performed By: #### B MP, PTT, CBC, PHOS, PT, BNP, MG, HS TROP #### [facility] [address] Erythrocytes [#/volume] in B lood by Automated countOrdered By: Jensen Elliott on 05-03-2024 RBC (Bld) [#/Vol] 4.79 10*6/uL Normal 3.60-5.00 [facility] Comment on above: Performed By: #### B MP, PTT, CBC, PHOS, PT, BNP, MG, HS TROP #### [facility] [address] [place] [id number] [facility] Glucose [Mass/volume] in Ser um or PlasmaOrdered By: Jensen Elliott on 05-03-2024 Glucose [Mass/Vol] 129 mg/dL High 70-100 [facility] Comment on above: ADA recommended refe rence rangeRandom Glucose Reference Range is dependent on time and content of last meal. Glucose of more than 200 mg/dL in a nonstressed, ambulatory subject supports the diagnosis of Diabetes Mellitus. Result Comment: [place] om Glucose Reference Range is dependent on time and content of last meal. Glucose of more than 200 mg/dL in a nonstressed, ambulatory subject supports the diagnosis of Diabetes Mellitus. ADA recommended reference range Performed By: #### B MP, PTT, CBC, PHOS, PT, BNP, MG, HS TROP #### [facility] [address] [place] [id number] [facility] Glucose mean value [Mass/vol ume] in Blood Estimated from glycated hemoglobinOrdered By: Soledad Guzman on 05-03-2024 Average glucose Estimated from glycated hemoglobin (Bld) [Mass/Vol] 131 mg/dL [facility] Hematocrit [Volume Fraction] of Blood by Automated countOrdered By: Jensen Elliott on 05-03-2024 Hematocrit (Bld) [Volume fraction] 43.6 % Normal 34.0-46.4 [facility] Comment on above: Performed By: #### B MP, PTT, CBC, PHOS, PT, BNP, MG, HS TROP #### [facility] [address] [place] [address] Hemoglobin A1c percentageOrd ered By: Soledad Guzman on 05-03-2024 HbA1c (Bld) [Mass fraction] 6.2 % High 4.3-5.6 [facility] Comment on above: Increased risk for d iabetes: 5.7 - 6.4diabetes: >6.4glycemic control for adults with diabetes: <7.0 Result Comment: Incr eased risk for diabetes: 5.7 - 6.4 diabetes: >6.4 glycemic control for adults with diabetes: <7.0 Performed By: #### H S TROP #### [address] Hemoglobin [Mass/volume] in BloodOrdered By: Jensen Elliott on 05-03-2024 Hemoglobin (Bld) [Mass/Vol] 14.7 g/dL Normal 11.8-15.4 [facility] Comment on above: Performed By: #### B MP, PTT, CBC, PHOS, PT, BNP, MG, HS TROP #### [address] INR in Platelet poor plasma by Coagulation assayOrdered By: Jensen Elliott on 05-03-2024 INR Coag (PPP) [Relative time] 1.1 {INR} Normal [facility] Comment on above: INR Therapeutic Rang e A) Pre- and Peroperative OAT started two weeks before surgery. NOT HIP SURGERY: 1.5 - 2.5 HIP SURGERY: 2 - 3B) Primary and secondary prevention of venous THROMBOSIS: 2 - 3C) Active venous thrombosis, pulmonary embolismand prevention of recurrent venous thrombosis: 2 - 3D) Prevention of arterial thromboembolismincluding patients with mechanical heart valves: 3 - 4.5 Result Comment: INR Therapeutic Range A) Pre- and Peroperative OAT started two weeks before surgery. NOT HIP SURGERY: 1.5 - 2.5 HIP SURGERY: 2 - 3 B) Primary and secondary prevention of venous THROMBOSIS: 2 - 3 C) Active venous thrombosis, pulmonary embolism and prevention of recurrent venous thrombosis: 2 - 3 D) Prevention of arterial thromboembolism including patients with mechanical heart valves: 3 - 4.5 Performed By: #### H S TROP #### [facility] [address] Leukocytes [#/volume] correc joel for nucleated erythrocytes in Blood by Automated counOrdered By: Jensen Elliott on 05-03-2024 WBC corrected for nucl RBC Auto (Bld) [#/Vol] 9.2 10*3/uL 3.8-11.6 [facility] Leukocytes [#/volume] in Blo od by Automated countOrdered By: Jensen Elliott on 05-03-2024 WBC (Bld) [#/Vol] 9.2 10*3/uL Normal 3.8-11.6 [facility] Comment on above: Performed By: #### B MP, PTT, CBC, PHOS, PT, BNP, MG, HS TROP #### [facility] [address] [place] [address] [place] Lymphocytes [#/volume] in Bl ood by Automated countOrdered By: Jensen Elliott on 05-03-2024 Lymphocytes (Bld) [#/Vol] 1.9 10*3/uL Normal 1.00-4.8 [facility] Comment on above: Performed By: #### B MP, PTT, CBC, PHOS, PT, BNP, MG, HS TROP #### [facility] [address] [place] [address] [place] Lymphocytes/100 leukocytes i n Blood by Automated countOrdered By: Jensen Elliott on 05-03-2024 Lymphocytes/100 WBC (Bld) 20.8 % Normal . [facility] Comment on above: Performed By: #### B MP, PTT, CBC, PHOS, PT, BNP, MG, HS TROP #### [facility] [address] [place] [address] [place] MCH [Entitic mass] by Automa joel countOrdered By: Jensen Elliott on 05-03-2024 MCH (RBC) [Entitic mass] 30.8 pg Normal 24.7-34.3 [facility] Comment on above: Performed By: #### B MP, PTT, CBC, PHOS, PT, BNP, MG, HS TROP #### [address] MCHC Auto (RBC) [Mass/Vol]Or dered By: Jensen Elliott on 05-03-2024 MCHC (RBC) [Mass/Vol] 33.8 g/dL 32.0-35.0 [facility] [facility] [Entitic volume] by Auto mated countOrdered By: Jensen Elliott on 05-03-2024 MCV (RBC) [Entitic vol] 91.0 fL Normal 80-100 [facility] Comment on above: Performed By: #### B MP, PTT, CBC, PHOS, PT, BNP, MG, HS TROP #### [address] Magnesium [Mass/volume] in S mesha or PlasmaOrdered By: Jensen Elliott on 05-03-2024 Magnesium [Mass/Vol] 1.9 mg/dL Normal 1.9-2.7 [facility] Comment on above: Result Comment: PERF ORMED BY: [place] [address] PATHOLOGIST [employer] DANITA LEIGH M.D. Performed By: #### B MP, PTT, CBC, PHOS, PT, BNP, MG, HS TROP #### [address] Monocyte distribution width [Entitic volume] in Blood by AutomatedOrdered By: Jensen Elliott on 05-03-2024 Monocyte distribution width Auto (Bld) [Entitic vol] 17.84 % 0.00-20.00 [facility] Neutrophils [#/volume] in Bl ood by Automated countOrdered By: Jensen Elliott on 05-03-2024 Neutrophils (Bld) [#/Vol] 6.5 10*3/uL Normal 1.8-7.7 [facility] Comment on above: Performed By: #### B MP, PTT, CBC, PHOS, PT, BNP, MG, HS TROP #### [facility] [address] [place] [address] No Panel InformationOrdered By: Jensen Elliott on 05-03-2024 Estimated GFR (CKD-EPI) > 60.0 mL/Min [facility] Creatinine Clearance (Chem 62.85 [facility] Nucleated erythrocytes [Pres ence] in Blood by Automated countOrdered By: Jensen Elliott on 05-03-2024 Nucleated RBC Auto Ql (Bld) 0.1 /100{WBC} 0-0.5 [facility] Partial Thromboplastin Timeo n 05-03-2024 aPTT Coag (Bld) [Time] 25.5 s Normal 25.1-36.5 [facility] Comment on above: Result Comment: A he matocrit value greater than 55% may lead to inaccurate results in coagulation testing. Patients having hematocrit values >55% require a special collection tube for coagulation studies. Please contact the laboratory at [phone] for redraw instructions. PERFORMED BY: [place] [address] PATHOLOGIST [employer] DANITA LEIGH M.D. Performed By: #### H S TROP #### [facility] [address] [place] [address] Phosphate [Mass/volume] in S mesha or PlasmaOrdered By: Jensen Elliott on 05-03-2024 Phosphate [Mass/Vol] 2.8 mg/dL Normal 2.5-4.5 [facility] Comment on above: Performed By: #### B MP, PTT, CBC, PHOS, PT, BNP, MG, HS TROP #### [facility] [address] [place] [address] Platelet mean volume [Entiti c volume] in Blood by Automated countOrdered By: Jensen Elliott on 05-03-2024 Platelet mean volume (Bld) [Entitic vol] 8.6 fL Normal 6.3-10.7 [facility] Comment on above: Performed By: #### B MP, PTT, CBC, PHOS, PT, BNP, MG, HS TROP #### [facility] [address] Platelets [#/volume] in Bloo d by Automated countOrdered By: Jensen Elliott on 05-03-2024 Platelets (Bld) [#/Vol] 229 10*3/uL Normal 150-450 [facility] Comment on above: Performed By: #### B MP, PTT, CBC, PHOS, PT, BNP, MG, HS TROP #### [address] Potassium [Moles/volume] in Serum or PlasmaOrdered By: Jensen Elliott on 05-03-2024 Potassium [Moles/Vol] 3.6 mmol/L Normal 3.5-5.1 [facility] Comment on above: Performed By: #### B MP, PTT, CBC, PHOS, PT, BNP, MG, HS TROP #### [address] Prothrombin time (PT)Ordered By: Jensen Elliott on 05-03-2024 PT Coag (PPP) [Time] 12.4 s Normal 9.0-12.9 [facility] Comment on above: A hematocrit value g reater than 55% may lead to inaccurate results in coagulation testing. Patients having hematocrit values >55% require a special collection tube for coagulation studies. Please contact the laboratory at [phone] for redraw instructions. Result Comment: A he matocrit value greater than 55% may lead to inaccurate results in coagulation testing. Patients having hematocrit values >55% require a special collection tube for coagulation studies. Please contact the laboratory at [phone] for redraw instructions. Performed By: #### H S TROP #### [address] Serum or plasma anion gap de terminationOrdered By: Jensen Elliott on 05-03-2024 Anion gap [Moles/Vol] 11.3 mmol/L Normal 6.0-15.0 [facility] Comment on above: Performed By: #### B MP, PTT, CBC, PHOS, PT, BNP, MG, HS TROP #### [facility] [address] [place] [address] [place] Sodium [Moles/volume] in Ser um or PlasmaOrdered By: Jensen Elliott on 05-03-2024 Sodium [Moles/Vol] 131 mmol/L Low 136-145 [facility] Comment on above: Performed By: #### B MP, PTT, CBC, PHOS, PT, BNP, MG, HS TROP #### [facility] [address] Troponin I High Sensitivityo n 05-03-2024 Troponin I High Sensitivity 5.7 pg/mL Normal 0.0-15.0 [facility] Comment on above: Result Comment: PERF ORMED BY: [place] [address] PATHOLOGIST [employer] DANITA LEIGH M.D. Performed By: #### H S TROP #### [address] Troponin I High Sensitivity 6.9 pg/mL Normal 0.0-15.0 [facility] Comment on above: Result Comment: PERF ORMED BY: [place] [address] PATHOLOGIST TR[employer] DANITA LEIGH M.D. Performed By: #### B MP, PTT, CBC, PHOS, PT, BNP, MG, HS TROP #### [address] Troponin I.cardiac [Mass/vol ume] in Serum or Plasma by Detection limit <= 0.01 ng/Ordered By: Soledad Guzman on 05-03-2024 Troponin I.cardiac DL <= 0.01 ng/mL [Mass/Vol] 5.7 pg/mL 0.0-15.0 [facility] Urea nitrogen [Mass/volume] in Serum or PlasmaOrdered By: Jensen Elliott on 05-03-2024 Urea nitrogen [Mass/Vol] 16 mg/dL Normal 7-25 [facility] Comment on above: Performed By: #### B MP, PTT, CBC, PHOS, PT, BNP, MG, HS TROP #### [facility] [address] Heart and Vascular Office/Cl inic Noteon 04-21-2024 [...] mg= 1 tab(s), Oral, Daily, 3 refills bisoprolol-hydrochlorothia zide 5 mg-6.25 mg Tab, 1 tab(s), Oral, [...] virus vaccine, inactivated 09/06/2022 Recorded SARS-CoV-2 (COVID-19) [id number] 09/06/2022 Recorded SARS-CoV-2 (COVID-19) mRNA BNT-162b2 vax 10/10/2021 Recorded SARS-CoV-2 (COVID-19) mRNA BNT-162b2 vax 01/14/2021 Recorded SARS-CoV-2 (COVID-19) mRNA B (more content not included)... Normal [facility] Comment on above: Result Comment: Elec tronically Signed By: Rajeev CONLEY, Jai Tellez\.br\Date and Time Signed: 04/21/24 09:38 EDT Ambulatory Visit Summaryon 0 04-20-2024 Ambulatory Visit Summary Ambulatory Visit Summary VENITA RICHTER :1955 Visit Date:04/20/2024 Ambulatory Visit Instructions Your Diagnosis Light-headed feeling Epigastric pain Short of breath on exertion Irregular heartbeat BMI 30.0-30.9,adult Former smoker Your Care Team Attending Physician - Lourdes Fan Primary Care Physician - Lourdes Fan This Is Your Medications List alendronate (alendronate 35 mg Tab) aspirin (aspirin 81 mg oral tablet) atorvastatin (atorvastatin 10 mg Tab) bisoprolol-hydrochlorothia zide (bisoprolol-hydrochlorothi azide 5 mg-6.25 mg Tab) cholecalciferol (High Potency [...] Follow-Up Appointments Wednesday 9:15 AM EDT With: Rajeev CONLEY, Jai Tellez Where: [facility] Wednesday 11:00 AM EDT With: Where: [facility] [place] Normal [facility] Family Medicine Office/Clini c Noteon 04-20-2024 Family Medicine [...] 2 weeks Ordered: ECG 12 Lead Adult [facility] Internal Ambulatory Referral 2. Epigastric pain (R10.13: Epigastric pain) pt feels pressure or pulsation in epigastric area. this feeling comes and goes Ordered: ECG 12 Lead Adult [facility] Internal Ambulatory Referral 3. Short of breath on exertion (R06.02: Shortness of breath) describes it as a heavy feeling on her chest. Ordered: ECG 12 Lead Adult [facility] Internal Ambulatory Referral 4. Irregular heartbeat (I49.9: Cardiac arrhythmia, unspecified) on assessment irregular heart rate auscultated. will do EKG in office today Ordered: ECG 12 Lead Adult [facility] Internal Ambulatory Referral 5. Bradycardia on ECG (R00.1: Bradycardia, unspecified) in office EKG sinus bradycardia, but heart rate is irregular on auscultation in office today 6. BMI 30.0-30.9,adult (Z68.30: Body mass index [BMI] 30.0-30.9, adult) BMI education given Ordered: ECG 12 Lead Adult [facility] Internal Ambulatory Referral 7. Former smoker (Z87.891: [...] mg= 1 tab(s), Oral, Daily, 3 refills bisoprolol-hydrochlorothia zide 5 mg-6.25 mg Tab, 1 tab(s), Oral, [...] virus vaccine, inactivated 09/06/2022 Recorded SARS-CoV-2 (COVID-19) [id number] 09/06/2022 Recorded SARS-CoV-2 (COVID-19) mRNA BNT-162b2 vax 10/10/2021 Recorded SARS-CoV-2 (COVID-19) mRNA BNT-162b2 vax 01/14/2021 Recorded SARS-CoV-2 (COVID-19) mRNA BNT-162b2 vax 12/23/2020 Recorded Normal [facility] Comment on above: Result Comment: Elec tronically Signed By: Lourdes Fan\.br\Date and Time Signed: 04/20/24 09:41 EDT RAD - CT Reporton 04-04-2024 RAD - CT Report [id number]#[id number] Normal [facility] Ambulatory Visit Summaryon 0 03-30-2024 Ambulatory Visit Summary VENITA RICHTER :1955 Visit Date:03/30/2024 Ambulatory Visit Instructions Your Diagnosis Wellness examination Hypercholesteremia Hypothyroidism Seizures BMI 30.0-30.9,adult Non-smoker Your Care Team Attending Physician - Lourdes Fan Primary Care Physician - Lourdes Fan This Is Your Medications List alendronate (alendronate 35 mg Tab) aspirin (aspirin 81 mg oral tablet) atorvastatin (atorvastatin 10 mg Tab) bisoprolol-hydrochlorothia zide (bisoprolol-hydrochlorothi azide 5 mg-6.25 mg Tab) cholecalciferol (High Potency [...] Follow-Up Appointments Wednesday 11:00 AM EDT Where: [facility] [place] Normal [facility] Family Medicine Office/Clini c Noteon 03-30-2024 [...] day(s), # 90 cap(s), Refills(s) 3, Pharmacy: [facility]/pharmacy #[id number], 169, cm, 03/30/24 11:31:00 EDT, Height/Length Dosing, 86.6, kg, 03/30/24 11:31:00 EDT, Weight Dosing cholecalciferol, 125 mcg = 1 cap(s), Oral, Daily, # 90 cap(s), Refills(s) 3, Pharmacy: [facility]/pharmacy #[id number], 170.5, cm, 04/23/23 9:46:00 EDT, Height/Length Dosing, 86.2, kg, 04/23/23 9:46:00 EDT, Weight Dosing Phenytoin Level Total 3. Hypothyroidism (E03.9: Hypothyroidism, unspecified) meds refilled. labs ordered will do after April 23 Ordered: cholecalciferol, 125 mcg = 1 cap(s), Oral, Daily, X 90 day(s), # 90 cap(s), Refills(s) 3, Pharmacy: [facility]/pharmacy #[id number], 169, cm, 03/30/24 11:31:00 EDT, Height/Length Dosing, 86.6, kg, 03/30/24 11:31:00 EDT, Weight Dosing cholecalciferol, 125 mcg = 1 cap(s), Oral, Daily, # 90 cap(s), Refills(s) 3, Pharmacy: [facility]/pharmacy #[id number], 170.5, cm, 04/23/23 9:46:00 EDT, Height/Length Dosing, 86.2, kg, 04/23/23 9:46:00 EDT, Weight Dosing Phenytoin Level Total 4. Seizures (R56.9: Unspecified convulsions) meds refilled. labs ordered Ordered: cholecalciferol, 125 mcg = 1 cap(s), Oral, Daily, X 90 day(s), # 90 cap(s), Refills(s) 3, [id number], cm, 03/30/24 11:31:00 EDT, Height/Length Dosing, 86.6, kg, 03/30/24 11:31:00 EDT, Weight Dosing cholecalciferol, 125 mcg = 1 cap(s), Oral, Daily, # 90 cap(s), Refills(s) 3, [id number], 170.5, cm, 04/23/23 9:46:00 EDT, Height/Length Dosing, 86.2, kg, 04/23/23 9:46:00 EDT, Weight Dosing Phenytoin Level Total 5. BMI 30.0-30.9,adult (Z68.30: Body mass index [BMI] 30.0-30.9, adult) BMI education 6. Non-smoker (Z78.9: Other specified health status) continue not smoking Ordered: cholecalciferol, 125 mcg = 1 cap(s), Oral, Daily, X 90 day(s), # 90 cap(s), Refills(s) 3, [id number], 169, cm, 03/30/24 11:31:00 EDT, Height/Length Dosing, 86.6, kg, 03/30/24 11:31:00 EDT, Weight Dosing cholecalciferol, 125 mcg = 1 cap(s), Oral, Daily, # 90 cap(s), Refills(s) 3, [id number], 170.5, cm, 04/23/23 9:46:00 EDT, Height/Length Dosing, 86.2, kg, 04/23/23 9:46:00 EDT, Weight Dosing Orders: alendronate, 35 mg = 1 tab(s), Oral, q7day, with 6-8 oz plain water, at least 30 minutes before first food, beverage, or medication of the day, # 13 tab(s), Refills(s) 0, [id number], 170.5, cm, 11/22/23 11:48:00 EST, Height/Length Dosing, 87.2, k... alendronate, 35 mg = 1 tab(s), Oral, q7day, with 6-8 oz plain water, at least 30 minutes before first food, beverage, or medication of the day, X 90 day(s), # 13 tab(s), Refills(s) 3, Pharmacy: [facility]/pharmacy #[id number], 169, cm, 03/30/24 11:31:00 EDT, Height/Length Dosi... atorvastatin, 10 mg = 1 tab(s), Oral, Daily, X 90 day(s), # 90 tab(s), Refills(s) 3, Pharmacy: [facility]/pharmacy #[id number], 169, cm, 03/30/24 11:31:00 EDT, Height/Length Dosing, 86.6, kg, 03/30/24 11:31:00 EDT, Weight Dosing atorvastatin, 10 mg = 1 tab(s), Oral, Daily, # 90 tab(s), Refills(s) 3, Pharmacy: [facility]/pharmacy #[id number], 170.5, cm, 04/23/23 9:46:00 EDT, Height/Length Dosing, 86.2, kg, 04/23/23 9:46:00 EDT, Weight Dosing bisoprolol-hydrochlorothia zide, 1 tab(s), Oral, Daily for 90 (more content not included)... [facility] Comment on above: Result Comment: Elec tronically Signed By: Lourdes Fan\.br\Date and Time Signed: 03/30/24 12:52 EDT Living Will/POAon 03-30-2024 Living Will/POA [id number]#[id number] [facility] Outside Mammographyon 2023 Outside Mammography [id number]#1.00TIFF [facility] Family Medicine Office/Clini c Noteon 03-29-2024 [...] of clutter to prevent tripping and/or falling. [place] Advance Directives reviewed. Documents remain at home, [...] risks associate (more content not included)... Normal [facility] Comment on above: Result Comment: Elec tronically Signed By: Lourdes Fan\.br\Date and Time Signed: 03/29/24 08:12 EDT\.br\Electronically Co-Signed By: Jacklyn Luke LPN\.br\Date and Time Co-Signed: 03/28/24 13:06 EDT Historical Records Officeon 03-29-2024 Historical Records Office [id number]#1.00TIFF Julia [facility] Ambulatory Visit Summaryon 0 03-28-2024 Ambulatory Visit Summary VENITA RICHTER :1955 Visit Date:03/28/2024 Ambulatory Visit Instructions Your [...] oral tablet) atorvastatin (atorvastatin 10 mg Tab) bisoprolol-hydrochlorothia zide (bisoprolol-hydrochlorothi azide 5 mg-6.25 mg Tab) cholecalciferol (High Potency [...] 11:20 AM EDT With: Lourdes Fan Where: [facility] Invalid Interpretation Code [address] [place] [address]- \.br \ You Need to Complete the Following\.b r\ CBC w/ Auto Diff, Blood, Routine collect, 04/24/24, Order for future visit, Lab Collect, Annual visit for general adult medical examination without abnormal findings [facility] Patient Educationon 03-28-20 24 Patient Education Infectious Disease Hepatitis C Testing [...] provider. Document Revised: 08/28/2021 Document Reviewed: 08/28/2021 [employer] Patient Education ? 2022 [employer] Nutrition Fat and Cholesterol Restricted Eating Plan Eating a diet that limits fat and cholesterol may help lower your risk for heart disease and other c (more content not included)... Normal [facility] Screenson 03-28-2024 Screens [id number]#1.00TIFF Normal [facility] Ambulatory Visit Summaryon 0 11-22-2023 Ambulatory Visit Summary VENITA RICHTER Vivek :1955 Visit Date:11/22/2023 Ambulatory Visit Instructions Your Diagnosis BMI 30.0-30.9,adult Former smoker Your Care Team Attending Physician - Lourdes Fan Primary Care Physician - Lourdes Fan This Is Your Medications List alendronate (alendronate 35 mg Tab) aspirin (aspirin 81 mg oral tablet) atorvastatin (atorvastatin 10 mg Tab) bisoprolol-hydrochlorothia zide (bisoprolol-hydrochlorothi azide 5 mg-6.25 mg Tab) cholecalciferol (High Potency [...] 1 Tablets By Mouth Every day Unchanged bisoprolol-hydrochlorothia zide (bisoprolol-hydrochlorothi azide 5 mg-6.25 mg Tab) 1 Tablets By [...] for choosing us for your care. Normal [facility] Family Medicine Office/Clini c Noteon 11-22-2023 Family Medicine [...] day(s), # 6 tab(s), Refills(s) 0, [id number], 170.5, cm, 11/22/23 11:48:00 EST, Height/Length Dosing, 87.2, kg, 11/22/23 11:48:00 EST, Weight Dosing benzonatate, 200 mg = 1 cap(s), Oral, TID, X 7 day(s), # 21 cap(s), Refills(s) 0, [id number], 170.5, cm, 11/22/23 11:48:00 EST, Height/Length Dosing, 87.2, kg, 11/22/23 11:48:00 EST, Weight Dosing 2. Cough (R05.9: Cough, unspecified) pt presents today with cough that is worsening. is not sleeping at night because cough is so bad Ordered: azithromycin, = 1 packet(s), Oral, As Directed, as directed on package labeling, X 5 day(s), # 6 tab(s), Refills(s) 0, [id number], 170.5, cm, 11/22/23 11:48:00 EST, Height/Length Dosing, 87.2, kg, 11/22/23 11:48:00 EST, Weight Dosing benzonatate, 200 mg = 1 cap(s), Oral, TID, X 7 day(s), # 21 cap(s), Refills(s) 0, [id number], 170.5, cm, 11/22/23 11:48:00 EST, Height/Length Dosing, 87.2, kg, 11/22/23 11:48:00 EST, Weight Dosing 3. BMI 30.0-30.9,adult (Z68.30: Body mass index [BMI] 30.0-30.9, adult) BMI education complete Ordered: azithromycin, = 1 packet(s), Oral, As Directed, as directed on package labeling, X 5 day(s), # 6 tab(s), Refills(s) 0, [id number], 170.5, cm, 11/22/23 11:48:00 EST, Height/Length Dosing, 87.2, kg, 11/22/23 11:48:00 EST, Weight Dosing benzonatate, 200 mg = 1 cap(s), Oral, TID, X 7 day(s), # 21 cap(s), Refills(s) 0, [id number], 170.5, cm, 11/22/23 11:48:00 EST, Height/Length Dosing, 87.2, kg, 11/22/23 11:48:00 EST, Weight Dosing 4. Former smoker (Z87.891: Personal history of nicotine dependence) continue not smoking Ordered: azithromycin, = 1 packet(s), Oral, As Directed, as directed on package labeling, X 5 day(s), # 6 tab(s), Refills(s) 0, [id number], 170.5, cm, 11/22/23 11:48:00 EST, Height/Length Dosing, 87.2, kg, 11/22/23 11:48:00 EST, Weight Dosing benzonatate, 200 mg = 1 cap(s), Oral, TID, X 7 day(s), # 21 cap(s), Refills(s) 0, Pharmacy: [facility]/pharmacy #[id number], 170.5, cm, 11/22/23 11:48:00 EST, Height/Length [...] Directed benzonatate (more content not included)... Normal [facility] Comment on above: Result Comment: Elec tronically Signed By: Lourdes Fan\.br\Date and Time Signed: 11/22/23 12:40 EST CHEMISTRYOrdered [...] (S/P/Bld) [Vol rate/Area] 55 mL/min/1.73 m2 Low >=59mL/min/1 .73 m2 [facility] Chem S Globulin (S) [Mass/Vol] 2.9 g/dL Normal 1.4 - 4.0 gm/dL [facility] Remisol Glucose [Mass/Vol] 117 mg/dL Normal 55 - 199 mg/dL [facility] Remisol Phenytoin [Mass/Vol] 10.0 microgram/mL Normal 10 [...] 3.0 E9/L Normal 2.0 - 7.5 E9/L [facility] HEMATOLOGYOrdered By: Kenia Louise on 04-23-2023 Erythrocyte distribution width (RBC) [Ratio] 13.5 % Normal 10.9 - 14.2 % [facility] Hematocrit (Bld) [Volume fraction] 41.5 % Normal 34.0 - 46.0 % [facility] HemeAutoSS Hemoglobin (Bld) [Mass/Vol] 14.0 g/dL Normal 12.0 - 16.0 gm/dL [facility] MCH (RBC) [Entitic mass] 30.7 pg [...] 4.6 E12/L Normal 4.3 - 5.9 E12/L [facility] HemeAutoSS WBC corrected for nucl RBC Auto (Bld) [#/Vol] 5.8 E9/L Normal 4.0 - 11.0 E9/L [facility] HemeAutoSS MG MAMM SCREEN 3D ELLE CADon 03-04-2023 MG MAMM SCREEN 3D ELLE CAD Patient: VENITA RICHTER Exam Date: 03/04/2023 : 1955 Gender:F Ordering : DR COURTNEY STOCKTON . Admission #: [id number] Family : Order #: [id number] CLICK HERE TO VIEW EXAM RADIOLOGY REPORT [...] breast cancer at age 60. LOCATION: [facility] BREAST COMPOSITION: Heterogeneously dense,which may obscure small [...] PALPABLE LUMP SHOULD BE BIOPSIED. Dictated by: Berlin Edwards M.D. on 03/04/2023 at 13:11 Approved by: Berlin Edwards M.D. on 03/04/2023 at 13:13 Normal [facility] XR DEXA BONE DENSITYon 03-04 XR DEXA BONE DENSITY DEXA bone density s araceli CLINICAL: 67-year-old female. Evaluate bone mineral density. [...] by: JERALD MTZ Date: 2023-03-04 12:01 Normal [facility] PAP ACOG PANEL 2: 30 to 65on 10-09-2022 . . Normal [facility] Comment on above: Performed By: #### [id number] #### [facility] [address] [place] [address] Dr. Karri Lu Age Gdln ACOG Testing Comment Normal [facility] Comment on above: Result Comment: <21 or >65 or no age provided Performed By: #### [id number] #### [facility] [address] [place] [address] Dr. Karri Lu DIAGNOSIS: Comment Normal [facility] Comment on above: Result Comment: NEGA TIVE FOR INTRAEPITHELIAL LESION OR MALIGNANCY. CELLULAR CHANGES ASSOCIATED WITH ATROPHY ARE PRESENT. Performed By: #### [id number] #### [facility] [address] [place] [address] Dr. Karri Lu Methodology: Comment Normal [facility] Comment on above: Result Comment: This liquid based ThinPrep(R) pap test was screened with the use of an image guided system. Performed By: #### [id number] #### [facility] [address] [place] [address] Dr. Karri Lu Note: Comment Normal [facility] Comment on above: Result Comment: The Pap smear is a screening test designed to aid in the detection of premalignant and malignant conditions of the uterine cervix. It is not a diagnostic procedure and should not be used as the sole means of detecting cervical cancer. Both false-positive and false-negative reports do occur. . Performed By: #### [id number] #### [facility] [address] [place] [address] Dr. Karri Lu Performed by: Comment Normal [facility] Comment on above: Result Comment: Siomara Luna, Marine Photographer (ASCP) Performed By: #### [id number] #### [facility] [address] [place] [address] Dr. Karri Lu Specimen adequacy: Comment Normal [facility] Comment on above: Result Comment: Sati sfactory for evaluation. Endocervical component may not be distinguished in cases of atrophy. Performed By: #### 4 [id number] #### [facility] [address] [place] [address] Dr. Karri Lu Automated erythrocytes count in urine sediment (number/area)Ordered By: Epi Robles on 06-03-2022 RBC Auto (Urine sed) [#/Area] 3-4 [HPF] 0-4 [facility] Automated leukocytes count i n urine sediment (number/area)Ordered By: Epi Robles on 06-03-2022 WBC Auto (Urine sed) [#/Area] 0-1 [HPF] 0-4 [facility] Basophils Auto (Bld) [#/Vol] Ordered By: Epi Robles on 06-03-2022 Basophils (Bld) [#/Vol] 0.0 10*3/uL 0.0-0.2 [facility] Basophils/100 WBC Auto (Bld) Ordered By: Epi Robles on 06-03-2022 Basophils/100 WBC (Bld) 0.3 % . [facility] Bilirubin Test strip Ql (U)O rdered By: Epi Robles on 06-03-2022 Bilirubin Ql (U) Negative Negative [facility] Blood hemoglobin measurement (mass/volume)Ordered By: Epi Robles on 06-03-2022 Hemoglobin (Bld) [Mass/Vol] 14.8 g/dL 11.8-15.4 [facility] Blood leukocytes automated c ount (number/volume)Ordered By: Epi Robles on 06-03-2022 WBC (Bld) [#/Vol] 7.0 10*3/uL 4.5-11.0 [facility] Body fluid albumin measureme nt (mass/volume)Ordered By: Epi Robles on 06-03-2022 Albumin (Body fld) [Mass/Vol] 3.7 g/dL 3.2-5.5 [facility] Color Auto (U)Ordered By: Jose Alberto Robles on 06-03-2022 Color (U) Yellow Yellow [facility] Creatinine and Glomerular fi ltration rate.predicted panel (S/P/Bld)Ordered By: Epi Robles on 06-03-2022 Creatinine [Mass/Vol] 0.99 mg/dL 0.44-1.03 [facility] [facility] Auto (Bld) [#/Vo l]Ordered By: Epi Robles on 06-03-2022 Eosinophils (Bld) [#/Vol] 0.1 10*3/uL 0.0-0.45 [facility] Eosinophils/100 WBC Auto (Bl d)Ordered By: Epi Robles on 06-03-2022 Eosinophils/100 WBC (Bld) 0.8 % . [facility] Erythrocyte distribution wid th Auto (RBC) [Ratio]Ordered By: Epi Robles on 06-03-2022 Erythrocyte distribution width (RBC) [Ratio] 13.4 % 11.9-15.3 [facility] Estimated glomerular filtrat ion rate (GFR) non- AmericanOrdered By: Epi Robles on 06-03-2022 GFR/1.73 sq M.predicted among non-blacks MDRD (S/P/Bld) [Vol rate/Area] 56 mL/Min [facility] Globulin Calc (S) [Mass/Vol] Ordered By: Epi Robles on 06-03-2022 Globulin (S) [Mass/Vol] 3.2 g/dL [facility] Hematocrit Auto (Bld) [Volum e fraction]Ordered By: Epi Robles on 06-03-2022 Hematocrit (Bld) [Volume fraction] 43.8 % 34.0-46.4 [facility] Ketones Auto test strip (U) [Mass/Vol]Ordered By: Epi Robles on 06-03-2022 Ketones (U) [Mass/Vol] Negative Negative [facility] Laboratory - Hematology and Cell countsOrdered By: Epi Robles on 06-03-2022 Nucleated RBC/100 WBC (Bld) [Ratio] 0.0 % 0-0.5 [facility] - UrinalysisOrder ed By: Epi Robles on 06-03-2022 Hyaline casts LM Ql (Urine sed) 0-8 [LPF] 0-8 [facility] Lymphocytes Auto (Bld) [#/Vo l]Ordered By: Epi Robles on 06-03-2022 Lymphocytes (Bld) [#/Vol] 1.3 10*3/uL 1.00-4.8 [facility] Lymphocytes/100 WBC Auto (Bl d)Ordered By: Epi Robles on 06-03-2022 Lymphocytes/100 WBC (Bld) 18.0 % . [facility] MCH Auto (RBC) [Entitic mass ]Ordered By: Epi Robles on 06-03-2022 MCH (RBC) [Entitic mass] 30.2 pg 24.7-34.3 [facility] MCHC Auto (RBC) [Mass/Vol]Or dered By: Epi Robles on 06-03-2022 MCHC (RBC) [Mass/Vol] 33.9 g/dL 32.0-35.0 [facility] MCV Auto (RBC) [Entitic vol] Ordered By: Epi Robles on 06-03-2022 MCV (RBC) [Entitic vol] 89.3 fL 80-100 [facility] Monocytes Auto (Bld) [#/Vol] Ordered By: Epi Robles on 06-03-2022 Monocytes (Bld) [#/Vol] 0.7 10*3/uL 0.0-0.8 [facility] Monocytes/100 WBC Auto (Bld) Ordered By: Epi Robles on 06-03-2022 Monocytes/100 WBC (Bld) 10.1 % . [facility] Neutrophils Auto (Bld) [#/Vo l]Ordered By: Epi Robles on 06-03-2022 Neutrophils (Bld) [#/Vol] 5.0 10*3/uL 1.8-7.7 [facility] Neutrophils/100 WBC Auto (Bl d)Ordered By: Epi Robles on 06-03-2022 Neutrophils/100 WBC (Bld) 70.8 % . [facility] Nitrite Test strip Ql (U)Ord ered By: Epi Robles on 06-03-2022 Nitrite Ql (U) Negative Negative [facility] No Panel InformationOrdered By: Epi Robles on 06-03-2022 Estimated GFR () > 60 mL/Min [facility] Comment on above: GFR estimated refere nce range: According to KDOQI guidelines, <60 ml/min/1.73m2 is sufficient to diagnose a patient with chronic kidney disease. Pharmacy Creatinine Clearance (Chem 63.77 [facility] Platelet mean volume Auto (B ld) [Entitic vol]Ordered By: Epi Robles on 06-03-2022 Platelet mean volume (Bld) [Entitic vol] 8.6 fL 6.3-10.7 [facility] Platelets Auto (Bld) [#/Vol] Ordered By: Epi Robles on 06-03-2022 Platelets (Bld) [#/Vol] 253 10*3/uL 150-450 [facility] Protein Auto test strip (U) [Mass/Vol]Ordered By: Epi Robles on 06-03-2022 Protein (U) [Mass/Vol] Trace mg/dL Negative [facility] Protein [Mass/volume] in Ser um or PlasmaOrdered By: Epi Robles on 06-03-2022 Protein [Mass/Vol] 6.9 g/dL 6.1-7.9 [facility] RBC Auto (Bld) [#/Vol]Ordere d By: Epi Robles on 06-03-2022 RBC (Bld) [#/Vol] 4.90 10*6/uL 3.60-5.00 [facility] Serum or plasma alanine schmidt otransferase measurement without P-5'-P (enzymatic activiOrdered By: Epi Robles on 06-03-2022 ALT No additional P-5'-P [Catalytic activity/Vol] 14 U/L 10-60 [facility] Serum or plasma albumin/glob ulin mass ratioOrdered By: Epi Robles on 06-03-2022 Albumin/Globulin [Mass ratio] 1.2 {ratio} [facility] Serum or plasma alkaline nan sphatase measurement (enzymatic activity/volume)Ordered By: Epi Robles on 06-03-2022 ALP [Catalytic activity/Vol] 81 U/L 32-92 [facility] Serum or plasma aspartate am inotransferase measurement (enzymatic activity/volume)Ordered By: Epi Robles on 06-03-2022 AST [Catalytic activity/Vol] 26 U/L 10-42 [facility] Serum or plasma calcium karen urement (mass/volume)Ordered By: Epi Robles on 06-03-2022 Calcium [Mass/Vol] 9.2 mg/dL 8.2-10.2 [facility] Serum or plasma chloride pasha surement (moles/volume)Ordered By: Epi Robles on 06-03-2022 Chloride [Moles/Vol] 88 mmol/L 95-114 [facility] Serum or plasma glucose karen urement (mass/volume)Ordered By: Epi Robles on 06-03-2022 Glucose [Mass/Vol] 116 mg/dL 70-100 [facility] Comment on above: ADA recommended refe rence range Random Glucose Reference Range is dependent on time and content of last meal. Glucose of more than 200 mg/dL in a nonstressed, ambulatory subject supports the diagnosis of Diabetes Mellitus. Serum or plasma potassium me asurement (moles/volume)Ordered By: Epi Robles on 06-03-2022 Potassium [Moles/Vol] TNP [facility] Comment on above: Test not performed GROSS HEMOLYSIS Serum or plasma sodium measu rement (moles/volume)Ordered By: Epi Robles on 06-03-2022 Sodium [Moles/Vol] 127 mmol/L 136-146 [facility] Serum or plasma total biliru bin measurement (mass/volume)Ordered By: Epi Robles on 06-03-2022 Bilirubin [Mass/Vol] 0.7 mg/dL 0.3-1.2 [facility] Serum or plasma total carbon dioxide measurement (moles/volume)Ordered By: Epi Robles on 06-03-2022 CO2 [Moles/Vol] 25.6 mmol/L 22.0-30.0 [facility] Serum or plasma urea nitroge n measurement (mass/volume)Ordered By: Epi Robles on 06-03-2022 Urea nitrogen [Mass/Vol] 19 mg/dL 9-23 [facility] Specific gravity Auto test s trip (U) [Rel density]Ordered By: Epi Robles on 06-03-2022 Specific gravity (U) [Rel density] 1.009 1.001-1.030 [facility] Squamous epithelial cells de tection in urine sediment by light microscopyOrdered By: Epi Robles on 06-03-2022 Epithelial cells.squamous LM Ql (Urine sed) 5-9 [HPF] 0-2 [facility] Urine bacteria detection by automated methodOrdered By: Epi Robles on 06-03-2022 Bacteria Auto Ql (U) None seen None Seen [facility] Urine clarity by refractomet ry automatedOrdered By: Epi Robles on 06-03-2022 Clarity Refractometry automated (U) Clear Clear [facility] Urine glucose measurement by automated test strip (mass/volume)Ordered By: Epi Robles on 06-03-2022 Glucose Auto test strip (U) [Mass/Vol] Normal mg/dL Normal [facility] Urine hemoglobin detection b y automated test stripOrdered By: Epi Robles on 06-03-2022 Hemoglobin Auto test strip Ql (U) 1+ Negative [facility] Urine leukocyte esterase det ection by automated test stripOrdered By: Epi Robles on 06-03-2022 Leukocyte esterase Auto test strip Ql (U) Negative Negative [facility] Urobilinogen Auto test strip (U) [Mass/Vol]Ordered By: Epi Robles on 06-03-2022 Urobilinogen (U) [Mass/Vol] Normal mg/dL Normal [facility] pH Auto test strip (U)Ordere d By: Epi Robles on 06-03-2022 pH (U) 6.0 [pH] 5.0-9.0 [facility] Basophils Auto (Bld) [#/Vol] Ordered By: Liyah Weeks on 01-31-2022 Basophils (Bld) [#/Vol] 0.0 10*3/uL 0.0-0.2 [facility] Basophils/100 WBC Auto (Bld) Ordered By: Liyah Weeks on 01-31-2022 Basophils/100 WBC (Bld) 0.6 % [facility] Blood hemoglobin measurement (mass/volume)Ordered By: Liyah Weeks on 01-31-2022 Hemoglobin (Bld) [Mass/Vol] 13.4 g/dL 11.8-15.4 [facility] Blood leukocytes automated c ount (number/volume)Ordered By: Liyah Weeks on 01-31-2022 WBC (Bld) [#/Vol] 6.4 10*3/uL 4.5-11.0 [facility] Eosinophils Auto (Bld) [#/Vo l]Ordered By: Liyah Weeks on 01-31-2022 Eosinophils (Bld) [#/Vol] 0.3 10*3/uL 0.0-0.45 [facility] Eosinophils/100 WBC Auto (Bl d)Ordered By: Liyah Weeks on 01-31-2022 Eosinophils/100 WBC (Bld) 4.2 % [facility] Erythrocyte distribution wid th Auto (RBC) [Ratio]Ordered By: Liyah Weeks on 01-31-2022 Erythrocyte distribution width (RBC) [Ratio] 13.6 % 11.9-15.3 [facility] Hematocrit Auto (Bld) [Volum e fraction]Ordered By: Liyah Weeks on 01-31-2022 Hematocrit (Bld) [Volume fraction] 40.6 % 34.0-46.4 [facility] - Hematology and Cell countsOrdered By: Liyah Weeks on 01-31-2022 Nucleated RBC/100 WBC (Bld) [Ratio] 0.1 % 0-0.5 [facility] Lymphocytes Auto (Bld) [#/Vo l]Ordered By: Liyah Weeks on 01-31-2022 Lymphocytes (Bld) [#/Vol] 2.0 10*3/uL 1.00-4.8 [facility] Lymphocytes/100 WBC Auto (Bl d)Ordered By: Liyah Weeks on 01-31-2022 Lymphocytes/100 WBC (Bld) 30.8 % [facility] MCH Auto (RBC) [Entitic mass ]Ordered By: Liyah Weeks on 01-31-2022 MCH (RBC) [Entitic mass] 30.2 pg 24.7-34.3 [facility] MCHC Auto (RBC) [Mass/Vol]Or dered By: Liyah Weeks on 01-31-2022 MCHC (RBC) [Mass/Vol] 33.1 g/dL 32.0-35.0 [facility] MCV Auto (RBC) [Entitic vol] Ordered By: Liyah Weeks on 01-31-2022 MCV (RBC) [Entitic vol] 91.2 fL 80-100 [facility] Monocytes Auto (Bld) [#/Vol] Ordered By: Liyah Weeks on 01-31-2022 Monocytes (Bld) [#/Vol] 0.5 10*3/uL 0.0-0.8 [facility] Monocytes/100 WBC Auto (Bld) Ordered By: Liyah Weeks on 01-31-2022 Monocytes/100 WBC (Bld) 8.3 % [facility] Neutrophils Auto (Bld) [#/Vo l]Ordered By: Liyah Weeks on 01-31-2022 Neutrophils (Bld) [#/Vol] 3.6 10*3/uL 1.8-7.7 [facility] Neutrophils/100 WBC Auto (Bl d)Ordered By: Liyah Weeks on 01-31-2022 Neutrophils/100 WBC (Bld) 56.1 % [facility] No Panel InformationOrdered By: Liyah Weeks on 01-31-2022 25-Hydroxy Vitamin D Total 58.7 ng/mL 30-100 [facility] Comment on above: VITAMIN D STATUS 25( [place])VITAMIN D RANGE (ng/mL) Deficient <20 Insufficient 20 to <30Sufficient 30 to 100Reference: Purvi MF,Ainsley NC, Luis BLUE, et al. Evaluation,treatment, and prevention of vitamin D deficiency; an Endocrine Society clinical practice guideline. JCEM. 2010; 96(7):1911-30. Platelet mean volume Auto (B ld) [Entitic vol]Ordered By: Liyah Weeks on 01-31-2022 Platelet mean volume (Bld) [Entitic vol] 8.0 fL 6.3-10.7 [facility] Platelets Auto (Bld) [#/Vol] Ordered By: Liyah Weeks on 01-31-2022 Platelets (Bld) [#/Vol] 231 10*3/uL 150-450 [facility] RBC Auto (Bld) [#/Vol]Ordere d By: Liyah Weeks on 01-31-2022 RBC (Bld) [#/Vol] 4.45 10*6/uL 3.60-5.00 [facility] Serum or plasma phenytoin me asurement (mass/volume)Ordered By: Liyah Weeks on 01-31-2022 Phenytoin [Mass/Vol] 10.7 ug/mL 10.0-20.0 [facility] Comment on above: Last dose: - TSH DL <= 0.005 mIU/L QnOrde red By: Liyah Weeks on 01-31-2022 TSH Qn 1.43 m[IU]/L 0.45-5.33 [facility] Thyroxine (T4) free [Mass/vo lume] in Serum or PlasmaOrdered By: Liyah Weeks on 01-31-2022 Free T4 [Mass/Vol] 0.79 ng/dL 0.61-1.12 [facility] Triiodothyronine (T3) Free [ Mass/volume] in Serum or PlasmaOrdered By: Liyah Weeks on 01-31-2022 Free T3 [Mass/Vol] 3.11 pg/mL 2.50-3.90 [facility] Vital Signs Date Time Vital Sign Value Performing Clinician Khurram amador 10-26-2024 15:02-0500 Body mass index (BMI) [Ratio] 28.28 kg/m2 Horacio Gandhi [employer] Work Phone: [facility] 10-26-2024 15:02-0500 Body weight 84.37 kg Horacio Gandhi [employer] Work Phone: [facility] 10-26-2024 15:02-0500 Diastolic blood pressure 76 mm[Hg] Horacio Gandhi [employer] Work Phone: [facility] 10-26-2024 15:02-0500 Heart rate 79 /min Horacio Gandhi [employer] Work Phone: [facility] 10-26-2024 15:02-0500 Systolic blood pressure 137 mm[Hg] Horacio Gandhi [employer] Work Phone: [facility] 08-17-2024 13:30-0400 Diastolic blood pressure 80 mm[Hg] Jai Kirnus [facility] 08-17-2024 13:30-0400 Mean blood pressure 96 mm[Hg] Jai Kirnus [facility] 08-17-2024 13:30-0400 Systolic blood pressure 128 mm[Hg] Jai Kirnus [facility] 08-17-2024 13:02-0400 Blood Pressure Location Jai [employer] [facility] 08-17-2024 13:02-0400 Diastolic blood pressure 86 mm[Hg] Jai Kirnus [facility] 08-17-2024 13:02-0400 Heart rate 64 /min Jai Kirnus [facility] 08-17-2024 13:02-0400 Respiratory rate 16 /min Jai Kirnus [facility] 08-17-2024 13:02-0400 SaO2% (BldA) [Mass fraction] 100 % Jai Kirnus [facility] 08-17-2024 13:02-0400 Systolic blood pressure 136 mm[Hg] Jai Kirnus [facility] 06-30-2024 09:45-0400 Diastolic blood pressure 70 mm[Hg] Jai Kirnus [facility] 06-30-2024 09:45-0400 Heart rate 53 /min Jai Kirnus [facility] 06-30-2024 09:45-0400 Respiratory rate 16 /min Jai Kirnus [facility] 06-30-2024 09:45-0400 SaO2% (BldA) [Mass fraction] 96 % Jai Kirnus [facility] 06-30-2024 09:45-0400 Systolic blood pressure 112 mm[Hg] Jai Kirnus [facility] 06-22-2024 13:10-0400 Body temperature 97.8 [degF] [facility] 06-22-2024 13:10-0400 Body weight 82.1 kg [facility] 06-22-2024 13:10-0400 Diastolic blood pressure 70 mm[Hg] [facility] 06-22-2024 13:10-0400 Heart rate 40 /min [facility] 06-22-2024 13:10-0400 Respiratory rate 18 /min [facility] 06-22-2024 13:10-0400 SaO2% (BldA) [Mass fraction] 99 % [facility] 06-22-2024 13:10-0400 Systolic blood pressure 128 mm[Hg] [facility] 06-21-2024 09:34-0400 Body height 172.7 cm [employer] DO Work Phone: [facility] 06-21-2024 09:34-0400 Body mass index (BMI) [Ratio] 27.37 kg/m2 [employer] Hitesh DO Work Phone: [facility] 06-21-2024 09:34-0400 Body weight 81.65 kg [employer] DO Work Phone: [facility] 06-21-2024 09:34-0400 Diastolic blood pressure 82 mm[Hg] [employer] DO Work Phone: [facility] 06-21-2024 09:34-0400 Systolic blood pressure 122 mm[Hg] Primary Dataopher Hitesh DO Work Phone: [facility] 06-01-2024 12:59-0400 Body height 170.18 cm [facility] 06-01-2024 12:59-0400 Body mass index (BMI) [Ratio] 28.6 kg/m2 [facility] 06-01-2024 12:59-0400 Body temperature 97.8 [degF] [facility] 06-01-2024 12:59-0400 Body weight 83 kg [facility] 06-01-2024 12:59-0400 Diastolic blood pressure 99 mm[Hg] [facility] 06-01-2024 12:59-0400 Heart rate 83 /min [facility] 06-01-2024 12:59-0400 Respiratory rate 18 /min [facility] 06-01-2024 12:59-0400 SaO2% (BldA) [Mass fraction] 98 % [facility] 06-01-2024 12:59-0400 Systolic blood pressure 155 mm[Hg] [facility] 05-05-2024 11:33-0400 Diastolic blood pressure 70 mm[Hg] [facility] 05-05-2024 11:33-0400 Heart rate 61 /min [facility] 05-05-2024 11:33-0400 Respiratory rate 16 /min [facility] 05-05-2024 11:33-0400 SaO2% (BldA) [Mass fraction] 99 % [facility] 05-05-2024 11:33-0400 Systolic blood pressure 112 mm[Hg] [facility] 05-05-2024 07:38-0400 Body temperature 97.7 [degF] [facility] 05-05-2024 04:46-0400 Body weight 89.2 kg [facility] 05-03-2024 15:47-0400 Body height 170.18 cm [facility] 05-03-2024 15:00-0400 Diastolic blood pressure 78 mm[Hg] [facility] 05-03-2024 15:00-0400 Heart rate 62 /min [facility] 05-03-2024 15:00-0400 Respiratory rate 18 /min [facility] 05-03-2024 15:00-0400 SaO2% (BldA) [Mass fraction] 97 % [facility] 05-03-2024 15:00-0400 Systolic blood pressure 142 mm[Hg] [facility] 05-03-2024 09:24-0400 Body height 171.45 cm [facility] 05-03-2024 09:24-0400 Body weight 85.05 kg [facility] 04-21-2024 09:13-0400 Diastolic blood pressure 62 mm[Hg] Jai Kirnus [facility] 04-21-2024 09:13-0400 Heart rate 63 /min Jai Kirnus [facility] 04-21-2024 09:13-0400 Respiratory rate 18 /min Jai Boo [facility] 04-21-2024 09:13-0400 SaO2% (BldA) [Mass fraction] 98 % Jai Boo [facility] 04-21-2024 09:13-0400 Systolic blood pressure 122 mm[Hg] Jai Boo [facility] 06-03-2022 11:11-0400 Body height 172.72 cm MD Liyah Weeks Work Phone: [facility] 06-03-2022 11:11-0400 Body temperature 97.5 [degF] MD Liyah Weeks Work Phone: [facility] 06-03-2022 11:11-0400 Body weight 84.82 kg MD Liyah Weeks Work Phone: [facility] 06-03-2022 11:11-0400 Diastolic blood pressure 78 mm[Hg] MD Liyah Weeks Work Phone: [facility] 06-03-2022 11:11-0400 Heart rate 70 /min MD Liyah Weeks Work Phone: [facility] 06-03-2022 11:11-0400 Respiratory rate 18 /min MD Liyah Weeks Work Phone: [facility] 06-03-2022 11:11-0400 SaO2% (BldA) [Mass fraction] 97 % MD Liyah Weeks Work Phone: [facility] 06-03-2022 11:11-0400 Systolic blood pressure 120 mm[Hg] MD Liyah Weeks Work Phone: [facility] Encounters Encounter Date Encounter Type Care Provider Facility Start: 10-26-2024 End: 10-26-2024 Office outpatient visit 25 minutes Horacio Gandhi NP Work Phone: [facility] [address] Comment on above: Localization-related epilepsy, intractable (CMS/HCC) (Primary Dx); Factor V Leiden (CMS/HCC); History of ischemic stroke; Syncope, unspecified syncope type Start: 10-26-2024 End: 10-26-2024 ambulatory HORACIO GANDHI Not Available Start: 10-26-2024 End: 10-26-2024 Bamboo flowsheet Horacio Gandhi MANAGER [employer] Work Phone: [facility] Start: 10-26-2024 End: 10-26-2024 Bamboo flowsheet Horacio Gandhi MANAGER [employer] [facility] Start: 10-05-2024 ambulatory NON STAFF Facility:[facility] Start: 08-31-2024 End: 08-31-2024 Patient encounter procedure [facility] [place] Work Phone: Start: 08-31-2024 End: 08-31-2024 ambulatory NON STAFF [facility] Work Phone: Start: 08-17-2024 End: 08-17-2024 ambulatory MD Jai Boo Facility:[facility] Start: 08-17-2024 End: 08-17-2024 Patient encounter procedure Jai Boo [facility] Start: 06-30-2024 End: 06-30-2024 ambulatory MD Jai Boo Facility:[facility] Start: 06-30-2024 End: 06-30-2024 Patient encounter procedure Jaivivek Boo [facility] Start: 06-22-2024 End: 06-22-2024 ambulatory NON STAFF [facility] Work Phone: Start: 06-22-2024 End: 06-22-2024 [facility] Work Phone: Start: 08-29-2024 [facility] Work Phone: Start: 06-21-2024 End: 06-21-2024 Bamboo flowsheet Christopher Hitesh DO Work Phone: [facility] Start: 06-21-2024 End: 06-21-2024 Bamboo flowsheet Christopher Hitesh DO Work Phone: [facility] Start: 06-21-2024 End: 06-21-2024 ambulatory CHRISTOPHER HITESH Not Available Start: 06-21-2024 End: 06-21-2024 Office outpatient visit 25 minutes Christopher Hitesh DO Work Phone: [facility] Comment on above: Localization-related epilepsy, intractable (CMS/HCC) (Primary Dx); Factor V Leiden (CMS/HCC); History of ischemic stroke; Syncope, unspecified syncope type Start: 06-16-2024 End: 06-16-2024 Patient encounter procedure [facility] [place] Work Phone: Start: 06-16-2024 End: 06-16-2024 ambulatory NON STAFF [facility] Work Phone: Start: 06-11-2024 Non-patient / Non-visit [facility] Work Phone: Start: 06-01-2024 Registered [facility] Work Phone: Start: 06-01-2024 End: 06-01-2024 ambulatory NON STAFF [facility] Work Phone: Start: 06-01-2024 End: 06-01-2024 Patient encounter procedure [facility] Work Phone: Start: 05-29-2024 End: 05-29-2024 ambulatory CHRISTOPHER HITESH Not Available Start: 05-23-2024 End: 05-23-2024 ambulatory CHRISTOPHER HITESH Not Available Start: 05-16-2024 End: 05-16-2024 ambulatory MD Jai Boo Facility:[facility] Start: 05-16-2024 End: 05-16-2024 Patient encounter procedure Jai Boo [facility] Start: 05-09-2024 End: 05-09-2024 Lab Drop off Lourdes L Emma [facility] Start: 05-09-2024 End: 05-09-2024 ambulatory Lourdes L Emma Facility:[facility] Start: 05-08-2024 End: 06-07-2024 ambulatory Lourdes L Emma Facility::[id number] Start: 05-05-2024 End: 05-05-2024 Patient encounter procedure [facility] Work Phone: Start: 05-05-2024 End: 05-05-2024 ambulatory NON STAFF [facility] Work Phone: Start: 05-03-2024 End: 05-05-2024 Evaluation and management of inpatient [facility] [place] [facility] Work Phone: Start: 05-03-2024 End: 05-05-2024 observation encounter NON STAFF [facility] Work Phone: Start: 05-03-2024 End: 05-05-2024 ambulatory Kenneth Cee Facility:[facility] Start: 05-03-2024 End: 05-03-2024 ambulatory Lourdes L Emma Facility:[facility] Start: 04-30-2024 Non-patient / Non-visit [facility] Work Phone: Start: 04-25-2024 ambulatory [facility] Start: 04-21-2024 End: 05-19-2024 Pre-admission assessment Jai Boo [facility] Start: 04-20-2024 End: 04-21-2024 Patient encounter procedure Jai Boo [facility] Start: 04-20-2024 End: 04-21-2024 ambulatory MD Jai Boo Facility:[facility] Start: 04-19-2024 End: 04-19-2024 ambulatory Lourdes L Emma [facility] Start: 03-30-2024 End: 03-30-2024 ambulatory Lourdes L Emma Facility: [facility] Start: 03-28-2024 End: 03-28-2024 ambulatory Lourdes L Emma [facility] Start: 11-22-2023 End: 11-22-2023 ambulatory Lourdes L Emma [facility] Start: 04-23-2023 End: 04-23-2023 Lab Drop off [facility] L [facility] Start: 03-04-2023 End: 03-05-[address] COURTNEY STOCKTON . Facility:[facility] Start: 09-30-2022 End: 09-30-[address] COURTNEY STOCKTON . Facility:[facility] Start: 06-03-2022 End: 06-03-2022 Emergency department patient visit MD Liyah Weeks Work Phone: [facility] Start: 01-31-2022 End: 01-31-2022 Patient encounter procedure MD Liyah Weeks Work Phone: [facility] [place] Start: 05-07-2018 End: 05-07-2018 Emergency department patient visit [facility] Procedures Date Procedure Procedure Detail Performing Clinician Start: 06-16-2024 Magnetic resonance angiography of head without contrast Start: 05-04-2024 MRI of head Start: 05-03-2024 CT of head without contrast Start: 05-03-2024 CT angiography of thorax Start: 03-30-2024 Mammography Vince Proctor DO Work Phone: Start: 05-24-2019 Colonoscopy Lourdes Segal guillermo Colonoscopy [facility] Carter Tonsillectomy L[facility]des Carter Plan of Treatment Date Care Activity Detail Author Start: 05-15-2025 End: 05-15-2025 Patient encounter procedure 05/15/2025 11:00 AM EDT Office Visit [facility] [address] [phone] Brooke Thomas NP [address] [place] [phone] [facility] [address] Start: 03-30-2025 Screening for malign ant neoplasm of breast [facility]ammogram [facility] Start: 03-27-2025 ambulatory Ambulatory Facility:[facility] Start: 12-05-2024 End: 12-05-2024 Patient encounter procedure 12/05/2024 1:30 PM EST Office Visit [facility] [id number] [address] [place] [id number] Jeff Ahn DO [address] [place] [address] [facility] Start: 11-21-2024 End: 11-21-2024 Patient encounter procedure 11/21/2024 10:00 AM EST Office Visit [facility] [address] [place] [phone] Luz Mccracken PA [address] [place] [address] [facility] Start: 10-26-2024 End: 10-26-2024 Patient encounter procedure 10/26/2024 3:00 PM EST Office Visit [facility] [address] [place] [phone] Horacio Gandhi NP [address] [place] [id number] Arrived [address] Comment on above: Arrived Start: 10-05-2024 End: 10-05-2024 Patient encounter procedure 10/05/2024 9:00 AM EST Office Visit [facility] OB [address] [place] [phone] Stephen Gunter, DO [address] [place] [address] [facility] Start: 08-31-2024 Doppler ultrasonogra phy of bilateral carotid arteries US carotid doppler BI [facility] Start: 08-31-2024 US.doppler Carotid arteries - bilateral [facility] Start: 06-25-2024 Influenza vaccination Influenza Vacc ine (#1) [facility] Start: 06-01-2024 Antithrombin Ag [Units/volume] in Platelet poor plasma by Immunoassay [facility] Start: 06-01-2024 Cardiolipin IgA Ab [Units/volume] in Serum by Immunoassay [facility] Start: 06-01-2024 Cardiolipin IgG Ab [Units/volume] in Serum by Immunoassay [facility] Start: 06-01-2024 Cardiolipin IgM Ab [Units/volume] in Serum by Immunoassay [facility] Start: 06-01-2024 Protein C actual/nor mal in Platelet poor plasma by Chromogenic method [facility] Start: 06-01-2024 Protein C Ag actual/normal in Platelet poor plasma by Immunoassay [facility] Start: 06-01-2024 [facility] Start: 05-05-2024 Cardiac event recording [facility] Start: 05-05-2024 [facility] Start: 05-04-2024 Referral to neurologist [facility] Start: 05-04-2024 End: 05-04-2024 [facility] Start: 05-03-2024 End: 05-03-2024 [facility] Start: 05-03-2024 Hospital admission [facility] Start: 05-03-2024 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 to toolroom machinist [facility] Start: 2020 Pneumococcal Vaccine : 65+ Years (1 of 1 - PCV) Pneumococcal Vaccine: 65+ Years (1 of 1 - PCV) [facility] Start: 1955 Screening for malign ant neoplasm of colon [facility] Beta 2 glycoprotein 1 IgG Ab [Units/volume] in Serum [facility] Beta 2 glycoprotein 1 IgM Ab [Units/volume] in Serum [facility] Comprehensive metabo lic 2000 panel - Serum or Plasma [facility] F2 gene mutations fo und [Identifier] in Blood or Tissue by Molecular genetics method Nominal [facility] F5 gene mutations fo und [Identifier] in Blood or Tissue by Molecular genetics method [facility]inal [facility] Fibrin D-dimer [Pres ence] in Platelet poor plasma by Latex agglutination [facility] Glucose measurement estimated from glycated hemoglobin [facility] Lupus anticoagulant [Interpretation] in Platelet poor plasma [facility] Patient Education [facility] Work Phone: Patient referral [facility] Work Phone: Protein S [Units/vol ume] in Platelet poor plasma by Coagulation assay [facility] Protein S Free Ag [Units/volume] in Platelet poor plasma by Immunoassay [facility] Thrombin time [facility] Immunizations Immunization Date Immunization Notes Care Provider [facility] 09-06-2022 influenza virus vaccine, unspecified formulation [facility]ai B[facility] 09-06-2022 Influenza, Seasonal, Quadrivalent, Adjuvanted Fatou Proctor DO Work Phone: [facility] 09-06-2022 SARS-CoV-2 (COVID-19 ) [id number] [facility] 10-10-2021 SARS-CoV-2 (COVID-19 ) mRNA BNT-162b2 vax [facility] 01-14-2021 SARS-CoV-2 (COVID-19 ) mRNA BNT-162b2 venkateshx [facility] 12-23-2020 SARS-CoV-2 (COVID-19 ) mRNA BNT-162b2 vax [facility] B[facility] Payers Date Payer Category Payer Self-pay [id number] 2023 [place] Health [place] [id number] 2023 Unknown AARP AARP [id number] 2023-Present [address] [place] [address] [id number]. [id number] 2020 Medicare [id number] 2017 Unknown [id number] 1959 Medicare [id number] 1959 Unknown [id number] 1955 Unknown [id number] 2.16.840.1.195308.3.579.2. 593 1955 Unknown [id number] .16.840.1.346145.3.579.2. 593 1955 Unknown [id number] 2.16.840.1.538417.3.579.2. 727 1955 Unknown [id number] 2.16.840.1.972006.3.579.2. 727 1955 Unknown [id number] 2.16.840.1.175453.3.579.2. 727 1955 Unknown [id number] 2.16.840.1.181158.3.579.2. 727 1955 Unknown [id number] 2.16.840.1.179340.3.579.2. 72 1955 Unknown [id number] 2.16.840.1.669366.3.579.2. 727 1955 Unknown [id number] 2.16.840.1.865042.3.579.2. 727 1955 Unknown [id number] 2.16.840.1.921785.3.579.2. 727 1955 Unknown [id number] 2.16.840.1.788426.3.579.2. 727 1955 Unknown [id number] 2.16.840.1.458446.3.579.2. 727 1955 Unknown [id number] 2.16.840.1.465750.3.579.2. 727 1955 Unknown [id number] 2.16.840.1.258599.3.579.2. 727 1955 Unknown [id number] 2.16.840.1.929085.3.579.2. 727 1955 Unknown [id number] 2.16.840.1.303848.3.579.2. 727 1955 Unknown [id number] 2.16.840.1.134236.3.579.2. 727 1955 Unknown [id number] 2.16.840.1.782173.3.579.2. 727 1955 Unknown [id number] 2.16.840.1.558381.3.579.2. 1259 1955 Unknown [id number] 2.16.840.1.474114.3.579.2. 1259 1955 Unknown [id number] 2.16.840.1.068237.3.579.2. 1259 1955 Unknown [id number] 2.16.840.1.792050.3.579.2. 1259 Private Health Insurance [id number] Unknown [id number] 2.16.840.1.794722.3.579.2. 531 Unknown [id number] 2.16.840.1.118559.3.579.2. 531 Unknown [id number] 2.16.840.1.639564.3.579.2. 531 Unknown [id number] 2.16.840.1.673746.3.579.2. 531 Unknown [id number] 2.16.840.1.437727.3.579.2. 531 Social History Date Type Detail Facility Tobacco smoking stat [facility] Unknown if ever smoked [facility] Work Phone: Start: 1955 Sex Assigned At Female F [facility] Start: 06-03-2022 End: 05-23-2024 Tobacco smoking status WIIS Ex-smoker (finding) [facility] Tobacco smoking status Never Maynor delgado [facility] Start: 05-23-2024 End: 10-26-2024 Sex Assigned At Female [facility] Start: 09-01-2024 Sex Female (finding) [facility] History of tobacco use Current smoker [facility] History of tobacco use Cigarette Smoker [facility] Start: 05-23-2024 Tobacco use and exposure Smokeless tobacco non-user [facility] Start: 05-23-2024 End: 10-26-2024 Alcoholic beverage intake Current drinker of alcohol (finding) [facility] Start: 05-23-2024 End: 10-26-2024 History of Social function [facility] Start: 1955 Sex assigned at Not on file [facility] Goals Date Patient Goal Desired Activity /State Functional Status Date Assessment Result Facility 08-17-2024 Functional Status N/A [facility] 06-30-2024 Functional Status N/A [facility] 05-05-2024 Functional status Patient at Baseline [facility] Work Phone: 05-03-2024 Functional status Patient is Pro gressing Toward Baseline [facility] Work Phone: 04-21-2024 Functional Status N/A [facility] Mental Status Date Assessment Result Facility 05-05-2024 Cognitive function Cognitive Sta tus Patient at Baseline [facility] Work Phone: 05-03-2024 Cognitive function Cognitive Sta tus Patient at Baseline [facility] Work Phone: Clinical Notes 05-16-2020 to 10-26-2024 Horacio Gandhi NP - 10/26/2024 3:00 PM EST Note Date & Type Note Facility 10-26-2024 History of Present illness Narrative Images from the original note were not included. Chief Complaint Patient presents with Seizures Stroke Subjective Venita Richter, 69 y.o., female Patient presents today for a follow up to seizure and stroke history. She admits carotid US since she was last seen. She denies any recent episodes of syncope. Denies any dizziness or headache. She denies any confusion. Denies any symptoms to suggest seizure. Continues on dilantin and denies any missed doses. States her last seizure was many years ago. Admits that her PCP checks her dilantin level every 6-12 months. She is sleeping well at night. Follows with hematology and admits recent visit. They are working on her Warfarin dosing. Denies any further concerns today. Review of Systems Constitutional: Negative for appetite change, fatigue and fever. Respiratory: Negative for cough, shortness of breath and wheezing. Cardiovascular: Negative for chest pain, palpitations and leg swelling. Gastrointestinal: Negative for abdominal pain, constipation, diarrhea and nausea. Musculoskeletal: Negative for arthralgias, gait problem and myalgias. Neurological: Positive for seizures (history of). Negative for dizziness, tremors, syncope, numbness and headaches. Past Medical History: Diagnosis Date Acute diastolic (congestive) heart failure ([facility]) Cerebral artery occlusion with cerebral infarction ([facility]) 04/11/2009 Congestive heart failure (CHF) ([facility]) Disturbance of skin sensation 04/11/2009 Headache 04/11/2009 History of deep vein thrombosis Hypertension ([facility]) Hypothyroid ([facility]) Nonspecific abnormal results of function study 04/11/2009 Brain and central nervous system Seizure ([facility]) Seizure disorder ([facility]) 04/11/2009 Syncope History reviewed. No pertinent surgical history. Family History Problem Relation Name Age of Onset Heart disease Mother Diabetes Mother Heart disease Father Social History Tobacco Use Smoking status: Former Types: Cigarettes Smokeless tobacco: Never Substance Use Topics Alcohol use: Yes Allergies: Patient has no known allergies. Vitals: 10/26/24 1502 BP: 137/76 Pulse: 79 Body mass index is 28.28 kg/m . weight: 186 lb Neurologic exam: Mental status: Well nourished, well developed and in no acute distress. Grossly oriented to person, place and time. Recent and remote memory are intact. Language is fluent without aphasia. Attention and concentration are normal. Fund of knowledge is appropriate for level of education. Cranial nerves: CN II: Visual acuity is normal. Visual rashid full to confrontation. CN III, IV, : pupils equal round and reactive to light. Extraocular movements intact. No ptosis present. CN V: Facial sensation is normal. CN VII: Full and symmetric facial movement. CN VIII: Hearing is intact. CN IX and X: Palate elevates symmetrically. CN XI: Shoulder shrug is normal bilaterally. CN XII: Tongue is midline without atrophy or fasciculation. Motor: RUE Strength deltoid, , biceps , triceps , wrist extensors , wrist flexor , literacy coordinator strength 5/5. LUE Strength deltoid , biceps , triceps , wrist extensors , wrist flexor , literacy coordinator strength 5/5. RLE Strength illopsoas, quadriceps, tibialis anterior, and gastrocnemius strength 5/5. LLE Strength illopsoas, quadriceps, tibialis anterior, and gastrocnemius strength 5/5. Normal tone x4 extremities. Bulk is normal. Sensory: Sensation is intact to light touch throughout distal extremities. Reflexes: RUE biceps reflex 2+ , brachioradialis reflex 2+. LUE biceps reflex 2+ , brachioradialis reflex 2+. RLE knee reflex 2+ LLE knee reflex 2+ Parks's Sign negative Coordination: Normal finger to nose testing today, has been abnormal previously thought to be related to installer soft top use of dilantin Gait: Normal Review and summary of old records: Phenytoin total level on 05/10/24 (ordered by PCP): 9.2 (L), no current concern for breakthrough so we will continue without change. Carotid US on 08/31/24: Mild plaque formation is noted bilaterally, with less than 50 percent stenosis of both extracranial internal carotid arteries. Both vertebral arteries are patent with antegrade flow. MRI of the brain and MR angiogram of the head without contrast on 06/16/2024: No focal stenosis, occlusion or aneurysm. No acute intracranial pathology. Remote infarcts and chronic age-related neurodegenerative changes similar to prior study on 05/04/2024. Routine EEG and advanced Neurology on 06/01/2024: Normal CH on 05/23/24: reviewed hospital documentation which notes the patient has a longstanding history of seizure disorder. Patient was treated chronically with phenytoin and did not wish to change that. She presented with an episode of altered mental status and disorientation was unwitnessed. Concern for potential seizure. Imaging and evaluation revealed the chronic findings of infarction. Patient was discharged on phenytoin 200 mg in the morning and 100 mg at night, an event monitor, pending factor 5 laboratory evaluation and hematology consultation. Factor 5 Leiden mutation was indeed positive confirming a 6-8 fold risk in venous thromboembolism. MRI of the brain without contrast: Moderate size chronic infarction in the left parietal lobe and a small left cerebellar chronic ischemic infarct Orthostatic vital signs were checked and are negative Transthoracic echocardiogram showed an ejection fraction of 60 percent without evidence of mass, vegetation or thrombus CT of the brain showed a hypodensity in the left parietal lobe and left cerebellar hemisphere consistent with MRI findings of chronic infarct Assessment/Plan Diagnoses and all orders for this visit: Localization-related epilepsy, intractable (CMS/HCC) It is my impression that patient had suffered 2 episodes of loss of consciousness. There has been question that this may have been related to blood pressure medication which has recently been changed. However, the patient does have a history of seizure disorder which may be secondary to evidence of old strokes on MRI. Patient was admitted and had MRI, CT, echocardiogram which were unremarkable for acute pathology. The patient did have cardiology consultation and they are following in the outpatient setting. Routine EEG on 06/01/24 was normal. Examination really does not show any focal deficit today and the patient denies any recurrence of symptoms since medication adjustments with cardiology. No symptoms to suggest seizure since her last visit. PLAN: - Continue Dilantin 200 mg in the morning and 100 mg at night - The patient reports Dilantin levels are currently being monitored per PCP - Medication compliance encouraged and SUDEP discussed. Syncope, unspecified type See above. Factor V Leiden ([facility]) Patient was found to be heterozygous for Factor V Leiden mutation. Patient has evidence of ischemic stroke on MRI imaging of the brain. Additionally the patient has a history of DVT in the left upper extremity. The patient is now following with hematology and is on warfarin. PLAN: - Continue close follow up with hematology, Dr Etienne at [facility] [place] [place] - Continue warfarin for secondary stroke prevention (management per the coumadin clinic at [facility]). History of ischemic stroke Patient has a history of stroke on MRI of the brain. This may have been the reason for partial onset seizure disorder. Patient has not had any new clinical symptoms related to stroke. MRI did not reveal any acute infarct. Echocardiogram did not show any evidence of mass, vegetation or thrombus. Repeat MRI and MR angiogram did not reveal any new acute pathology and did show old ischemic lesions. Carotid US was without any hemodynamically significant stenosis. PLAN: - Carotid US results were reviewed with the patient today - Continue aspirin 81 mg PO daily for secondary stroke prevention (also on anticoagulation with warfarin given history as above). - Recommended close follow up with PCP for ongoing management of risk factors including HTN and HLD. - LDL goal of <70. - Signs and symptoms of stroke were discussed in detail and the patient was advised to seek emergent evaluation in the ED should any such signs and symptoms develop. The patient verbalized understanding. Follow up in 6 months or sooner if symptoms worsen, fail to improve, or should a new neurological concern arise. Pt has been fully educated on their diagnosis, lab results, treatment options, follow up plan, and return instructions documented in this encounter [facility] 09-01-2024 Radiology Diagnostic study note [facility] [address] [place], [place] [id number] Ultrasound Report Signed Patient: Venita Richter MR#: [id number] : 1955 Acct:[id number] Age/Sex: 69 / F ADM Date: 4 Loc: Room: Type: [facility] Attending Dr: Fatou Proctor DO Ordering Provider: Fatou Proctor DO Date of Service: 08/31/24 US/US carotid doppler BI: Z86.73, D68.51, R55 Copies to: Fatou Proctor DO~ CAROTID DUPLEX INDICATION: Stroke PROCEDURE: Color-flow duplex scanning is used to interrogate the extracranial carotid arterial system, as well as both vertebral arteries. Both carotid bifurcations show some smooth homogeneous plaque formation. The proximal right internal carotid artery shows a highest peak systolic velocity of 50.6 cm/s withan end-diastolic velocity of 23.5 cm/s . The mid internal carotid artery measures 87.3 cm/s peak systolic with an end diastolic velocity of 23 cm/s . The distal segment measures 72.7 cm/s peak systolic with an end diastolic velocity of 34.9 cm/s . The velocities of the right common carotid artery are 75.1 cm/s peak systolic and 28.5 cm/s end-diastolic and 60.1 cm/s peak systolic and 19.3 cm/s end diastolic distally. The peak systolic velocity ratio of the internal to the common carotid artery is 1.45 . The external carotid artery measures 74.2 cm/s peak systolic. The right vertebral artery is patent at 61.9 cm/s peak systolic with antegrade flow. The proximal left internal carotid artery shows a highest peak systolic velocityof 58.5 cm/s with an end-diastolic velocity of 25.6 cm/s . The mid internal carotid artery measures 65.5 cm/s peak systolic with an end diastolic velocity of 25.9 cm/s . The distal segment measures 64.1 cm/s peak systolic with an end diastolic velocity of 30.3 cm/s . The velocities of the left common carotid artery are 73.8 cm/s peak systolic and 23.3 cm/s end-diastolic and 87 cm/s peak systolic and 19.7 cm/s end diastolic distally. The peak systolic velocity ratioof the internal to the common carotid artery is 0.75 . The external carotid artery measures 57.1 cm/s peak systolic. The left vertebral artery is patent at54 cm/s peak systolic with antegrade flow. The thyroid appears enlarged and diffusely heterogenous bilaterally but with no distinct nodules. US/US carotid doppler BI IMPRESSION: MILD PLAQUE FORMATION IS NOTED BILATERALLY, WITH LESS THAN 50% STENOSIS OF BOTH EXTRACRANIAL INTERNAL CAROTID ARTERY. BOTH VERTEBRAL ARTERIES ARE PATENT WITH ANTEGRADE FLOW. Thyroid abnormality as described above Impression dictated by: Tacho Holloway M.D.09/01/2024 10:17 AM Dictation Location: [place] [address] Tech: Johana Melgar Transcribed By: BALJEET 09/01/24 1017 Dictated By: Tacho Holloway MD 09/01/24 1015 Signed By: 09/01/24 1017 [facility] Work Phone: 06-22-2024 Evaluation note Diagnosis Onset Date Resolution Antiphospholipid syndrome acute June 22, 2024 1:05pm Heterozygous factor V Leiden mutation acute June 22 1:05pm History of deep venous thrombosis (DVT) of distal vein of left lower extremity acute June 22 1:05pm History of stroke acute June 22, 2024 1:05pm [facility] Work Phone: 1(702) 537-290608-28-2024 History of Present illness Narrative* Fatou Proctor DO - 06/21/2024 9:30 AM EDT Images from the original note were not included. Chief Complaint Patient presents with Seizures Subjective Venita Richter, 68 y.o., female Patient presents today for a follow up. She had MRA and EEG completed for review. Carotid US was ordered but not completed. She denies any recent episodes of Syncope. She denies any confusion. She states since stopping her BP medication she has felt much better. She is sleeping well at night. Denies any further concerns today. Seizures Pertinent negatives include no headaches, no chest pain, no cough, no nausea and no diarrhea. Review of Systems Constitutional: Negative for appetite change, fatigue and fever. Respiratory: Negative for cough, shortness of breath and wheezing. Cardiovascular: Negative for chest pain, palpitations and leg swelling. Gastrointestinal: Negative for abdominal pain, constipation, diarrhea and nausea. Musculoskeletal: Negative for arthralgias, gait problem and myalgias. Neurological: Positive for seizures. Negative for dizziness, tremors, numbness and headaches. Episodes of syncope Past Medical History: Diagnosis Date Acute diastolic (congestive) heart failure ([facility]) Cerebral artery occlusion with cerebral infarction ([facility]) 04/11/2009 Congestive heart failure (CHF) ([facility]) Disturbance of skin sensation 04/11/2009 Headache 04/11/2009 History of deep vein thrombosis Hypertension ([facility]) Hypothyroid ([facility]) Nonspecific abnormal results of function study 04/11/2009 Brain and central nervous system Seizure ([facility]) Seizure disorder ([facility]) 04/11/2009 Syncope No past surgical history on file. Family History Problem Relation Name Age of Onset Heart disease Mother Diabetes Mother Heart disease Father Social History Tobacco Use Smoking status: Former Types: Cigarettes Smokeless tobacco: Never Substance Use Topics Alcohol use: Yes Allergies: Patient has no known allergies. There were no vitals filed for this visit. There is no height or weight on file to calculate BMI. Neurologic exam: Mental status: Awake, alert to person, place and time. Recent and remote memory are intact. Language is fluent without aphasia. Attention and concentration are normal. Fund of knowledge is appropriate for level of education. Cranial nerves: CN II: Visual acuity is normal. Visual rashid full to confrontation. CN III, IV, : pupils equal round and reactive to light. Extraocular movements intact. No ptosis present. CN V: Facial sensation is normal. CN VII: Full and symmetric facial movement. CN VIII: Hearing is normal to finger rub bilaterally: CN IX and X: Palate elevates symmetrically. CN XI: Shoulder shrug is normal bilaterally. CN XII: Tongue is midline without atrophy or fasciculation. Motor: Strength is 5/5 throughout. Bulk is normal. Sensory: Sensation is intact to light touch throughout Four extremities. Reflexes: Deep tendon reflexes are 2+ and symmetric throughout. Coordination: Abnormal bilaterally. This may be secondary to chronic Dilantin use. Gait: Normal Review and summary of old records: MRI of the brain and MR angiogram of the head without contrast on 06/16/2024: No focal stenosis, occlusion or aneurysm. No acute intracranial pathology. Remote infarcts and chronic age-related neurodegenerative changes similar to prior study on 05/04/2024. Routine EEG and advanced Neurology on 06/01/2024: Normal I have reviewed hospital documentation which notes the patient has a longstanding history of seizure disorder. Patient was treated chronically with phenytoin and did not wish to change that. She presented with an episode of altered mental status and disorientation was unwitnessed. Concern for potential seizure. Imaging and evaluation revealed the chronic findings of infarction. Patient was discharged on phenytoin 200 mg in the morning and 100 mg at night, and event monitor, pending factor 5 laboratory evaluation and hematology consultation. Factor 5 Leiden mutation was indeed positive confirming a 6-8 fold risk in venous thromboembolism. MRI of the brain without contrast: Moderate size chronic infarction in the left parietal lobe and asmall left cerebellar chronic ischemic infarct Orthostatic vital signs were checked and are negative Transthoracic echocardiogram showed an ejection fraction of 60 percent without evidence of mass, vegetation or thrombus CT of the brain showed a hypodensity in the left parietal lobe and left cerebellar hemisphere consistent with MRI findings of chronic infarct Assessment/Plan Diagnoses and all orders for this visit: Localization-related epilepsy, intractable (CMS/HCC) It is my impression that patient had suffered 2 episodes of loss of consciousness. Is question thatthis may have been related to blood pressure medication which has recently been changed. However, the patient does have a history of seizure disorder which may be secondary to evidence of old strokeson MRI. Patient was admitted and had MRI, CT, echocardiogram. These were unremarkable for acute pathology. The patient did have cardiology consultation and they are following in the outpatient setting. Examination really does not show any focal deficit today. Routine EEG On 06/01/2024: Normal Plan: Continue Dilantin 200 mg in the morning and 100 mg at night Medication compliance encouraged and SUDEP discussed. Factor V Leiden (CMS/HCC) Patient was found to be heterozygous for factor 5 laden mutation. Patient has evidence of ischemic stroke on MRI imaging of the brain. Additionally the patient has a history of DVT in the left upper extremity. Hematology consult is pending. Plan: To see Hematology which is scheduled for June 01, Dr Etienne at [facility] in early jun for follow upas the patient has seen him and has an extensive lab evaluation pending. I feel it is very likely that the patient will be placed on anticoagulation for secondary stroke prevention due to the historyof ischemic strokes on MRI of the brain and DVT in the left upper extremity. I did consider potential use of Eliquis and Xarelto. However, with concurrent use of Dilantin this is not recommended (andthe patient did NOT want to change dilantin at this time). The patient may ultimately be a candidate for Coumadin. History of ischemic stroke Patient has a history of stroke on MRI of the brain. This may have been the reason for partial onset seizure disorder. Patient has not had any new clinical symptoms related to stroke. MRI did not reveal any acute infarct. Echocardiogram did not show any evidence of mass, vegetation or thrombus. Repeat MRI and MR angiogram did not reveal any new acute pathology and did show old ischemic lesions. Plan: Continue aspirin 81 mg p.o. daily for secondary stroke prevention. I feel it is very likely that the patient will be placed on anticoagulation for secondary stroke prevention due to the history of ischemic strokes on MRI of the brain and DVT in the left upper extremity. I did consider potential use of Eliquis and Xarelto. However, with concurrent use of Dilantin this is not recommended. The patient may ultimately be a candidate for Coumadin. Signs and symptoms of stroke discussed in detail and the patient told to proceed with the emergencydepartment right away with any such signs or symptoms Syncope, unspecified syncope type Patient will need to follow up with PCP to manage stroke risk factors including hypertension and hyperlipidemia I did have an extensive discussion with the patient about medication options. We had used shared decision-making to not start anything right now. The patient wishes to talk to Hematology before starting any anticoagulant medication. We did talk about the need to proceed to the emergency department right away with any such signs or symptoms of stroke. We did talk about the fact that without anticoagulant medication the patient may be at increased risk for such events which could be life-threatening. The patient understands and accepts these risks. High-degree medical decision-making. High level of investigation required. Extensive need for records review, ongoing investigation, extensive discussion with the patient and further referral and follow up. Pt has been fully educated on their diagnosis, lab results, treatment options, follow up plan, and return instructions documented in this encounterMissouri Southern [id number] NoteEchocardiology Procedure Exam Date/Time Accession # Ordering Echo Transthoracic 05/16/2024 11:55 EDT [id number] Jai Boo MD Complete CPT code 40275 10037 Reason for Exam (Echo Transthoracic Complete) R06.02;Shortness of breath (SOB) Report [facility] [address] [place] [address] Adult Echocardiogram Report Name: VENITA RICHTER Study Date: 05/16/2024 11:00 AM BP: 125/68 mmHg Patient Location: [facility] HR: 74 : 1955 Gender: Female Height: 68 in Age: 68 yrs Ethnicity: T Weight: 192 lb Reason For Study: Shortness of breath (SOB) BSA: 2.0 m2 History: Bradycardia, irregular heart beat Ordering Physician: Rajeev^Jai^Geoff Referring Physician: Jai Boo Performed By: Supriya Bajwa, CINDYMS, RVT Interpretation Summary Mild left ventricular hypertrophy. Left ventricular systolic function is normal. Ejection Fraction = 60-65%. No obvious regional wall motion abnormalities noted The left atrium is moderately dilated. The interatrial septum bows toward right atrium consistent with elevated left atrial pressure. Mild aortic regurgitation. There is mild mitral regurgitation. Frequent PVCs noted. Procedure A complete two-dimensional transthoracic echocardiogram was performed (2D, M- mode, spectral and color flow Doppler). Left Ventricle The left ventricle is normal in size. mild left ventricular hypertrophy. Left ventricular systolic function is normal. Ejection Fraction = 60-65%. No obvious regional wall motion abnormalities noted. Indeterminate diastolic function. Left Atrium The left atrium is moderately dilated. There is no atrial septal defect. The interatrial septum bows toward right atrium Echocardiology Report consistent with elevated left atrial pressure. Right Atrium Right atrial size is normal. Right Ventricle The right ventricular systolic function is normal. The right ventricle is normal size. Aortic Valve Not well visualized. Mild aortic regurgitation. There is no aortic stenosis. Mitral Valve Mitral valve structure is normal. There is mild mitral regurgitation. No mitral valve stenosis. Tricuspid Valve Structurally normal tricuspid valve. There is trace tricuspid regurgitation. No evidence of tricuspid stenosis. Pulmonic Valve Not well visualized. There is no pulmonic valve regurgitation. Arteries The aortic root is normal in size. Normal ascending aorta. Effusion There is no pericardial effusion. MMode/2D Measurements & Calculations RVDd: 2.5 cm LVIDd: 4.7 cm FS: 33.8 % Ao root diam: 2.7 cm IVSd: 0.99 cm LVIDs: 3.1 cm EDV(Teich): 101.3 ml Ao root area: 5.8 cm2 LVPWd: 1.3 cm ESV(Teich): 37.9 ml LA dimension: 2.9 cm EF(Teich): 62.6 % asc Aorta Diam: 2.9 cm LVOT diam: 2.1 cm LVLd ap4: 7.3 cm EDV(MOD-sp2): 71.3 ml LVOT area: 3.5 cm2 EDV(MOD-sp4): 90.1 ml ESV(MOD-sp2): 22.9 ml LVLs ap4: 6.6 cm EF(MOD-sp2): 67.9 % ESV(MOD-sp4): 32.3 ml EF(MOD-sp4): 64.2 % SV(MOD-sp4): 57.8 ml TAPSE: 2.1 cm IVC Diam: 1.8 cm RV Base_phl: 3.3 cm RV Length_phl: 7.3 cm RV Mid_phl: 2.3 cm RVIDd/LVIDd: 0.54 EF (MOD-bp): 65.0 % LA Vol Index: 43.6 ml/m2 Doppler Measurements & Calculations MV E max jeff: 132.8 cm/sec MV dec time: 0.14 sec Ao V2 max: 217.2 cm/sec AI max jeff: 501.0 cm/sec MV A max jeff: 124.3 cm/sec Ao max P.9 mmHg AI max P.5 mmHg MV E/A: 1.1 Echocardiology Report Lat Peak E' Jeff: 8.7 cm/sec TINA(V,D): 1.7 cm2 AI dec slope: 250.7 cm/sec2 E/E' Lat: 15.3 AI P1/2t: 585.4 msec Med Peak E' Jeff: 4.1 cm/sec E/E' Med: 32.1 LV V1 max P.6 mmHg TR max jeff: 288.1 cm/sec RAP systole: 3.0 mmHg AV P1/2t-pr: 706.7 msec LV V1 max: 106.9 cm/sec TR max P.2 mmHg AV VR: 0.49 RVSP(TR): 36.2 mmHg FINAL REPORT Dictated: 05/16/2024 11:00 am Jai Boo MD Signed (Electronic Signature): 05/17/2024 8:36 am Signed by: Jai Boo MD Transcribed by: LARRY Technologist: [facility]07-12-2024 Progress note Author Jerod Espinoza [facility] May 05, 2024 12:30pm Note Date/Time May 05, 2024 12:2 7pm [facility] [address] [place] [address] Cardiology Progress Note Signed Patient: Venita Richter MR#: [id number] : 1955 Acct:[id number] Age/Sex: 68 / F Adm Date: 4 Loc: Room: [address] [place] [address] Type: ADM INOo Attending Dr: Soledad Guzman MD Copies to: ~ Date of Service: 05/05/2024 Subjective Principal diagnosis: Loss of consciousness Interval history: Etiology of loss of conscious still uncertain. Telemetry demonstrates little orno ventricular arrhythmia, as per yesterday. I took the liberty of discontinuing beta-blockers and hydrochlorothiazide because I believe both predispose her to a bigeminal rhythm. I recommended losartan. This morning she was given the dose of losartan, small in nature, and has significant drop in blood pressure. It is possible the patient requires little or no blood pressure medication. I would recommend, forthe time being, no beta-jojo, no thiazide diuretic, and no angiotensin receptor jojo. Patient may ultimately develop mildly elevated blood pressurebut I believe this is preferable to low blood pressure readings until it becomesclear as to what was the cause of her loss of consciousness. In the absence of a tacky or bradycardia arrhythmias difficult to insinuated cardiac cause. The likelihood of significant conduction system disease is low. Additionally is unlikely she has malignant ventricular tachyarrhythmias because she has a normal ventricle. Because of this I am doubtful of a rhythm related cause of syncope. The most notable phenomenon, so far, is the silent and/or undiagnosed stroke, (based on CT scan and/or MRI) but also notable now is drop in blood pressure on the small dose of losartan. Exam Physical Exam Vital Signs: Temp Pulse Resp BP Pulse Ox O2 Del Method 97.7 F 61 16 112/70 99 Room Air 05/05/24 07:38 05/05/24 11:33 05/05/24 11:33 05/05/24 11:33 05/05/24 11:33 05/05/24 11:33 HEENT Head: normal to inspection Ears: hearing grossly normal bilaterally Nose: external nose normal and nares normal Face and sinus: normal facial exam Mouth: oral mucosae normal and tongue normal Eyes Conjunctivae: conjunctivae normal Sclera: sclerae normal Neck Neck: normal visual inspection Carotids: normal carotid upstroke Lymphatic: no lymphadenopathy noted Chest Chest palpation & inspection: normal inspection of the chest Resp Effort & Inspection: normal respiratory effort Auscultation: clear to auscultation bilaterally Cardio Rate: regular rate Rhythm: regular rhythm Heart Sounds: S1 normal and S2 normal GI Inspection: normal to inspection Palpation: soft Skin General: no rashes or lesions noted Neuro General: patient alert, patient awake and patient oriented x3 Cognition: normal cognition Motor: muscle tone normal throughout Sensory Exam: no sensory deficits noted Objective Labs 05/03/24 09:30 05/04/24 06:34 A&P - Cardiology (1) Ventricular bigeminy: Assessment/Problem Details: I believe the patient's bigeminy is potentiated by beta-blockers and/or thiazides. Both have been stopped. If the patient were to develop blood pressure elevations I would recommend tiny doses of afterload reduction with losartan or lisinopril. Losartan was given today but she became hypotensive because of this I believe all blood pressure medicine should be held. Code(s): I49.8 - Other specified cardiac arrhythmias (2) Syncope: Assessment/Problem Details: Uncertain whether the patient had true syncope. In the differential diagnosis is orthostatic hypotension, arrhythmia (doubtful) and seizure. I recommend for the time being cessation of all antihypertensive medication. She does not require evaluation for ventricular tachyarrhythmia in the absence of ventriculardysfunction. She has been on telemetry for 48 hours and she is demonstrated no tacky or bradycardia arrhythmias and hence I am doubtful of arrhythmia as a cause of her loss of consciousness. Ultimately it may prove that her cause of loss of consciousness was low blood pressure. Because of this I recommend for the time being no further blood pressure medication. Qualifiers: Syncope type: unspecified Qualified Code(s): R55 - Syncope and collapse Code(s): R55 - Syncope and collapse Plan Discontinue all antihypertensives. We plan no further cardiovascular evaluation. Patient can be discharged and followed up as an outpatient Documented By: Jerod Espinoza MD [id number] Signed By: <Electronically signed by MD Jerod Espinoza> 05/05/24 1230 [facility] Work Phone: 1(698) 272-214407-12-2024 Discharge summary Author Soledad Guzman [facility] May 05, 2024 8:36am Note Date/Time May 05, 2024 8:36 am [facility] [address] [place] [address] Discharge Summary Signed Patient: Venita Richter MR#: [id number] : 1955 Acct:[id number] Age/Sex: 68 / F Adm Date: 4 Loc: Room: [address] [place] [address]: Soledad Guzman MD Copies to: NON STAFF Soledad Guzman MD~ Providers Date of Discharge: 05/05/24 Discharging Provider: Soledad Guzman Primary Care Provider: NON STAFF Consults: 05/03/24 11:57 Consult to Cardiology Routine Comment: Consulting Provider: [facility] Reason For Exam: CHF/ presycope/ Arrhythmias Has Provider Been Notified: Yes Date of Notification: 05/03/24 Time of Notification: 13:44 05/04/24 13:43 Consult to Neurology Routine Comment: Consulting Provider: Kenneth Cee Reason For Exam: syncope Has Provider Been Notified: Yes Date of Notification: 05/04/24 Time of Notification: 13:48 Discharge Diagnosis (1) Chronic ischemic multifocal anterior circulation stroke: Final Diagnosis Final Discharge Diagnosis: (1) Ventricular bigeminy: (2) CHF (congestive heart failure): (3) Syncope: (4) Seizure: (5) Hypothyroid: (6) Hypertension: (7) Hyperlipidemia: (8) Hypokalemia: Summary Hospital Course Hospital course: 68-year-old white female past medical history of obesity, hypertension, hyperlipidemia, history of seizure history of DVT and hypothyroidism who presented to emergency room with generalized weakness and presyncope. Patient had syncopal episode on Wednesday and had a workup in [facility] with EKG and blood work and she was discharged home. Since then she has been having generalized weakness and exertional dyspnea. She did have presyncopal episode today. no orthopnea or PND. No leg edema. No chest pain. no palpitation. Shedenies having nausea vomiting. No diarrhea. No constipation. No abdominal pain. she denies having cough. No runny nose or sore throat. No sinus pain. She denies having dysuria, hematuria, or frequency Plan Acute diastolic heart Mild aortic regurgitation Mild mitral regurgitation Seen and examined Clinically better Less SOB No chest pain On room air Saturation is 97% Sodium level is 136 CTA chest: There is no evidence of pulmonary embolism. There is cardiomegaly Kidney function is stable Lasix IV daily 20 mg BMP daily Echocardiogram The left ventricular size, thickness and function are normal Ejection Fraction = 60-65%. In the distal interventricular septum there is small invagination [small diverticulum] which generally speaking has no clinical significance The left atrium appears mildly dilated. Mild aortic regurgitation. There is mild mitral regurgitation. There is no prior echocardiogram noted for this patient. Cardiology consulted Hydrochlorothiazide Bisoprolol was stopped Losartan 25 mg was added Neurology was consulted MRI was unremarkable Hypertension: Hydrochlorothiazide bisoprolol Hypothyroidism: Lives with her Hyperlipidemia: Lipitor daily History of seizure disorder: Few noted PT/OT DC planning : Home Follow-up with cardiology as oupatient Time Spent with Patient Time spent providing/coordinating discharge services (# min): 35 Discharge Plan Discharge Plan Patient Disposition: Home Activity: No Activity Restriction Diet: Low-Sodium Instructions: Syncope (Fainting) (DC), Know your Meds Prescriptions: New losartan 25 mg Tablet 25 mg PO QAM Qty: 30 1RF Continued atorvastatin 10 mg tablet 10 mg PO DAILY Patient Comments: TAKE 1 TABLET BY MOUTH EVERYDAY AT BEDTIME phenytoin sodium extended 100 mg capsule 200 mg PO QAM levothyroxine 100 mcg tablet 100 mcg PO DAILY Patient Comments: TAKE 1 TABLET BY MOUTH EVERY DAY cholecalciferol (vitamin D3) 125 mcg (5,000 unit) capsule 125 mcg PO DAILY Patient Comments: TAKE 1 CAPSULE BY MOUTH EVERY DAY aspirin 81 mg Capsule 81 mg PO DAILY alendronate 35 mg tablet 35 mg PO .WEEKLY phenytoin sodium extended 100 mg capsule 100 mg PO QHS Discontinued bisoprolol-hydrochlorothiazide 5-6.25 mg tablet 1 tab PO DAILY Follow Up: Lourdes Carter NP-C [Referring] - 05/09/24 10:40 am (You have been scheduled for a follow up appointment for the following date and time, please call to reschedule if needed. The phone number for the office is [phone]. The address is [address] [place] [address].) Exam Physical Exam Vital Signs: Temp Pulse Resp BP Pulse Ox O2 Del Method 97.7 F 67 16 138/82 100 Room Air 05/05/24 07:38 05/05/24 07:38 05/05/24 07:38 05/05/24 07:38 05/05/24 07:38 05/05/24 07:38 Narrative: General patient laying in bed in no acute distress alert awake oriented x3 HEENT PERRLA Neck supple no JVD no carotid bruit CVS S1-S2 regular rate and rhythm no murmur no gallop Chest clear to auscultation percussion Abdomen soft bowel sounds normoactive no rebound no guarding Extremities no stenosis no clubbing no edema Musculoskeletal exam normal no joint effusion Neurologic exam oriented x3 alert awake no focal left Psychiatry: Normal insight and judgment Skin: no rash or lesions Diagnostic Studies Completed and Pending Studies Pending studies at discharge: 05/04/24 15:23 Factor V Leiden Mutation Routine Labs on day of discharge: 05/03/24 09:30: Estimat Average Glucose 131, Hemoglobin A1c 6.2 H Documented By: Soledad Guzman MD 05/05/24 0832 Signed By: <Electronically signed by Soledad Guzman MD> 05/05/24 0836 [facility] Work Phone: 1(149) 908-770107-11-2024 Consult note Author Kenneth Cee [facility] May 04, 2024 3:14pm Note Date/Time May 04, 2024 3:14 pm [facility] [address] [place] [address] Neurology Consult Note Signed Patient: Venita Richter MR#: [id number] : 1955 Acct:[id number] Age/Sex: 68 / F Adm Date: 4 Loc: 3T Room: [address] [place] [address] Type: ADM INOo Attending Dr: Soledad Guzman MD Copies to: NON STAFF DO Soledad Brooks MD~ HPI Consult Date: 05/04/24 Herbarium Worker: Kenneth Cee DO [facility] Medical History (Updated 05/04/24 @ 15:14 by Kenneth Cee DO) Syncope Acute diastolic (congestive) heart failure CHF (congestive heart failure) Seizure Problem List clean-up per request of Phys. EHR Cmte History of DVT (deep vein thrombosis) Problem List clean-up per request of Phys. EHR Cmte Hypothyroid Problem List clean-up per request of Phys. EHR Cmte Hypertension Problem List clean-up per request of Phys. EHR Cmte Social History Smoking Status: Former smoker Substance Use Type: None Meds Medications and Allergies Allergies No Known Allergies Allergy (Verified 05/03/24 09:23) Home Medications aspirin 81 mg capsule 81 mg PO DAILY 06/03/22 [History Confirmed 05/03/24] atorvastatin 10 mg tablet 10 mg PO DAILY 06/03/22 [History Confirmed 05/03/24] bisoprolol 5 mg-hydrochlorothiazide 6.25 mg tablet 1 tab PO DAILY 06/03/22 [History Confirmed 05/03/24] cholecalciferol (vitamin D3) 125 mcg (5,000 unit) capsule 125 mcg PO DAILY 06/03/22 [History Confirmed 05/03/24] levothyroxine 100 mcg tablet 100 mcg PO DAILY 06/03/22 [History Confirmed 05/03/24] phenytoin sodium extended 100 mg capsule 200 mg PO QAM 06/03/22 [History Confirmed 05/04/24] alendronate 35 mg tablet 35 mg PO .WEEKLY 05/03/24 [History Confirmed 05/03/24] phenytoin sodium extended 100 mg capsule 100 mg PO QHS 05/04/24 [History Confirmed 05/04/24] Exam Physical Exam Vital Signs: Temp Pulse Resp BP Pulse Ox O2 Del Method 97.7 F 68 16 114/62 98 Room Air 05/04/24 07:52 05/04/24 11:51 05/04/24 11:51 05/04/24 11:51 05/04/24 11:51 05/04/24 11:51 Results - Neuro Laboratory Findings 05/03/24 09:30 05/04/24 06:34 Lab Results: Hemoglobin A1c 6.2 % (4.3-5.6) H 05/03/24 09:30 Diagnostic Findings Imaging/Impressions: ITS Impressions Chest CTA 05/03/24 09:42 IMPRESSION: There is no evidence of pulmonary embolism. There is cardiomegaly. Colonization, pleural effusion, or pneumothorax. Impression dictated by: Alexander Cadena M.D.05/03/2024 11:10 AM Dictation Location: [place] [address] 05/03/24 09:46 IMPRESSION: No acute intracranial pathology. Remote infarcts are noted, as above. Impression dictated by: Alexander Cadena M.D.05/03/2024 11:04 AM Dictation Location: [place] [address] Assessment/Plan (1) Chronic ischemic multifocal anterior circulation stroke: Plan CONSULT REASON: Syncope HPI: 68-year-old woman with history of a seizure disorder that goes back to childhood. She has been on phenytoin for approximately 50 years; she feels comfortable with this medication and does not want to change it unless it is absolutely necessary. Her last seizure was probably 20 years ago or so. This past Wednesday she went out to the garage to get something and was delayed in coming back and when she did come back she was crying and disoriented. Her was concerned she had fallen and hit her head. They are concerned she might of had an unwitnessed seizure. She did gradually return to her normal state of health. She has no recollection of what ever event transpired. She did not have any incontinence. She did not bite her tongue. They checked her over and she did not have any evidence of head injury or bodily injury from a fall. Wednesday morning she was feeling like her legs were giving out on her. She felt weak all over. Had some dyspnea as well. She felt so strangely unwell that she wanted to be brought in for medical evaluation. Cardiology saw her this morning and says she has an occasional bigeminal rhythm. And her echocardiogram is not especially concerning to them. And telemetry hasbeen unrevealing. CT of her head happens to show what looks like chronic infarctions in the left caudate head, the left parietal area, and the left cerebellar hemisphere. She did not know she has ever had stroke. She did say she had blood clot in her left upper extremity, implying DVT, and said she was temporarily anticoagulated for that. Then she remembered that she was diagnosed with factor V Leiden. Shethinks it was 20 years ago or so. Does not member details about what led to this diagnosis. I do not know and she does not know why they did not leave her on an anticoagulant. EXAMINATION: In no distress. No deformities or trauma. Limbs seem well-perfused. No significant edema. Normal work of breathing. Visualized skin is generally intact and without lesions. Affect normal. Patient is alert and generally oriented. Attention normal. Speech is fluent and nondysarthric. Pupils are equal and reactive. Ocular motility is full. No nystagmus. Facial sensation is normal. Hearing is normal. Facial strength is normal. Tongue is midline. Muscle bulk, tone, and strength are normal. No tremors. Reflexes normal throughout. Light touch is normal. Vibratory sensation is normal. No limb dysmetria or ataxia. DATA REVIEW: -Transthoracic echocardiogram with ejection fraction 60% and looks fairly unremarkable -CT head shows hypodensity in the left caudate, a large area of hypodensity in the left parietal lobe cortex and subcortex, and a small focus of hypodensity inthe left cerebellar hemisphere. ASSESSMENT: 68-year-old woman with lifelong seizure disorder. Last witnessed seizure was something like 20 years ago. Treated chronically with phenytoin. She had an episode of altered mental status with disorientation that was unwitnessed. Generalized tonic-clonic seizure seems unlikely given the lack of any bodily injury. Will remain open to consideration of atypical seizure activity that was unwitnessed. Has been having symptoms including dyspnea and generalized fatigue and weakness, and despite that this does not seem to be a cardiac issue. And it is unlikely she had cardiogenic syncope. Of concern to me is that a CT scan suggest that she has had some (silent) infarctions that are probably in a distal-embolic pattern. And come to find outlong ago it seems she was diagnosed with factor V Leiden and even has history ofDVT in the left upper extremity but has not been on anticoagulation. She says people are worried about her it regular heartbeat but based on chart review I think this is a bigeminy pattern and not atrial fibrillation. PLAN: 1. Continue the phenytoin at 200 mg in the morning and 100 mg at night 2. MRI brain without contrast 3. Rechecking factor V Leiden 4. If she has evidence of chronic cerebral ischemia and an embolic pattern, with a history of factor V Leiden I will probably recommend lifelong therapeuticanticoagulation 5. Orthostatic vital signs Documented By: Kenneth Cee DO 05/04/24 1504 Signed By: <Electronically signed by Kenneth Cee DO> 05/04/24 [facility] Work Phone: [phone] Consult note Author Jerod Espinoza [facility] May 04, 2024 3:00pm Note Date/Time May 04, 2024 2:55 pm [facility] [address] [place] [address] Cardiology Consult Note Signed Patient: Venita Richter MR#: [id number] : 1955 Acct:[id number] Age/Sex: 68 / F Adm Date: 4 Loc: Room: [address] [place] [address] Type: ADM INOo Attending Dr: Soledad Guzman MD Copies to: NON STAFF MD Jerod Torres MD~ Cardiology HPI History of Present Illness Consult Date: 05/04/24 Reason for Consult: Loss of consciousness. HPI: Ms. Richter is a 68 year old femaleSeen for the above. She is an individual who was taken to [facility] emergency room recently with anepisode of loss of consciousness. She states that she was working outside the house in a barn or garage. She found herself on the floor. She does not remember how she got from the floor of the garage to the house. She also statesthat she has no significant memories of how she got from her house to the [facility] emergency room. She was evaluated treated and released at that time. She now presents with complaints of lightheadedness and dizziness shortness of breath malaise and fatigue. She is found to have occasional bigeminal rhythm. She is on a beta-jojo and hydrochlorothiazide. Her echocardiogram is normal demonstrating mild aortic and mitral regurgitation but nothing bad enough to cause heart failure per se. Telemetry has been unrevealing. She demonstrates no extremes of tacky or bradycardia arrhythmia that would cause a loss of consciousness. She does describe, though, seizure disorder treated with Dilantin. She states has been seizure-free for a long time. She has not seen a neurologist for 5 years. Her loss of consciousness appears to be more consistent with an unwitnessed seizure and subsequent postictal status. She describes basically some amnesia following her loss of postural tone and falling to the ground. This is more consistent with seizure as opposed to hemodynamic syncope. Review of Systems Review of Systems All other systems reviewed & are negative unless noted below or in HPI Constitutional Constitutional: Reports system reviewed and no additional complaints, except as documented Eyes Eyes: Reports system reviewed and no additional complaints, except as documented ENT Ears, Nose, Mouth, and Throat: Reports system reviewed and no additional complaints, except as documented Cardiovascular Cardiovascular: Reports as per HPI Respiratory Respiratory: Reports system reviewed and no additional complaints, except as documented Gastrointestinal Gastrointestinal: Reports system reviewed and no additional complaints, except as documented Genitourinary Genitourinary: Reports system reviewed and no additional complaints, except as documented Musculoskeletal Musculoskeletal: Reports system reviewed and no additional complaints, except asdocumented Integumentary/Breasts Skin/Breast: Reports system reviewed and no additional complaints, except as documented Neurologic Neurologic: Reports as per HPI Psychiatric Psychiatric: Reports system reviewed and no additional complaints, except as documented Endocrine Endocrine: Reports system reviewed and no additional complaints, except as documented Hematologic/Lymphatic Hematologic/Lymphatic: Reports system reviewed and no additional complaints, except as documented Allergic/Immunologic Allergic/Immunologic: Reports system reviewed and no additional complaints, except as documented [facility] Medical History (Updated 05/04/24 @ 14:57 by Jerod Espinoza MD) Syncope Acute diastolic (congestive) heart failure CHF (congestive heart failure) Seizure Problem List clean-up per request of Phys. EHR Cmte History of DVT (deep vein thrombosis) Problem List clean-up per request of Phys. EHR Cmte Hypothyroid Problem List clean-up per request of Phys. EHR Cmte Hypertension Problem List clean-up per request of Phys. EHR Cmte Social History Smoking Status: Former smoker Substance Use Type: None Meds Medications and Allergies Allergies No Known Allergies Allergy (Verified 05/03/24 09:23) Home Medications aspirin 81 mg capsule 81 mg PO DAILY 06/03/22 [History Confirmed 05/03/24] atorvastatin 10 mg tablet 10 mg PO DAILY 06/03/22 [History Confirmed 05/03/24] bisoprolol 5 mg-hydrochlorothiazide 6.25 mg tablet 1 tab PO DAILY 06/03/22 [History Confirmed 05/03/24] cholecalciferol (vitamin D3) 125 mcg (5,000 unit) capsule 125 mcg PO DAILY 06/03/22 [History Confirmed 05/03/24] levothyroxine 100 mcg tablet 100 mcg PO DAILY 06/03/22 [History Confirmed 05/03/24] phenytoin sodium extended 100 mg capsule 200 mg PO QAM 06/03/22 [History Confirmed 05/04/24] alendronate 35 mg tablet 35 mg PO .WEEKLY 05/03/24 [History Confirmed 05/03/24] phenytoin sodium extended 100 mg capsule 100 mg PO QHS 05/04/24 [History Confirmed 05/04/24] Exam Physical Exam Vital Signs: Temp Pulse Resp BP Pulse Ox O2 Del Method 97.7 F 68 16 114/62 98 Room Air 05/04/24 07:52 05/04/24 11:51 05/04/24 11:51 05/04/24 11:51 05/04/24 11:51 05/04/24 11:51 HEENT Head: normal to inspection Ears: hearing grossly normal bilaterally Nose: external nose normal and nares normal Face and sinus: normal facial exam Mouth: oral mucosae normal and tongue normal Eyes Conjunctivae: conjunctivae normal Sclera: sclerae normal Neck Neck: normal visual inspection Carotids: normal carotid upstroke Lymphatic: no lymphadenopathy noted Chest Chest palpation & inspection: normal inspection of the chest Resp Effort & Inspection: normal respiratory effort Auscultation: clear to auscultation bilaterally Cardio Rate: regular rate Rhythm: regular rhythm Heart Sounds: S1 normal and S2 normal GI Inspection: normal to inspection Palpation: soft Skin General: no rashes or lesions noted Neuro General: patient alert, patient awake and patient oriented x3 Cognition: normal cognition Motor: muscle tone normal throughout Sensory Exam: no sensory deficits noted Results - Cardiology Labs 05/03/24 09:30 05/04/24 06:34 Lab results: Comprehensive Metabolic Panel 05/04/24 Range/Units 06:34 Sodium 136 (136-145) mmol/L Potassium 4.4 (3.5-5.1) mmol/L Chloride 101 (98-107) mmol/L Carbon Dioxide 26.5 (21.0-31.0) mmol/L BUN 16 (7-25) mg/dL Creatinine 0.83 (0.60-1.20) mg/dL Glucose 90 (70-100) mg/dL Calcium 8.8 (8.6-10.3) mg/dL Intake and Output 05/03/24 05/04/24 05/04/24 23:59 07:59 15:59 Intake Total 250 / 300 650 / 650 Balance 250 / 300 650 / 650 Intake: Oral 250 / 250 650 / 650 Other: # Unmeasured Voids 1 5 # Bowel Movements 0 Weight 88.5 kg Date of Last Bowel Movement 05/03/24 05/03/24 Patient Weight 05/04/24 23:59 Weight 88.5 kg Lab 05/03/24 09:30 PT 12.4 INR 1.1 APTT 25.5 A&P - Cardiology (1) Seizure: Assessment/Problem Details: I believe the patient's recent episode of loss of consciousness is more than likely seizure with a prolonged postictal phase. It is more consistent than hemodynamic syncope. Typically with hemodynamic syncope there is abrupt loss ofconsciousness and immediate onset of consciousness with no lapse in memory. Code(s): R56.9 - Unspecified convulsions (2) Ventricular bigeminy: Assessment/Problem Details: Patient's ventricular bigeminy could be the cause of some of her other symptoms including lightheadedness dizziness palpitation shortness of breath malaise and fatigue. I believe the bigeminy is probably on the basis of her beta-jojo therapy. By slowing the sinus node it potentiates and/or facilitates ventricular escape beats causing a bigeminal rhythm. This bigeminal rhythm is hemodynamically inefficient and more than likely causing some of the aforementioned constitutional symptoms. I do not believe the ventricular arrhythmia, though, is suggestive of a more ominous or serious condition such as unrecognized ventricular tachyarrhythmias. Her echocardiogram demonstrates normal ventricular function and wall motion and it is very unlikely she has a propensity to malignant sustained monomorphic ventricular tachycardia. Because of this I believe the PVCs are benign but symptomatic. I do not believe the patient had a tachyarrhythmia that caused herloss of consciousness. Code(s): I49.8 - Other specified cardiac arrhythmias Plan Discontinue hydrochlorothiazide in order to allow potassium to rise. This will reduce PVCs. Discontinue bisoprolol. This will allow resting heart rate to increase and extinguish PVCs. I believe both these maneuvers to eliminate PVCs will eliminate much of the patient's constitutional symptomatology. I believe neurology consultation should be part of the patient's acute episode of care and we have taken the liberty of consulting neurology to evaluate her for what I believed to be a seizure with a postictal phase as described above. Documented By: Jerod Espinoza MD [id number] Signed By: <Electronically signed by MD Jerod Espinoza> 05/04/24 1500 [facility] Work Phone: [phone]) 863-673907-11-2024 Progress note Author Soledad Guzman [facility] May 04, 2024 9:17am Note Date/Time May 04, 2024 9:06 am [facility] [address] [place] [address] Hospitalist Progress Note Signed Patient: Venita Richter MR#: [id number] : 1955 Acct:[id number] Age/Sex: 68 / F Adm Date: 4 Loc: Room: [address] [place] [address] Type: ADM INOo Attending Dr: Soledad Guzman MD Copies to: ~ Date of Service: 05/04/2024 Subjective Subjective Narrative: 68-year-old white female past medical history of obesity, hypertension, hyperlipidemia, history of seizure history of DVT and hypothyroidism who presented to emergency room with generalized weakness and presyncope. Patient had syncopal episode on Wednesday and had a workup in [facility] with EKG and blood work and she was discharged home. Since then she has been having generalized weakness and exertional dyspnea. She did have presyncopal episode today. no orthopnea or PND. No leg edema. No chest pain. no palpitation. Shedenies having nausea vomiting. No diarrhea. No constipation. No abdominal pain. she denies having cough. No runny nose or sore throat. No sinus pain. She denies having dysuria, hematuria, or frequency. Exam Physical Exam Vital Signs: Temp Pulse Resp BP Pulse Ox O2 Del Method 97.7 F 62 16 136/77 97 Room Air 05/04/24 07:52 05/04/24 07:52 05/04/24 07:52 05/04/24 07:52 05/04/24 07:52 05/04/24 07:52 Narrative: General patient laying in bed in no acute distress alert awake oriented x3 HEENT PERRLA Neck supple no JVD no carotid bruit CVS S1-S2 regular rate and rhythm no murmur no gallop Chest clear to auscultation percussion Abdomen soft bowel sounds normoactive no rebound no guarding Extremities no stenosis no clubbing no edema Musculoskeletal exam normal no joint effusion Neurologic exam oriented x3 alert awake no focal left Psychiatry: Normal insight and judgment Skin: no rash or lesions Objective Lab Results 05/03/24 09:30 05/04/24 06:34 Meds Allergies and Active Meds Allergies No Known Allergies Allergy (Verified 05/03/24 09:23) Active Meds: Active Medications Generic Name Dose Route Start Last Admin Trade Name Freq PRN Reason Stop Dose Admin Acetaminophen 650 mg 05/03/24 11:57 Acetaminophen 325 Mg Tablet PO 05/03/25 11:56 Q6HR PRN Pain Scale 1 - 3 or fever Albuterol 2.5 mg 05/03/24 11:57 Albuterol Neb 2.5 Mg/3 Ml Vial.Neb INHALATION 05/03/25 11:56 Q3H PRN Cough/Wheeze Aspirin 81 mg 05/03/24 21:00 05/03/24 21:40 Aspirin 81 Mg Tab.Chew PO 05/03/25 20:59 81 mg QPM NA Administration Atorvastatin Calcium 10 mg 05/03/24 21:00 05/03/24 21:40 Atorvastatin 10 Mg Tablet PO 05/03/25 20:59 10 mg QPM NA Administration Bisacodyl 10 mg 05/03/24 11:57 Bisacodyl 10 Mg Supp.Rect CO 05/03/25 11:56 DAILY PRN Constipation Bisoprolol Fumarate 5 mg 05/03/24 21:00 05/03/24 21:40 Bisoprolol 5 Mg Tablet PO 05/03/25 20:59 5 mg QPM NA Administration Enoxaparin Sodium 40 mg 05/04/24 10:00 Enoxaparin 40 Mg/0.4 Ml Syringe SUBCUT 05/04/25 09:59 DAILY@10 NA Hydrochlorothiazide 6.25 mg 05/04/24 09:00 Hydrochlorothiazide 12.5 Mg Tablet PO 05/04/25 08:59 DAILY NA Levothyroxine Sodium 100 mcg 05/04/24 09:00 Levothyroxine 100 Mcg Tablet PO 05/04/25 08:59 DAILY NA Melatonin 3 mg 05/03/24 11:57 Melatonin 3 Mg Tablet PO 05/03/25 11:56 QHS PRN Insomnia Ondansetron HCl 4 mg 05/03/24 11:57 Ondansetron 4 Mg/2 Ml Vial IV-PUSH 05/03/25 11:56 Q8H PRN Nausea And Vomiting Phenytoin Sodium 100 mg 05/03/24 14:00 05/03/24 21:26 Phenytoin Extended 100 Mg Capsule PO 05/03/25 13:59 100 mg TID NA Administration Sodium Chloride 0 ml 05/03/24 09:22 05/03/24 10:30 Sodium Chloride 0.9 % 10 Ml Syringe IV-PUSH 05/03/25 09:21 10 ml PRN PRN Administration Flush A&P - Hospitalist Assessment/Plan (1) Ventricular bigeminy: (2) CHF (congestive heart failure): (3) Syncope: (4) Seizure: (5) Hypothyroid: (6) Hypertension: (7) Hyperlipidemia: (8) Hypokalemia: Plan Acute diastolic heart Mild aortic regurgitation Mild mitral regurgitation Seen and examined Clinically better Less SOB No chest pain On room air Saturation is 97% Sodium level is 136 CTA chest: There is no evidence of pulmonary embolism. There is cardiomegaly Kidney function is stable Lasix IV daily 20 mg BMP daily Echocardiogram The left ventricular size, thickness and function are normal Ejection Fraction = 60-65%. In the distal interventricular septum there is small invagination [small diverticulum] which generally speaking has no clinical significance The left atrium appears mildly dilated. Mild aortic regurgitation. There is mild mitral regurgitation. There is no prior echocardiogram noted for this patient. Cardiology consult Hypertension: Hydrochlorothiazide bisoprolol Hypothyroidism: Lives with her Hyperlipidemia: Lipitor daily History of seizure disorder: Few noted PT/OT DC planning Documented By: Soledad Guzman MD 05/04/24 0900 Signed By: <Electronically signed by Soledad Guzman MD> 05/04/24 0917 [facility] Work Phone: 1(841) 522-326007-10-2024 History and physical note Author Soledad Guzman [facility] May 03, 2024 12:27pm Note Date/Time May 03, 2024 12:0 7pm [facility] [address] [place] [address] Hospitalist H&P Signed Patient: Venita Richter MR#: [id number] : 1955 Acct:[id number] Age/Sex: 68 / F Adm Date: 4 Loc: ER Room: Type: [facility] ER Attending Dr: Copies to: NON STAFF MD Jensen Torres, DO~ HPI DATE OF EXAMINATION: 05/03/24 CHIEF COMPLAINT: Weakness HISTORY OF PRESENT ILLNESS: 68-year-old white female past medical history of obesity, hypertension, hyperlipidemia, history of seizure history of DVT and hypothyroidism who presented to emergency room with generalized weakness and presyncope. Patient had syncopal episode on Wednesday and had a workup in [facility] with EKG and blood work and she was discharged home. Since then she has been having generalized weakness and exertional dyspnea. She did have presyncopal episode today. no orthopnea or PND. No leg edema. No chest pain. no palpitation. Shedenies having nausea vomiting. No diarrhea. No constipation. No abdominal pain. she denies having cough. No runny nose or sore throat. No sinus pain. She denies having dysuria, hematuria, or frequency. Review of Systems Review of Systems All other systems reviewed & are negative unless noted below or in HPI [facility] Medical History (Updated 05/03/24 @ 12:05 by Soledad Guzman MD) Seizure Problem List clean-up per request of Phys. EHR Cmte History of DVT (deep vein thrombosis) Problem List clean-up per request of Phys. EHR Cmte Hypothyroid Problem List clean-up per request of Phys. EHR Cmte Hypertension Problem List clean-up per request of Phys. EHR Cmte Social History Smoking Status: Never smoker Substance Use Type: None Meds Medications and Allergies Allergies No Known Allergies Allergy (Verified 05/03/24 09:23) Home Medications aspirin 81 mg capsule 81 mg PO DAILY 06/03/22 [History Confirmed 05/03/24] atorvastatin 10 mg tablet 10 mg PO DAILY 06/03/22 [History Confirmed 05/03/24] bisoprolol 5 mg-hydrochlorothiazide 6.25 mg tablet 1 tab PO DAILY 06/03/22 [History Confirmed 05/03/24] cholecalciferol (vitamin D3) 125 mcg (5,000 unit) capsule 125 mcg PO DAILY 06/03/22 [History Confirmed 05/03/24] levothyroxine 100 mcg tablet 100 mcg PO DAILY 06/03/22 [History Confirmed 05/03/24] phenytoin sodium extended 100 mg capsule 100 mg PO TID 06/03/22 [History Confirmed 05/03/24] alendronate 35 mg tablet 35 mg PO .WEEKLY 05/03/24 [History Confirmed 05/03/24] Exam Physical Exam Vital Signs: Pulse Resp BP Pulse Ox O2 Del Method 59 L 20 138/85 96 Room Air 05/03/24 11:05 05/03/24 11:05 05/03/24 11:05 05/03/24 11:05 05/03/24 11:05 Narrative: General patient laying in bed in no acute distress alert awake oriented x3 HEENT PERRLA Neck supple no JVD no carotid bruit CVS S1-S2 regular rate and rhythm no murmur no gallop Chest clear to auscultation percussion Abdomen soft bowel sounds normoactive no rebound no guarding Extremities no stenosis no clubbing no edema Musculoskeletal exam normal no joint effusion Neurologic exam oriented x3 alert awake no focal left Psychiatry: Normal insight and judgment Skin: no rash or lesions Results - Hospitalist H&P Lab Results Labs: Laboratory Last Values Corrected WBC 9.2 X10E3/uL (3.8-11.6) 05/03/24 09:30 Uncorrected WBC Count 9.2 x10E3/uL (3.8-11.6) 05/03/24 09:30 RBC 4.79 X10E6/uL (3.60-5.00) 05/03/24 09:30 Hgb 14.7 g/dL (11.8-15.4) 05/03/24 09:30 Hct 43.6 % (34.0-46.4) 05/03/24 09:30 MCV 91.0 fl (80-100) 05/03/24 09:30 MCH 30.8 pg (24.7-34.3) 05/03/24 09:30 MCHC 33.8 g/dL (32.0-35.0) 05/03/24 09:30 RDW 13.3 % (11.9-15.3) 05/03/24 09:30 Plt Count 229 x10E3/uL (150-450) 05/03/24 09:30 MPV 8.6 fl (6.3-10.7) 05/03/24 09:30 Neut % (Auto) 70.7 % (.) 05/03/24 09:30 Lymph % (Auto) 20.8 % (.) 05/03/24 09:30 Coleman % (Auto) 6.8 % (.) 05/03/24 09:30 Eos % (Auto) 1.3 % (.) 05/03/24 09:30 Baso % (Auto) 0.4 % (.) 05/03/24 09:30 Nucleat RBC Rel Count 0.1 /100 WBC (0-0.5) 05/03/24 09:30 Neut # (Auto) 6.5 x10E3/uL (1.8-7.7) 05/03/24 09:30 Lymph # (Auto) 1.9 x10E3/uL (1.00-4.8) 05/03/24 09:30 Coleman # (Auto) 0.6 x10E3/uL (0.0-0.8) 05/03/24 09:30 Eos # (Auto) 0.1 x10E3/uL (0.0-0.45) 05/03/24 09:30 Baso # (Auto) 0.0 x10E3/uL (0.0-0.2) 05/03/24 09:30 Monocyte Dist Width 17.84 % (0.00-20.00) 05/03/24 09:30 PT 12.4 Seconds (9.0-12.9) 05/03/24 09:30 INR 1.1 05/03/24 09:30 APTT 25.5 Seconds (25.1-36.5) 05/03/24 09:30 PHA Creatinine Clear 62.85 05/03/24 09:30 Sodium 131 mmol/L (136-145) L 05/03/24 09:30 Potassium 3.6 mmol/L (3.5-5.1) 05/03/24 09:30 Chloride 95 mmol/L (98-107) L 05/03/24 09:30 Carbon Dioxide 28.3 mmol/L (21.0-31.0) 05/03/24 09:30 Anion Gap 11.3 mEq/L (6.0-15.0) 05/03/24 09:30 BUN 16 mg/dL (7-25) 05/03/24 09:30 Creatinine 0.96 mg/dL (0.60-1.20) 05/03/24 09:30 Est GFR (CKD-EPI) > 60.0 mL/Min 05/03/24 09:30 Glucose 129 mg/dL (70-100) H 05/03/24 09:30 Calcium 9.0 mg/dL (8.6-10.3) 05/03/24 09:30 Phosphorus 2.8 mg/dL (2.5-4.5) 05/03/24 09:30 Magnesium 1.9 mg/dL (1.9-2.7) 05/03/24 09:30 Troponin I High Sens 6.9 pg/mL (0.0-15.0) 05/03/24 09:30 B-Natriuretic Peptide 494.0 pg/mL (5-100) H 05/03/24 09:30 Assessment & Plan Assessment/Plan (1) Ventricular bigeminy: (2) CHF (congestive heart failure): (3) Syncope: (4) Seizure: (5) Hypothyroid: (6) Hypertension: (7) Hyperlipidemia: (8) Hypokalemia: Plan Observation admission 23-hour Cardiac telemetry CT head no acute intracranial process Remote infarct has not CTA chest There is no evidence of pulmonary embolism. There is cardiomegaly. Troponin x 3 Serial EKG Strict input output Daily weight Low-sodium diet Lasix 20 mg daily IV Echocardiogram Cardiology consult Replace potassium Replace magnesium For DVT prophylaxis Lovenox daily IP vs OBS Justification Based on differential dx, clinical care plan, and risk of adverse events, if untreated, in my clinical judgement this patient requires an acute care setting as: OBSERVATION because of an expectation of an under 2 midnight stay. Estimated length of stay (# of days): 1 Documented By: Soledad Guzman MD 05/03/24 1203 Signed By: <Electronically signed by Soledad Guzman MD> 05/03/24 7029 [facility] Work Phone: 1(998) 818-709407-10-2024 History and physical note Author Soledad Guzman [facility] May 03, 2024 12:27pm Note Date/Time May 03, 2024 12:0 7pm [facility] [address] [place] [address] Hospitalist H&P Signed Patient: Venita Richter MR#: [id number] : 1955 Acct:[id number] Age/Sex: 68 / F Adm Date: 4 Loc: ER Room: Type: [facility] ER Attending Dr: Copies to: NON STAFF MD Jensen Torres, DO~ HPI DATE OF EXAMINATION: 05/03/24 CHIEF COMPLAINT: Weakness HISTORY OF PRESENT ILLNESS: 68-year-old white female past medical history of obesity, hypertension, hyperlipidemia, history of seizure history of DVT and hypothyroidism who presented to emergency room with generalized weakness and presyncope. Patient had syncopal episode on Wednesday and had a workup in [facility] with EKG and blood work and she was discharged home. Since then she has been having generalized weakness and exertional dyspnea. She did have presyncopal episode today. no orthopnea or PND. No leg edema. No chest pain. no palpitation. Shedenies having nausea vomiting. No diarrhea. No constipation. No abdominal pain. she denies having cough. No runny nose or sore throat. No sinus pain. She denies having dysuria, hematuria, or frequency. Review of Systems Review of Systems All other systems reviewed & are negative unless noted below or in HPI [facility] Medical History (Updated 05/03/24 @ 12:05 by Soledad Guzman MD) Seizure Problem List clean-up per request of Phys. EHR Cmte History of DVT (deep vein thrombosis) Problem List clean-up per request of Phys. EHR Cmte Hypothyroid Problem List clean-up per request of Phys. EHR Cmte Hypertension Problem List clean-up per request of Phys. [facility] Social [facility] Smoking Status: Never smoker Substance Use Type: None Meds Medications and Allergies Allergies No Known Allergies Allergy (Verified 05/03/24 09:23) Home Medications aspirin 81 mg capsule 81 mg PO DAILY 06/03/22 [History Confirmed 05/03/24] atorvastatin 10 mg tablet 10 mg PO DAILY 06/03/22 [History Confirmed 05/03/24] bisoprolol 5 mg-hydrochlorothiazide 6.25 mg tablet 1 tab PO DAILY 06/03/22 [History Confirmed 05/03/24] cholecalciferol (vitamin D3) 125 mcg (5,000 unit) capsule 125 mcg PO DAILY 06/03/22 [History Confirmed 05/03/24] levothyroxine 100 mcg tablet 100 mcg PO DAILY 06/03/22 [History Confirmed 05/03/24] phenytoin sodium extended 100 mg capsule 100 mg PO TID 06/03/22 [History Confirmed 05/03/24] alendronate 35 mg tablet 35 mg PO .WEEKLY 05/03/24 [History Confirmed 05/03/24] Exam Physical Exam Vital Signs: Pulse Resp BP Pulse Ox O2 Del Method 59 L 20 138/85 96 Room Air 05/03/24 11:05 05/03/24 11:05 05/03/24 11:05 05/03/24 11:05 05/03/24 11:05 Narrative: General patient laying in bed in no acute distress alert awake oriented x3 HEENT PERRLA Neck supple no JVD no carotid bruit CVS S1-S2 regular rate and rhythm no murmur no gallop Chest clear to auscultation percussion Abdomen soft bowel sounds normoactive no rebound no guarding Extremities no stenosis no clubbing no edema Musculoskeletal exam normal no joint effusion Neurologic exam oriented x3 alert awake no focal left Psychiatry: Normal insight and judgment Skin: no rash or lesions Results - Hospitalist H&P Lab Results Labs: Laboratory Last Values Corrected WBC 9.2 X10E3/uL (3.8-11.6) 05/03/24 09:30 Uncorrected WBC Count 9.2 x10E3/uL (3.8-11.6) 05/03/24 09:30 RBC 4.79 X10E6/uL (3.60-5.00) 05/03/24 09:30 Hgb 14.7 g/dL (11.8-15.4) 05/03/24 09:30 Hct 43.6 % (34.0-46.4) 05/03/24 09:30 MCV 91.0 fl (80-100) 05/03/24 09:30 MCH 30.8 pg (24.7-34.3) 05/03/24 09:30 MCHC 33.8 g/dL (32.0-35.0) 05/03/24 09:30 RDW 13.3 % (11.9-15.3) 05/03/24 09:30 Plt Count 229 x10E3/uL (150-450) 05/03/24 09:30 MPV 8.6 fl (6.3-10.7) 05/03/24 09:30 Neut % (Auto) 70.7 % (.) 05/03/24 09:30 Lymph % (Auto) 20.8 % (.) 05/03/24 09:30 Coleman % (Auto) 6.8 % (.) 05/03/24 09:30 Eos % (Auto) 1.3 % (.) 05/03/24 09:30 Baso % (Auto) 0.4 % (.) 05/03/24 09:30 Nucleat RBC Rel Count 0.1 /100 WBC (0-0.5) 05/03/24 09:30 Neut # (Auto) 6.5 x10E3/uL (1.8-7.7) 05/03/24 09:30 Lymph # (Auto) 1.9 x10E3/uL (1.00-4.8) 05/03/24 09:30 Coleman # (Auto) 0.6 x10E3/uL (0.0-0.8) 05/03/24 09:30 Eos # (Auto) 0.1 x10E3/uL (0.0-0.45) 05/03/24 09:30 Baso # (Auto) 0.0 x10E3/uL (0.0-0.2) 05/03/24 09:30 Monocyte Dist Width 17.84 % (0.00-20.00) 05/03/24 09:30 PT 12.4 Seconds (9.0-12.9) 05/03/24 09:30 INR 1.1 05/03/24 09:30 APTT 25.5 Seconds (25.1-36.5) 05/03/24 09:30 PHA Creatinine Clear 62.85 05/03/24 09:30 Sodium 131 mmol/L (136-145) L 05/03/24 09:30 Potassium 3.6 mmol/L (3.5-5.1) 05/03/24 09:30 Chloride 95 mmol/L (98-107) L 05/03/24 09:30 Carbon Dioxide 28.3 mmol/L (21.0-31.0) 05/03/24 09:30 Anion Gap 11.3 mEq/L (6.0-15.0) 05/03/24 09:30 BUN 16 mg/dL (7-25) 05/03/24 09:30 Creatinine 0.96 mg/dL (0.60-1.20) 05/03/24 09:30 Est GFR (CKD-EPI) > 60.0 mL/Min 05/03/24 09:30 Glucose 129 mg/dL (70-100) H 05/03/24 09:30 Calcium 9.0 mg/dL (8.6-10.3) 05/03/24 09:30 Phosphorus 2.8 mg/dL (2.5-4.5) 05/03/24 09:30 Magnesium 1.9 mg/dL (1.9-2.7) 05/03/24 09:30 Troponin I High Sens 6.9 pg/mL (0.0-15.0) 05/03/24 09:30 B-Natriuretic Peptide 494.0 pg/mL (5-100) H 05/03/24 09:30 Assessment & Plan Assessment/Plan (1) Ventricular bigeminy: (2) CHF (congestive heart failure): (3) Syncope: (4) Seizure: (5) Hypothyroid: (6) Hypertension: (7) Hyperlipidemia: (8) Hypokalemia: Plan Observation admission 23-hour Cardiac telemetry CT head no acute intracranial process Remote infarct has not CTA chest There is no evidence of pulmonary embolism. There is cardiomegaly. Troponin x 3 Serial EKG Strict input output Daily weight Low-sodium diet Lasix 20 mg daily IV Echocardiogram Cardiology consult Replace potassium Replace magnesium For DVT prophylaxis Lovenox daily IP vs OBS Justification Based on differential dx, clinical care plan, and risk of adverse events, if untreated, in my clinical judgement this patient requires an acute care setting as: OBSERVATION because of an expectation of an under 2 midnight stay. Estimated length of stay (# of days): 1 Documented By: Soledad Guzman MD 05/03/24 1203 Signed By: <Electronically signed by Soledad Guzman MD> 05/03/24 1227 [facility] Work Phone: [phone] Evaluation + Plan note Future Appointments Appointment Date:05/16/2024 11:00:00 AM Scheduled Provider: Location[facility] Appointment Type:CV Echo (FT) Appointment Date:05/16/2024 12:15:00 PM Scheduled Provider: [facility] Appointment Type:NM Myocard Spect Multi Rest/Stress-Res Appointment Date:05/16/2024 01:15:00 PM Scheduled Provider: [facility] Appointment Type:NM Myocard Spect Multi Rest/Stress - R Appointment Date:05/16/2024 01:45:00 PM Scheduled Provider: [facility] Appointment Type:NM Myocard Spect Multi Rest/Stress-Str Appointment Date:05/16/2024 02:45:00 PM Scheduled Provider: [facility] Appointment Type:NM Myocar Spect Multi Rest/Stress - St Appointment Date:05/18/2024 11:00:00 AM Scheduled Provider: Location[facility] Appointment Type:CV Holter/Event (FT) Appointment Date:03/27/2025 11:00:00 AM Scheduled Provider: Location:[facility] Appointment Type:FM Medicare Wellness Subsequent Future Scheduled Tests Laboratory* TSH With T4fr Reflex 04/24/24 * HCV Antibody RFX to Quant PCR 03/28/24 * CBC w/ Auto Diff 04/24/24 * Comprehensive Metabolic Panel 04/24/24 * Lipid Panel 04/24/24 * Phenytoin Level Total 03/30/24 Radiology* NM Myocardial Spect Rest/Stress 1 Day 05/16/24 * Echo Transthoracic Complete 05/16/24 [facility]07-23-2020 Evaluation + Plan note Future Appointments Appointment Date:05/16/2024 11:00:00 AM Scheduled Provider: Location[facility] Appointment Type:CV Echo (FT) Appointment Date:05/16/2024 12:15:00 PM Scheduled Provider: [facility] Appointment Type:NM Myocard Spect Multi Rest/Stress-Res Appointment Date:05/16/2024 01:15:00 PM Scheduled Provider: Location[facility] Appointment Type:NM Myocard Spect Multi Rest/Stress - R Appointment Date:05/16/2024 01:45:00 PM Scheduled Provider: Location[facility] Appointment Type:NM Myocard Spect Multi Rest/Stress-Str Appointment Date:05/16/2024 02:45:00 PM Scheduled Provider: Location[facility] Appointment Type:NM Myocar Spect Multi Rest/Stress - St Appointment Date:05/18/2024 11:00:00 AM Scheduled Provider: [facility] Appoint[facility] Type:CV Holter/Event (FT) Appointment Date:03/27/2025 11:00:00 AM Scheduled Provider: Location:[facility] Appointment Type: Medicare Wellness Subsequent Diagnostic Tests Pending * Phenytoin Level Total 05/09/24 Future Scheduled Tests Radiology* NM Myocardial Spect Rest/Stress 1 Day 05/16/24 * Echo Transthoracic Complete 05/16/24 [facility]07-23-2020 Evaluation + Plan note Future Appointments Appointment Date:05/16/2024 11:00:00 AM Scheduled Provider: [facility] Appoint[facility] Type:CV Echo (FT) Appointment Date:05/16/2024 12:15:00 PM Scheduled Provider: Location[facility] Appointment Type:NM Myocard Spect Multi Rest/Stress-Res Appointment Date:05/16/2024 01:15:00 PM Scheduled Provider: [facility] Appointment Type:NM Myocard Spect Multi Rest/Stress - R Appointment Date:05/16/2024 01:45:00 PM Scheduled Provider: [facility] Appointment Type:NM Myocard Spect Multi Rest/Stress-Str Appointment Date:05/16/2024 02:45:00 PM Scheduled Provider: [facility] Appointment Type:NM Myocar Spect Multi Rest/Stress - St Appointment Date:05/18/2024 11:00:00 AM Scheduled Provider: [facility] Appointment Type:CV Holter/Event () Appointment Date:03/27/2025 11:00:00 AM Scheduled Provider: Location:[facility] Appointment Type: Medicare Wellness Subsequent Diagnostic Tests Pending * Comprehensive Metabolic Panel 05/09/24 * Lipid Panel 05/09/24 * Thyroid Stimulating Hormone 05/09/24 * eGFR 05/09/24 Future Scheduled Tests Radiology* NM Myocardial Spect Rest/Stress 1 Day 05/16/24 * Echo Transthoracic [facility] No data available for this section [facility] Future Appointments Appointment Date:03/27/2025 11:00:00 AM Scheduled Provider: Location:[facility] Appointment Type: Medicare Wellness Subsequent [facility] information [facility] Work Phone: evaluation note* Diagnosis Onset Date Resolution Status CHF (congestive heart failure) acute Dyspnea acute Hyperlipidemia acute Hypertension acute Hypokalemia acute Hypothyroid acute Seizure acute Syncope acute Ventricular bigeminy acute [facility] Work Phone: evaluation note* Diagnosis Onset Date Resolution Status Chronic ischemic multifocal anterior circulation strok e acute Dyspnea acute Hyperlipidemia acute Hypertension acute Hypokalemia acute Hypothyroid acute Seizure acute Syncope acute Ventricular bigeminy acute [facility] Work Phone: evaluation note* Diagnosis Onset Date Resolution Status Hypokalemia resolved Syncope resolved Ventricular bigeminy resolve d [facility] Work Phone: evaluation note* Diagnosis Onset Date Resolution Status Hypokalemia resolved Syncope resolved Ventricular bigeminy resolve d Heterozygous factor V Leiden mutation acute 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 acute History of stroke acute [facility] Work Phone: evaluation note* Diagnosis Onset Date Resolution Status Hypokalemia resolved Syncope resolved Ventricular bigeminy resolve d Heterozygous factor V Leiden mutation acute 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 acute History of stroke acute Heterozygous factor V Leiden mutation acute 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 acute History of stroke acute [facility] Work Phone: Evaluation note* Diagnosis Localization-related epilepsy, intractable (CMS/HCC)- Primary Factor V Leiden (CMS/HCC) Primary hypercoagulable state History of ischemic stroke Syncope, unspecified syncope type documented in this encounter [facility] HealthcareEvaluation note* Diagnosis Localization-related epilepsy, intractable (CMS/HCC)- Primary Factor V Leiden (CMS/HCC) Primary hypercoagulable state History of ischemic stroke Syncope, unspecified syncope type documented in this encounter [facility] HealthcareHospital Discharge instructions Additional Instructions Follow-up with your primary care doctor Return to the ED if you develop worsening symptoms or [facility] Work Phone: Hospital Discharge instructions No data available for this section [facility] No data available for this section [facility] note Author Kenneth Cee [facility] May 05, 2024 3:34pm Note Date/Time May 05, 2024 3:34 pm [facility] [address] [place] [address] Neurology Progress Note Signed Patient: Venita Richter MR#: [id number] : 1955 Acct:[id number] Age/Sex: 68 / F Adm Date: 4 Loc: Room: [address] [place] [address] Type: ADM INOo Attending Dr: Soledad Guzman MD Copies to: ~ Date of Service: 05/05/2024 Exam Physical Exam Vital Signs: Temp Pulse Resp BP Pulse Ox O2 Del Method 97.7 F 61 16 112/70 99 Room Air 05/05/24 07:38 05/05/24 11:33 05/05/24 11:33 05/05/24 11:33 05/05/24 11:33 05/05/24 11:33 Objective Vital Signs Vital Signs: Vital Signs - 24 hr 05/04/24 15:39 05/04/24 20:48 05/04/24 20:48 Temperature 97.5 F L 97.5 F L Pulse Rate 63 67 Pulse Rate [Monitor Standing] Pulse Rate [Monitor Supine] Respiratory Rate 16 16 Blood Pressure 141/93 H 137/95 Blood Pressure [Right Arm Sitting] Blood Pressure [Right Arm Standing] Blood Pressure [Right Arm Supine] 02 Sat by Pulse Oximetry 99 99 Oxygen Delivery Method Room Air Room Air Room Air 05/04/24 23:45 05/05/24 04:46 05/05/24 07:35 Temperature 97.6 F 97.7 F Pulse Rate 70 63 Pulse Rate [Monitor Standing] Pulse Rate [Monitor Supine] Respiratory Rate 16 14 Blood Pressure 132/85 116/81 Blood Pressure [Right Arm Sitting] Blood Pressure [Right Arm Standing] Blood Pressure [Right Arm Supine] 02 Sat by Pulse Oximetry 98 99 Oxygen Delivery Method Room Air Room Air Room Air 05/05/24 07:38 05/05/24 08:50 05/05/24 10:37 Temperature 97.7 F Pulse Rate 67 Pulse Rate [Monitor Standing] 66 Pulse Rate [Monitor Supine] 70 Respiratory Rate 16 Blood Pressure 138/82 Blood Pressure [Right Arm Sitting] 126/73 125/77 Blood Pressure [Right Arm Standing] 98/70 L 112/79 Blood Pressure [Right Arm Supine] 142/82 H 124/75 02 Sat by Pulse Oximetry 100 Oxygen Delivery Method Room Air 05/05/24 11:33 Temperature Pulse Rate 61 Pulse Rate [Monitor Standing] Pulse Rate [Monitor Supine] Respiratory Rate 16 Blood Pressure 112/70 Blood Pressure [Right Arm Sitting] Blood Pressure [Right Arm Standing] Blood Pressure [Right Arm Supine] 02 Sat by Pulse Oximetry 99 Oxygen Delivery Method Room Air Labs 05/03/24 09:30 05/04/24 06:34 Assessment/Plan (1) Chronic ischemic multifocal anterior circulation stroke: Plan CONSULT REASON: Syncope SUBJECTIVE: No overnight events. No episodes of syncope or presyncope. She is generally feeling pretty well. Wants to get out of here soon as possible. EXAMINATION: In no distress. No deformities or trauma. Limbs seem well-perfused. No significant edema. Normal work of breathing. Visualized skin is generally intact and without lesions. Affect normal. Patient is alert and generally oriented. Attention normal. Speech is fluent and nondysarthric. Pupils are equal and reactive. Ocular motility is full. No nystagmus. Facial sensation is normal. Hearing is normal. Facial strength is normal. Tongue is midline. Muscle bulk, tone, and strength are normal. No tremors. Reflexes normal throughout. Light touch is normal. Vibratory sensation is normal. No limb dysmetria or ataxia. DATA REVIEW: -Transthoracic echocardiogram with ejection fraction 60% and looks fairly unremarkable -CT head shows hypodensity in the left caudate, a large area of hypodensity in the left parietal lobe cortex and subcortex, and a small focus of hypodensity inthe left cerebellar hemisphere. -MRI brain without contrast personally reviewed and is without acute findings but does show a modest sized chronic ischemic stroke in the left parietal area and a small left cerebellar chronic ischemic stroke. -Factor V Leiden testing pending -Orthostatic vital signs 124/75 supine and 112/79 upright ASSESSMENT: 68-year-old woman with lifelong seizure disorder. Last witnessed seizure was something like 20 years ago. Treated chronically with phenytoin and she does not want to change that. She had an episode of altered mental status with disorientation that was unwitnessed. She and her presume she had a seizure. Generalized tonic-clonic seizure seems unlikely given the lack of any bodily injury. Will remain open to consideration of atypical seizure activity that was unwitnessed. CT and MR imaging revealed some (silent) infarctions that are probably in a distal-embolic pattern. And come to find out long ago it seems she says she wasdiagnosed with factor V Leiden and even has history of DVT in the left upper extremity but has not been on anticoagulation. She says people are worried about her it regular heartbeat but based on chart review I think this is a bigeminy pattern and not atrial fibrillation. PLAN: 1. Continue the phenytoin at 200 mg in the morning and 100 mg at night 2. Cardiac event monitor, 30-day, after discharge 3. Pending factor V Leiden lab 4. Outpatient hematology consultation regarding whether or not she needs lifelong anticoagulation for factor V Leiden (presumed, but our testing will be back by the time she is seen in clinic) with history of left upper extremity DVTand chronic but embolic appearing ischemic strokes. 5. Okay for discharge from my standpoint Documented By: Kenneth Cee DO 05/05/24 7663 Signed By: <Electronically signed by Kenneth Cee DO> 05/05/24 3347 [facility] Work Phone: Summary Purpose Family History No Family History Records Found Relationship Condition Age at Onset Recorded Date/T mani mother Heart disease Unknown father Heart disease Unknown Advance Directives No Advanced Directives Records Found Advance Directive Response Recorded Date/ Time Advance Directives No January 30 3:04pm Advance Directive Response Recorded Date/ Time Advance Directives No January 30 2:04pm Chief Complaint and Reason for Visit Chief Complaint i10 e78.00 e03.9 e55 .9 g40.909 Chief Complaint Blood in stool Chief Complaint feeling ill Reason for Visit CHF (congestive hear t failure) Dyspnea Hyperlipidemia Hypertension Hypokalemia Hypothyroid Seizure Syncope Ventricular bigeminy Chief Complaint feeling ill R55 I49.8 Reason for Visit Chronic ischemic mul tifocal anterior circulation stroke Dyspnea Hyperlipidemia Hypertension Hypokalemia Hypothyroid Seizure Syncope Ventricular bigeminy Chief Complaint feeling ill R55 I49.8 d68.51 z86.73 r55 NEW Factor V Leiden Mutation Factor V Reason for Visit Hypokalemia Syncope Ventricular bigeminy Chief Complaint feeling ill R55 I49.8 d68.51 z86.73 r55 NEW Factor V Leiden Mutation Factor V Reason for Visit Hypokalemia Syncope Ventricular bigeminy Heterozygous factor V Leiden mutation History of deep venous thrombosis (DVT) of distal vein of left lower extremity History of stroke Chief Complaint feeling ill R55 I49.8 NEW Factor V Leiden Mutation Factor V R55 I49.8 d68.51 z86.73 r55 Reason for Visit Hypokalemia Syncope Ventricular bigeminy Heterozygous factor V Leiden mutation History of deep venous thrombosis (DVT) of distal vein of left lower extremity History of stroke Chief Complaint feeling ill R55 I49.8 NEW Factor V Leiden Mutation R55 I49.8 d68.51 z86.73 r55 Factor V 3 wk follow up Reason for Visit Hypokalemia Syncope Ventricular bigeminy Heterozygous factor V Leiden mutation History of deep venous thrombosis (DVT) of distal vein of left lower extremity History of stroke Heterozygous factor V Leiden mutation History of deep venous thrombosis (DVT) of distal vein of left lower extremity History of stroke Chief Complaint Admit Date R55 I49.8 June 11, 2024 3: 41pm d68.51 z86.73 r55 June 16, 2024 9: 23am Factor V June 22, 2024 7: 42am 3 wk follow up June 22, 2024 1: 05pm d68.51 z86.73 r55 August 31, 2024 1 0:57am Reason for Visit Admit Date Antiphospholipid syndrome June 22, 2 024 1:05pm Heterozygous factor V Leiden mutation Au willy 2023 1:05pm 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 June 22, 2024 1:05pm History of stroke June 22, 2024 1: 05pm Additional Source Comments INFORMATION SOURCE (unrecogn ized section and content) DATE CREATED AUTHOR 05/07/2018 [facility] DATE CREATED AUTHOR AUTHOR'S ORGANIZ ATION 03/08/2023 [facility] DATE CREATED AUTHOR AUTHOR'S ORGANIZ ATION 05/13/2024 [facility] DATE CREATED AUTHOR AUTHOR'S ORGANIZ ATION 05/14/2024 [facility] DATE CREATED AUTHOR AUTHOR'S ORGANIZ ATION 06/09/2024 [facility] DATE CREATED AUTHOR AUTHOR'S ORGANIZ ATION 08/19/2024 [facility] DATE CREATED AUTHOR AUTHOR'S ORGANIZ ATION 10/12/2024 [facility] DATE CREATED AUTHOR AUTHOR'S ORGANIZ ATION 11/02/2024 [facility] EPIC Care Teams (unrecognized sec tion and content) Team Status: Active Member Role Status Dates Lourdes Carter NP-C Primary Care Provider Active Team Status: Active Member Role Status Dates NON STAFF Primary Care Provider Active Start: June 11, 2024 Soledad Guzman MD Other Provider Active Start: Pancho padilla 2023 Astrid Mo MD Attending Provider Active Sta rt: June 11, 2024 Team Status: Inactive Member Role Status Dates NON STAFF Primary Care Provider Active Start: June 16, 2024 End: June 16, 2024 Fatou Prcotor DO Attending Provider Active Start: June 16, 2024 End: June 16, 2024 Team Status: Active Member Role Status Dates NON STAFF Primary Care Provider Active Start: June 22, 2024 Don Chiu MD Attending Provider Active Start: June 22, 2024 Team Status: Inactive Member Role Status Dates NON STAFF Primary Care Provider Active Start: June 22, 2024 End: June 22, 2024 Don Chiu MD Attending Provider Active Start: June 22, 2024 End: June 22, 2024 Team Status: Inactive Member Role Status Dates Fatou Proctor DO Attending Provider Active Start: August 31, 2024 End: August 31, 2024 Lourdes Carter MANAGER [employer]-C Primary Care Provider Active Start: August 31, 2024 End: August 31, 2024 Team Status: Active Member Role Status Dates NON STAFF Primary Care Provider Active Team Status: Active Member Role Status Dates NON STAFF Primary Care Provider Active Start: April 30, 2024 Kaleb Garces DO Attending Provider Active Sta rt: April 30, 2024 Team Status: Inactive Member Role Status Dates NON STAFF Primary Care Provider Active Start: May 03, 2024 End: May 05, 2024 Jensen Elliott DO Emergency Provider Active Start: May 03, 2024 End: May 05, 2024 Soledad Guzman MD Admit Provider, Atte nding Provider Active Start: May 03, 2024 End: May 05, 2024 Kenneth Cee DO Other Provider Active Start: May 03, 2024 End: May 05, 2024 Team Status: Inactive Member Role Status Dates NON STAFF Primary Care Provider Active Start: May 05, 2024 End: May 05, 2024 Soledad Guzman MD Attending Provider Active Star t: May 05, 2024 End: May 05, 2024 Team Status: Inactive Member Role Status Dates NON STAFF Primary Care Provider Active Start: June 01, 2024 End: June 01, 2024 Don Chiu MD Attending Provider Active Start: June 01, 2024 End: June 01, 2024 Soledad Guzman MD Referring Provider Active Star t: June 01, 2024 End: June 01, 2024 Team Status: Active Member Role Status Dates NON STAFF Primary Care Provider Active Start: May 05, 2024 Soledad Guzman MD Attending Provider Active Star t: May 05, 2024 Team Status: Inactive Member Role Status Dates Liyah Weeks MD Primary Care Provider, Attending Pro vider Active Team Status: Active Member Role Status Dates Liyah Weeks MD Primary Care Provider Active Team Status: Inactive Member Role Status Dates Liyah Weeks MD Primary Care Provider Active Epi Robles DO Emergency Provider Active Team Status: Active Member Role Status Dates NON STAFF Primary Care Provider Active Start: May 03, 2024 Jensen Elliott DO Emergency Provider Active Start: May 03, 2024 Soledad Guzman MD Admit Provider, Atte nding Provider Active Start: May 03, 2024 Georgina Cabral RN Other Provider Active Star t: May 03, 2024 Kit Taylor MD Other Provider Active Start: Ronnie 2023 Gary Ewing MD Other Provider Active Start: May 03 Astrid Mo MD Other Provider Active Start: May 03, 2024 Team Status: Active Member Role Status Dates NON STAFF Primary Care Provider Active Start: June 01, 2024 Fatou Proctor DO Attending Provider Active Start: June 01, 2024 Team Status: Active Member Role Status Dates NON STAFF Primary Care Provider Active Start: June 01, 2024 Don Chiu MD Attending Provider Active Start: June 01, 2024 Team Status: Inactive Member Role Status Dates NON STAFF Primary Care Provider Active Start: June 01, 2024 End: June 01, 2024 Fatou Proctor DO Attending Provider Active Start: June 01, 2024 End: June 01, 2024 Legal Executive Relationship Specialty Start Date End Date Lourdes Carter MD [address] [place], [place] [id number] Referring Physician Family Medicine 05/23/24 Legal Executive Relationship Specialty Start Date End Date Lourdes Carter MD [address] [place], [place] [phone] Referring Physician Family Medicine 05/23/24 Legal Executive Relationship Specialty Start Date End Date Lourdes Carter MD [address] [place], [place] [phone] Referring Physician Family Medicine 05/23/24 Fatou Proctor DO [address] [place] [address] Referring Physician Neurology 10/26/24 Legal Executive Relationship Specialty Start Date End Date Lourdes Carter MD [address] [place] [address] Referring Physician Family Medicine 05/23/24 Fatou Proctor DO [address] [id number] Referring Physician Neurology 10/26/24 Goals (unrecognized section and content) Goals may [...] this section No data available for this sectionGoals may be documented in an alternate section Reason for Visit (unrecogniz ed section and content) Reason Comments Seizures Reason Comments Seizures Stroke FOR RECORDS PERTAINING TO PATIENTS WHO ARE [...] BE BASED ON THE PRIMARY CLINICAL RECORDS. [employer] provides no warranty or guarantee of the accuracy or completeness of information in this document.
[2024-11-27 14:07] LABS: Age Gdln ACOG Testing Note (.); Pap IG (Image Guided) Note (.)
== END 2024-11-21 20:23 | disposition home or self-care (01) ==
LOC: LAB 20:22
PROVIDERS: PCP Nurse Practitioner; Visit Provider Physician Assistant
DX: Z01.419 Encounter for gynecological examination (general) (routine) without abnormal findings (principal)
CPT/HCPCS: 88175

== ENCOUNTER 2024-11-27 02:29 | Outpatient (RCR) | payer MEDICARE, SELFPAY | END 2024-12-22 10:34 | disposition home or self-care (01) | LOC: MM 02:29 | PROVIDERS: PCP Nurse Practitioner; Visit Provider Internal Medicine | DX: Z51.81 Encounter for therapeutic drug level monitoring (principal); Z79.01 Long term (current) use of anticoagulants; D68.61 Antiphospholipid syndrome | CPT/HCPCS: 85610; G0463 ==

== ENCOUNTER 2024-12-24 07:29 | Outpatient (RCR) | payer MEDICARE, SELFPAY | END 2025-01-19 13:39 | disposition home or self-care (01) | LOC: MM 07:29 | PROVIDERS: PCP Nurse Practitioner; Visit Provider Internal Medicine | DX: Z51.81 Encounter for therapeutic drug level monitoring (principal); Z79.01 Long term (current) use of anticoagulants; D68.61 Antiphospholipid syndrome | CPT/HCPCS: 85610; G0463 ==

== ENCOUNTER 2025-01-23 04:13 | Outpatient (RCR) | payer MEDICARE, SELFPAY | END 2025-02-21 14:49 | disposition home or self-care (01) | LOC: MM 04:13 | PROVIDERS: PCP Nurse Practitioner; Visit Provider Internal Medicine | DX: Z51.81 Encounter for therapeutic drug level monitoring (principal); Z79.01 Long term (current) use of anticoagulants; D68.61 Antiphospholipid syndrome | CPT/HCPCS: 85610; G0463 ==

== ENCOUNTER 2025-02-22 04:37 | Outpatient (RCR) | payer MEDICARE, SELFPAY | END 2025-03-23 15:07 | disposition home or self-care (01) | LOC: MM 04:37 | PROVIDERS: PCP Nurse Practitioner; Visit Provider Internal Medicine | DX: Z51.81 Encounter for therapeutic drug level monitoring (principal); Z79.01 Long term (current) use of anticoagulants; D68.61 Antiphospholipid syndrome | CPT/HCPCS: 85610; G0463 ==

== ENCOUNTER 2025-03-25 07:57 | Outpatient (RCR) | payer MEDICARE, SELFPAY | END 2025-04-19 14:49 | disposition home or self-care (01) | LOC: MM 07:57 | PROVIDERS: PCP Nurse Practitioner; Visit Provider Internal Medicine | DX: Z51.81 Encounter for therapeutic drug level monitoring (principal); Z79.01 Long term (current) use of anticoagulants; D68.61 Antiphospholipid syndrome | CPT/HCPCS: 85610; G0463 ==

== ENCOUNTER 2025-04-24 02:40 | Outpatient (RCR) | payer MEDICARE, SELFPAY | END 2025-05-24 16:53 | disposition home or self-care (01) | LOC: MM 02:40 | PROVIDERS: PCP Nurse Practitioner; Visit Provider Internal Medicine | DX: Z51.81 Encounter for therapeutic drug level monitoring (principal); Z79.01 Long term (current) use of anticoagulants | CPT/HCPCS: 85610; G0463 ==

== ENCOUNTER 2025-05-21 12:58 | Outpatient (OUT) | payer MEDICARE, SELFPAY ==
--- OUTSIDE RECORDS SUMMARY | 2025-05-21 13:00 | XMS_ITS | Encounter Summary ---
Author Organization [facility] Address [address] [facility] [place] [address] Care Team Providers Care Desk Assistant Name Role Phone Lourdes Carter SALMON TROLL FISHER Unavailable Adarsh Proctor DO Unavailable [phone] Encounter Details Date Type Department Care Team ([facility] Contact Info) Description 07/25/2024 Abstract [facility] [address] [place] [phone] Sonido Hurst MD Social History Tobacco Use Types Packs/Day Years Used Date Smoking Tobacco: Former Cigarettes Smokeless Tobacco: Never Alcohol Use Standard Drinks/Week Comments Yes 0 (1 standard drink = 0.6 oz pur e alcohol) Comments Unknown Sex and Gender Information Value Date Recorded Sex Assigned at Not on file Legal Sex Female 6:35 PM EDT Gender Identity Not on file Sexual Orientation Not on file documented as of this encounter Plan of Treatment Upcoming Encounters Date Type Department Care Team ([facility] Contact Info) Description 07/10/2025 1:00 PM EDT Office Visit [facility] [address] [place] [phone] Jeff Ahn DO [address] [place] [address] documented as of this encounter Visit Diagnoses Not on filedocumented in this encounter Care Teams Desk Assistant Relationship Specialty Start Date End Date Lourdes Carter NP [address] [place], [place] [phone] Referring Physician Family Medicine 05/23/24 Adarsh Proctor DO [address] [address] Referring Physician Neurology 10/26/24 documented as of this encounter
--- OUTSIDE RECORDS SUMMARY | 2025-05-21 13:00 | XMS_ITS | Encounter Summary ---
Author Organization [facility] Address [address] [place] [address] Phone Care Team Providers Care Manager Endoscopy Name Role Phone Lourdes Carter Primary Care Provider [phone] Encounter Details Date Type Department Care Team (Late st Contact Info) Description 08/31/2024 Scanned Document [facility] [address] [place] [phone] Scanning, Generic Provider Social History Tobacco Use Types Packs/Day Years Used Date Smoking Tobacco: Never Assessed Comments Unknown Sex and Gender Information Value Date Recorded Sex Assigned at Not on file Legal Sex Female 2:02 PM EDT Gender Identity Not on file Sexual Orientation Not on file documented as of this encounter Plan of Treatment Upcoming Encounters Date Type Department Care Team (Late st Contact Info) Description 08/07/2025 11:10 AM EDT Office Visit [place] [address] [facility] [address] [place] [address] Jose Powers MD [address] [facility] [address], [address] [place] [address] Scheduled Orders Name Type Priority Associated Diagnoses Orde r Schedule Ultrasound- OnBase Scan Imaging O rdered: 08/31/2024 documented as of this encounter Visit Diagnoses Not on filedocumented in this encounter Care Teams Manager Endoscopy Relationship Specialty Start Date End Date Lourdes Carter APRN-CNP [address] [place] [address] PCP - General 12/18/24 documented as of this encounter
--- OUTSIDE RECORDS SUMMARY | 2025-05-21 13:00 | XMS_ITS | Clinical Summary ---
Author Organization [facility] Address [address] [facility] [place] [address] Care Team Providers Care Product Inspection Coordinator Name Role Phone Tisha Weeks MD Primary Care Provider Unavailab le Allergies No known active allergies Medications atorvastatin (LIPITOR) 10 MG tablet Take 10 mg by mouth nightly Active levothyroxine (SYNTHROID) 100 MCG tablet Take 100 mcg by mouth Daily Active phenytoin (DILANTIN) 100 MG ER capsule Take by mouth 3 times daily Active ibuprofen (ADVIL;MOTRIN) 200 MG tablet Take 400 mg by mouth every 6 hours as needed for Pain Active aspirin 81 MG tablet Take 81 mg by mouth daily Active Active Problems No known active problems Family History Relation Name Status Comments Brother Alive Daughter 1 Alive Daughter 2 Alive Father Maternal Grandfather Maternal Grandmother Mother Paternal Grandfather Paternal Grandmother Sister Alive Son Alive Social History Tobacco Use Types Packs/Day Years Used Date Smoking Tobacco: Former Smokeless Tobacco: Never Alcohol Use Standard Drinks/Week Comments No 0 (1 standard drink = 0.6 oz pur e alcohol) Comments No Sex and Gender Information Value Date Recorded Sex Assigned at Not on file Legal Sex Female 11:41 AM EST Gender Identity Not on file Sexual Orientation Not on file Last Filed Vital Signs Vital Sign Reading Time Taken Comments Blood Pressure 148/99 04/12/2019 1:13 PM EDT Pulse 76 04/12/2019 1:00 PM EDT Temperature 36.7 C (98 F) 04/12/2019 1:00 PM EDT Respiratory Rate 18 04/12/2019 1:00 PM EDT Oxygen Saturation 99% 05/07/2018 9:23 AM EDT Inhaled Oxygen Concentration - - Weight 91.6 kg (202 lb) 04/12/2019 1:00 PM EDT Height 174 cm (5' 8.5 ) 04/12/2019 1:00 PM EDT Body Mass Index 30.27 04/12/2019 1:00 PM EDT Plan of Treatment Not on file Insurance [employer] Care Teams Product Inspection Coordinator Relationship Specialty Start Date End Date Tisha Weeks MD [address] [place] [address] PCP - General 05/07/18
--- OUTSIDE RECORDS SUMMARY | 2025-05-21 13:00 | XMS_ITS | Encounter Summary ---
Author Organization [facility] Address [address] [place] [address] Phone Care Team Providers Care Stem Crusher Name Role Phone Lourdes Carter Primary Care Provider [phone] Encounter Details Date Type Department Care Team (Late st Contact Info) Description 05/05/2024 Scanned Document [facility] [address] [place] [phone] Scanning, Generic Provider Social History Tobacco Use [...] Description 08/07/2025 11:10 AM EDT Office Visit [facility] [address] [facility] [address] [place] [address] Jose Powers MD [address] [facility] [address], [address] [place] [address] documented as of this encounter Visit Diagnoses Not on filedocumented in this encounter Care Teams Stem Crusher Relationship Specialty Start Date End Date Lourdes Carter APRN-CNP [address] [place] [address] PCP - General 12/18/24 documented as of this encounter
--- OUTSIDE RECORDS SUMMARY | 2025-05-21 13:00 | XMS_ITS | Encounter Summary ---
Author Organization [facility] Address [address] [facility] [address] Care Team Providers Care Director Business Development Name Role Phone Lourdes Carter NP Unavailable Adarsh Proctor DO Unavailable [phone] Encounter Details Date Type Department Care Team ([facility] Contact Info) Description 05/17/2025 Abstract [facility] [address] [place] [phone] Sonido Hurst MD Social History Tobacco Use Types Packs/Day Years Used Date Smoking Tobacco: Former Cigarettes Q uit: 2015 Smokeless Tobacco: Never Alcohol Use Standard Drinks/Week [...] Upcoming Encounters Date Type Department Care Team ([facility] Contact Info) Description 07/10/2025 1:00 PM EDT Office Visit [facility] [address] [place] [address] Jeff Ahn DO [address] [place] [address] documented as of this encounter Visit Diagnoses Not on filedocumented in this encounter Care Teams Director Business Development Relationship Specialty Start Date End Date Lourdes Carter NP [address] [place] [address] Referring Physician Family Medicine 05/23/24 Adarsh Proctor DO [address] [address] Referring Physician Neurology 10/26/24 documented as of this encounter
--- OUTSIDE RECORDS SUMMARY | 2025-05-21 13:00 | XMS_ITS | Encounter Summary ---
Author Organization [facility] Address [address] [place] [address] Phone Care Team Providers Care Risk Investigator Name Role Phone Lourdes Carter Primary Care Provider [phone] Encounter Details Date Type Department Care Team (Late st Contact Info) Description 10/02/2024 Scanned Document [facility] [address] [place] [phone] Scanning, Generic Provider Social History Tobacco Use [...] Description 08/07/2025 11:10 AM EDT Office Visit [facility] [address] [facility] [address] [place] [address] Jose Powers MD 7[address] [facility] [address], [address] [place] [address] documented as of this encounter Visit Diagnoses Not on filedocumented in this encounter Care Teams Risk Investigator Relationship Specialty Start Date End Date Lourdes Carter APRN-CNP [address] [place] [address] PCP - General 12/18/24 documented as of this encounter
--- OUTSIDE RECORDS SUMMARY | 2025-05-21 13:00 | XMS_ITS | Clinical Summary ---
Author Organization [facility] Address [address] [place] [address] Care Team Providers Care Manager Willow Name Role Phone Lourdes Romero HEAT TRANSFER TECHNICIAN Unavailable Adarsh Proctor DO Unavailable Allergies No known active allergies Medications aspirin 81 MG EC tablet 1 tablet Orally Once a day Active atorvastatin (Lipitor) 10 MG tablet 4 Active bisoprolol-hydr oCHLOROthiazide (Ziac) 5-6.25 MG tablet 1 tablet Orally Once a day Active levothyroxine (Synthroid, Levoxyl) 100 MCG tablet 100 mcg = 1 tab(s), Oral, Daily, X 90 day(s), # 90 tab(s), Refills(s) 3, Pharmacy: [facility]/pharmacy #[id number], 169, cm, 03/30/24 11:31:00 EDT, Height/Length Dosing, 86.6, kg, 03/30/24 11:31:00 EDT, Weight Dosing 4 Active phenytoin ER (Dilantin) 100 MG capsule 100 mg = 1 cap(s), Oral, TID, X 90 day(s), # 270 cap(s), Refills(s) 3, Pharmacy: [facility]/pharmacy #[id number], 169, cm, 03/30/24 11:31:00 EDT, Height/Length Dosing, 86.6, kg, 03/30/24 11:31:00 EDT, Weight Dosing 4 Active alendronate (Fosamax) 35 MG tablet Take 35 mg by mouth 1 (one) time per week 3 Active magnesium oxide (Mag-Ox) 400 (240 Mg) MG tablet Take 400 mg by mouth Daily 4 Active potassium chloride CR (Klor-Con) 10 MEQ ER tablet Take 10 mEq by mouth Daily 4 Active warfarin (Coumadin) 3 MG tablet Taking 4 days per week. 3.75mg 3 days per week Active losartan (Cozaar) 25 MG tablet Take 25 mg by mouth Daily Active Prednisolon-Mox iflox-Bromfenac 1-0.5-0.075 % solutionIndicat ions:Age-relate d nuclear cataract of both eyes Administer 1 drop into affected eye(s) in the morning and 1 drop at noon and 1 drop in the evening and 1 drop before bedtime. 10 mL 1 5 Active Active Problems Problem Noted Date Diagnosed Date Age-related nuclear cataract of both eyes 2024 Encounters Date Type Department Care Team Description 05/17/2025 Abstract [facility] [address] [place] [address] Sonido Hurst MD from Last 3 Months Immunizations Immunization Administration Dates Next Due Influenza, Seasonal, Quadrivalent, Adjuvanted Family History Medical History Relation Name Comments Heart disease Father Diabetes Mother Sveta Heart disease Mother Sveta Glaucoma Neg Hx Macular degeneration Neg Hx Relation Name Status Comments Daughter 1 Alive Daughter 2 Alive Father Mother Sveta Son Alive Social History Tobacco Use Types Packs/Day Years Used Date Smoking Tobacco: Former Cigarettes Q uit: 2015 Smokeless Tobacco: Never Tobacco Cessation:Counseling Given: Not Answered Alcohol Use Standard Drinks/Week Comments Yes 0 (1 standard drink = 0.6 oz pur e alcohol) Comments Unknown Sex and Gender Information Value Date Recorded Sex Assigned at Not on file Legal Sex Female 6:35 PM EDT Gender Identity Not on file Sexual Orientation Not on file Last Filed Vital Signs Vital Sign Reading Time Taken Comments Blood Pressure 110/70 11/21/2024 10:20 AM EST Pulse 79 10/26/2024 3:02 PM EST Temperature - - Respiratory Rate 16 05/23/2024 2:55 PM EDT Oxygen Saturation - - Inhaled Oxygen Concentration - - Weight 82 kg (180 lb 12.8 oz) 11/21/2024 10:20 A M EST Height 172.7 cm (5' 8 ) 06/21/2024 9:34 AM EDT Body Mass Index 27.49 06/21/2024 9:34 AM EDT Plan of Treatment Upcoming Encounters Date Type Department Care Team (Late st Contact Info) Description 07/10/2025 1:00 PM EDT Office Visit [facility] [address] [place] [address] Jeff Ahn, [address] [place] [address] Health Maintenance Due Date Last Done Comments CT Colonography 1955 Colonoscopy 1955 Colorectal Cancer Screening 1955 FIT-DNA 1955 FIT 1955 FOBT 1955 Sigmoidoscopy 1955 Pneumococcal Vaccine: 65+ Ye ars (1 of 1 - PCV) 2005 Mammogram 03/30/2025 03/30/2024, 02/22, 09/30/2022, Additional history exists Influenza Vaccine (#1) 2025 09/06/2022 Procedures Procedure Name Priority Date/Time Associated Diagnosis Comments MM TOMOSYNTHESIS SCREENING BI 03/30/2024 1:41 PM EDT from Last 3 Months or Most Recently Relevant to Health Maintenance Results * MM TOMOSYNTHESIS SCREENING BI (03/30/2024 1:41 PM EDT) Anatomical Region Laterality Modality Other 03/30/2024 1:41 PM EDT Narrative 03/30/2024 1:42 PM EDT The [address] [address] Mammography Report Signed Patient: VENITA RICHTER MR#: [id number] : 1955 Acct:[id number] Age/Sex: 68 / F ADM Date: 03/27/24 Loc: MAMMO Attending Dr: Stephen Gunter D.O. Ordering Physician: Stephen Gunter D.O. Results: Date of Service: 03/27/24 Follow Up: Procedure(s): MM tomosynthesis screening BI Accession Number(s): [id number] cc: Stephen Gunter D.O.; LOURDES ROMERO Patient Name: VENITA RICHTER MR#: [id number] : 1955 Exam Date: 03/27/2024 Ordering Doctor: DR Stephen Gunter . RADIOLOGY REPORT PROCEDURE: MM TOMOSYNTHESIS SCREENING BI COMPARISON: MG MAMM SCREEN 3D ELLE CAD, 03/04/2023. MG MAMM SCREEN 3D ELLE CAD, 01/22/2021. MG MAMM SCREEN ELLE W CAD, 10/22/2017. MG MAMM ELLE SCRN W CAD DIG, 10/11/2014. INDICATIONS: Screening Calculator Name NCI Breast Cancer Risk Assessment Tool 5 Year Breast Cancer Risk 1.90% Lifetime Breast Cancer Risk 6.20% Personal Breast Cancer No Personal Ovarian Cancer No Treatments None Family Cancers Cousin-maternal with breast cancer at age 60. LOCATION: The [facility] BREAST COMPOSITION: The breasts are heterogeneously dense,which may obscure small masses. FINDINGS: DIAGNOSTIC [...] BIOPSIED. Dictated by: Levon Oneil M.D. on 03/30/2024 at 13:34 Approved by: Levon Oneil M.D. on 03/30/2024 at 13:41 Dictated By: Levon Oneil M.D. Signed By: 03/30/24 1342 DD/ 1341 TD/TT: Seo Executive: Procedure Note Radiology, Radiologist, MD - 03/30/2024 [place] [address] Mammography Report Signed Patient: VENITA RICHTER LMR#: [id number] : 5Acct:[id number] Age/Sex: 68 / FADM Date: 03/27/24 Loc: MAMMO Attending Dr: Stepehn Gunter D.O. Ordering Physician: Stephen Gunter D.O.Results: Date of Service: 03/27/24Follow Up: Procedure(s): MM tomosynthesis screening BI Accession Number(s): [id number] cc: Stpehen Gunter D.O.; LOURDES ROMERO Patient Name: VENITA RICHTER MR#: [id number] : 1955 Exam Date: 03/27/2024 Ordering Doctor: DR Stephen Gunter . RADIOLOGY REPORT PROCEDURE: MM TOMOSYNTHESIS SCREENING BI COMPARISON: MG MAMM SCREEN 3D ELLE CAD, 03/04/2023. MG MAMM SCREEN 3DBIL CAD, 01/22/2021. MG MAMM SCREEN ELLE W CAD, 10/22/2017. MG MAMM ELLE SCRN WCAD DIG, 10/11/2014. INDICATIONS: Screening Calculator Name NCI Breast Cancer Risk Assessment Tool 5 Year Breast Cancer Risk 1.90% Lifetime Breast Cancer Risk 6.20% Personal Breast Cancer No Personal Ovarian Cancer No Treatments None Family Cancers Cousin-maternal with breast cancer at age 60. LOCATION: The [facility] BREAST COMPOSITION: The breasts are heterogeneously dense,which may obscure small masses. FINDINGS: DIAGNOSTIC CATEGORY 1--NEGATIVE. RIGHT BREAST: No significant suspicious finding. No significant changehas occurred. LEFT BREAST: No significant suspicious finding. No significant changehas occurred. RECOMMENDATIONS: ROUTINE MAMMOGRAM AND CLINICAL EVALUATION IN 12 MONTHS. PLEASE NOTE: A NORMAL MAMMOGRAM DOES NOT EXCLUDE THE POSSIBILITY OFBREAST CANCER. A CLINICALLY SUSPICIOUS PALPABLE LUMP SHOULD BE BIOPSIED. Dictated by: Levon Oneil M.D. on 03/30/2024 at 13:34 Approved by: Levon Oneil M.D. on 03/30/2024 at 13:41 Dictated By: Levon Oneil M.D. Signed By:03/30/24 1342 DD/ 1341 TD/TT: Seo Executive: Stephen Gunter DO [facility] Final Result from Last 3 Months or Most Recently Relevant to Health Maintenance Insurance MEDICARE [facility] Care Teams Manager Willow Relationship Specialty Start Date End Date Lourdes Romero NP [address] [place], [place] [phone] Referring Physician Family Medicine 05/23/24 Adarsh Proctor DO [address] [address] Referring Physician Neurology 10/26/24
--- OUTSIDE RECORDS SUMMARY | 2025-05-21 13:00 | XMS_ITS | Encounter Summary ---
Author Organization [facility] Address [address] [place] [address] Phone Care Team Providers Care Agricultural Production Engineer Name Role Phone Lourdes Carter Vance SPREADER OPERATOR AUTOMATIC-EMS INSTRUCTOR Primary Care Provider [phone] Encounter Details Date Type Department Care Team (Late st Contact Info) Description 02/06/2025 Scanned Document [facility] [address] [place] [address] Scanning, Generic Provider Social History Tobacco Use Types Packs/Day Years Used Date Smoking Tobacco: Former Cigarettes Smokeless Tobacco: Never Alcohol Use Standard Drinks/Week Comments Never 0 (1 standard drink = 0.6 oz [...] Description 08/07/2025 11:10 AM EDT Office Visit [facility] [address] [facility] [address] [place] [address] Jose Powers MD [address] [facility] [address], [address] [place] [address] documented as of this encounter Procedures Procedure Name Priority Date/Time Associated Diagnosis Comments OUTSIDE LAB SCAN 02/06/2025 documented in this encounter Results * OUTSIDE LAB SCAN (02/06/2025) Narrative 02/06/2025 Ordered by an unspecified provider. us Generic Provider Scanning OUTSIDE SCAN Final Result documented in this encounter Visit Diagnoses Not on filedocumented in this encounter Additional Health Concerns Assessment Noted Time A fall risk assessment has been complete d for the patient 12/18/2024 1:25 PM EST documented as of this encounter Care Teams Agricultural Production Engineer Relationship Specialty Start Date End Date Lourdes Carter, SPREADER OPERATOR AUTOMATIC-EMS INSTRUCTOR [address] [place] [address] PCP - General 12/18/24 documented as of this encounter
--- OUTSIDE RECORDS SUMMARY | 2025-05-21 13:00 | XMS_ITS | Encounter Summary ---
Author Organization [facility] Address [address] [place] [address] Phone Care Team Providers Care Metal Drill Operator Name Role Phone Lourdes Carter Primary Care Provider [phone] Encounter Details Date Type Department Care Team (Late st Contact Info) Description 05/04/2024 Scanned Document [facility] [address] [place] [phone] Scanning, Generic Provider Social History Tobacco Use [...] Description 08/07/2025 11:10 AM EDT Office Visit [facility] [address] [facility] [address] [place] [address] Jose Powers MD [address] [facility] [address], [address] [place] [address] documented as of this encounter Visit Diagnoses Not on filedocumented in this encounter Care Teams Metal Drill Operator Relationship Specialty Start Date End Date Lourdes Carter APRN-CNP [address] [place] [address] PCP - General 12/18/24 documented as of this encounter
--- OUTSIDE RECORDS SUMMARY | 2025-05-21 13:00 | XMS_ITS | Encounter Summary ---
Author Organization [facility] Address [address] [facility] [place] [address] Care Team Providers Care Plant Guide Name Role Phone Lourdes Carter CORONARY CLINICAL SPECIALIST Unavailable Adarsh Proctor DO Unavailable [phone] Encounter Details Date Type Department Care Team ([facility] Contact Info) Description 10/19/2024 Abstract [facility] [address] [place] [address] Sonido Hurst MD Social History Tobacco Use [...] Upcoming Encounters Date Type Department Care Team ([facility] Contact Info) Description 07/10/2025 1:00 PM EDT Office Visit [facility] [address] [place] [phone] Jeff Ahn DO [address] [place] [address] documented as of this encounter Visit Diagnoses Not on filedocumented in this encounter Care Teams Plant Guide Relationship Specialty Start Date End Date Lourdes Carter NP [address] [place], [place] [phone] Referring Physician Family Medicine 05/23/24 Adarsh Proctor DO [address] [address] Referring Physician Neurology 10/26/24 documented as of this encounter
--- OUTSIDE RECORDS SUMMARY | 2025-05-21 13:00 | XMS_ITS | Encounter Summary ---
Author Organization [facility] Address [address] [facility] [place] [address] Care Team Providers Care Combat Information Center Officer Name Role Phone Lourdes Carter REGISTERED PHARMACY TECHNICIAN Unavailable Adarsh Proctor DO Unavailable [phone] Encounter Details Date Type Department Care Team (Late Contact Info) Description 12/04/2024 Orders Only [facility] [address] [facility] [place] [phone] Lamar Jaffe LPN [address] [facility] [id number] Social History Tobacco Use Types Packs/Day Years [...] Encounters Date Type Department Care Team (Late Contact Info) Description 07/10/2025 1:00 PM EDT Office Visit [facility] [address] [place] [address] Jeff Ahn DO [address] [place] [address] documented as of this encounter Procedures Procedure Name Priority Date/Time Associated Diagnosis Comments PAP SMEAR Routine 11/21/2024 12:00 AM EST documented in this encounter Results * Pap Smear (11/21/2024 12:00 AM EST) Swab Cervical swab / Unknown Lyric Nurse [facility] CYTOLOGY ORDERABLES Final Result EXTERNAL LAB documented in this encounter Visit Diagnoses Not on filedocumented in this encounter Care Teams Combat Information Center Officer Relationship Specialty Start Date End Date Lourdes Carter NP [address] [place] [phone] Referring Physician Family Medicine 05/23/24 Adarsh Proctor DO [address] [address] Referring Physician Neurology 10/26/24 documented as of this encounter
--- OUTSIDE RECORDS SUMMARY | 2025-05-21 13:00 | XMS_ITS | Encounter Summary ---
Author Organization [facility] Address [address] [place] [address] Phone Care Team Providers Care Musical Instrument Maker Or Repairer Name Role Phone Lourdes Carter Vance OPERATIONS SCHEDULER-MANAGER CLUB Primary Care Provider [phone] Encounter Details Date Type Department Care Team (Late st Contact Info) Description 03/07/2025 Scanned Document [facility] [address] [place] [address] Scanning, Generic Provider Social History [...] Description 08/07/2025 11:10 AM EDT Office Visit [facility] [address] [facility] [address] [place] [address] Jose Powers MD [address] [facility] [address] [place] [address] documented as of this encounter Procedures Procedure Name Priority Date/Time Associated Diagnosis Comments OUTSIDE LAB SCAN 03/07/2025 documented in this encounter Results * OUTSIDE LAB SCAN (03/07/2025) Narrative 03/07/2025 Ordered by an unspecified provider. us Generic Provider Scanning OUTSIDE SCAN Final Result documented in this encounter Visit Diagnoses Not on filedocumented in this encounter Additional Health Concerns Assessment Noted Time A fall risk assessment has been complete d for the patient 12/18/2024 1:25 PM EST documented as of this encounter Care Teams Musical Instrument Maker Or Repairer Relationship Specialty Start Date End Date Lourdes Carter, OPERATIONS SCHEDULER-MANAGER CLUB [address] [place] [address] PCP - General 12/18/24 documented as of this encounter
--- OUTSIDE RECORDS SUMMARY | 2025-05-21 13:00 | XMS_ITS | Clinical Summary ---
Author Organization [facility] Address [address] [place] [address] Phone Care Team Providers Care Substance Abuse Counselor Name Role Phone Lourdes Carter APRN-FURNACE CHECKER Primary Care Provider [phone] Allergies No known active allergies Medications phenytoin ER (Dilantin) 100 mg capsule 1 capsule (100 mg) 3 times a day. 9 Active atorvastatin (Lipitor) 10 mg tablet 1 tablet (10 mg) early in the morning.. 2 Active levothyroxine (Synthroid, Levoxyl) 100 mcg tablet 1 tablet (100 mcg) once daily in the morning. Take before meals. 9 Active aspirin 81 mg EC tablet Take 1 tablet (81 mg) by mouth once daily. Active alendronate (Fosamax) 35 mg tablet Take 1 tablet (35 mg) by mouth every 7 days. 3 Active potassium chloride CR 10 mEq ER tablet Take 1 tablet (10 mEq) by mouth once daily. 4 Active warfarin (Coumadin) 3 mg tablet 1 tablet (3 mg). Take as directed by [facility] Active magnesium oxide (Mag-Ox) 400 mg (241.3 mg magnesium) tablet Take 1 tablet (400 mg) by mouth early in the morning.. 4 Active bisoproloL-hydroc hlorothiazide (Ziac) 5-6.25 mg tablet Take 1 tablet by mouth once daily. Active losartan (Cozaar) 25 mg tabletIndications :Essential hypertension Take 1 tablet (25 mg) by mouth once daily. 90 tablet 3 5 12/22/19 26 Active Active Problems Problem Noted Date Diagnosed Date BMI 27.0-27.9,adult 12/18/2024 Former smoker 12/18/2024 Factor V Leiden (Multi) 12/18/2024 Acute deep vein thrombosis (DVT) of axillary vei n (Multi) 12/18/2024 Shortness of breath 12/18/2024 Mixed hyperlipidemia 12/18/2024 Essential hypertension 12/18/2024 PVC (premature ventricular contraction) 12/18/19 25 Congestive heart failure 05/03/2024 Encounters Date Type Department Care Team Description 03/07/2025 Scanned Document [facility] [address] [place] [address] Scanning, Generic Provider from Last 3 Months Immunizations Immunization Administration Dates Next Due Influenza, Seasonal, Quadrivalent, Adjuvanted Family History Medical History Relation Name Comments Prostate cancer Brother Heart attack Father Diabetes Mother Heart disease Mother Relation Name Status Comments Brother Father Mother Social History Tobacco Use Types Packs/Day Years Used Date Smoking Tobacco: Former Cigarettes Smokeless Tobacco: Never Tobacco Cessation:Counseling Given: Not Answered Alcohol Use Standard Drinks/Week Comments Never 0 (1 standard drink = 0.6 oz pur e alcohol) Comments Unknown Sex and Gender Information Value Date Recorded Sex Assigned at Not on file Legal Sex Female 2:02 PM EDT Gender Identity Not on file Sexual Orientation Not on file Last Filed Vital Signs Vital Sign Reading Time Taken Comments Blood Pressure 124/76 12/18/2024 1:25 PM EST Pulse 56 12/18/2024 1:24 PM EST Temperature - - Respiratory Rate - - Oxygen Saturation - - Inhaled Oxygen Concentration - - Weight 80.7 kg (178 lb) 12/18/2024 1:24 PM EST Height 170.2 cm (5' 7 ) 12/18/2024 1:24 PM EST Body Mass Index 27.88 12/18/2024 1:24 PM EST Plan of Treatment Upcoming Encounters Date Type Department Care Team (Late st Contact Info) Description 08/07/2025 11:10 AM EDT Office Visit [facility] [address] [facility] [address] [place] [address] Jose Powers MD [address] [place] [address] Health Maintenance Due Date Last Done Comments CT Colonography 1955 Creatinine Level 1955 FIT-DNA (Cologuard) 1955 FIT 1955 Lipid Panel 1955 Medicare Annual Wellness Vis it (AWV) 1955 Potassium Level 1955 Sigmoidoscopy 1955 Diabetes Screening 1973 Hepatitis C Screening 1973 Pneumococcal Vaccine (1 of 2 - PCV) 1974 DTaP/Tdap/Td Vaccines (1 - Tdap) 1977 Zoster Vaccines (1 of 2) 2005 RSV High Risk: (Elderly (60+ ) or Population) (1 - Risk 60-74 years 1-dose series) 2015 Mammogram 03/04/2024 03/04/2023, 01/22/2021 COVID-19 Vaccine (2 - 2023-2 5 season) 2024 09/06/2022 Echocardiogram 05/03/2025 05/03/2024 Influenza Vaccine (#1) 2025 09/06/2022 Colonoscopy 05/24/2029 05/24/2019 Colorectal Cancer Screening 05/24/2029 Bone Density Scan Completed 03/03/2023, 09/30/2022 HIB Vaccines Aged Out No longer eligi ble based on patient's age to complete this topic HPV Vaccines Aged Out No longer eligi ble based on patient's age to complete this topic Hepatitis A Vaccines Aged Out No long er eligible based on patient's age to complete this topic Hepatitis B Vaccines Aged Out No long er eligible based on patient's age to complete this topic IPV Vaccines Aged Out No longer eligi ble based on patient's age to complete this topic Meningococcal Vaccine Aged Out No nimisha camila eligible based on patient's age to complete this topic Rotavirus Vaccines Aged Out No longer eligible based on patient's age to complete this topic Procedures Procedure Name Priority Date/Time Associated Diagnosis Comments OUTSIDE LAB SCAN 03/07/2025 ECHOCARDIOGRAM 05/03/2024 from Last 3 Months or Most Recently Relevant to Health Maintenance Results * OUTSIDE LAB SCAN (03/07/2025) Narrative 03/07/2025 Ordered by an unspecified provider. us Generic Provider Scanning OUTSIDE SCAN Final Result * Echocardiogram (05/03/2024) Narrative 05/03/2024 Ordered by an unspecified provider. us Generic Provider Scanning CV ECHO PROCEDURES Fin al Result from Last 3 Months or Most Recently Relevant to Health Maintenance Insurance [facility] MEDICARE PART A AND B AARP Care Teams Substance Abuse Counselor Relationship Specialty Start Date End Date Lourdes Carter, HOURLY SALES STAFF-FURNACE CHECKER [address] [place] [address] PCP - General 12/18/24
--- OUTSIDE RECORDS SUMMARY | 2025-05-21 13:01 | XMS_ITS | Encounter Summary ---
Author Organization [facility] Address [address] [place] [address] Phone Care Team Providers Care Ground Crewman Name Role Phone Lourdes Carter Vance PUBLIC HEALTH INFORMATICIAN-MACHINE CLOTHING REPLACER Primary Care Provider [phone] Encounter Details Date Type Department Care Team (Late st Contact Info) Description 01/09/2025 Scanned Document [facility] [address] [place] [address] Scanning, Generic Provider Social History [...] on file Sexual Orientation Not on file COVID-19 Exposure Response Date Recorded In the last 10 days, have yo u been in contact with someone who was confirmed or suspected to have Coronavirus/COVID-19? No / Unsure 12/18/2024 1:03 PM EST documented as of this encounter Plan of Treatment Upcoming Encounters Date Type Department Care Team (Late st Contact Info) Description 08/07/2025 11:10 AM EDT Office Visit [facility] [address] [facility] [address] [place] [address] Jose Powers MD [address] [facility] [address], [address] [place], [place] [id number] documented as of this encounter Procedures Procedure Name Priority Date/Time Associated Diagnosis Comments OUTSIDE LAB SCAN 01/09/2025 documented in this encounter Results * OUTSIDE LAB SCAN (01/09/2025) Narrative 01/09/2025 Ordered by an unspecified provider. us Generic Provider Scanning OUTSIDE SCAN Final Result documented in this encounter Visit Diagnoses Not on filedocumented in this encounter Additional Health Concerns Assessment Noted Time A fall risk assessment has been complete d for the patient 12/18/2024 1:25 PM EST documented as of this encounter Care Teams Ground Crewman Relationship Specialty Start Date End Date Lourdes Carter, PUBLIC HEALTH INFORMATICIAN-MACHINE CLOTHING REPLACER [address] [place] [address] PCP - General 12/18/24 documented as of this encounter
--- OUTSIDE RECORDS SUMMARY | 2025-05-21 13:01 | XMS_ITS | Encounter Summary ---
Author Organization [facility] Address [address] [place] [address] Phone Care Team Providers Care Shirt Cleaner Name Role Phone Emma, LourdesSheri COLLINSN-CUPOLA OPERATOR Primary Care Provider [phone] [phone] Encounter Details Date Type Department Care Team (Late st Contact Info) Description 05/03/2024 Scanned Document [facility] [address] [place] [address] Scanning, Generic Provider Social History Tobacco Use [...] Description 08/07/2025 11:10 AM EDT Office Visit [facility] [address] [facility] [address] [place] [address] Jose Powers MD [address] [facility] [address], [address] [place], [place] [id number] documented as of this encounter Procedures Procedure Name Priority Date/Time Associated Diagnosis Comments ECHOCARDIOGRAM 05/03/2024 documented in this encounter Results * Echocardiogram (05/03/2024) Narrative 05/03/2024 Ordered by an unspecified provider. Generic Provider Scanning CV ECHO PROCEDURES Fin al Result documented in this encounter Visit Diagnoses Not on filedocumented in this encounter Care Teams Shirt Cleaner Relationship Specialty Start Date End Date Lourdes Carter, OXYGEN EQUIPMENT AIDE-CUPOLA [place]PERATOR [place] [address] PCP - General 12/18/24 documented as of this encounter
--- OUTSIDE RECORDS SUMMARY | 2025-05-21 13:01 | XMS_ITS | Encounter Summary ---
Author Organization [facility] Address [address] [place] [address] Phone Care Team Providers Care Hall Worker Name Role Phone Lourdes Carter Vance FORWARDER OPERATOR-OPERATIONS EXPERT Primary Care Provider [phone] [phone] Encounter Details Date Type Department Care Team (Late st Contact Info) Description 12/26/2024 Scanned Document [facility] [address] [place] [address] Scanning, Generic Provider Social History [...] Description 08/07/2025 11:10 AM EDT Office Visit [facility] [address] [facility] [address] [place] [address] Jose Powers MD [address] [facility] [address], [address] [place], [place] [phone] documented as of this encounter Procedures Procedure Name Priority Date/Time Associated Diagnosis Comments OUTSIDE LAB SCAN 12/26/2024 documented in this encounter Results * OUTSIDE LAB SCAN (12/26/2024) Narrative 12/26/2024 Ordered by an unspecified provider. us Generic Provider Scanning OUTSIDE SCAN Final Result documented in this encounter Visit Diagnoses Not on filedocumented in this encounter Additional Health Concerns Assessment Noted Time A fall risk assessment has been complete d for the patient 12/18/2024 1:25 PM EST documented as of this encounter Care Teams Hall Worker Relationship Specialty Start Date End Date Lourdes Carter, FORWARDER OPERATOR-OPERATIONS EXPERT [address] [place] [address] PCP - General 12/18/24 documented as of this encounter
--- NOTE | 2025-05-21 13:04 | CT_ITS ---
The [address] [address] Patient Name: DOMINGA BENNETT MRN: [id number] date: 1955 Sex: F Assigned Patient Location: [facility] Current Patient Location: [facility] Accession/Order Number: [id number] Exam Date: 05/21/2025 20:53 Report Date: 05/21/2025 20:55 At the request of: DELMA ROMERO Procedure: CT lung screening low-dose CT CHEST WITHOUT CONTRAST, LOW DOSE SCREENING: CLINICAL DATA: A 69-year old former smoker, smoking for 42 pack-years. COMPARISON: CT lung screen 04/04/2024 TECHNIQUE: Noncontrast axial CT scan images of the chest were obtained under the low dose screening CT protocol. Coronal and sagittal reconstructed images were also submitted. FINDINGS: Mediastinum : Suboptimal evaluation due to low-dose technique. Thoracic aorta appears normal in caliber. Pulmonary trunk appears nondilated. No pericardial effusion. No lymphadenopathy. The esophagus is grossly unremarkable. Lungs: No focal consolidation, pneumothorax or pleural effusion. Trachea and distal airways appear patent. Mild lung scarring. No suspicious noncalcified pulmonary nodule or mass. Upper abdomen: No acute findings. Bony thorax and chest wall: Soft tissues surrounding the chest wall demonstrate no acute findings. Osseous structures demonstrate degenerative change. CT/CT lung screening low-dose IMPRESSION: NO SUSPICIOUS PULMONARY NODULE. LUNG - RADS Version 1.0 Assessment: Category 1, Negative (No nodules and definitely benign nodules). Management: Continue annual lung screening with LDCT in 12 months. Impression dictated by: Kosta Yuen Jr., D.O. 05/21/2025 8:55 PM Dictation Location: [place] [address] Electronically authenticated by: [id number] Y Date: 05/21/2025 20:55
--- NOTE | 2025-05-21 13:04 | MM_ITS ---
Patient Name: DOMINGA BENNETT MR#: [id number] : 1955 Exam Date: 05/21/2025 Ordering Doctor: DELMA ROMERO . RADIOLOGY REPORT PROCEDURE: MM TOMOSYNTHESIS SCREENING BI COMPARISON: MM TOMOSYNTHESIS SCREENING BI, 03/27/2024. MG MAMM SCREEN 3D [place] CAD, 03/04/2023. MG MAMM SCREEN 3D [place] CAD, 01/22/2021. MG MAMM [place] SCRN W CAD DIG, 10/11/2014. INDICATIONS: Screening for malignant neoplasm Calculator Name NCI Breast Cancer Risk Assessment Tool 5 Year Breast Cancer Risk 1.90% Lifetime Breast Cancer Risk 5.90% Personal Breast Cancer No Personal Ovarian Cancer No Treatments None Family Cancers Cousin-maternal with breast cancer at age ~60. LOCATION: [facility] BREAST COMPOSITION: The breasts are heterogeneously dense, which may obscure small masses. FINDINGS: RIGHT BREAST: No significant suspicious finding. LEFT BREAST: No significant suspicious finding. DIAGNOSTIC CATEGORY 1--NEGATIVE. RECOMMENDATIONS: ROUTINE MAMMOGRAM AND CLINICAL EVALUATION IN 12 MONTHS. PLEASE NOTE: A NORMAL MAMMOGRAM DOES NOT EXCLUDE THE POSSIBILITY OF BREAST CANCER. A CLINICALLY SUSPICIOUS PALPABLE LUMP SHOULD BE BIOPSIED. Dictated by: Anibal Balbuena MD on 05/21/2025 at 15:44 Approved by: Anibal Balbuena MD on 05/21/2025 at 15:51
== END 2025-05-21 12:59 | disposition home or self-care (01) ==
LOC: MAMMO 12:58
PROVIDERS: PCP Nurse Practitioner; Visit Provider Nurse Practitioner
DX: Z12.31 Encounter for screening mammogram for malignant neoplasm of breast (principal); E28.39 Other primary ovarian failure; Z87.891 Personal history of nicotine dependence; Z80.3 Family history of malignant neoplasm of breast
CPT/HCPCS: 71271; 77063; 77067; 77080

== ENCOUNTER 2025-05-25 01:33 | Outpatient (RCR) | payer MEDICARE, SELFPAY | END 2025-06-21 12:45 | disposition home or self-care (01) | LOC: MM 01:33 | PROVIDERS: PCP Nurse Practitioner; Visit Provider Internal Medicine | DX: Z51.81 Encounter for therapeutic drug level monitoring (principal); Z79.01 Long term (current) use of anticoagulants; D68.61 Antiphospholipid syndrome | CPT/HCPCS: 85610; G0463 ==

== ENCOUNTER 2025-06-25 00:28 | Outpatient (RCR) | payer MEDICARE, SELFPAY | END 2025-07-24 15:12 | disposition home or self-care (01) | LOC: MM 00:28 | PROVIDERS: PCP Nurse Practitioner; Visit Provider Internal Medicine | DX: Z51.81 Encounter for therapeutic drug level monitoring (principal); Z79.01 Long term (current) use of anticoagulants; D68.61 Antiphospholipid syndrome | CPT/HCPCS: 85610; G0463 ==

== ENCOUNTER 2025-07-25 01:22 | Outpatient (RCR) | payer MEDICARE, SELFPAY | END 2025-08-24 23:59 | disposition home or self-care (01) | LOC: MM 01:22 | PROVIDERS: PCP Nurse Practitioner; Visit Provider Internal Medicine | DX: Z51.81 Encounter for therapeutic drug level monitoring (principal); Z79.01 Long term (current) use of anticoagulants | CPT/HCPCS: 85610; G0463 ==

== ENCOUNTER 2025-08-25 | Outpatient (RCR) | payer MEDICARE, SELFPAY | END 2025-09-23 23:59 | disposition home or self-care (01) | LOC: MM | PROVIDERS: PCP Nurse Practitioner; Visit Provider Internal Medicine | DX: Z51.81 Encounter for therapeutic drug level monitoring (principal); Z79.01 Long term (current) use of anticoagulants; D68.61 Antiphospholipid syndrome | CPT/HCPCS: 85610; G0463 ==

== ENCOUNTER 2025-10-24 13:22 | Outpatient (RCR) | payer MEDICARE, SELFPAY | END 2025-10-24 13:23 | disposition home or self-care (01) | LOC: MM 13:22 | PROVIDERS: PCP Nurse Practitioner; Visit Provider Internal Medicine | DX: Z51.81 Encounter for therapeutic drug level monitoring (principal); Z79.01 Long term (current) use of anticoagulants; D68.61 Antiphospholipid syndrome | CPT/HCPCS: 85610; G0463 ==